=== PATIENT | female | born 1945 | race African-American/Black ===

== ENCOUNTER 2017-08-06 11:48 | Emergency (ER) | payer OTHER ==
[~2017-08-06 11:48] MED LIST: DEXA4TAB PO; KLOR20TA6 PO; PHOSTAB2; POMALYST PO; REST0.05 OU; VALT500T PO; VENTAER INH
[2017-08-06] MEDS ORDERED: SODIUM CHLOR 0.9% 1000 ML INJ 1,000 ML IV SCH (13:11)
--- NOTE | 2017-08-06 13:14 | PD ---
HPI Chief Complaint: Allergic/Adverse Reaction Time Seen by Provider: 13:11 Travel History International Travel<30 days: No Contact w/Intl Traveler<30days: No History of Present Illness HPI 71-year-old female with PMH of multiple myeloma presents to ED via EMS for possible medication reaction. Patient states that she was at the oncology center, receiving an unknown chemotherapy agent for the first time. She states about 5 minutes after initiation of the infusion she began to have central chest pain, palpitations, shortness of breath and increased tearing of the eyes. Pain is described as a heaviness, improved but not resolved on presentation. She denies breathing difficulties, difficulty swallowing her own secretions, wheezing, nausea or vomiting. She received Decadron en route and states that she is currently feeling well. 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) Cardiovascular Problems: No Diminished Hearing: No Endocrine: No Gastrointestinal Disorders: Yes GERD: Yes Genitourinary: No Hiatal Hernia: Yes (POSSIBLE) Immune Disorder: No Musculoskeletal: Yes Neurologic: Yes Psychiatric: No Reproductive: No Respiratory: No Immunizations Current: No Migraines: Yes (HX) Menopausal: Yes Past Surgical History Appendectomy: Yes Gynecologic Surgery: Yes (HYSTERECTOMY AND APPENDECTOMY) Hysterectomy: Yes Other Surgery: Yes Social History Alcohol Use: No Tobacco Use: No Substance Use: No Allergies-Medications (Allergen,Severity, Reaction): Coded Allergies: No Known Allergies (Verified , 07/01/15) Reported Meds & Prescriptions Reported Meds & Active Scripts Active Ventolin Hfa (Albuterol Sulfate) 18 Gm Aero 2 Puff INH Q4H PRN * SHAKE WELL BEFORE USE * Reported [Pomalyst] 2 Mg PO DIRECTED Restasis (Cyclosporine) 0.05 % Emu 1 Drop OU Dexamethasone 4 mg (Dexamethasone) 4 Mg Tab 5 Mg PO DAILY Phospha 250 Neutral (Pot Phosphate Monobasic W/ Sod) Neutral Tab Valtrex (Valacyclovir HCl) 500 Mg Tab 500 Mg PO EVERY OTHER DAY Klor-Con M20 (Potassium Chloride Microencaps) 20 Meq Tab 20 Meq PO BID Review of Systems ROS Limitations: Other: (patient seen in ambulance all) Except as stated in HPI: all other systems reviewed are Neg Physical Exam Exam Limitations: Other: (patient seen in ambulance all, limited due to privacy concerns.) Narrative GENERAL: Well-nourished, well-developed AA female in no acute distress. Speaking in full sentences. Her work of breathing. SKIN: Warm and dry. HEAD: Normocephalic. Atraumatic. EYES: No scleral icterus. No injection or drainage. PERRLA. EOMI. ENT: Pearly nicole tympanic membranes bilaterally. Nasal mucosa is moist. Oropharynx without erythema, edema or exudate. Airway patent. Uvula midline. NECK: Supple, trachea midline. No JVD or lymphadenopathy. CARDIOVASCULAR: Regular rate and rhythm without murmurs, gallops, or rubs. RESPIRATORY: Breath sounds clear and equal bilaterally. No accessory muscle use. GASTROINTESTINAL: Abdomen soft, non-tender, nondistended. + Bowel sounds MUSCULOSKELETAL: No cyanosis, or edema. Moves extremities spontaneously. BACK: Nontender without obvious deformity. No CVA tenderness. Data Data Last Documented VS Vital Signs Date Time Temp Pulse Resp B/P (MAP) Pulse Ox O2 Delivery O2 Flow Rate FiO2 08/06/17 16:38 64 18 119/64 (82) 98 08/06/17 14:24 Room Air 08/06/17 13:20 97.9 Orders Orders Ecg Monitoring (08/06/17 13:02) Iv Access Insert/Monitor (08/06/17 13:02) Oximetry (08/06/17 13:02) Basic Metabolic Panel (Bmp) (08/06/17 13:11) Complete Blood Count With Diff (08/06/17 13:11) Sodium Chlor 0.9% 1000 Ml Inj (Ns 1000 M (08/06/17 13:11) Sodium Chloride 0.9% Flush (Ns Flush) (08/06/17 13:15) Electrocardiogram (08/06/17 ) Chest, Single Ap (08/06/17 ) Troponin I (08/06/17 13:14) Protein Corrected Calcium(Pcc) (08/06/17 13:55) Calcium Carbonate Chew (Tums Chew) (08/06/17 16:00) Ed Discharge Order (08/06/17 16:31) Labs Laboratory Tests Test 08/06/17 13:55 White Blood Count 0.5 TH/MM3 Red Blood Count 3.17 MIL/MM3 Hemoglobin 10.0 GM/DL Hematocrit 28.6 % Mean Corpuscular Volume 90.1 FL Mean Corpuscular Hemoglobin 31.4 PG Mean Corpuscular Hemoglobin Concent 34.9 % Red Cell Distribution Width 17.5 % Platelet Count 162 TH/MM3 Mean Platelet Volume 7.4 FL CBC Comment AUTO DIFF Differential Total Cells Counted 100 Neutrophils % (Manual) 80 % Band Neutrophils % 5 % Lymphocytes % 9 % Monocytes % 6 % Neutrophils # (Manual) 0.4 TH/MM3 Differential Comment FINAL DIFF MANUAL Platelet Estimate NORMAL Platelet Morphology Comment ENLARGED Ovalocytes 1+ Blood Urea Nitrogen 21 MG/DL Creatinine 1.35 MG/DL Random Glucose 120 MG/DL Total Protein 5.4 GM/DL Calcium Level 7.2 MG/DL Sodium Level 142 MEQ/L Potassium Level 3.5 MEQ/L Chloride Level 112 MEQ/L Carbon Dioxide Level 23.9 MEQ/L Anion Gap 6 MEQ/L Estimat Glomerular Filtration Rate 47 ML/MIN Protein Corrected Calcium 8.1 MG/DL Troponin I LESS THAN 0.02 NG/ML MDM Medical Decision Making Medical Screen Exam Complete: Yes Emergency Medical Condition: Yes Differential Diagnosis Medication side effect versus allergic reaction versus anaphylaxis versus other Narrative Course 71-year-old female with PMH of multiple myeloma presents to ED via EMS for possible medication reaction. Patient states that she was at the oncology center, receiving an unknown chemotherapy agent for the first time. She states about 5 minutes after initiation of the infusion she began to have central chest pain, palpitations, shortness of breath and increased tearing of the eyes. Pain is described as a heaviness, improved but not resolved on presentation. She received Decadron en route and states that she is currently feeling well. Vitals reviewed. On exam this is a pleasant -[place] female in no acute distress. ENT exam is unremarkable. Airway patent. No appreciable N/R/G. Chest CTAB. Abdomen soft and nontender. No lower extremity edema. EKG revealed 59, sinus bradycardia. W[place] interval 150, QRS 76, QTC 406. Normal axis. No acute ST changes. Reviewed by Dr. Kearns. CXR: No acute cardiopulmonary findings. Cardiac enzymes negative 1. No concerning abnormalities of the CBC. BUN 21 creatinine 1.35. Baseline per chart review. Protein corrected calcium 8.1. Patient was administered 1 g calcium chew. Discussed the results of the workup with the patient and her daughter. I feel that she is safe for discharge. They're requesting to go home. Patient is instructed to discuss future medication administration with her oncologist. She is stable and discharged home. Diagnosis Primary Impression: Medication reaction Qualified Codes: T88.7XXA - Unspecified adverse effect of drug or medicament, initial encounter Additional Impression: Hypocalcemia Referrals: Oncologist Primary Care Physician Patient Instructions: General Instructions, Hypocalcemia (ED) Additional Instructions: Rest, hydrate. Return to normal, gentle activity as tolerated. Eat a well balanced, varied diet. Follow up with your oncologist to discuss whether this medication is appropriate for you. Return to the ED for worsening symptoms or any urgent or emergent medical condition. Disposition: 01 DISCHARGE HOME Condition: Stable Nani Cruz Aug 06, 2017 13:14
[2017-08-06] MEDS ORDERED: SODIUM CHLORIDE 0.9% FLUSH 10 ML FLUSH IV FLUSH PRN (13:15)
[2017-08-06 13:20] VITALS: BP 124/63; PULSE 62; RESP 16; TEMP 97.9; O2SAT 100
[2017-08-06 14:12] LABS: HEMATOCRIT 28.6 % (35.0-46.0); MEAN CELL VOLUME 90.1 FL (80.0-100.0); MEAN CORPUSCULAR HEMOGLOBIN 31.4 PG (27.0-34.0); MEAN CORPUSCULAR HGB CONC 34.9 % (32.0-36.0); MEAN PLATELET VOLUME 7.4 FL (7.0-11.0); PLATELET COUNT 162 TH/MM3 (150-450); RED BLOOD COUNT 3.17 MIL/MM3 (4.00-5.30); RED CELL DISTRIBUTION WIDTH 17.5 % (11.6-17.2); WHITE BLOOD COUNT 0.5 TH/MM3 (4.0-11.0)
[2017-08-06 14:24] VITALS: O2SAT 98
[2017-08-06 14:36] LABS: BICARBONATE 23.9 MEQ/L (21.0-32.0); CALCIUM 7.2 MG/DL (8.5-10.1); CREATININE 1.35 MG/DL (0.50-1.00)
--- NOTE | 2017-08-06 14:36 | RADRPT ---
EXAM DATE/TIME: 08/06/2017 13:43 [facility] COMPARISON: No previous studies available for comparison. INDICATIONS : Short of breath. Patient had a reaction to new chemotherapy treatment. MEDICAL HISTORY : Gastroesophageal reflux disease. Multiple myloma. SURGICAL HISTORY : Appendectomy. Hysterectomy. Infusaport. ENCOUNTER: Initial ACUITY: 1 day PAIN SCORE: 0/10 LOCATION: Bilateral chest FINDINGS: The heart is normal in size. The lungs are clear. There is [id number] in excellent position. The visualized bony structures are grossly intact Within previous kyphoplasty of the lower spine. CONCLUSION: 1. No acute cardiopulmonary findings identified. Jose Little MD on August 06, 2017 at 14:22 Board Certified Radiologist. This report was verified electronically.
[2017-08-06 15:20] LABS: CALCIUM-PROTEIN CORRECTED 8.1 MG/DL (8.5-10.1); TOTAL PROTEIN 5.4 GM/DL (6.4-8.2)
[2017-08-06] MEDS ORDERED: CALCIUM CARBONATE 500 MG CHEWABLE TAB CHEW ONE (16:00)
[2017-08-06 16:21] LABS: BANDS 5 % (0-6); LYMPHOCYTES 9 % (9-44); MONOCYTES 6 % (0-8); NEUTROPHIL # MANUAL DIFF 0.4 TH/MM3 (1.8-7.7); POLYS (SEG NEUTROPHILS) 80 % (16-70)
[2017-08-06 16:24] LABS: OVALOCYTES 1+ (NORMAL)
[2017-08-06 16:38] VITALS: BP 119/64
--- NOTE | 2017-08-07 23:48 | EKG ---
Date Performed: 08/06/2017 Time Performed: 13:25:25 PTAGE: 71 years EKG: SINUS BRADYCARDIA NONSPECIFIC T-WAVE ABNORMALITY BORDERLINE ECG PREVIOUS TRACING : 05/21/2013 21.00 Since the previous tracing, no significant change noted DOCTOR: Anton Payne Interpretating Date/Time 08/07/2017 23:45:33
== END 2017-08-06 17:07 | disposition home or self-care (01) ==
LOC: NEDAMB 11:48
DX: T88.7XXA Unspecified adverse effect of drug or medicament, initial encounter (principal); E83.51 Hypocalcemia; R06.02 Shortness of breath; R00.2 Palpitations; C90.00 Multiple myeloma not having achieved remission; D64.9 Anemia, unspecified; K21.9 Gastro-esophageal reflux disease without esophagitis
CPT/HCPCS: 71045; 80048; 84155; 84484; 85007; 85027; 93005; 96360; 99284; J7030

== ENCOUNTER 2017-11-07 10:43 | Emergency (ER) | payer OTHER ==
[2017-11-07 10:58] VITALS: BP 115/63; PULSE 96; RESP 17; TEMP 98.3; O2SAT 96
[2017-11-07] MEDS ORDERED: SODIUM CHLOR 0.9% 1000 ML INJ 1,000 ML IV SCH (11:10)
[2017-11-07] MEDS ORDERED: SODIUM CHLORIDE 0.9% FLUSH 10 ML FLUSH IV FLUSH PRN (11:15)
--- NOTE | 2017-11-07 11:39 | PD ---
HPI Chief Complaint: General Weakness Time Seen by Provider: 11:09 Travel History International Travel<30 days: No Contact w/Intl Traveler<30days: No Traveled to known affect area: No History of Present Illness HPI 72-year-old female with PMH of multiple myeloma, last chemo (Velcade, daratumumab and Zometa) on October 31, followed by Dr. Vianey Arvizu presents to the ED for evaluation of fatigue, low appetite and ongoing lower extremity edema. Patient denies nausea and vomiting, states that "food just does not taste good. " She states that her chronic back pain has been "acting up." Pain is rated 9/ 10, described as aching, exacerbated by certain motions. No alleviating factors reported. The patient states she has been out of tramadol for 4 days. She endorses chills. She endorses dyspnea on exertion, ongoing since beginning chemotherapy. Denies fever, chest pain, cough, abdominal pain, melena, hematochezia, constipation, dysuria, hematuria. She states she has had well- formed stools daily. PFSH Past Medical History Anemia: Yes Arthritis: Yes Blood Disorders: No Cancer: Yes (BONE [id number] MARROW TRANSPLANT 03/2010) Cardiovascular Problems: No Chemotherapy: Yes Diminished Hearing: No Endocrine: No Gastrointestinal Disorders: Yes GERD: Yes Genitourinary: No Hiatal Hernia: Yes (POSSIBLE) Immune Disorder: No Implanted Vascular Access Dvce: No Musculoskeletal: Yes Neurologic: Yes Psychiatric: No Reproductive: No Respiratory: No Immunizations Current: No Migraines: Yes (HX) Menopausal: Yes Past Surgical History Appendectomy: Yes Gynecologic Surgery: Yes (HYSTERECTOMY AND APPENDECTOMY) Hysterectomy: Yes Other Surgery: Yes Social History Alcohol Use: No Tobacco Use: No Substance Use: No Allergies-Medications (Allergen,Severity, Reaction): Coded Allergies: Penicillins (Verified Allergy, Intermediate, Hives, 11/07/17) Reported Meds & Prescriptions Reported Meds & Active Scripts Active Tramadol (Tramadol HCl) 50 Mg Tab 50 Mg PO Q6H PRN Zofran Odt (Ondansetron Odt) 4 Mg Tab 4 Mg SL Q6HR PRN Reported Bumetanide 1 Mg Tab 1 Mg PO BID Mucus Relief ER (Guaifenesin) 600 Mg Tab 600 Mg PO BID Lasix (Furosemide) 20 Mg Tab 20 Mg PO DAILY Zovirax (Acyclovir) 400 Mg Tab 400 Mg PO BID [Pomalyst] 2 Mg PO DIRECTED Review of Systems Except as stated in HPI: all other systems reviewed are Neg Physical Exam Narrative GENERAL: Well-nourished, well-developed nontoxic-appearing -[place]i female in no acute distress. T. SKIN: Focused skin assessment warm/dry. HEAD: Normocephalic. EYES: No scleral icterus. No injection or drainage. NECK: Supple, trachea midline. No JVD or lymphadenopathy. CARDIOVASCULAR: Regular rate and rhythm without murmurs, gallops, or rubs. RESPIRATORY: Breath sounds clear and equal bilaterally. No accessory muscle use. GASTROINTESTINAL: Abdomen soft, non-tender, nondistended. Active bowel sounds. MUSCULOSKELETAL: No cyanosis. 1+ edema to the knees bilaterally. Hohmann sign negative bilaterally. Moves extremities spontaneously. BACK: No obvious deformity. No midline tenderness. No CVA tenderness. Data Data Last Documented VS Vital Signs Date Time Temp Pulse Resp B/P (MAP) Pulse Ox O2 Delivery O2 Flow Rate FiO2 11/07/17 11:45 89 18 99/73 (82) 99 Room Air 11/07/17 10:58 98.3 Orders Orders Complete Blood Count With Diff (11/07/17 11:10) Comprehensive Metabolic Panel (11/07/17 11:10) Prothrombin Time / Inr (Pt) (11/07/17 11:10) Act Partial Throm Time (Ptt) (11/07/17 11:10) Urinalysis - C+S If Indicated (11/07/17 11:10) Iv Access Insert/Monitor (11/07/17 11:10) Ecg Monitoring (11/07/17 11:10) Oximetry (11/07/17 11:10) Sodium Chlor 0.9% 1000 Ml Inj (Ns 1000 M (11/07/17 11:10) Sodium Chloride 0.9% Flush (Ns Flush) (11/07/17 11:15) Tramadol (Ultram) (11/07/17 12:15) Ed Discharge Order (11/07/17 15:13) Labs Laboratory Tests Test 11/07/17 12:00 11/07/17 12:26 Urine Color YELLOW Urine Turbidity HAZY Urine pH 7.0 Urine Specific Crawford 1.018 Urine Protein >=500 mg/dL Urine Glucose (UA) 150 mg/dL Urine Ketones NEG mg/dL Urine Occult Blood NEG Urine Nitrite NEG Urine Bilirubin NEG Urine Leukocyte Esterase NEG Urine RBC LESS THAN 1 /hpf Urine WBC 2 /hpf Urine Squamous Epithelial Cells 1 /hpf Urine Bacteria OCC /hpf Urine Hyaline Casts 6 /lpf Urine Mucus FEW /lpf Microscopic Urinalysis Comment CULT NOT INDICATED White Blood Count 4.1 TH/MM3 Red Blood Count 3.90 MIL/MM3 Hemoglobin 11.7 GM/DL Hematocrit 35.3 % Mean Corpuscular Volume 90.6 FL Mean Corpuscular Hemoglobin 29.9 PG Mean Corpuscular Hemoglobin Concent 33.0 % Red Cell Distribution Width 18.5 % Platelet Count 99 TH/MM3 Mean Platelet Volume 8.1 FL Neutrophils (%) (Auto) 14.8 % Lymphocytes (%) (Auto) 59.6 % Monocytes (%) (Auto) 24.3 % Eosinophils (%) (Auto) 0.4 % Basophils (%) (Auto) 0.9 % Neutrophils # (Auto) 0.6 TH/MM3 Lymphocytes # (Auto) 2.4 TH/MM3 Monocytes # (Auto) 1.0 TH/MM3 Eosinophils # (Auto) 0.0 TH/MM3 Basophils # (Auto) 0.0 TH/MM3 CBC Comment AUTO DIFF Differential Total Cells Counted 100 Neutrophils % (Manual) 17 % Lymphocytes % 74 % Monocytes % 9 % Neutrophils # (Manual) 0.7 TH/MM3 Nucleated Red Blood Cells 5 /100 WBC Differential Comment FINAL DIFF MANUAL Platelet Estimate LOW Platelet Morphology Comment NORMAL Prothrombin Time 12.3 SEC Prothromb Time International Ratio 1.2 RATIO Activated Partial Thromboplast Time 29.8 SEC Blood Urea Nitrogen 18 MG/DL Creatinine 2.30 MG/DL Random Glucose 93 MG/DL Total Protein 5.6 GM/DL Albumin 0.7 GM/DL Calcium Level 7.5 MG/DL Alkaline Phosphatase 33 U/L Aspartate Amino Transf (AST/SGOT) 45 U/L Alanine Aminotransferase (ALT/SGPT) 13 U/L Total Bilirubin 0.1 MG/DL Sodium Level 138 MEQ/L Potassium Level 3.2 MEQ/L Chloride Level 105 MEQ/L Carbon Dioxide Level 21.5 MEQ/L Anion Gap 12 MEQ/L Estimat Glomerular Filtration Rate 25 ML/MIN [facility] Medical Decision Making Medical Screen Exam Complete: Yes Emergency Medical Condition: Yes Differential Diagnosis Chemotherapy side effect versus dehydration versus acute on chronic back pain versus metabolic derangement versus other Narrative Course 72-year-old female with PMH of multiple myeloma, last chemo (Velcade, daratumumab and Zometa) on October 31, followed by Dr. Vianey Arvizu presents to the ED for evaluation of fatigue, low appetite, back pain. The patient states she has been out of tramadol for 4 days. Patient is afebrile on presentation. On exam there are no focal neuro deficits. Lung sounds are clear bilaterally. There is trace lower extremity edema bilaterally. Back is nontender. IV was established. Patient was administered 1 L normal saline, 50 mg tramadol. CBC: WBC 4.1. Hemoglobin 11.7. Hematocrit 35.5. Platelets 99. INR 1.2. CMP: Potassium 3.2. Calcium 7.5. BUN 18, creatinine 2.30. Calcium corrects when hypoalbuminemia is taken into account. UA: No culture indicated. I discussed the results of the workup with Dr. Thomas. He recommends that I contact Dr. Arvizu. I spoke with Dr. Arvizu. 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 He suspects the difficulty with eating is related to the administration of Velcade. He recommends hydration, outpatient Zofran prescription and will see the patient in the office. I discussed the results of the workup with the patient. She is reassured by the results today. She is instructed to concentrate on staying hydrated. She is provided a short course of Zofran. I provided his few doses of tramadol until she can have the medication refilled by her primary care. She is instructed to call tomorrow morning for follow-up with Dr. Arvizu. Patient indicated understanding of the instructions and is agreeable to care plan. She is stable and discharged home. Diagnosis Primary Impression: Medication side effect Additional Impression: Chronic back pain Qualified Codes: M54.5 - Low back pain; G89.29 - Other chronic pain Additional Instructions: Rest, hydrate. Push fluids, such as water, sports drinks, clear broth, Jell-O, nutritional supplements. Take Zofran as prescribed, as needed for nausea. This may help to improve your appetite as well. Return to normal, gentle activity as tolerated. Take tramadol as prescribed. Follow-up with Dr. Arvizu as planned. Return to the ED for any urgent or emergent medical condition. Med/Other Pt SpecificInfo: Prescription(s) given Scripts Tramadol (Tramadol) 50 Mg Tab 50 MG PO Q6H Y for PAIN, #15 TAB 0 Refills Prov: Darius Thomas MD 11/07/17 Ondansetron Odt (Zofran Odt) 4 Mg Tab 4 MG SL Q6HR Y for Nausea/Vomiting, #15 TAB 0 Refills Prov: Darius Thomas MD 11/07/17 Disposition: 01 DISCHARGE HOME Condition: Stable Nani Cruz Nov 07, 2017 11:39
[2017-11-07 11:44] VITALS: RESP 18; O2SAT 100
[2017-11-07 11:45] VITALS: BP 99/73; PULSE 89; RESP 18; O2SAT 99
[2017-11-07] MEDS ORDERED: FURO1TAB62 PO (11:55)
[2017-11-07] MEDS ORDERED: BUME1TAB PO (11:55)
[2017-11-07] MEDS ORDERED: ZOVI400T PO (11:55)
[2017-11-07] MEDS ORDERED: GUAI600T11 PO (11:55)
[2017-11-07] MEDS ORDERED: traMADol HCL 50 MG TAB PO ONE (12:15)
[2017-11-07 12:55] LABS: INTERNATIONAL NORMALIZED RATIO 1.2 RATIO; PROTHROMBIN TIME - PATIENT 12.3 SEC (9.8-11.6)
[2017-11-07 12:58] LABS: AUTOMATED NEUTROPHIL # 0.6 TH/MM3 (1.8-7.7); BASOPHIL % 0.9 % (0.0-2.0); EOSINOPHIL % 0.4 % (0.0-4.0); HEMATOCRIT 35.3 % (35.0-46.0); HEMOGLOBIN 11.7 GM/DL (11.6-15.3); LYMPH % 59.6 % (9.0-44.0); LYMPHOCYTE # 2.4 TH/MM3 (1.0-4.8); MEAN CELL VOLUME 90.6 FL (80.0-100.0); MEAN CORPUSCULAR HEMOGLOBIN 29.9 PG (27.0-34.0); MEAN PLATELET VOLUME 8.1 FL (7.0-11.0); MONO % 24.3 % (0.0-8.0); NEUT % 14.8 % (16.0-70.0); PLATELET COUNT 99 TH/MM3 (150-450); RED CELL DISTRIBUTION WIDTH 18.5 % (11.6-17.2); WHITE BLOOD COUNT 4.1 TH/MM3 (4.0-11.0)
[2017-11-07 13:00] LABS: ALBUMIN 0.7 GM/DL (3.4-5.0); ALT (GPT) 13 U/L (10-53); AST (GOT) 45 U/L (15-37); BICARBONATE 21.5 MEQ/L (21.0-32.0); BLOOD UREA NITROGEN 18 MG/DL (7-18); CALCIUM 7.5 MG/DL (8.5-10.1); CHLORIDE 105 MEQ/L (98-107); GLOMERULAR FILTRATION RATE 25 ML/MIN (>89); GLUCOSE,RANDOM 93 MG/DL (74-106); SODIUM (NA) 138 MEQ/L (136-145)
[2017-11-07 13:02] LABS: ALKALINE PHOSPHATASE 33 U/L (45-117); TOTAL BILIRUBIN ADULT 0.1 MG/DL (0.2-1.0); TOTAL PROTEIN 5.6 GM/DL (6.4-8.2)
[2017-11-07 13:24] LABS: CORRECTED NUCLEATED RBC 5 /100 WBC (0-0); LYMPHOCYTES 74 % (9-44); MONOCYTES 9 % (0-8); NEUTROPHIL # MANUAL DIFF 0.7 TH/MM3 (1.8-7.7); NUCLEATED RED BLOOD CELL 5 (0-0); POLYS (SEG NEUTROPHILS) 17 % (16-70)
[2017-11-07 14:22] LABS: BACTERIA, URINE OCC /hpf; BILIRUBIN, URINE NEG (NEG); BLOOD, URINE NEG (NEG); GLUCOSE,URINE 150 mg/dL (NEG); HYALINE CAST, URINE 6 /lpf (RARE); KETONE, URINE NEG (NEG); MUCUS URINE FEW /lpf (OCC); NITRITE,URINE NEG (NEG); SQUAMOUS EPITHELIAL CELL URINE 1 /hpf (0-5); URINE COLOR YELLOW (YELLW/STRAW); URINE LEUKOCYTE ESTERASE NEG (NEG)
[2017-11-07] MEDS ORDERED: ZOFR4TAB3 SL (15:09)
[2017-11-07] MEDS ORDERED: TRAM50TA PO (15:09)
== END 2017-11-07 15:43 | disposition home or self-care (01) ==
LOC: NEPC 10:43
DX: M54.5 Low back pain (principal); G89.29 Other chronic pain; R53.83 Other fatigue; R63.0 Anorexia; R60.0 Localized edema; R06.00 Dyspnea, unspecified; T50.905A Adverse effect of unspecified drugs, medicaments and biological substances, initial encounter; C90.00 Multiple myeloma not having achieved remission; K21.9 Gastro-esophageal reflux disease without esophagitis; Z87.39 Personal history of other diseases of the musculoskeletal system and connective tissue; Z86.69 Personal history of other diseases of the nervous system and sense organs
CPT/HCPCS: 80053; 81001; 85007; 85027; 85610; 85730; 99284; J7030

== ENCOUNTER 2017-11-11 16:36 | Observation (INO) | payer OTHER ==
[~2017-11-11] VITALS: Ht 154.9 cm; Wt 70.0 kg
[~2017-11-11 16:36] MED LIST changes: +BUME1TAB PO; -DEXA4TAB PO; +FURO1TAB62 PO; +GUAI600T11 PO; -KLOR20TA6 PO; -PHOSTAB2; -REST0.05 OU; +TRAM50TA PO; -VALT500T PO; -VENTAER INH; +ZOFR4TAB3 SL; +ZOVI400T PO
[2017-11-11 17:11] VITALS: BP 110/66; PULSE 90; RESP 16; TEMP 99.1; O2SAT 99
[2017-11-11 17:45] VITALS: BP_SYST 106; BP_SYST 109; BP_SYST 112; BP_DIAS 62; BP_DIAS 65; BP_DIAS 66; RESP 18
[2017-11-11] MEDS ORDERED: SODIUM CHLOR 0.9% 1000 ML INJ 1,000 ML IV ONE (17:45)
[2017-11-11 19:00] LABS: HEMATOCRIT 32.3 % (35.0-46.0); HEMOGLOBIN 10.7 GM/DL (11.6-15.3); MEAN CELL VOLUME 91.5 FL (80.0-100.0); MEAN CORPUSCULAR HEMOGLOBIN 30.4 PG (27.0-34.0); MEAN CORPUSCULAR HGB CONC 33.2 % (32.0-36.0); MEAN PLATELET VOLUME 8.4 FL (7.0-11.0); PLATELET COUNT 153 TH/MM3 (150-450); RED BLOOD COUNT 3.53 MIL/MM3 (4.00-5.30); RED CELL DISTRIBUTION WIDTH 18.8 % (11.6-17.2); WHITE BLOOD COUNT 4.4 TH/MM3 (4.0-11.0)
[2017-11-11 19:24] LABS: ALBUMIN 0.9 GM/DL (3.4-5.0); AST (GOT) 44 U/L (15-37); BICARBONATE 22.4 MEQ/L (21.0-32.0); BLOOD UREA NITROGEN 19 MG/DL (7-18); CALCIUM 7.7 MG/DL (8.5-10.1); CHLORIDE 103 MEQ/L (98-107); GLOMERULAR FILTRATION RATE 23 ML/MIN (>89); GLUCOSE,RANDOM 125 MG/DL (74-106); MAGNESIUM 2.3 MG/DL (1.5-2.5); SODIUM (NA) 136 MEQ/L (136-145)
[2017-11-11 19:28] LABS: ALKALINE PHOSPHATASE 39 U/L (45-117); ALT (GPT) 14 U/L (10-53); TOTAL BILIRUBIN ADULT 0.1 MG/DL (0.2-1.0); TOTAL PROTEIN 5.9 GM/DL (6.4-8.2)
[2017-11-11 20:05] LABS: BANDS 3 % (0-6); LYMPHOCYTES 16 % (9-44); MONOCYTES 1 % (0-8); NEUTROPHIL # MANUAL DIFF 3.7 TH/MM3 (1.8-7.7); POLYS (SEG NEUTROPHILS) 80 % (16-70)
[2017-11-11] MEDS ORDERED: ONDANSETRON ODT 4 MG TAB PO ONE (20:15)
[2017-11-11] MEDS ORDERED: BISACODYL 10 MG SUPP RECTAL PRN (20:45)
[2017-11-11] MEDS ORDERED: SENNOSIDES 8.6 MG TAB PO PRN (20:45)
[2017-11-11] MEDS ORDERED: SODIUM CHLORIDE 0.9% FLUSH 10 ML FLUSH IV FLUSH PRN (20:45)
[2017-11-11] MEDS ORDERED: ONDANSETRON HCL 4 MG/2 ML VIAL IVP PRN (20:45)
[2017-11-11] MEDS ORDERED: MAGNESIUM HYDROXIDE SUSP 30 ML CUP PO PRN (20:45)
[2017-11-11] MEDS ORDERED: ACETAMINOPHEN 325 MG TAB PO PRN (20:45)
[2017-11-11] MEDS ORDERED: LACTULOSE SYRUP 20 GM/30 ML CUP PO PRN (20:45)
[2017-11-11] MEDS ORDERED: POTASSIUM CHLORIDE 20 MEQ CONTROLLED RELEASE TAB PO ONE (20:45)
[2017-11-11] MEDS ORDERED: NALOXONE HCL 0.4 MG/ML AMP IV PUSH PRN (20:45)
--- NOTE | 2017-11-11 20:53 | PD ---
HPI Chief Complaint: Abnormal Results Time Seen by Provider: 17:22 Travel History International Travel<30 days: No Contact w/Intl Traveler<30days: No Traveled to known affect area: No History of Present Illness HPI 72-year-old female that presents to the ED for evaluation of abnormal results. Per patient she had blood work done on Saturday and today she went to get her port flushed by the oncologist office and apparently when the nurses mentioned to her that one of her blood work show a low hemoglobin A1c. Apparently patient has been complaining of some weakness for the past week that appears to be worsening. She also feels nauseous. She has a history of multiple myeloma and gets chemotherapy. She has been on this therapy for some time. She follows with Dr. Arvizu. Per patient she does not know if is a reaction to the medications or something else. She is concerned because is not getting better. She was given Zofran by her doctor with improvement of some of her nausea and vomit but she continues to have the symptoms. She still feels weak. She was not able to see her doctor today so she decided to come here because she still feels lousy. She has an allergy to penicillin. She has no other medical issues at this time. No chest pain or shortness of breath. No urinary or bowel movement issues. No bleeding. No fevers chills or sweats. No other medical issues. PFSH Past Medical History Anemia: Yes Arthritis: Yes Cancer: Yes (BONE [id number] MARROW TRANSPLANT 03/2010) Chemotherapy: Yes (currently <1 week ago ) Diminished Hearing: No GERD: Yes Implanted Vascular Access Dvce: Yes Immunizations Current: No Migraines: Yes (HX) ?: Not Menopausal: Yes Past Surgical History Appendectomy: Yes Hysterectomy: Yes Social History Alcohol Use: No Tobacco Use: No Substance Use: No Allergies-Medications (Allergen,Severity, Reaction): Coded Allergies: Penicillins (Verified Allergy, Intermediate, Hives, 11/07/17) Reported Meds & Prescriptions Reported Meds & Active Scripts Active Tramadol (Tramadol HCl) 50 Mg Tab 50 Mg PO Q6H PRN Zofran Odt (Ondansetron Odt) 4 Mg Tab 4 Mg SL Q6HR PRN Reported Bumetanide 1 Mg Tab 1 Mg PO BID Lasix (Furosemide) 20 Mg Tab 20 Mg PO DAILY Review of Systems Except as stated in HPI: all other systems reviewed are Neg Physical Exam Narrative GENERAL: SKIN: Warm and dry. HEAD: Atraumatic. Normocephalic. EYES: Pupils equal and round. No scleral icterus. No injection or drainage. ENT: No nasal bleeding or discharge. Mucous membranes pink and moist. Tongue is midline. No uvula deviation. NECK: Trachea midline. No JVD. CARDIOVASCULAR: Regular rate and rhythm. No murmurs, S3, S4. RESPIRATORY: No accessory muscle use. Clear to auscultation. Breath sounds equal bilaterally. GASTROINTESTINAL: Abdomen soft, non-tender, nondistended. Hepatic and splenic margins not palpable. MUSCULOSKELETAL: Extremities without clubbing, cyanosis, or edema. No obvious deformities. Full ROM of the upper and lower extremities bilaterally. 2+ pulses bilaterally. NEUROLOGICAL: Awake and alert. No obvious cranial nerve deficits. Motor grossly within normal limits. Five out of 5 muscle strength in the arms and legs. Normal speech. PSYCHIATRIC: Appropriate mood and affect; insight and judgment normal. Data Data Last Documented VS Vital Signs Date Time Temp Pulse Resp B/P (MAP) Pulse Ox O2 Delivery O2 Flow Rate FiO2 11/11/17 18:45 98 Room Air 11/11/17 17:45 77 18 106/65 (79) 68 112/66 (81) 70 109/62 (78) 11/11/17 17:11 99.1 Orders Orders Complete Blood Count With Diff (11/11/17 17:31) Comprehensive Metabolic Panel (11/11/17 17:31) Urinalysis - C+S If Indicated (11/11/17 17:31) Magnesium (Mg) (11/11/17 17:31) Iv Access Insert/Monitor (11/11/17 17:31) Ecg Monitoring (11/11/17 17:31) Orthostatic Vital Signs (11/11/17 17:31) Sodium Chlor 0.9% 1000 Ml Inj (Ns 1000 M (11/11/17 17:45) Ondansetron Odt (Zofran Odt) (11/11/17 20:15) Admit Order (Ed Use Only) (11/11/17 20:13) Labs Laboratory Tests Test 11/11/17 18:40 White Blood Count 4.4 TH/MM3 Red Blood Count 3.53 MIL/MM3 Hemoglobin 10.7 GM/DL Hematocrit 32.3 % Mean Corpuscular Volume 91.5 FL Mean Corpuscular Hemoglobin 30.4 PG Mean Corpuscular Hemoglobin Concent 33.2 % Red Cell Distribution Width 18.8 % Platelet Count 153 TH/MM3 Mean Platelet Volume 8.4 FL CBC Comment AUTO DIFF Differential Total Cells Counted 100 Neutrophils % (Manual) 80 % Band Neutrophils % 3 % Lymphocytes % 16 % Monocytes % 1 % Neutrophils # (Manual) 3.7 TH/MM3 Differential Comment FINAL DIFF MANUAL Platelet Estimate LOW Platelet Morphology Comment NORMAL Blood Urea Nitrogen 19 MG/DL Creatinine 2.50 MG/DL Random Glucose 125 MG/DL Total Protein 5.9 GM/DL Albumin 0.9 GM/DL Calcium Level 7.7 MG/DL Magnesium Level 2.3 MG/DL Alkaline Phosphatase 39 U/L Aspartate Amino Transf (AST/SGOT) 44 U/L Alanine Aminotransferase (ALT/SGPT) 14 U/L Total Bilirubin 0.1 MG/DL Sodium Level 136 MEQ/L Potassium Level 3.2 MEQ/L Chloride Level 103 MEQ/L Carbon Dioxide Level 22.4 MEQ/L Anion Gap 11 MEQ/L Estimat Glomerular Filtration Rate 23 ML/MIN MDM Medical Decision Making Medical Screen Exam Complete: Yes Emergency Medical Condition: Yes Medical Record Reviewed: Yes Interpretation(s) CBC & BMP Diagram 11/11/17 18:40 Total Protein 5.9 L, Albumin 0.9 L, Calcium Level 7.7 L, Magnesium Level 2.3, Alkaline Phosphatase 39 L, Aspartate Amino Transf (AST/SGOT) 44 H, Alanine Aminotransferase (ALT/SGPT) 14, Total Bilirubin 0.1 L Differential Diagnosis Dehydration versus UTI versus infection versus neutropenia versus acute kidney injury Narrative Course 72-year-old female that presents to the ED for evaluation of weakness and abnormal results. Patient was properly examined and was found to have signs and symptoms of unclear etiology. Per patient her hemoglobin A1c was low and this is what made her come here. At this time I reassured her that the hemoglobin A1c is being low will likely not be an issue for her likely tell us that she does not have diabetes. She apparently has not been eating or drinking much as well. I did notice that her blood work a week ago did show elevated creatinine at that time. The recommend doing some basic blood work to make sure that she does not have more dehydration or acute kidney injury. Her blood work came back and did show what appears to be worsening acute kidney injury. This time a recommend admission for further evaluation. Case discussed with my attending who agrees with plan. Patient agreed to admission for opts for further evaluation and treatment. Case discussed with Dr. Nelson who agrees with admission to observation for IV fluids. Diagnosis Primary Impression: Acute kidney injury Additional Impressions: Dehydration Multiple myeloma Qualified Codes: C90.00 - Multiple myeloma not having achieved remission Admitting Information Admitting Physician Requests: Observation Mendez Rodgers Nov 11, 2017 20:53
[2017-11-11] MEDS ORDERED: ONDANSETRON ODT 4 MG TAB PO PRN (21:15)
--- NOTE | 2017-11-11 21:26 | HHI.HP ---
HPI Service [facility] Primary Care Physician Unknown Admission Diagnosis SIMON, dehydration, cancer patient Diagnoses: Travel History International Travel<30 Days: No Contact w/Intl Traveler <30 Da: No Traveled to Known Affected Are: No History of Present Illness 72-year-old female with past medical history significant for multiple myeloma, chronic kidney disease, hyperlipidemia and anemia presents to the emergency department for the evaluation of weakness. The patient reports that she has been feeling weak for approximately 2 days and has had accompanying nausea and vomiting 3 days. She endorses a shortness of breath with exertion. Denies chest pain. Went to the oncology center this morning to have an injection however this was not completed because her blood glucose was low. Patient denies any abdominal pain. No fevers/chills. No lateralizing signs/symptoms. Review of Systems Except as stated in HPI: all other systems reviewed are Neg Past Family Social History Past Medical History multiple myeloma, chronic kidney disease, hyperlipidemia Past Surgical History Hysterectomy Back surgery Port placement Reported Medications Reported Meds & Active Scripts Active Tramadol (Tramadol HCl) 50 Mg Tab 50 Mg PO Q6H PRN Zofran Odt (Ondansetron Odt) 4 Mg Tab 4 Mg SL Q6HR PRN Reported Bumetanide 1 Mg Tab 1 Mg PO BID Lasix (Furosemide) 20 Mg Tab 20 Mg PO DAILY Allergies: Coded Allergies: Penicillins (Verified Allergy, Intermediate, Hives, 11/07/17) Family History Mother with CAD Social History Negative for alcohol, tobacco and illicit drug Physical Exam Vital Signs Vital Signs Date Time Temp Pulse Resp B/P (MAP) Pulse Ox O2 Delivery O2 Flow Rate FiO2 11/11/17 18:45 98 Room Air 11/11/17 17:45 77 18 106/65 (79) 68 112/66 (81) 70 109/62 (78) 11/11/17 17:11 99.1 90 16 110/66 (81) 99 Physical Exam GENERAL: -Serbian female sitting up in bed SKIN: No rashes, ecchymoses or lesions. Cool and dry. HEAD: Atraumatic. Normocephalic. No temporal or scalp tenderness. EYES: Pupils equal round and reactive. Extraocular motions intact. No scleral icterus. No injection or drainage. ENT: Nose without bleeding, purulent drainage or septal hematoma. Throat without erythema, tonsillar hypertrophy or exudate. Uvula midline. Airway patent. NECK: Trachea midline. No JVD or lymphadenopathy. Supple, nontender, no meningeal signs. CARDIOVASCULAR: Regular rate and rhythm without murmurs, gallops, or rubs. RESPIRATORY: Clear to auscultation. Breath sounds equal bilaterally. No wheezes , rales, or rhonchi. GASTROINTESTINAL: Abdomen soft, non-tender, nondistended. No hepato-splenomegaly , or palpable masses. No guarding. MUSCULOSKELETAL: Extremities without clubbing, cyanosis, or edema. No joint tenderness, effusion, or edema noted. No calf tenderness. NEUROLOGICAL: Awake and alert. Cranial nerves II through XII intact. Motor and sensory grossly within normal limits. Normal speech. Laboratory Laboratory Tests Test 11/11/17 18:40 White Blood Count 4.4 Red Blood Count 3.53 Hemoglobin 10.7 Hematocrit 32.3 Mean Corpuscular Volume 91.5 Mean Corpuscular Hemoglobin 30.4 Mean Corpuscular Hemoglobin Concent 33.2 Red Cell Distribution Width 18.8 Platelet Count 153 Mean Platelet Volume 8.4 CBC Comment AUTO DIFF Differential Total Cells Counted 100 Neutrophils % (Manual) 80 Band Neutrophils % 3 Lymphocytes % 16 Monocytes % 1 Neutrophils # (Manual) 3.7 Differential Comment FINAL DIFF MANUAL Platelet Estimate LOW Platelet Morphology Comment NORMAL Blood Urea Nitrogen 19 Creatinine 2.50 Random Glucose 125 Total Protein 5.9 Albumin 0.9 Calcium Level 7.7 Magnesium Level 2.3 Alkaline Phosphatase 39 Aspartate Amino Transf (AST/SGOT) 44 Alanine Aminotransferase (ALT/SGPT) 14 Total Bilirubin 0.1 Sodium Level 136 Potassium Level 3.2 Chloride Level 103 Carbon Dioxide Level 22.4 Anion Gap 11 Estimat Glomerular Filtration Rate 23 Result Diagram: 11/11/17183911/11/171839 Caprini VTE Risk Assessment Caprini VTE Risk Assessment: Mod/High Risk (score >= 2) Caprini Risk Assessment Model Point Value = 1 Point Value = 2 Point Value = 3 Point Value = 5 Age 41-60 Minor surgery BMI > 25 kg/m2 Swollen legs Varicose veins or History of unexplained or recurrent spontaneous Oral contraceptives or hormone replacement Sepsis (< 1 month) Serious lung disease, including pneumonia (< 1 month) Abnormal pulmonary function Acute myocardial infarction Congestive heart failure (< 1 month) History of inflammatory bowel disease Medical patient at bed rest Age 61-74 Arthroscopic surgery Major open surgery (> 45 min) Laparoscopic surgery (> 45 min) Malignancy Confined to bed (> 72 hours) Immobilizing plaster cast Central venous access Age >= 75 History of VTE Family history of VTE Factor V Leiden Prothrombin [id number] Lupus anticoagulant Anticardiolipin antibodies Elevated serum homocysteine Heparin-induced thrombocytopenia Other congenital or acquired thrombophilia Stroke (< 1 month) Elective arthroplasty Hip, pelvis, or leg fracture Acute spinal cord injury (< 1 month) Prophylaxis Regimen Total Risk Factor Score Risk Level Prophylaxis Regimen 0-1 Low Early ambulation 2 Moderate Order ONE of the following: *Sequential Compression Device (SCD) *Heparin 5000 units SQ BID 3-4 Higher Order ONE of the following medications: *Heparin 5000 units SQ TID *Enoxaparin/Lovenox 40 mg SQ daily (WT < 150 kg, CrCl > 30 mL/min) *Enoxaparin/Lovenox 30 mg SQ daily (WT < 150 kg, CrCl > 10-29 mL/min) *Enoxaparin/Lovenox 30 mg SQ BID (WT < 150 kg, CrCl > 30 mL/min) AND/OR *Sequential Compression Device (SCD) 5 or more Highest Order ONE of the following medications: *Heparin 5000 units SQ TID (Preferred with Epidurals) *Enoxaparin/Lovenox 40 mg SQ daily (WT < 150 kg, CrCl > 30 mL/min) *Enoxaparin/Lovenox 30 mg SQ daily (WT < 150 kg, CrCl > 10-29 mL/min) *Enoxaparin/Lovenox 30 mg SQ BID (WT < 150 kg, CrCl > 30 mL/min) AND *Sequential Compression Device (SCD) Assessment and Plan Assessment and Plan Assessment/plan: 1. Weakness/dehydration/acute on chronic kidney injury Creatinine 2.50, baseline 1.3 IV fluid hydration Renal ultrasound pending Monitor renal function Physical therapy consulted, appreciate assistance 2. Multiple myeloma Patient's oncologist is Dr. Arvizu Continue outpatient follow-up 3. Hypokalemia Status post p.o. supplementation Monitor BMP FEN Regular diet Electrolytes: As above Lovenox NS at 100 cc/hour María Elena Nelson MD Nov 11, 2017 21:26
[2017-11-11 21:46] VITALS: BP 108/62; PULSE 83; RESP 17; TEMP 98.2; O2SAT 96
[2017-11-11] MEDS ORDERED: ENOXAPARIN SODIUM 40 MG/0.4 ML SYRINGE SQ SCH (22:00)
[2017-11-11] MEDS: SODIUM CHLOR 0.9% 1000 ML INJ 1,000 ML IV SCH (22:21)
[2017-11-11] MEDS: ENOXAPARIN SODIUM 30 MG/0.3 ML SYRINGE SQ SCH (22:21)
[2017-11-11] MEDS: DOCUSATE SODIUM 50 MG/SENNA 8.6 MG TAB PO SCH (22:21)
[2017-11-11] MEDS: SODIUM CHLORIDE 0.9% FLUSH 10 ML FLUSH IV FLUSH SCH (22:22)
[2017-11-11 22:49] LABS: BACTERIA, URINE RARE /hpf; BILIRUBIN, URINE NEG (NEG); BLOOD, URINE NEG (NEG); GLUCOSE,URINE 150 mg/dL (NEG); KETONE, URINE NEG (NEG); MUCUS URINE FEW /lpf (OCC); NITRITE,URINE NEG (NEG); RENAL EPITHELIAL CELLS 1 /hpf; SQUAMOUS EPITHELIAL CELL URINE 1 /hpf (0-5); URINE COLOR YELLOW (YELLW/STRAW); URINE LEUKOCYTE ESTERASE NEG (NEG)
[2017-11-11] MEDS: traMADol HCL 50 MG TAB PO PRN (23:19)
[2017-11-11 23:26] VITALS: BP 103/66; PULSE 72; RESP 17; TEMP 97.5; O2SAT 100
[2017-11-12 04:05] VITALS: BP 84/51; PULSE 78; RESP 16; TEMP 97.6; O2SAT 98
[2017-11-12 06:18] LABS: HEMATOCRIT 28.7 % (35.0-46.0); HEMOGLOBIN 9.4 GM/DL (11.6-15.3); MEAN CELL VOLUME 91.9 FL (80.0-100.0); MEAN CORPUSCULAR HGB CONC 32.7 % (32.0-36.0); MEAN PLATELET VOLUME 8.9 FL (7.0-11.0); PLATELET COUNT 171 TH/MM3 (150-450); RED BLOOD COUNT 3.12 MIL/MM3 (4.00-5.30); RED CELL DISTRIBUTION WIDTH 18.7 % (11.6-17.2); WHITE BLOOD COUNT 5.6 TH/MM3 (4.0-11.0)
[2017-11-12 06:38] LABS: ALBUMIN 0.8 GM/DL (3.4-5.0); ALKALINE PHOSPHATASE 30 U/L (45-117); ALT (GPT) 8 U/L (10-53); AST (GOT) 34 U/L (15-37); BICARBONATE 21.3 MEQ/L (21.0-32.0); BLOOD UREA NITROGEN 19 MG/DL (7-18); CALCIUM 7.1 MG/DL (8.5-10.1); CALCIUM-PROTEIN CORRECTED 8.2 MG/DL (8.5-10.1); CHLORIDE 109 MEQ/L (98-107); GLOMERULAR FILTRATION RATE 25 ML/MIN (>89); GLUCOSE,RANDOM 83 MG/DL (74-106); SODIUM (NA) 141 MEQ/L (136-145); TOTAL BILIRUBIN ADULT LESS THAN 0.1 MG/DL (0.2-1.0)
[2017-11-12 08:15] LABS: LYMPHOCYTES 11 % (9-44); MONOCYTES 2 % (0-8); NEUTROPHIL # MANUAL DIFF 4.9 TH/MM3 (1.8-7.7); POLYS (SEG NEUTROPHILS) 87 % (16-70)
[2017-11-12 08:16] LABS: HELMET CELLS OCC (NORMAL)
[2017-11-12 08:43] VITALS: BP 115/58; PULSE 74; RESP 18; TEMP 97.4; O2SAT 96
[2017-11-12] MEDS: DOCUSATE SODIUM 50 MG/SENNA 8.6 MG TAB PO SCH ×2 (09:58→21:32)
[2017-11-12] MEDS: SODIUM CHLORIDE 0.9% FLUSH 10 ML FLUSH IV FLUSH SCH ×2 (10:00→21:32)
[2017-11-12] MEDS: SODIUM CHLOR 0.9% 1000 ML INJ 1,000 ML IV SCH ×2 (10:00→17:15)
--- NOTE | 2017-11-12 11:41 | RADRPT ---
EXAM DATE: 11/12/2017 11:33 AM EDT AGE/SEX: 72 years / Female INDICATIONS: Increased BUN/Creatinine. Chronic kidney disease. CLINICAL DATA: This is the patient's initial encounter. Patient reports that signs and symptoms have been present for 2 days and indicates a pain score of 0/10. MEDICAL/SURGICAL HISTORY: Congestive heart failure. Gastroesophageal reflux disease. Anemia. Multiple myeloma. Chemotherapy. Blood transfusion. Chronic kidney disease. Hyperlipidemia. Appendec jana. Hysterectomy. Lumbar fracture repair. Bone marrow transplant. COMPARISON: No prior exams available for comparison. MEASUREMENTS: Right Kidney:__9.1 x 4.2 x 4.0 cm Left Kidney:__8.7 x 3.5 x 4.0 cm FINDINGS: Right Kidney: Increased echotexture. No mass or hydronephrosis. Left Kidney: Increased echotexture. No mass or hydronephrosis. Bladder: Within normal limits given the degree of distension. There is a small amount of abdominal ascites present. CONCLUSION: 1. The kidneys demonstrate increased echogenicity bilaterally characteristic for chronic medical linda al disease. 2. No evidence of hydronephrosis. Electronically signed by: Fidencio Card MD 11/12/2017 11:40 AM EDT
--- NOTE | 2017-11-12 11:45 | HHI.PR ---
Subjective Remarks Patient herself says that her nausea and vomiting are much improved. Says she walked well around with physical therapy. Says that she thinks she gets nauseated ever since she started her cancer treatment over the last 8 weeks or so. Objective Vital Signs Date Time Temp Pulse Resp B/P (MAP) Pulse Ox O2 Delivery O2 Flow Rate FiO2 11/12/17 08:43 97.4 74 18 115/58 (77) 96 11/12/17 04:05 97.6 78 16 84/51 (62) 98 11/11/17 23:26 97.5 72 17 103/66 (78) 100 11/11/17 21:46 98.2 83 17 108/62 (77) 96 11/11/17 18:45 98 Room Air 11/11/17 17:45 77 18 106/65 (79) 68 112/66 (81) 70 109/62 (78) 11/11/17 17:11 99.1 90 16 110/66 (81) 99 I/O 11/11/17 11/11/17 11/11/17 11/12/17 11/12/17 11/12/17 07:00 15:00 23:00 07:00 15:00 23:00 Intake Total 1000 ml Balance 1000 ml Intake IV Total 1000 ml Result Diagram: 11/12/17 0550 11/12/17 0550 Objective Remarks lying in bed, NAD, unlabored breathing abd soft, NT, ND A/P Assessment and Plan 1. Weakness -Likely secondary to SIMON, improving -Treat as below, PT 2. N/V - improved, possibly 2/2 chemotx - zofran prn 3.AK I - 2/2 N/V - continue IV hydration, showing some improvement but no or near baseline at this time, BMP in a.m. 4. Multiple myeloma Patient's oncologist is Dr. Arvizu Continue outpatient follow-up 5. Hypokalemia Status post p.o. supplementation Monitor BMP Chester Patel MD Nov 12, 2017 11:45
[2017-11-12 12:53] VITALS: BP 119/70; PULSE 71; RESP 18; TEMP 97.8; O2SAT 100
[2017-11-12 16:57] VITALS: BP 121/71; PULSE 82; RESP 18; TEMP 97.7; O2SAT 98
[2017-11-12 20:12] VITALS: BP 91/54; PULSE 75; RESP 17; TEMP 98.1; O2SAT 97
[2017-11-12] MEDS: ENOXAPARIN SODIUM 30 MG/0.3 ML SYRINGE SQ SCH (22:43)
[2017-11-12] MEDS: traMADol HCL 50 MG TAB PO PRN (22:43)
[2017-11-13 00:06] VITALS: BP 108/58; PULSE 75; RESP 16; TEMP 98.1; O2SAT 98
[2017-11-13] MEDS: SODIUM CHLOR 0.9% 1000 ML INJ 1,000 ML IV SCH ×4 (03:00→23:34)
[2017-11-13 03:13] VITALS: BP 107/63; PULSE 80; RESP 17; TEMP 98; O2SAT 97
[2017-11-13 06:31] LABS: BICARBONATE 19.9 MEQ/L (21.0-32.0); CALCIUM 7.2 MG/DL (8.5-10.1); CREATININE 2.16 MG/DL (0.50-1.00)
[2017-11-13 06:56] LABS: CALCIUM-PROTEIN CORRECTED 8.2 MG/DL (8.5-10.1); TOTAL PROTEIN 5.3 GM/DL (6.4-8.2)
[2017-11-13 08:36] VITALS: BP 112/67; PULSE 80; RESP 18; TEMP 97.3; O2SAT 98
[2017-11-13] MEDS: SODIUM CHLORIDE 0.9% FLUSH 10 ML FLUSH IV FLUSH SCH ×2 (09:00→21:10)
[2017-11-13] MEDS: DOCUSATE SODIUM 50 MG/SENNA 8.6 MG TAB PO SCH ×2 (09:24→21:10)
[2017-11-13 11:45] VITALS: BP 112/76; PULSE 79; RESP 17; TEMP 97.7; O2SAT 96
--- NOTE | 2017-11-13 15:02 | HHI.PR ---
Subjective Remarks Patient denies any deterioration since last night. Denies any nausea vomiting. Patient has no new issues or concerns about the patient. Patient does report that the room feels very cold to her. Objective Vital Signs Date Time Temp Pulse Resp B/P (MAP) Pulse Ox O2 Delivery O2 Flow Rate FiO2 11/13/17 11:45 97.7 79 17 112/76 (88) 96 11/13/17 08:36 97.3 80 18 112/67 (82) 98 11/13/17 03:13 98.0 80 17 107/63 (78) 97 11/13/17 00:06 98.1 75 16 108/58 (75) 98 11/12/17 23:43 18 11/12/17 20:12 98.1 75 17 91/54 (66) 97 11/12/17 16:57 97.7 82 18 121/71 (88) 98 I/O 11/12/17 11/12/17 11/12/17 11/13/17 11/13/17 11/13/17 07:00 15:00 23:00 07:00 15:00 23:00 Intake Total 1400 ml Balance 1400 ml Intake Oral 200 ml IV Total 1200 ml # Voids 4 3 # Bowel Movements 1 Result Diagram: 11/12/17 0550 11/13/17 0607 Objective Remarks lying in bed, NAD, unlabored breathing abd soft, NT, ND Overall unchanged physical exam since yesterday A/P Assessment and Plan 1. Weakness -Likely secondary to SIMON, improving -Treat as below, PT 2. N/V - improved, possibly 2/2 chemotx - zofran prn 3.AK I - 2/2 N/V, still not at baseline, needs further improvement with time and hydration - BMP in a.m. 4. Multiple myeloma Patient's oncologist is Dr. Arvizu Continue outpatient follow-up 5. Hypokalemia Status post p.o. supplementation Monitor BMP [place] Chester Major MD Nov 13, 2017 15:02
[2017-11-13] MEDS: traMADol HCL 50 MG TAB PO PRN (18:29)
[2017-11-13 19:50] VITALS: BP 111/72; PULSE 80; RESP 17; O2SAT 97
[2017-11-13] MEDS: ENOXAPARIN SODIUM 30 MG/0.3 ML SYRINGE SQ SCH (22:29)
[2017-11-13 23:48] VITALS: BP 102/69; PULSE 89; RESP 17; TEMP 97.8; O2SAT 97
[2017-11-14 04:13] VITALS: BP 102/58; PULSE 84; RESP 16; TEMP 98; O2SAT 98
[2017-11-14 08:00] VITALS: BP 101/68; PULSE 85; TEMP 98; O2SAT 99
[2017-11-14] MEDS: SODIUM CHLORIDE 0.9% FLUSH 10 ML FLUSH IV FLUSH SCH (09:00)
[2017-11-14] MEDS: SODIUM CHLOR 0.9% 1000 ML INJ 1,000 ML IV SCH (09:00)
[2017-11-14] MEDS: DOCUSATE SODIUM 50 MG/SENNA 8.6 MG TAB PO SCH (09:37)
[2017-11-14] MEDS ORDERED: FUROSEMIDE 40 MG/4 ML VIAL IV PUSH ONE (10:30)
--- NOTE | 2017-11-14 11:49 | HHI.DCPOC ---
Discharge Care Plan Diagnosis: (1) Acute kidney injury (2) Multiple myeloma (3) Dehydration Goals to Promote Your Health * To prevent worsening of your condition and complications * To maintain your health at the optimal level Directions to Meet Your Goals Take your medications as prescribed Follow your dietary instruction Follow activity as directed Keep your appointments as scheduled Take your immunizations and boosters as scheduled If your symptoms worsen call your PCP, if no PCP go to Urgent Care Center or Emergency Room Smoking is Dangerous to Your Health. Avoid second hand smoke Call the 24-hour hour crisis hotline for domestic abuse at Chester Major MD Nov 14, 2017 11:49
[2017-11-14 12:00] VITALS: BP 106/59; PULSE 88; RESP 16; TEMP 98; O2SAT 99
[2017-11-14 12:01] LABS: CALCIUM 7.4 MG/DL (8.5-10.1); CREATININE 1.88 MG/DL (0.50-1.00)
[2017-11-14 12:30] LABS: CALCIUM-PROTEIN CORRECTED 8.2 MG/DL (8.5-10.1); TOTAL PROTEIN 5.7 GM/DL (6.4-8.2)
[2017-11-14] MEDS ORDERED: FURO1TAB62 PO (13:31)
--- NOTE | 2017-11-14 13:35 | HHI.DS ---
Discharge Summary Admission Date Nov 11, 2017 at 20:14 Discharge Date: Nov 14, 2017 Admitting Diagnosis SIMON, dehydration, cancer patient (1) Acute kidney injury ICD Code: N17.9 - Acute kidney failure, unspecified Status: Acute (2) Multiple myeloma ICD Code: C90.00 - Multiple myeloma not having achieved remission Status: Acute (3) Dehydration ICD Code: E86.0 - Dehydration Status: Acute Procedures None Brief History - From Admission 72-year-old female with past medical history significant for multiple myeloma, chronic kidney disease, hyperlipidemia and anemia presents to the emergency department for the evaluation of weakness. The patient reports that she has been feeling weak for approximately 2 days and has had accompanying nausea and vomiting 3 days. She endorses a shortness of breath with exertion. Denies chest pain. Went to the oncology center this morning to have an injection however this was not completed because her blood glucose was low. Patient denies any abdominal pain. No fevers/chills. No lateralizing signs/symptoms. CBC/BMP: 11/12/17 0550 11/14/17 1020 Significant Findings Laboratory Tests Test 11/11/17 18:40 11/11/17 22:39 11/12/17 05:50 11/13/17 06:07 Red Blood Count 3.53 MIL/MM3 (4.00-5.30) 3.12 MIL/MM3 (4.00-5.30) Hemoglobin 10.7 GM/DL (11.6-15.3) 9.4 GM/DL (11.6-15.3) Hematocrit 32.3 % (35.0-46.0) 28.7 % (35.0-46.0) Red Cell Distribution Width 18.8 % (11.6-17.2) 18.7 % (11.6-17.2) Neutrophils % (Manual) 80 % (16-70) 87 % (16-70) Platelet Estimate LOW (NORMAL) Blood Urea Nitrogen 19 MG/DL (7-18) 19 MG/DL (7-18) Creatinine 2.50 MG/DL (0.50-1.00) 2.30 MG/DL (0.50-1.00) 2.16 MG/DL (0.50-1.00) Random Glucose 125 MG/DL (74-106) 53 MG/DL (74-106) Total Protein 5.9 GM/DL (6.4-8.2) 5.0 GM/DL (6.4-8.2) 5.3 GM/DL (6.4-8.2) Albumin 0.9 GM/DL (3.4-5.0) 0.8 GM/DL (3.4-5.0) Calcium Level 7.7 MG/DL (8.5-10.1) 7.1 MG/DL (8.5-10.1) 7.2 MG/DL (8.5-10.1) Alkaline Phosphatase 39 U/L (45-117) 30 U/L (45-117) Aspartate Amino Transf (AST/SGOT) 44 U/L (15-37) Total Bilirubin 0.1 MG/DL (0.2-1.0) LESS THAN 0.1 MG/DL Potassium Level 3.2 MEQ/L (3.5-5.1) 3.4 MEQ/L (3.5-5.1) 3.2 MEQ/L (3.5-5.1) Estimat Glomerular Filtration Rate 23 ML/MIN (>89) 25 ML/MIN (>89) 27 ML/MIN (>89) Urine Turbidity HAZY (CLEAR) Urine Glucose (UA) 150 mg/dL (NEG) Urine WBC 6 /hpf (0-5) Urine Bacteria RARE /hpf (NONE) Urine Mucus FEW /lpf (OCC) Alanine Aminotransferase (ALT/SGPT) 8 U/L (10-53) Chloride Level 109 MEQ/L (98-107) 113 MEQ/L (98-107) Protein Corrected Calcium 8.2 MG/DL (8.5-10.1) 8.2 MG/DL (8.5-10.1) Carbon Dioxide Level 19.9 MEQ/L (21.0-32.0) Test 11/14/17 10:20 Creatinine 1.88 MG/DL (0.50-1.00) Random Glucose 59 MG/DL (74-106) Total Protein 5.7 GM/DL (6.4-8.2) Calcium Level 7.4 MG/DL (8.5-10.1) Chloride Level 109 MEQ/L (98-107) Carbon Dioxide Level 20.0 MEQ/L (21.0-32.0) Estimat Glomerular Filtration Rate 32 ML/MIN (>89) Protein Corrected Calcium 8.2 MG/DL (8.5-10.1) PE at Discharge Mild to moderate bilateral lower extremity swelling Unlabored breathing, clear lungs bilaterally Hospital Course Patient was admitted, started on IV fluids. Her renal function eventually stabilized. She is tolerating p.o. intake well. She was noted to have some lower extremity edema but patient said this was her baseline range and had been taking Lasix daily coming into the hospital. Patient was advised only now take Lasix as needed swelling of her lower extremities to help minimize any further renal injury in the future. Patient has met maximal benefit from hospitalization and is clinically stable for discharge. Pt Condition on Discharge: Stable Discharge Disposition: Discharge Home Discharge Time: <= 30 minutes Discharge Instructions DIET: Follow Instructions for: Heart Healthy Diet Activities you can perform: Weight Bearing as Tabatha Follow up Referrals: Oncology - 1 Week with Neo Arvizu MD PCP Follow-up - 1 Week Changed Medications: Furosemide (Lasix) 20 Mg Tab 20 MG PO BID PRN for swelling, #60 TAB 0 Refills (Changed from: DAILY; 30) Continued Medications: Ondansetron Odt (Zofran Odt) 4 Mg Tab 4 MG SL Q6HR PRN for Nausea/Vomiting, #15 TAB 0 Refills Tramadol (Tramadol) 50 Mg Tab 50 MG PO Q6H PRN for PAIN, #15 TAB 0 Refills Discontinued Medications: Bumetanide (Bumetanide) 1 Mg Tab 1 MG PO BID, #60 TAB 0 Refills Chester Major MD Nov 14, 2017 13:35
== END 2017-11-14 15:11 | disposition home or self-care (01) ==
LOC: NEPE 16:36 → NEDA 20:14 → NEPGCP 21:35
PROVIDERS: ADMIT Hospitalist; ATTEND Hospitalist
DX: E86.0 Dehydration (principal); N17.9 Acute kidney failure, unspecified; N18.9 Chronic kidney disease, unspecified; C90.00 Multiple myeloma not having achieved remission; E87.6 Hypokalemia; R06.02 Shortness of breath; R11.2 Nausea with vomiting, unspecified; R79.89 Other specified abnormal findings of blood chemistry; D64.9 Anemia, unspecified; E78.5 Hyperlipidemia, unspecified; K21.9 Gastro-esophageal reflux disease without esophagitis; M19.90 Unspecified osteoarthritis, unspecified site; Z85.830 Personal history of malignant neoplasm of bone
CPT/HCPCS: 76775; 80048; 80053; 81001; 83735; 84155; 85007; 85027; 96361; 96372; 96374; 97162; 99285; G0378; G8987; G8988; J1650; J1940; J7030

== ENCOUNTER 2017-12-16 15:09 | Inpatient (IN) ==
--- NOTE | 2017-12-16 16:26 | XR ---
EXAM DATE: 12/16/2017 4:20 PM EDT AGE/SEX: 72 years / Female INDICATIONS: Short of breath, back pain CLINICAL DATA: This is the patient's initial encounter. Patient reports that signs and symptoms have been present for 1 day and indicates a pain score of 7/10. MEDICAL/SURGICAL HISTORY: Congestive heart failure. Gastroesophageal reflux disease. multiple myeloma, chemotherapy Appendectomy. Cholecystectomy. COMPARISON: [facility] [place] S[place] AP, 11/23/2017. . FINDINGS: A single AP portable erect view of the chest was obtained. The study is mid inspiratory with crowding of the lung vasculature. There is increased opacity now noted in both lung bases and the costophreni c angles remain blunted. The heart size is at the upper limits of normal. The right-sided central atif ous line remains in place. The patient is again noted to be status post multilevel kyphoplasty in the lumbar spine. CONCLUSION: 1. The numbering mid inspiratory exam with increased opacity at the lung bases which may represent i ncreasing infiltrate or be artifactual. 2. The costophrenic angles are blunted bilaterally most characteristic of small effusions. Electronically signed by: Jose Wade MD 12/16/2017 4:24 PM EDT
[2017-12-16 17:16] LABS: Hemoglobin 7.5 gm/dL (11.6-15.3); Mean Corpuscular Hemoglobin 31.1 pg (27.0-34.0); Mean Corpuscular Volume 91.5 fL (80.0-100.0); Mean Platelet Volume 9.3 fL (7.0-11.0); Platelet Count 162 th/mm3 (150-450); Red Blood Count 2.41 mil/mm3 (4.00-5.30); Red Cell Distribution Width 17.5 % (11.6-17.2); White Blood Count 4.4 th/mm3 (4.0-11.0)
[2017-12-16 17:43] LABS: Albumin 0.8 g/dL (3.4-5.0); Calcium 6.9 mg/dL (8.5-10.1); Carbon Dioxide 17.8 meq/L (21.0-32.0); Potassium 3.7 meq/L (3.5-5.1); Total Protein 5.4 g/dL (6.4-8.2)
[2017-12-16 17:48] LABS: Troponin I 0.67 ng/mL (0.02-0.05)
[2017-12-16 17:56] LABS: Lymphocytes 10 % (9-44); Monocytes 3 % (0-8); Tallied Nucleated RBC 1 (0-0)
[2017-12-16 17:59] LABS: Platelet Morphology Normal (Normal)
[2017-12-16] MEDS ORDERED: Acetaminophen 325 MG Tablet PO PRN (18:42)
[2017-12-16] MEDS ORDERED: Bisacodyl 10 MG Supp RECTAL PRN (18:42)
--- NOTE | 2017-12-16 20:02 | ED ---
HPI General Chief complaint: Respiratory Symptoms Stated complaint: Medical Complaint Time Seen by Provider: 12/16/17 15:22 Source: patient and family Limitations: no limitations History of Present Illness HPI narrative: Patient is a 72-year-old female, past medical history significant for multiple myeloma, who presents with complaint of worsening dyspnea on exertion over the last month without pain. She states that she was in the clinic about to have chemotherapy today when they noticed that she was dyspneic. They then did not give her chemo and instead sent her here for further evaluation. Her last chemo was approximately 1 week ago. She states that she is not any more dyspneic today than she has been in the last month. She continues to deny pain in her legs and chest. She denies fever, chills, cough. She does take Lasix and reports that her dose has been decreased recently due to kidney disease. MD complaint: Dyspnea Onset (ago): month(s) Severity: moderate Pain Consistency: intermittent Relieving factors: rest Exacerbating factors: movement Associated symptoms: denies other symptoms Treatments prior to arrival: none Related Data Home Medications Medication Instructions Recorded Confirmed furosemide [Lasix] 20 mg PO DAILY 11/23/17 12/16/17 ondansetron [Zofran ODT] 4 mg PO Q6-8H PRN 11/23/17 12/16/17 tramadol 50 mg PO Q6H PRN 11/23/17 12/16/17 Previous Rx's Medication Instructions Recorded aspirin 162 mg CHEW DAILY tab 11/27/17 metoprolol tartrate 12.5 mg PO BID 90 Days #90 tab 11/27/17 potassium chloride [K-Tab] 10 meq PO DAILY #30 tab 11/27/17 pravastatin 80 mg PO HS 90 Days #90 tab 11/27/17 Allergies Allergy/AdvReac Type Severity Reaction Status Date / Time Penicillins Allergy Intermediate Hives Verified 12/16/17 15:21 Review of Systems Except as stated in HPI: all other systems reviewed are negative Constitutional Denies chills and Denies fever(s) Eyes Denies blurry vision ENT Denies nasal congestion Cardiovascular Denies chest pain, Denies chest pain at rest, Denies diaphoresis, Denies syncope , Reports pedal edema, Denies claudication and Denies lightheadedness Respiratory Reports dyspnea on exertion Gastrointestinal Denies abdominal pain Genitourinary Denies hematuria Musculoskeletal Denies back pain Integumentary/Breasts Denies rash Neurologic Denies dizziness and Denies headache(s) Psychiatric Denies anxiety and Denies suicidal ideation [facility] Medical History Medical History History of hysterectomy (Acute) Hypercholesteremia (Acute) Hypertension (Acute) Multiple myeloma (Acute) Port-A-Cath in place (Acute) Social History Social History Substance History: No History of Abuse Second Hand Smoke Exposure: No Smoking Status: Never smoker How Often Do You Have a Drink Containing Alcohol: Monthly or less Recent Travel in [facility] within the Last 8 Weeks: No Recent Out of Country Travel within the Last 8 Weeks: No Exam Narrative Exam Narrative: GENERAL: Chronically ill-appearing elderly female in no acute distress SKIN: Focused skin assessment warm/dry. HEAD: Atraumatic. Normocephalic. EYES: Pupils equal and round. No scleral icterus. No injection or drainage. ENT: No nasal bleeding or discharge. Mucous membranes pink and moist. NECK: Trachea midline. CARDIOVASCULAR: Regular rate and rhythm. No murmur appreciated. RESPIRATORY: No accessory muscle use. Clear to auscultation. Breath sounds equal bilaterally. GASTROINTESTINAL: Abdomen soft, non-tender, nondistended. Hepatic and splenic margins not palpable. MUSCULOSKELETAL: No obvious deformities. No clubbing. No cyanosis. Bilateral lower extremity pitting edema NEUROLOGICAL: Awake and alert. No obvious cranial nerve deficits. Motor grossly within normal limits. Normal speech. PSYCHIATRIC: Appropriate mood and affect; insight and judgment normal. Course Hospital Course: Patient was placed on a cardiac rehabilitation program director and her port was accessed for IV access. Reevaluation(s) Reevaluation #1: Nurse reported that patient's blood pressure had decreased down to the 70s systolic. She was laying on her side at that time with her arm above her heart. She was then placed supine again and her blood pressure was retaken and it was found to be with a systolic in the 90s which is her baseline. She was asymptomatic at that time. Initial Documented Vital Signs Temperature 98.2 F 12/16/17 15:12 Pulse Rate 86 12/16/17 15:12 Respiratory Rate 22 12/16/17 15:12 Blood Pressure 96/59 L 12/16/17 15:12 Pulse Oximetry 100 12/16/17 15:12 Last Documented Vital Signs Temperature 98.2 F 12/16/17 15:12 Pulse Rate 85 12/16/17 18:33 Respiratory Rate 15 12/16/17 18:33 Blood Pressure 88/55 L 12/16/17 18:33 Pulse Oximetry 100 12/16/17 18:33 Medical Decision Making MDM Narrative Medical decision making narrative: Patient is a 72-year-old female, past medical history significant for multiple myeloma, who presents with complaint of worsening dyspnea over the last month. She has not had any pain. EKG shows low QRS voltage concerning for pericardial effusion. Lab work consistent with worsening renal function in addition to fluid overload. Troponin is elevated but appears to be less than that recently checked, but she was not started on a heparin infusion and is thought to be more secondary to her heart failure than the cause of. She has been admitted to Dr. Posadas, the hospitalist on-call, for further workup and evaluation. Differential Diagnosis Differential Diagnosis: Differential diagnosis includes but is not limited to pericardial tamponade, myocarditis, congestive heart failure, acute coronary syndrome, pulmonary embolism, anasarca, pneumonia. Medical Records Medical records reviewed: Yes I reviewed the patient's medical records. Lab Data Lab results reviewed: Yes I reviewed the patient's lab results. Lab results narrative: Labs consistent with acute worsening of her renal function, in addition to a markedly elevated BNP concerning for congestive heart failure. Her troponin is elevated but appears to be much lower than when it was last checked. She continues to deny chest pain at this time. Result diagrams: 12/16/17 16:20 12/16/17 16:20 Lab Results 12/16/17 12/16/17 12/16/17 Range/Units 16:20 16:20 16:20 WBC 4.4 (4.0-11.0) th/mm3 RBC 2.41 L (4.00-5.30) mil/mm3 Hgb 7.5 L (11.6-15.3) gm/dL Hct 22.0 L (35.0-46.0) % MCV 91.5 (80.0-100.0) fL MCH 31.1 (27.0-34.0) pg MCHC 34.0 (32.0-36.0) % RDW 17.5 H (11.6-17.2) % Plt Count 162 (150-450) th/mm3 MPV 9.3 (7.0-11.0) fL Prelim Diff (Auto) Slide review pending WBC Differential Manual diff final Seg Neuts % (Manual) 48 (16-70) % Band Neuts % (Manual) 39 H (0-6) % Lymphocytes % (Manual) 10 (9-44) % Monocytes % (Manual) 3 (0-8) % Abs Neuts (Manual) 3.8 (1.8-7.7) th/mm3 Nucleated RBCs/100 WBC 1 H (0-0) /100 WBC Differential Comment . Platelet Estimate Low L (Normal) Platelet Morphology Normal (Normal) Basophilic Stippling Faint H (None) Sodium 137 (136-145) meq/L Potassium 3.7 (3.5-5.1) meq/L Chloride 106 (98-107) meq/L Carbon Dioxide 17.8 L (21.0-32.0) meq/L Anion Gap 13 (5-15) meq/L BUN 38 H (7-18) mg/dL Creatinine 4.39 H (0.50-1.00) mg/dL Estimated GFR 12 L (>89) mL/min Random Glucose 116 H (74-106) mg/dL Calcium 6.9 L* (8.5-10.1) mg/dL Prot Corrected Calcium 7.8 L (8.5-10.1) mg/dL Total Bilirubin 0.2 (0.2-1.0) mg/dL AST 28 (15-37) U/L ALT 15 (10-53) U/L Alkaline Phosphatase 41 L (45-117) U/L Troponin I 0.67 H* (0.02-0.05) ng/mL B-Natriuretic Peptide 1360 H (0-100) pg/mL Total Protein 5.4 L (6.4-8.2) g/dL Albumin 0.8 L (3.4-5.0) g/dL Imaging Data Attestation: I personally reviewed and interpreted this imaging study as follows : My impression: Bilateral pleural effusions present with atelectasis Radiologist's impression: Chest X-Ray 12/16/17 15:42 CONCLUSION: 1. The numbering mid inspiratory exam with increased opacity at the lung bases which may represent increasing infiltrate or be artifactual. 2. The costophrenic angles are blunted bilaterally most characteristic of small effusions. ECG Data EKG Prior to Arrival: No Attestation: I personally reviewed and interpreted this ECG as follows: (Sinus rhythm at 87 bpm. There is low QRS voltage throughout. T-wave inversions present in leads V4 through V5. No acute ST segment changes per) Discharge Plan Discharge Disposition Patient Disposition: 30 Still Patient Discharge Condition Condition: Stable Discharge Details Diagnosis: Multiple myeloma, Diastolic CHF Physicians Team ED Provider: Tasia Morris Primary Care Provider: Justin Anthony Attending Provider: Dayday Posadas Discharge Interventions Interventions: Vital Signs Last Done: 12/16/17 18:33 Status ED Status: Admitted Patient
--- NOTE | 2017-12-16 21:05 | P.HPIM ---
History of Present Illness Primary Care Physician: Justin Anthony DO Chief Complaint: edema, sob History of Present Illness: 72 y/o female with a history of multiple myeloma, HLD, and HTN presented to the ED with complaints of worsening edema and sob. Patient states she was at her oncology appointment today and due to her symptoms she was unable to receive her treatment. She states on Saturday she began to have increased edema and shortness of breath, she states labs were done in oncology but results were never given. She denies any associated chest pain, but is complaining of stabbing, intermittent 8/10, back pain with no radiation and with decreased urination. Pain is slightly better with pain medication. - Diagnosis (1) Multiple myeloma (2) Diastolic CHF Inpatient Certification: I certify that the inpatient services were ordered in accordance with Medicare regulations governing the order. This includes certification that hospital inpatient services are reasonable and necessary and in the case of services not specified as inpatient-only under 42 CFR 419.22(n), that they are appropriately provided as inpatient services in accordance to with the 2-midnight benchmark under 43 CFR 412.3(e) Estimated Total Length of Stay (Days): 2 Plans for Post Hospital Care: Home Review of Systems All other systems reviewed negative except as stated in HPI PMFSH - History History Provided By: Patient - Medical History Medical History: Medical History (Last Reviewed 12/17/17 @ 02:52 by Fabienne Zhang RN) Hypercholesteremia Hypertension Multiple myeloma - Surgical History Surgical History: Surgical History (Last Updated 12/16/17 @ 22:28 by TARYN Barber) History of hysterectomy Port-A-Cath in place - Tobacco History Second Hand Smoke Exposure: No Tobacco Use In Past 30 Days: No Smoking Status: Never smoker - Alcohol History How Often Do You Have a Drink Containing Alcohol: Monthly or less - Substance Use History Substance History: No History of Abuse - Travel History Recent Travel in the [place] Within the Last 8 Weeks: No Recent Travel Out of the Country Within the Last 8 Weeks: No - Immunization History Tetanus Immunization: <5 Years Hx Influenza Vaccine This Season: Yes Medications and Allergies Active Medications: Active Medications Acetaminophen (Tylenol) 650 mg PO Q4H PRN PRN Reason: Headache, fever, pain 1-4 Al Hydroxide/Mg Hydroxide (Milk Of Magnesia Liq) 30 ml PO Q12H PRN PRN Reason: Mild Constipation Bisacodyl (Dulcolax Supp) 10 mg RECTAL DAILY PRN PRN Reason: SEVERE CONSITIPATION Heparin Sodium (Porcine) (Heparin Inj) 5,000 units SQ Q12H KARLENE Lactulose (Lactulose Liq) 30 ml PO DAILY PRN PRN Reason: SEVERE CONSITIPATION Sennosides (Senokot) 17.2 mg PO Q12H PRN PRN Reason: Moderate Constipation Temazepam (Restoril) 15 mg PO HS PRN PRN Reason: INSOMNIA Allergies Allergy/AdvReac Type Severity Reaction Status Date / Time Penicillins Allergy Intermediate Hives Verified 12/16/17 15:21 Home Medications Medication Instructions Recorded Confirmed Type furosemide [Lasix] 20 mg PO DAILY 11/23/17 12/16/17 History ondansetron [Zofran ODT] 4 mg PO Q6-8H PRN 11/23/17 12/16/17 History tramadol 50 mg PO Q6H PRN 11/23/17 12/16/17 History Exam Vital signs: Vital Signs 12/16/17 15:12 12/16/17 16:14 12/16/17 18:33 Temperature 98.2 F Pulse Rate 86 84 85 Respiratory Rate 22 30 H 15 Blood Pressure 96/59 L 71/50 L 88/55 L Pulse Oximetry 100 100 12/16/17 20:00 Temperature Pulse Rate Respiratory Rate 20 Blood Pressure Pulse Oximetry Narrative: GENERAL: This is a well-nourished, well-developed patient, in no apparent distress. SKIN: warm, dry and intact CARDIOVASCULAR: Regular rate and rhythm without murmurs, gallops, or rubs. RESPIRATORY: Breath sounds diminished in bases, slight crackles noted GASTROINTESTINAL: Abdomen soft, non-tender, nondistended. Normal active bowel sounds MUSCULOSKELETAL: +2 pitting edema in bilateral lower extremities NEURO: Alert & Oriented x4 to person, place, time, situation. Moves all ext x4 Results - Labs CBC & Chem 7: 12/16/17 16:20 12/16/17 16:20 Labs: Short CBC 12/16/17 Range/Units 16:20 WBC 4.4 (4.0-11.0) th/mm3 Hgb 7.5 L (11.6-15.3) gm/dL Hct 22.0 L (35.0-46.0) % Plt Count 162 (150-450) th/mm3 BMP 12/16/17 16:20 Sodium 137 Potassium 3.7 Chloride 106 Carbon Dioxide 17.8 L BUN 38 H Creatinine 4.39 H Calcium 6.9 L* Cardiac Enzymes 12/16/17 Range/Units 16:20 Troponin I 0.67 H* (0.02-0.05) ng/mL Liver Function 12/16/17 Range/Units 16:20 Total Bilirubin 0.2 (0.2-1.0) mg/dL AST 28 (15-37) U/L ALT 15 (10-53) U/L Alkaline Phosphatase 41 L (45-117) U/L Albumin 0.8 L (3.4-5.0) g/dL - Imaging Impressions Chest X-Ray 12/16/17 15:42 CONCLUSION: 1. The numbering mid inspiratory exam with increased opacity at the lung bases which may represent increasing infiltrate or be artifactual. 2. The costophrenic angles are blunted bilaterally most characteristic of small effusions. Caprini VTE Risk Assessment Caprini VTE Risk Assessment: Moderate/High Risk (score >= 2) Caprini Risk Assessment Model: Point Value = 1 Point Value = 2 Point Value = 3 Point Value = 5 Age 41-60 Minor surgery BMI > 25 kg/m2 Swollen legs Varicose veins or History of unexplained or recurrent spontaneous Oral contraceptives or hormone replacement Sepsis (< 1 month) Serious lung disease, including pneumonia (< 1 month) Abnormal pulmonary function Acute myocardial infarction Congestive heart failure (< 1 month) History of inflammatory bowel disease Medical patient at bed rest Age 61-74 Arthroscopic surgery Major open surgery (> 45 min) Laparoscopic surgery (> 45 min) Malignancy Confined to bed (> 72 hours) Immobilizing plaster cast Central venous access Age >= 75 History of VTE Family history of VTE Factor V Leiden Prothrombin [id number] Lupus anticoagulant Anticardiolipin antibodies Elevated serum homocysteine Heparin-induced thrombocytopenia Other congenital or acquired thrombophilia Stroke (< 1 month) Elective arthroplasty Hip, pelvis, or leg fracture Acute spinal cord injury (< 1 month) Prophylaxis Regimen: Total Risk Factor Score Risk Level Prophylaxis Regimen 0-1 Low Early ambulation 2 Moderate Order ONE of the following: *Sequential Compression Device (SCD) *Heparin 5000 units SQ BID 3-4 Higher Order ONE of the following medications: *Heparin 5000 units SQ TID *Enoxaparin/Lovenox 40 mg SQ daily (WT < 150 kg, CrCl > 30 mL/min) *Enoxaparin/Lovenox 30 mg SQ daily (WT < 150 kg, CrCl > 10-29 mL/min) *Enoxaparin/Lovenox 30 mg SQ BID (WT < 150 kg, CrCl > 30 mL/min) AND/OR *Sequential Compression Device (SCD) 5 or more Highest Order ONE of the following medications: *Heparin 5000 units SQ TID (Preferred with Epidurals) *Enoxaparin/Lovenox 40 mg SQ daily (WT < 150 kg, CrCl > 30 mL/min) *Enoxaparin/Lovenox 30 mg SQ daily (WT < 150 kg, CrCl > 10-29 mL/min) *Enoxaparin/Lovenox 30 mg SQ BID (WT < 150 kg, CrCl > 30 mL/min) AND *Sequential Compression Device (SCD) Assessment and Plan - Assessment (1) Multiple myeloma Code(s): C90.00 - Multiple myeloma not having achieved remission Status: Acute (2) Diastolic CHF Code(s): I50.30 - Unspecified diastolic (congestive) heart failure Status: Acute - Plan 72 y/o female with a history of multiple myeloma, HLD, and HTN presented to the ED with complaints of worsening edema and sob. Acute CHF exacerbation on possible chronic chf BNP 1350 -Lasix 20mg IV given -BNP in AM -Fluid restriction Acute renal failure Creatine 4.3, baseline 2.0 -Consult nephrology for evaluation -Kidney ultrasound ordered -Avoid nephrotoxins Bandemia, 32% bands on WBC, suspect pneumonia Chest x ray reviewed and shows numbering mid inspiratory exam with increased opacity at the lung bases which may represent increasing infiltrate, and small effusions. -Empirically treat with Rocephin and azithromycin IV -CBC in AM -Lactic acid 1.7 Elevated troponin, likely related due to CHF and elevated creatine r/o ACS Troponin .67 -Serial troponin and ekgs Hypotension, due to diaeresis -Albumin IV given -Monitor vitals Multiple myeloma, chronic -Consult Dr. Arvizu to follow DVT prophylaxis: Heparin Discussed Condition With: Patient and patients daughter (2) Diastolic CHF Qualifiers: Heart failure chronicity: acute on chronic Qualified Code(s): I50.33 - Acute on chronic diastolic (congestive) heart failure
[2017-12-16 21:44] LABS: Bilirubin,Urine Negative (Negative); Clarity,Urine Clear (Clear); Color,Urine Yellow (Yellw/Straw); Glucose,Urine (UA) Negative (Negative); Leukocyte Esterase,Urine Negative (Negative); Mucus,Urine Few /lpf (Occasional); Nitrite,Urine Negative (Negative); Specific Gravity,Urine 1.018 (1.002-1.035); Squamous Epithelial Cell,Urine <1 /hpf (0-5)
--- NOTE | 2017-12-16 22:20 | US ---
EXAM DATE: 12/16/2017 9:55 PM EDT AGE/SEX: 72 years / Female INDICATIONS: Elevated labs. CLINICAL DATA: This is the patient's subsequent encounter. Patient reports that signs and symptoms h ave been present for 1 month and indicates a pain score of 0/10. MEDICAL/SURGICAL HISTORY: Hypercholesterolemia. Hypertension. Multiple myeloma. Kidney disease . Hysterectomy. COMPARISON: [facility], CT ABDOMEN AND PELVIS W/O CONTRAST, 02/18/2015. . MEASUREMENTS: Right Kidney:__8.0 x 5.0 x 2.5 cm Left Kidney:__. Not visualized. FINDINGS: Right Kidney: Increased echotexture. No mass or hydronephrosis. The right kidney appears small. Left Kidney: Not visualized. Bladder: Within normal limits given the degree of distension. Other: None. CONCLUSION: 1. Small echogenic right kidney concerning for medical renal disease. 2. The left kidney could not be visualized on this ultrasound examination. Electronically signed by: Justin Tabor MD 12/16/2017 10:19 PM EDT
[2017-12-16] MEDS ORDERED: Albumin Human 5% Inj 500 ML IV.SIG ONE (22:36)
[2017-12-16] MEDS: Heparin - SQ 10,000 UNITS/ML Vial SQ SCH (23:25)
[2017-12-17 02:42] LABS: Troponin I 0.54 ng/mL (0.02-0.05)
[2017-12-17] MEDS: Azithromycin Inj 500 MG in Sodium Chlor 0.9% Inj 250 ML IV.SIG SCH ×2 (04:03→23:00)
[2017-12-17] MEDS ORDERED: Albumin Human 25% Inj 100 ML IV.SIG ONE (05:53)
[2017-12-17 06:28] LABS: Carbon Dioxide 17.5 meq/L (21.0-32.0); Troponin I 0.51 ng/mL (0.02-0.05)
[2017-12-17 06:46] LABS: Total Protein 5.4 g/dL (6.4-8.2)
[2017-12-17] MEDS: Heparin - SQ 10,000 UNITS/ML Vial SQ SCH ×2 (07:50→21:12)
--- NOTE | 2017-12-17 08:32 | P.CON ---
History of Present Illness Service: Hematology/oncology Consult date: 12/17/17 Primary Care Provider: Justin Anthony DO Chief Complaint: Difficulty breathing.Generalized swelling. History of Present Illness: Ms. Hoff is a 72-year-old female who is well-known to me from my outpatient practice. Ms. Hoff has a diagnosis of IgG kappa light chain multiple myeloma which was initially diagnosed in 2005, she had stage IIIb disease at the time of diagnosis. She was treated with induction systemic therapy consisting of Revlimid, Velcade and dexamethasone and then underwent autologous stem cell transplant with melphalan conditioning in March 2010. She subsequently remained on maintenance Revlimid up until the summer 2012, at which point she developed significant myelosuppression related to Revlimid. She was transitioned to pomalidomide/dexamethasone at that time and remained on this up until about 7 months ago. The patient developed progressive biochemical failure in the early part of 2017 and was transitioned to pomalidomide with Durvalumab and dexamethasone. 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 Her treatment had been transitioned to Velcade, Durvalumab and dexamethasone but unfortunately due to repeated hospitalizations and worsening performance status she has not been able to remain on this on a effective dose density. The patient presented to my clinic yesterday with complaints of progressive weakness, increasing difficulty breathing, worsening swelling and decreased urine output. Blood work indicated acute on chronic renal failure and because of her difficulty breathing and hypotension which was noted on vital signs she was transferred to the emergency department. Blood work performed in the emergency department confirmed acute kidney failure with a creatinine of over 4 , she is also noted to be hypotensive with systolic blood pressure in the 70 mm/ Hg range. She has been initiated on IV albumin. Subjectively; her major complaint is that of difficulty breathing, she tells me she is unable to complete a full sentence because of the shortness of breath, she tells me she has not urinated since yesterday afternoon (approaching 18 hours now), she reports pitting edema all of her upper and lower extremities as well as on her torso. Review of Systems Constitutional: Reports anorexia, Reports daytime sleepiness, Reports fatigue, Reports headache(s), Reports lack of energy, Reports malaise, Reports weakness, Reports weight gain, Denies body ache(s), Denies chills, Denies fever(s), Denies increased appetite, Denies night sweats Eyes: Denies blind spots, Denies blurry vision, Denies bulging eyes Ears, Nose, Mouth, and Throat: Reports headache(s), Denies abnormal hearing, Denies bleeding gums, Denies hoarseness, Denies post nasal drip, Denies sore throat, Denies throat swelling, Denies tongue swelling Cardiovascular: Reports rapid, pounding, or irregular heartbeat, Reports shortness of breath, Reports shortness of breath with activity, Reports shortness of breath when lying down, Denies chest pain, Denies chest pain at rest Respiratory: Reports shortness of breath, Reports shortness of breath with activity, Denies change in phlegm color, Denies chest congestion, Denies cough, Denies coughing up blood, Denies excessive phlegm production Gastrointestinal: Denies abdominal pain, Denies belching, Denies black, tarry stools, Denies bloating, Denies bright, red blood in stools, Denies change in bowel habits, Denies incontinent of stools, Denies vomiting, Denies vomiting blood Comments: No complaints reported, no vaginal bleeding reported. She is postmenopausal. Musculoskeletal: Reports back pain, Reports joint pain, Reports muscle weakness Comments: Difficulty ambulating beyond a few steps. Skin/Breast: Denies acne Comments: Generalized skin edema. Neurologic: Reports headache(s), Reports unsteadiness, Reports weakness, Denies abnormal hearing, Denies frequent falls, Denies tremor(s) Psychiatric: Reports anxiety, Reports change in appetite, Denies confusion, Denies depression Endocrine: Denies cold intolerance, Denies excessive sweating Hematologic/Lymphatic: Denies easy bleeding, Denies easy bruising Allergic/Immunologic: Denies GI upset with certain foods PMFSH - History History Provided By: Patient - Medical History Medical History: Medical History (Last Updated 12/17/17 @ 08:23 by Neo Arvizu MD) Cardiac amyloidosis Hypercholesteremia Hypertension 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 Multiple myeloma Nephrotic range proteinuria - Surgical History Surgical History: Surgical History (Last Updated 12/16/17 @ 22:28 by Josefina E Barbel, [employer]) History of hysterectomy Port-A-Cath in place - Tobacco History Second Hand Smoke Exposure: No Tobacco Use In Past 30 Days: No Smoking Status: Never smoker - Alcohol History How Often Do You Have a Drink Containing Alcohol: Monthly or less - Substance Use History Substance History: No History of Abuse - Travel History Recent Travel in the [place] Within the Last 8 Weeks: No Recent Travel Out of the Country Within the Last 8 Weeks: No - Immunization History Tetanus Immunization: <5 Years Hx Influenza Vaccine This Season: Yes Medications and Allergies Active Medications: Active Medications Acetaminophen (Tylenol) 650 mg PO Q4H PRN PRN Reason: Headache, fever, pain 1-4 Al Hydroxide/Mg Hydroxide (Milk Of Magnesia Liq) 30 ml PO Q12H PRN PRN Reason: Mild Constipation Albuterol (Duoneb Neb (Prn)) 1 ampul NEB Q4HR NEB PRN PRN Reason: SHORTNESS OF BREATH/WHEEZING Albuterol (Duoneb Neb (Darya)) 1 ampul NEB Q6HR WHILE AWAKE NEB DARYA Bisacodyl (Dulcolax Supp) 10 mg RECTAL DAILY PRN PRN Reason: SEVERE CONSITIPATION Heparin Sodium (Porcine) (Heparin Inj) 5,000 units SQ Q12H DARYA Last Admin: 12/17/17 07:50 Dose: 5,000 units Azithromycin 500 mg/ Sodium (Chloride) 250 mls @ 250 mls/hr IV.SIG Q24H DARYA Last Infusion: 12/17/17 05:00 Dose: Infused Ceftriaxone Sodium 1,000 mg/ (Sodium Chloride) 100 mls @ 200 mls/hr IV.SIG Q24H DARYA Last Infusion: 12/17/17 04:04 Dose: Infused Lactulose (Lactulose Liq) 30 ml PO DAILY PRN PRN Reason: SEVERE CONSITIPATION Sennosides (Senokot) 17.2 mg PO Q12H PRN PRN Reason: Moderate Constipation Temazepam (Restoril) 15 mg PO HS PRN PRN Reason: INSOMNIA Allergies Allergy/AdvReac Type Severity Reaction Status Date / Time Penicillins Allergy Intermediate Hives Verified 12/16/17 15:21 Home Medications Medication Instructions Recorded Confirmed Type furosemide [Lasix] 20 mg PO DAILY 11/23/17 12/16/17 History ondansetron [Zofran ODT] 4 mg PO Q6-8H PRN 11/23/17 12/16/17 History tramadol 50 mg PO Q6H PRN 11/23/17 12/16/17 History Physical Exam Vital signs: Vital Signs 12/16/17 15:12 12/16/17 16:14 12/16/17 18:33 Temperature 98.2 F Pulse Rate 86 84 85 Respiratory Rate 22 30 H 15 Blood Pressure 96/59 L 71/50 L 88/55 L Pulse Oximetry 100 100 12/16/17 20:00 12/16/17 21:00 12/16/17 22:00 Temperature Pulse Rate 78 76 78 Respiratory Rate 21 18 23 Blood Pressure 92/53 L 81/54 L 74/53 L Pulse Oximetry 100 100 100 12/16/17 23:00 12/16/17 23:42 12/17/17 01:26 Temperature 98.2 F Pulse Rate 78 74 Respiratory Rate 19 20 Blood Pressure 78/51 L 88/52 L Pulse Oximetry 96 100 12/17/17 03:30 12/17/17 04:00 12/17/17 05:36 Temperature 97.9 F 96.5 F L Pulse Rate 80 97 H 74 Respiratory Rate 18 15 Blood Pressure 86/42 L 71/44 L Pulse Oximetry 100 100 12/17/17 05:37 12/17/17 07:00 12/17/17 08:08 Temperature 98 F Pulse Rate 97 H 97 H Respiratory Rate 18 Blood Pressure 80/52 L 82/50 L Pulse Oximetry 100 Intake & Output 12/16/17 12/17/17 12/17/17 18:59 06:59 18:59 Intake Total 850 / 850 Output Total 100 / 100 Balance 750 / 750 Weight 73 kg Intake: IV 850 / 850 Alburx 5% Inj 500 ML @ 250 mls/ 500 / 500 hr IV.SIG ONCE ONE Rx#:[id number] Azithromycin Inj 500 MG In NS 250 / 250 Inj 250 ML @ 250 mls/hr IV.SIG Q24H DARYA Rx#:[id number] Rocephin Inj 1,000 MG In NS Inj 100 / 100 100 ML @ 200 mls/hr IV.SIG Q24H DARYA Rx#:[id number] Output: Urine 100 / 100 Other: Date of Last Bowel Movement 12/15/17 - Constitutional mild distress Comments: Elderly lady, sitting up in bed, has difficulty completing sentences due to difficulty breathing. She is awake alert and oriented. - Routine HEENT Exam Head: Present: normocephalic, atraumatic. Absent: cushingoid faces Eye: Present: EOMI, PERRL Comments: Conjunctivae are pale sclerae anicteric. - Routine Neck Exam Present: supple, full ROM. Absent: JVD - Routine Respiratory Exam Absent: accessory muscle use Comments: On nasal cannula. Decreased bibasilar breath sounds, prolonged expiratory phase. No rhonchi rales or wheezes. - Routine Cardiovascular Exam Present: RRR, S1, S2, gallop Comments: I suspect she has a gallop, possible faint systolic murmur heard over the left lower sternal border. - Routine Abdominal Exam Present: soft, guarding. Absent: normoactive bowel sounds, tenderness, distended, rebound, firm, rigid, hernia, bruit, surgical scars, wound - Routine Skin Exam Absent: intact, cyanosis Comments: Generalized anasarca with pitting edema over the upper extremities and lower extremities. - Routine Neurological Exam Present: alert, oriented X3, CN II-XII intact. 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 Hoff is a 72-year-old female with a long-standing history of IgG kappa light chain multiple myeloma diagnosed in 2005. She has been heavily pretreated including an autologous stem cell transplant in 2009 with melphalan conditioning. 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 Her ECOG performance status is worsening and is at best 3 or 4 at baseline over the past month and a half or so. She has had increasing difficulty maintaining therapeutic dose density of treatment, she had been on outpatient therapy with Durvalumab and Velcade with dexamethasone. She presents the hospital with worsening generalized swelling, decreased urine output, increasing difficulty breathing. Workup thus far indicates hypotension, hypoxic respiratory failure, acute renal failure. Recommendations: 1. Multiple myeloma: Increasingly difficult to treat given her multiorgan involvement and multiorgan failure. She met with her myeloma specialist and bone marrow transplant specialist at the [facility] last week, his recommendation was to try to continue current treatment and hope for response. 2. Acute renal failure with decreased urine output: I have requested nephrology involvement. I am concerned the patient may be spiraling into end- stage renal failure secondary to light chain nephropathy. She may require hemodialysis and I did talk to the patient about this. She tells me she will accept hemodialysis if that may help relieve some of her symptoms of anasarca swelling and difficulty breathing. 3. 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 Though we do not have a myocardial biopsy to formally make this diagnosis, the diagnosis of cardiac amyloid is strongly suspected. As a consequence the patient has had cardiac arrhythmias and troponin enzyme leaks. 4. Lower back pain: I will add on hydrocodone/acetaminophen for management of pain. 5. I did talk to the patient today about various approaches, I explained to her that treatment approaches very on a spectrum of aggressive disease directed therapy which may include dialysis, aggressive systemic therapy. I explained to her that ultimately all treatment will be palliative in nature as her disease is beyond the point of us being able to offer curative interventions. I therefore brought up the possibility of palliation/hospice level of care, her initial reflexive response was to declined this option at this time. I have however asked her to think about this as a viable option and to talk to her children about this.
--- NOTE | 2017-12-17 10:44 | P.PN ---
Physical Exam Vital signs: Vital Signs 12/16/17 15:12 12/16/17 16:14 12/16/17 18:33 Temperature 98.2 F Pulse Rate 86 84 85 Respiratory Rate 22 30 H 15 Blood Pressure 96/59 L 71/50 L 88/55 L Pulse Oximetry 100 100 12/16/17 20:00 12/16/17 21:00 12/16/17 22:00 Temperature Pulse Rate 78 76 78 Respiratory Rate 21 18 23 Blood Pressure 92/53 L 81/54 L 74/53 L Pulse Oximetry 100 100 100 12/16/17 23:00 12/16/17 23:42 12/17/17 01:26 Temperature 98.2 F Pulse Rate 78 74 Respiratory Rate 19 20 Blood Pressure 78/51 L 88/52 L Pulse Oximetry 96 100 12/17/17 03:30 12/17/17 04:00 12/17/17 05:36 Temperature 97.9 F 96.5 F L Pulse Rate 80 97 H 74 Respiratory Rate 18 15 Blood Pressure 86/42 L 71/44 L Pulse Oximetry 100 100 12/17/17 05:37 12/17/17 07:00 12/17/17 08:08 Temperature 98 F Pulse Rate 97 H 97 H Respiratory Rate 18 Blood Pressure 80/52 L 82/50 L Pulse Oximetry 100 Intake & Output 12/16/17 12/17/17 12/17/17 18:59 06:59 18:59 Intake Total 850 / 850 100 / 100 Output Total 100 / 100 Balance 750 / 750 100 / 100 Weight 73 kg Intake: IV 850 / 850 100 / 100 Flexbumin 25% Inj 100 ML @ 60 100 / 100 mls/hr IV.SIG ONCE ONE Rx#: [id number] Alburx 5% Inj 500 ML @ 250 mls/ 500 / 500 hr IV.SIG ONCE ONE Rx#:[id number] Azithromycin Inj 500 MG In NS 250 / 250 Inj 250 ML @ 250 mls/hr IV.SIG Q24H KARLENE Rx#:[id number] Rocephin Inj 1,000 MG In NS Inj 100 / 100 100 ML @ 200 mls/hr IV.SIG Q24H KARLENE Rx#:[id number] Output: Urine 100 / 100 Other: Date of Last Bowel Movement 12/15/17 12/16/17 Narrative: Subjective: In nad. No n/v/d/c. Some cough nonproductive. In the chair says she feels cold and very tired. With LE edema. Also BP noted low give albumin. Denies chest pain or sob. No fever or chills. Physical exam: GENERAL: This is a well-nourished, well-developed patient, in no apparent distress. CARDIOVASCULAR: Regular rate and rhythm without murmurs, gallops, or rubs. RESPIRATORY: Breath sounds diminished in bases, slight crackles noted GASTROINTESTINAL: Abdomen soft, non-tender, nondistended. Normal active bowel sounds MUSCULOSKELETAL: +2 pitting edema in bilateral lower extremities NEURO: Alert & Oriented x4 to person, place, time, situation. Moves all ext x4 Assessment and Plan 72 y/o female with a history of multiple myeloma, HLD, and HTN presented to the ED with complaints of worsening edema and sob. Acute CHF exacerbation on possible chronic chf BNP 1350 -Lasix 20mg IV given -BNP in AM -Fluid restriction - BP was noted low give albumin q12 hrs Acute renal failure Creatine 4.3, baseline 2.0 -Consult nephrology for evaluation -Kidney ultrasound ordered -Avoid nephrotoxins Bandemia, 32% bands on WBC, suspect pneumonia Chest x ray reviewed and shows numbering mid inspiratory exam with increased opacity at the lung bases which may represent increasing infiltrate, and small effusions. -Empirically treat with Rocephin and azithromycin IV -CBC in AM -Lactic acid 1.7 Elevated troponin, likely related due to CHF and elevated creatine r/o ACS Troponin .67 -Serial troponin and ekgs Hypotension, due to diuresis -Albumin IV bid -Monitor vitals Multiple myeloma, chronic -Consult Dr. Arvizu to follow DVT prophylaxis: Heparin Discussed Condition With: Patient, patients daughter at bedside, nurse Results - Labs CBC & Chem 7: 12/16/17 16:20 12/17/17 04:30 Laboratory Results - last 24 hr 12/16/17 12/16/17 12/16/17 16:20 16:20 16:20 WBC 4.4 RBC 2.41 L Hgb 7.5 L Hct 22.0 L MCV 91.5 MCH 31.1 MCHC 34.0 RDW 17.5 H Plt Count 162 MPV 9.3 Prelim Diff (Auto) Slide review pending WBC Differential Manual diff final Seg Neuts % (Manual) 48 Band Neuts % (Manual) 39 H Lymphocytes % (Manual) 10 Monocytes % (Manual) 3 Abs Neuts (Manual) 3.8 Nucleated RBCs/100 WBC 1 H Differential Comment . Platelet Estimate Low L Platelet Morphology Normal Basophilic Stippling Faint H Sodium 137 Potassium 3.7 Chloride 106 Carbon Dioxide 17.8 L Anion Gap 13 BUN 38 H Creatinine 4.39 H Estimated GFR 12 L Random Glucose 116 H Lactic Acid Calcium 6.9 L* Prot Corrected Calcium 7.8 L Total Bilirubin 0.2 AST 28 ALT 15 Alkaline Phosphatase 41 L Total Creatine Kinase Troponin I 0.67 H* B-Natriuretic Peptide 1360 H Total Protein 5.4 L Albumin 0.8 L Urine Color Urine Clarity Urine pH Ur Specific [place] Urine Protein Urine Glucose (UA) Urine Ketones Urine Occult Blood Urine Nitrate Urine Bilirubin Urine Urobilinogen Ur Leukocyte Esterase Urine RBC Ur Squamous Epith Cells Urine Mucus Micro UA Comment Urine Culture Comments 12/16/17 12/16/17 12/17/17 20:45 21:00 02:00 WBC RBC Hgb Hct MCV MCH MCHC RDW Plt Count MPV Prelim Diff (Auto) WBC Differential Seg Neuts % (Manual) Band Neuts % (Manual) Lymphocytes % (Manual) Monocytes % (Manual) Abs Neuts (Manual) Nucleated RBCs/100 WBC Differential Comment Platelet Estimate Platelet Morphology Basophilic Stippling Sodium Potassium Chloride Carbon Dioxide Anion Gap BUN Creatinine Estimated GFR Random Glucose Lactic Acid 1.7 Calcium Prot Corrected Calcium Total Bilirubin AST ALT Alkaline Phosphatase Total Creatine Kinase 67 Troponin I 0.54 H D B-Natriuretic Peptide Total Protein Albumin Urine Color Yellow Urine Clarity Clear Urine pH 6.0 Ur Specific [place] 1.018 Urine Protein Negative Urine Glucose (UA) Negative Urine Ketones Negative Urine Occult Blood Negative Urine Nitrate Negative Urine Bilirubin Negative Urine Urobilinogen 2.0 H Ur Leukocyte Esterase Negative Urine RBC 1 Ur Squamous Epith Cells <1 Urine Mucus Few H Micro UA Comment Cath-culture not ind Urine Culture Comments Cath-cult not ind 12/17/17 04:30 WBC RBC Hgb Hct MCV MCH MCHC RDW Plt Count MPV Prelim Diff (Auto) WBC Differential Seg Neuts % (Manual) Band Neuts % (Manual) Lymphocytes % (Manual) Monocytes % (Manual) Abs Neuts (Manual) Nucleated RBCs/100 WBC Differential Comment Platelet Estimate Platelet Morphology Basophilic Stippling Sodium 136 Potassium 4.0 Chloride 106 Carbon Dioxide 17.5 L Anion Gap 13 BUN 38 H Creatinine 4.20 H Estimated GFR 13 L Random Glucose 76 Lactic Acid Calcium 7.0 L* Prot Corrected Calcium 7.9 L Total Bilirubin AST ALT Alkaline Phosphatase Total Creatine Kinase 73 Troponin I 0.51 H B-Natriuretic Peptide Total Protein 5.4 L Albumin Urine Color Urine Clarity Urine pH Ur Specific [place] Urine Protein Urine Glucose (UA) Urine Ketones Urine Occult Blood Urine Nitrate Urine Bilirubin Urine Urobilinogen Ur Leukocyte Esterase Urine RBC Ur Squamous Epith Cells Urine Mucus Micro UA Comment Urine Culture Comments - Imaging Impressions Abdomen/Bladder Ultrasound 12/16/17 00:00 CONCLUSION: 1. Small echogenic right kidney concerning for medical renal disease. 2. The left kidney could not be visualized on this ultrasound examination. Chest X-Ray 12/16/17 15:42 CONCLUSION: 1. The numbering mid inspiratory exam with increased opacity at the lung bases which may represent increasing infiltrate or be artifactual. 2. The costophrenic angles are blunted bilaterally most characteristic of small effusions. Assessment and Plan - Assessment (1) Multiple myeloma Code(s): C90.00 - Multiple myeloma not having achieved remission Status: Acute (2) Diastolic CHF Code(s): I50.30 - Unspecified diastolic (congestive) heart failure Status: Acute (2) Diastolic CHF Qualifiers: Heart failure chronicity: acute on chronic Qualified Code(s): I50.33 - Acute on chronic diastolic (congestive) heart failure
[2017-12-17] MEDS ORDERED: UPDATE PATIENT HEIGHT IN MEDITECH - CALL PHARMACY OTHER SCH (10:45)
[2017-12-17] MEDS ORDERED: Sodium Chlor 0.9% Inj 500 ML IV.SIG ONE (10:45)
[2017-12-17] MEDS ORDERED: Calcium Carbonate 500 MG Tablet PO ONE (10:46)
--- NOTE | 2017-12-17 10:57 | ECG ---
Date Performed: 12/16/2017 Time Performed: 16:55:56 PTAGE: 72 years EKG: Sinus rhythm LOW QRS VOLTAGE ABNORMAL ECG PREVIOUS TRACING : 11/23/2017 05.16 DOCTOR: Pierre Machado Interpretating Date/Time 12/17/2017 10:56:50
[2017-12-17] MEDS: Albumin Human 25% Inj 100 ML IV.SIG SCH ×2 (11:51→23:00)
[2017-12-17] MEDS ORDERED: Bumetanide Inj 25 MG/100 ML BAG IV.CONT SCH (17:00)
--- NOTE | 2017-12-17 17:08 | MB ---
cc: Sallie Shields MD, Abdul Q MD DATE: 12/16/2017 REASON FOR CONSULTATION: Acute kidney injury with elevated BUN and creatinine. HISTORY OF PRESENT ILLNESS: This is 72-year-old female with past medical history of multiple myeloma with kappa light chain disease, which was diagnosed in 2005, history of recurrent acute renal failure, history of hypertension, hyperlipidemia and amyloidosis who came to the hospital with generalized swelling, decreased urine output and shortness of breath. I was called to see the patient because of elevated BUN and creatinine. The patient has a history of renal insufficiency. The creatinine was 1.8 to 2.5 during her admission last month, I saw her at that time and she also had proteinuria. Now, she has decreased urine output and the creatinine has gone up to 4.3. The patient has shortness of breath on exertion. 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 The patient was given Velcade, Darvolumab and dexamethasone, but she was not able to remain on this because of repeated hospitalizations. The patient has been seen by oncology this morning and I was called because of worsening renal failure and anasarca. PAST MEDICAL HISTORY: Multiple myeloma with light chain disease, hypertension, hyperlipidemia, cardiac amyloidosis, chronic kidney disease. PAST SURGICAL HISTORY: Hysterectomy, history of port placement. REVIEW OF SYSTEMS: The patient has generalized weakness, feeling tired, has increased swelling of her legs and arms and has worsening shortness of breath, more on exertion and lying flat. She has decreased appetite and some nausea. There is no history of diarrhea. She has decreased urine output and she has not passed any urine since morning. Her appetite is decreased. There is no history of diarrhea or vomiting. SOCIAL HISTORY: There is no history of smoking or alcoholism. FAMILY HISTORY: Noncontributory. ALLERGIES: SHE IS ALLERGIC TO PENICILLIN. CURRENT MEDICATIONS: 1. Tylenol 2. Boaz. 2. DuoNeb nebulizer, 4. Azithromycin 500 mg once a day. 5. Ceftriaxone 1 g every 24 hours, 6. Heparin 5000 subcu every 12 hours. 7. Lactulose. 8. Restoril. 9. Senokot. 10. She received some albumin. 11. Lasix one dose was given yesterday evening. PHYSICAL EXAMINATION: GENERAL: Awake, alert, sitting in the bed, not in acute distress. VITAL SIGNS: Last blood pressure is 94/61. Blood pressure is on the lower side and the one before that was 87/60, temperature is 96, oxygen saturation 100% on room air. HEENT: Pupils are mid constricted. Nonicteric sclerae. Conjunctivae pale. NECK: Supple. JVD is slightly elevated. LUNGS: The patient has bilateral decreased air entry with scattered wheezing and basilar rales. HEART: S1, S2. Regular rhythm. ABDOMEN: Distended, soft, lax. There is some abdominal wall edema and possibly some ascites. EXTREMITIES: She has generalized anasarca. LABORATORY DATA: WBC count is 4.4, hemoglobin 7.5, platelet count of 162. Urinalysis showing no proteinuria. This was done yesterday night. Sodium 136, potassium 4.0, chloride 106, bicarbonate 17.5, BUN 38, creatinine 4.2, calcium 7.0, corrected calcium 7.9. Troponin I 0.5. Total protein is 5.4, albumin of 0.8. IMAGING STUDIES: The patient had abdominal ultrasound done, which shows right kidney is 8 cm. The left one is not visualized. Chest x-ray was done which shows increased opacity at the lung bases. Echocardiogram was done and shows ejection fraction of 60 to 65%, no pericardial effusion, trace tricuspid and aortic valve regurgitation. ASSESSMENT AND PLAN: 1. Chronic kidney disease with some acute worsening. 2. Generalized anasarca. 3. Severe hypoalbuminemia. 4. Hypotension. 5. Multiple myeloma with light chain disease. 6. Anemia. The patient has generalized anasarca and her renal function is much worse. She is not passing much urine. The blood pressure is on the lower side. I will put her on Bumex infusion and IV albumin and I talked to the patient about the possibility of starting dialysis if her urine output does not improve. She may need long-term dialysis, because her kidneys are very small in size and the chance of improvement is not that much. Thank you for the consultation and I will follow the patient while she is in the hospital and further recommendations will be given in due course. MD HANS Kraus/ , 04:39 PM , 05:07 PM
--- NOTE | 2017-12-17 18:08 | P.PNADD ---
Addendum to Inpatient Note Additional information: pt seen and examined chart reviewed MM admissted with SOB and back pain ARF, new Fluid overload Oliguriac HD is planned BC + for strep spp + R sided PORT x 8 yrs New lower back pain PCN all PLAN: fu bl clx dapto 6 mg/kg q 48 further rec's to follow once more info on BC org'm
[2017-12-17] MEDS ORDERED: DAPTOmycin Inj 500 MG in Sodium Chlor 0.9% Inj 100 ML IV.SIG SCH (22:00)
--- NOTE | 2017-12-17 22:51 | P.CONID ---
History of Present Illness Service: ID Consult date: 12/17/17 Requesting Physician: Noe Arvizu Reason for Consult: bacteremia Primary Care Provider: Justin Anthony DO Chief Complaint: Difficulty breathing.Generalized swelling. History of Present Illness: 72 yo female with multiple myeloma presented with back pain and SOB She was diagnosed with anuric acute renal failure, HD is planned She has no fever, but her cultures are positive for streptococcus spp Pt was started on CFTX Pt has a PORT x 8 yrs SH ecomlains of low back pain, which is worse than her chronic pain UA unremarkable, CXR cw with failure Review of Systems All other systems reviewed negative except as stated in HPI PMFSH - History History Provided By: Patient - Medical History Medical History: Medical History (Last Reviewed 02/13/18 @ 11:28 by Carolina Menendez MD) Cardiac amyloidosis Hypercholesteremia Hypertension 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 Multiple myeloma Nephrotic range proteinuria - Surgical History Surgical History: Surgical History (Last Reviewed 02/13/18 @ 11:28 by Carolina Menendez MD) History of hysterectomy Port-A-Cath in place - Family History Family History: Family History (Last Updated 02/13/18 @ 11:28 by Carolina Menendez MD) Other No pertinent family history - Social History I have reviewed the patient's Social History: Yes - Tobacco History Second Hand Smoke Exposure: No Tobacco Use In Past 30 Days: No Smoking Status: Never smoker - Alcohol History How Often Do You Have a Drink Containing Alcohol: Monthly or less - Substance Use History Substance History: No History of Abuse - Travel History Recent Travel in the [place] Within the Last 8 Weeks: No Recent Travel Out of the Country Within the Last 8 Weeks: No - Immunization History Tetanus Immunization: <5 Years Hx Influenza Vaccine This Season: Yes Medications and Allergies Active Medications: Active Medications Acetaminophen (Tylenol) 650 mg PO Q4H PRN PRN Reason: Headache, fever, pain 1-4 Hydrocodone Bitart/Acetaminophen ([place]oca 5/325) 1 tab PO Q6H PRN PRN Reason: BACK PAIN Last Admin: 12/17/17 18:07 Dose: 1 tab Al Hydroxide/Mg Hydroxide (Milk Of Magnesia Liq) 30 ml PO Q12H PRN PRN Reason: Mild Constipation Albuterol (Duoneb Neb (Prn)) 1 ampul NEB Q4HR NEB PRN PRN Reason: SHORTNESS OF BREATH/WHEEZING Albuterol (Duoneb Neb (Darya)) 1 ampul NEB Q6HR WHILE AWAKE NEB DARYA Last Admin: 12/17/17 14:10 Dose: Not Given Bisacodyl (Dulcolax Supp) 10 mg RECTAL DAILY PRN PRN Reason: SEVERE CONSITIPATION Heparin Sodium (Porcine) (Heparin Inj) 5,000 units SQ Q12H DARYA Last Admin: 12/17/17 21:12 Dose: 5,000 units Azithromycin 500 mg/ Sodium (Chloride) 250 mls @ 250 mls/hr IV.SIG Q24H DARYA Last Infusion: 12/17/17 05:00 Dose: Infused Ceftriaxone Sodium 1,000 mg/ (Sodium Chloride) 100 mls @ 200 mls/hr IV.SIG Q24H DARYA Last Infusion: 12/17/17 04:04 Dose: Infused Albumin Human (Flexbumin 25% Inj) 100 mls @ 60 mls/hr IV.SIG Q12H DARYA Last Infusion: 12/17/17 12:58 Dose: Infused Bumetanide (Bumex Inj) 25 mg in 100 mls @ 2 mls/hr IV.CONT .Q24H DARYA Last Admin: 12/17/17 21:12 Dose: 0.5 mg/hr, 2 mls/hr Daptomycin 500 mg/ Sodium (Chloride) 100 mls @ 200 mls/hr IV.SIG Q48H DARYA Last Admin: 12/17/17 21:12 Dose: 200 mls/hr Lactulose (Lactulose Liq) 30 ml PO DAILY PRN PRN Reason: SEVERE CONSITIPATION Sennosides (Senokot) 17.2 mg PO Q12H PRN PRN Reason: Moderate Constipation Temazepam (Restoril) 15 mg PO HS PRN PRN Reason: INSOMNIA Allergies Allergy/AdvReac Type Severity Reaction Status Date / Time Penicillins Allergy Intermediate Hives Verified 12/16/17 15:21 Home Medications Medication Instructions Recorded Confirmed Type furosemide [Lasix] 20 mg PO DAILY 11/23/17 12/16/17 History ondansetron [Zofran ODT] 4 mg PO Q6-8H PRN 11/23/17 12/16/17 History tramadol 50 mg PO Q6H PRN 11/23/17 12/16/17 History Exam Vital signs: Vital Signs 12/16/17 23:00 12/16/17 23:42 12/17/17 01:26 Temperature 98.2 F Pulse Rate 78 74 Respiratory Rate 19 20 Blood Pressure 78/51 L 88/52 L Pulse Oximetry 96 100 12/17/17 03:30 12/17/17 04:00 12/17/17 05:36 Temperature 97.9 F 96.5 F L Pulse Rate 80 97 H 74 Respiratory Rate 18 15 Blood Pressure 86/42 L 71/44 L Pulse Oximetry 100 100 12/17/17 05:37 12/17/17 07:00 12/17/17 08:08 Temperature 98 F Pulse Rate 97 H 97 H Respiratory Rate 18 Blood Pressure 80/52 L 82/50 L Pulse Oximetry 100 12/17/17 11:00 12/17/17 11:10 12/17/17 11:13 Temperature 96 F L Pulse Rate 92 H 95 H Respiratory Rate 24 24 Blood Pressure 94/61 L Pulse Oximetry 100 12/17/17 15:00 12/17/17 15:39 12/17/17 16:25 Temperature 97.4 F L Pulse Rate 91 H 91 H Respiratory Rate 24 Blood Pressure 87/60 L 150/90 H Pulse Oximetry 100 Intake & Output 12/17/17 12/17/17 12/18/17 06:59 18:59 06:59 Intake Total 850 / 850 1420 / 1420 Output Total 100 / 100 0 / 0 Balance 750 / 750 1420 / 1420 Weight 73 kg 73 kg Intake: IV 850 / 850 200 / 200 Flexbumin 25% Inj 100 ML @ 60 200 / 200 mls/hr IV.SIG Q12H DARYA Rx#: [id number] Alburx 5% Inj 500 ML @ 250 mls/ 500 / 500 hr IV.SIG ONCE ONE Rx#:[id number] Azithromycin Inj 500 MG In NS 250 / 250 Inj 250 ML @ 250 mls/hr IV.SIG Q24H DARYA Rx#:[id number] Rocephin Inj 1,000 MG In NS Inj 100 / 100 100 ML @ 200 mls/hr IV.SIG Q24H DARYA Rx#:[id number] Oral 1220 / 1220 Output: Urine 100 / 100 0 / 0 Other: Date of Last Bowel Movement 12/15/17 12/16/17 Weight On Admission 73 kg - Constitutional mild distress (RESP) - Routine HEENT Exam Head: Present: normocephalic, atraumatic Eye: Present: EOMI, PERRL ENT: Present: mucous membranes moist, oropharynx clear - Routine Neck Exam Present: supple, full ROM - Routine Chest/Breast/Axilla Exam Comments: R sided PORT in place - Routine Respiratory Exam Present: accessory muscle use, decreased breath sounds - Routine Cardiovascular Exam Present: RRR, S1, S2 - Routine Abdominal Exam Present: soft, distended Comments: no palpable oraganomegaly or masses - Routine Extremities Exam Present: edema (4+), normal capillary refill - Routine Back/Spine/Pelvis Exam Back/Spine: Present: paraspinal tenderness - Routine Skin Exam Present: intact, warm - Routine Neurological Exam Present: alert, oriented X3, CN II-XII intact, moving all extremities - Routine Psychiatric Exam Present: normal affect, normal thought process Results - Labs CBC & Chem 7: 01/01/18 08:15 01/01/18 08:15 Labs: Laboratory Results - last 24 hr 12/17/17 12/17/17 12/17/17 02:00 04:30 18:11 Sodium 136 Potassium 4.0 Chloride 106 Carbon Dioxide 17.5 L Anion Gap 13 BUN 38 H Creatinine 4.20 H Estimated GFR 13 L Random Glucose 76 Calcium 7.0 L* Prot Corrected Calcium 7.9 L Phosphorus 5.5 H Total Creatine Kinase 67 73 Troponin I 0.54 H D 0.51 H Total Protein 5.4 L - Imaging Abdomen/Bladder Ultrasound 12/16/17 00:00 CONCLUSION: 1. Small echogenic right kidney concerning for medical renal disease. 2. The left kidney could not be visualized on this ultrasound examination. Chest X-Ray 12/16/17 15:42 CONCLUSION: 1. The numbering mid inspiratory exam with increased opacity at the lung bases which may represent increasing infiltrate or be artifactual. 2. The costophrenic angles are blunted bilaterally most characteristic of small effusions. Assessment and Plan - Plan Multiple myeloma ARF Bacteremia, strep: its not clear the clinical significance at that point PCN allergy - cont CFTX will avoid vancomycin 2/2 ARF Daptomycin
[2017-12-18 06:26] LABS: Baso # (Auto) 0.1 th/mm3 (0.0-0.2); Eos % (Auto) 0.2 % (0.0-4.0); Lymph # (Auto) 0.2 th/mm3 (1.0-4.8); Lymph % (Auto) 2.6 % (9.0-44.0); Mean Corpuscular HGB Conc 33.3 % (32.0-36.0); Mean Corpuscular Hemoglobin 30.5 pg (27.0-34.0); Mean Corpuscular Volume 91.5 fL (80.0-100.0); Mean Platelet Volume 9.6 fL (7.0-11.0); Mono # (Auto) 0.7 th/mm3 (0.0-0.9); Mono % (Auto) 9.5 % (0.0-8.0); Neut # (Auto) 6.5 th/mm3 (1.8-7.7); Neut % (Auto) 86.7 % (16.0-70.0); Platelet Count 115 th/mm3 (150-450); Red Blood Count 1.86 mil/mm3 (4.00-5.30); Red Cell Distribution Width 17.6 % (11.6-17.2); White Blood Count 7.5 th/mm3 (4.0-11.0)
[2017-12-18 06:29] LABS: Carbon Dioxide 15.5 meq/L (21.0-32.0); Potassium 4.2 meq/L (3.5-5.1)
[2017-12-18 06:39] LABS: Hemoglobin 5.7 gm/dL (11.6-15.3)
[2017-12-18 06:53] LABS: Total Protein 5.7 g/dL (6.4-8.2)
[2017-12-18] MEDS ORDERED: Sodium Chlor 0.9% Inj 250 ML IV.SIG SCH (07:00)
--- NOTE | 2017-12-18 07:45 | P.PNONC ---
Subjective Interval history: Patient seen and examined this morning, vital signs labs and medications reviewed. [employer] notes including nephrology and infectious disease is also reviewed. CBC this morning indicates hemoglobin of 5.7 g/dL, transfusion packed red blood cell orders reviewed. Overnight the patient has remained oliguric, it appears she has had a total of 100 cc urine output over the past 24 hours. Subjectively; she reports continued edema, fatigue and difficulty breathing. She tells me she particularly has difficulty breathing when she reclines. Objective Vital Signs/Intake & Output: Vital Signs 12/17/17 08:08 12/17/17 11:00 12/17/17 11:10 Temperature 98 F 96 F L Pulse Rate 97 H 92 H 95 H Respiratory Rate 18 24 Blood Pressure 82/50 L 94/61 L Pulse Oximetry 100 100 12/17/17 11:13 12/17/17 15:00 12/17/17 15:39 Temperature 97.4 F L Pulse Rate 91 H 91 H Respiratory Rate 24 24 Blood Pressure 87/60 L Pulse Oximetry 100 12/17/17 16:25 12/17/17 19:00 12/17/17 20:00 Temperature 98.2 F Pulse Rate 87 92 H Respiratory Rate 16 Blood Pressure 150/90 H 94/53 L Pulse Oximetry 100 12/17/17 21:00 12/17/17 22:00 12/17/17 23:00 Temperature Pulse Rate 78 82 84 Respiratory Rate Blood Pressure Pulse Oximetry 12/18/17 00:00 12/18/17 01:00 12/18/17 02:00 Temperature 97.7 F Pulse Rate 84 76 80 Respiratory Rate 16 Blood Pressure 97/62 L Pulse Oximetry 100 12/18/17 03:00 12/18/17 04:00 12/18/17 05:00 Temperature 97.5 F L Pulse Rate 104 H 102 H 102 H Respiratory Rate 18 Blood Pressure 82/60 L Pulse Oximetry 100 12/18/17 06:00 Temperature Pulse Rate 105 H Respiratory Rate Blood Pressure Pulse Oximetry Intake & Output 12/17/17 12/18/17 12/18/17 18:59 06:59 18:59 Intake Total 1420 / 1420 790 / 790 Output Total 0 / 0 0 / 0 Balance 1420 / 1420 790 / 790 Weight 73 kg 71.6 kg Intake: IV 200 / 200 550 / 550 Flexbumin 25% Inj 100 ML @ 60 200 / 200 100 / 100 mls/hr IV.SIG Q12H DARYA Rx#: [id number] Azithromycin Inj 500 MG In NS 250 / 250 Inj 250 ML @ 250 mls/hr IV.SIG Q24H DARYA Rx#:[id number] Cubicin Inj 500 MG In NS Inj 100 / 100 100 ML @ 200 mls/hr IV.SIG Q48H DARYA Rx#:[id number] Rocephin Inj 1,000 MG In NS Inj 100 / 100 100 ML @ 200 mls/hr IV.SIG Q24H DARYA Rx#:[id number] Oral 1220 / 1220 240 / 240 Output: Urine 0 / 0 0 / 0 Other: Date of Last Bowel Movement 12/16/17 Weight On Admission 73 kg Result Diagrams: 12/18/17 05:47 12/18/17 05:47 Laboratory Results: Laboratory Results - last 24 hr 12/17/17 12/18/17 12/18/17 18:11 05:47 05:47 WBC 7.5 RBC 1.86 L Hgb 5.7 L* Hct 17.0 L* MCV 91.5 MCH 30.5 MCHC 33.3 RDW 17.6 H Plt Count 115 L MPV 9.6 Prelim Diff (Auto) Slide review pending Neut % (Auto) 86.7 H Lymph % (Auto) 2.6 L [place] % (Auto) 9.5 H Eos % (Auto) 0.2 Baso % (Auto) 1.0 Neut # (Auto) 6.5 Lymph # (Auto) 0.2 L [place] # (Auto) 0.7 Eos # (Auto) 0.0 Baso # (Auto) 0.1 Differential Comment . Sodium 136 Potassium 4.2 Chloride 106 Carbon Dioxide 15.5 L Anion Gap 15 BUN 42 H Creatinine 4.03 H Estimated GFR 13 L Random Glucose 58 L Calcium 7.0 L* Prot Corrected Calcium 7.7 L Phosphorus 5.5 H Total Protein 5.7 L Culture Results: Microbiology 12/16/17 20:15 Aerobic Blood Culture - Preliminary Blood - Peripheral Streptococcus species Anaerobic Blood Culture - Preliminary gram positive cocci Medications: Active Medications Generic Name Dose Route Start Last Admin Trade Name Freq PRN Reason Stop Dose Admin Hydrocodone Bitart/Acetaminophen 1 tab 12/17/17 08:32 07/24/18 18:07 Calvin 5/325 PO 1 tab Q6H PRN Administration BACK PAIN Albuterol 1 ampul 12/17/17 08:00 12/17/17 14:10 Duoneb Neb (Darya) NEB Not Given Q6HR WHILE AWAKE NEB DARYA Heparin Sodium (Porcine) 5,000 units 12/16/17 20:00 12/17/17 21:12 Heparin Inj SQ 5,000 units Q12H DARYA Administration Azithromycin 500 mg/ Sodium 250 mls @ 250 mls/hr 12/16/17 23:00 12/18/17 02: 34 Chloride IV.SIG Infused Q24H DARYA Infusion Ceftriaxone Sodium 1,000 mg/ 100 mls @ 200 mls/hr 12/17/17 00:00 12/18/17 02: 34 Sodium Chloride IV.SIG Infused Q24H DARYA Infusion Albumin Human 100 mls @ 60 mls/hr 12/17/17 11:00 12/18/17 02:32 Flexbumin 25% Inj IV.SIG Infused Q12H DARYA Infusion Bumetanide 25 mg in 100 mls @ 2 mls/hr 12/17/17 17:00 12/17/17 21:12 Bumex Inj IV.CONT 0.5 mg/hr .Q24H DARYA 2 mls/hr Administration 0.5 MG/HR Daptomycin 500 mg/ Sodium 100 mls @ 200 mls/hr 12/17/17 22:00 12/18/17 02:34 Chloride IV.SIG Infused Q48H DARYA Infusion Objective Remarks: GENERAL: Elderly lady, chronically ill, sitting up on a bedside chair, continues to have difficulty speaking full sentences. SKIN: Warm and dry, generalized anasarca. HEAD: Normocephalic. EYES: No scleral icterus. No injection or drainage. NECK: Supple, trachea midline. No JVD or lymphadenopathy. LYMPHATIC: No adenopathy. CARDIOVASCULAR: Tachycardic, S1-S2 faint systolic murmur. RESPIRATORY: Good air movement of the upper and middle lung zones, scattered crackles, decreased bibasilar breath sounds. GASTROINTESTINAL: Protuberant, abdomen soft, non-tender, nondistended, no definite organ enlargement. EXTREMITIES: Generalized pitting edema/anasarca of the upper and lower extremities, decreased muscle mass. MUSCULOSKELETAL: Generally weak, decreased muscle mass. NEUROLOGICAL: No obvious focal deficit. Awake, alert, and oriented x3. PSYCHIATRIC: Appropriate mood and affect; insight and judgment normal. 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 Hoff is a 72-year-old female with a diagnosis of IgG kappa light chain multiple myeloma diagnosed originally 2005, status post autologous stem cell transplant in 2009, most recently had been on systemic therapy with Durvalumab, Velcade and dexamethasone. 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 Recommendations: 1. Acute renal failure with oliguria: Will likely require renal replacement therapy with hemodialysis. Nephrology is on board, I suspect she will likely need to start later today. 2. Anemia: Likely dilutional to some extent, recommend transfusing 1 unit packed red blood cell. 3. Multiple myeloma: Treatment on hold until acute issues have been stabilized specifically renal failure and fluid/volume balance. Thus far, the patient indicates she would prefer pursuing aggressive goals of care. She expects to resume systemic therapy once her acute issues have resolved which is a reasonable approach.
[2017-12-18 07:51] LABS: Lymphocytes 2 % (9-44); Metamyelocytes 1 % (0-1); Platelet Morphology Normal (Normal)
[2017-12-18 07:52] LABS: Acanthocytes Occ; Target Cells 1+
--- NOTE | 2017-12-18 09:42 | P.PN ---
Physical Exam Vital signs: Vital Signs 12/17/17 11:00 12/17/17 11:10 12/17/17 11:13 Temperature 96 F L Pulse Rate 92 H 95 H Respiratory Rate 24 24 Blood Pressure 94/61 L Pulse Oximetry 100 12/17/17 15:00 12/17/17 15:39 12/17/17 16:25 Temperature 97.4 F L Pulse Rate 91 H 91 H Respiratory Rate 24 Blood Pressure 87/60 L 150/90 H Pulse Oximetry 100 12/17/17 19:00 12/17/17 20:00 12/17/17 21:00 Temperature 98.2 F Pulse Rate 87 92 H 78 Respiratory Rate 16 Blood Pressure 94/53 L Pulse Oximetry 100 12/17/17 22:00 12/17/17 23:00 12/18/17 00:00 Temperature 97.7 F Pulse Rate 82 84 84 Respiratory Rate 16 Blood Pressure 97/62 L Pulse Oximetry 100 12/18/17 01:00 12/18/17 02:00 12/18/17 03:00 Temperature Pulse Rate 76 80 104 H Respiratory Rate Blood Pressure Pulse Oximetry 12/18/17 04:00 12/18/17 05:00 12/18/17 06:00 Temperature 97.5 F L Pulse Rate 102 H 102 H 105 H Respiratory Rate 18 Blood Pressure 82/60 L Pulse Oximetry 100 Intake & Output 12/17/17 12/18/17 12/18/17 18:59 06:59 18:59 Intake Total 1420 / 1420 790 / 790 Output Total 0 / 0 0 / 0 Balance 1420 / 1420 790 / 790 Weight 73 kg 71.6 kg Intake: IV 200 / 200 550 / 550 Flexbumin 25% Inj 100 ML @ 60 200 / 200 100 / 100 mls/hr IV.SIG Q12H KARLENE Rx#: [id number] Azithromycin Inj 500 MG In NS 250 / 250 Inj 250 ML @ 250 mls/hr IV.SIG Q24H KARLENE Rx#:[id number] Cubicin Inj 500 MG In NS Inj 100 / 100 100 ML @ 200 mls/hr IV.SIG Q48H KARLENE Rx#:[id number] Rocephin Inj 1,000 MG In NS Inj 100 / 100 100 ML @ 200 mls/hr IV.SIG Q24H KARLENE Rx#:[id number] Oral 1220 / 1220 240 / 240 Output: Urine 0 / 0 0 / 0 Other: Date of Last Bowel Movement 12/16/17 Weight On Admission 73 kg Narrative: Subjective: F/up MM SIMON - worsening kidney function, anoliguric, bacteremia strep viridans , hypotension The patient appears chronically ill with some shortness of breath and very weak. She complains of constipation. Received laxatives/stool softeners and had a bowel movement. No nausea or vomiting. Has no appetite and not able to eat for the past 3 days or so. No fever or chills. No abdominal pain at this time. Blood pressure is into the lower side. Kidney function improved but not significantly. Nephrology to evaluate the patient for need of hemodialysis. Physical exam: GENERAL: This is a cachectic, chronically ill patient. CARDIOVASCULAR: Regular rate and rhythm without murmurs, gallops, or rubs. RESPIRATORY: Breath sounds diminished in bases, slight crackles noted. GASTROINTESTINAL: Abdomen soft, non-tender, nondistended. Normal active bowel sounds. MUSCULOSKELETAL: +2 pitting edema in bilateral lower extremities and arms NEURO: Alert & Oriented x4 to person, place, time, situation. Moves all ext x4 Assessment and Plan 72 y/o female with a history of multiple myeloma, HLD, and HTN presented to the ED with complaints of worsening edema and sob. Acute CHF exacerbation on possible chronic chf BNP 1350 on admission -Diuresed with Lasix -Fluid restriction - BP was noted low give albumin q12 hrs Acute renal failure Creatine 4.3, baseline 2.0. Creatinine is improving -Consult nephrology for evaluation -Kidney ultrasound ordered -Avoid nephrotoxins -Consult nephrology. Plan for hemodialysis Bandemia, 32% bands on admission, suspect pneumonia Bacteremia, viridans strep, low grade. Port infx vs contaminant PCN allergy Cont CFTX 2 gm. DC Daptomycin and azythro. NO need to remove PORT at this time per ID recommendtions , ff 2 D echo pending ID consulted Chest x ray reviewed and shows numbering mid inspiratory exam with increased opacity at the lung bases which may represent increasing infiltrate, and small effusions. -monitor CBC -Lactic acid is back to normal Elevated troponin, likely related due to CHF and elevated creatine r/o ACS Troponin .67 -Serial troponin and ekgs Hypotension, due to diuresis -Albumin IV bid -Monitor vitals Multiple myeloma, chronic -Consult Dr. Nolberto, following -Consult nephrology following. Plan of Constipation. Stool softeners/laxatives as needed. DVT prophylaxis: Heparin Discussed Condition With: Patient, nurse DC plan pending improvement With MM worsening kidney function, anoliguric, bacteremia strep viridans , ID, hem/onc and nephrology ff Results - Labs CBC & Chem 7: 12/18/17 05:47 12/18/17 05:47 Laboratory Results - last 24 hr 12/17/17 12/18/17 12/18/17 18:11 05:47 05:47 WBC 7.5 RBC 1.86 L Hgb 5.7 L* Hct 17.0 L* MCV 91.5 MCH 30.5 MCHC 33.3 RDW 17.6 H Plt Count 115 L MPV 9.6 Prelim Diff (Auto) Slide review pending Neut % (Auto) 86.7 H Lymph % (Auto) 2.6 L [place] % (Auto) 9.5 H Eos % (Auto) 0.2 Baso % (Auto) 1.0 Neut # (Auto) 6.5 Lymph # (Auto) 0.2 L [place] # (Auto) 0.7 Eos # (Auto) 0.0 Baso # (Auto) 0.1 WBC Differential Manual diff final Seg Neuts % (Manual) 91 H Band Neuts % (Manual) 6 Lymphocytes % (Manual) 2 L Metamyelocytes % (Man) 1 Abs Neuts (Manual) 7.4 Differential Comment . Platelet Estimate Low L Platelet Morphology Normal Target Cells 1+ H Acanthocytes (Spur) Occ H Sodium 136 Potassium 4.2 Chloride 106 Carbon Dioxide 15.5 L Anion Gap 15 BUN 42 H Creatinine 4.03 H Estimated GFR 13 L Random Glucose 58 L Calcium 7.0 L* Prot Corrected Calcium 7.7 L Phosphorus 5.5 H Total Protein 5.7 L Microbiology 12/16/17 20:15 Blood - Peripheral Aerobic Blood Culture - Preliminary Streptococcus species 12/16/17 20:15 Blood - Peripheral Anaerobic Blood Culture - Preliminary gram positive cocci Assessment and Plan - Assessment (1) Multiple myeloma Code(s): C90.00 - Multiple myeloma not having achieved remission Status: Acute (2) Diastolic CHF Code(s): I50.30 - Unspecified diastolic (congestive) heart failure Status: Acute (2) Diastolic CHF Qualifiers: Heart failure chronicity: acute on chronic Qualified Code(s): I50.33 - Acute on chronic diastolic (congestive) heart failure
[2017-12-18] MEDS: Heparin - SQ 10,000 UNITS/ML Vial SQ SCH ×2 (10:19→21:55)
[2017-12-18] MEDS: Albumin Human 25% Inj 100 ML IV.SIG SCH (10:31)
[2017-12-18] MEDS ORDERED: Acetaminophen 325 MG Tablet PO ONE (11:45)
[2017-12-18 13:14] LABS: Activated Partial Thrombo Time 38.6 sec (24.3-30.1); Prothrombin Time 9.9 sec (9.8-11.6)
--- NOTE | 2017-12-18 13:15 | P.PNID ---
Subjective Remarks: sttil practically anuric very edematous less back pain Hb in 5 range, will get Xfused On 2 L of NC O2 Allergies/Adverse Reactions: Allergies Penicillins Allergy (Intermediate, Verified 12/16/17 15:21) Hives Objective Vital Signs 12/17/17 15:00 12/17/17 15:39 12/17/17 16:25 Temperature 97.4 F L Pulse Rate 91 H 91 H Respiratory Rate 24 Blood Pressure 87/60 L 150/90 H Pulse Oximetry 100 12/17/17 19:00 12/17/17 20:00 12/17/17 21:00 Temperature 98.2 F Pulse Rate 87 92 H 78 Respiratory Rate 16 Blood Pressure 94/53 L Pulse Oximetry 100 12/17/17 22:00 12/17/17 23:00 12/18/17 00:00 Temperature 97.7 F Pulse Rate 82 84 84 Respiratory Rate 16 Blood Pressure 97/62 L Pulse Oximetry 100 12/18/17 01:00 12/18/17 02:00 12/18/17 03:00 Temperature Pulse Rate 76 80 104 H Respiratory Rate Blood Pressure Pulse Oximetry 12/18/17 04:00 12/18/17 05:00 12/18/17 06:00 Temperature 97.5 F L Pulse Rate 102 H 102 H 105 H Respiratory Rate 18 Blood Pressure 82/60 L Pulse Oximetry 100 12/18/17 07:00 12/18/17 08:00 12/18/17 09:00 Temperature 97.4 F L Pulse Rate 86 102 H 110 H Respiratory Rate 20 Blood Pressure 92/56 L Pulse Oximetry 99 12/18/17 10:00 12/18/17 11:00 Temperature 97.6 F Pulse Rate 110 H 107 H Respiratory Rate 20 Blood Pressure 98/67 L Pulse Oximetry Intake & Output 12/17/17 12/18/17 12/18/17 18:59 06:59 18:59 Intake Total 1420 / 1420 790 / 790 Output Total 0 / 0 0 / 0 Balance 1420 / 1420 790 / 790 Weight 73 kg 71.6 kg Intake: IV 200 / 200 550 / 550 Flexbumin 25% Inj 100 ML @ 60 200 / 200 100 / 100 mls/hr IV.SIG Q12H KARLENE Rx#: [id number] Azithromycin Inj 500 MG In NS 250 / 250 Inj 250 ML @ 250 mls/hr IV.SIG Q24H KARLENE Rx#:[id number] Cubicin Inj 500 MG In NS Inj 100 / 100 100 ML @ 200 mls/hr IV.SIG Q48H KARLENE Rx#:[id number] Rocephin Inj 1,000 MG In NS Inj 100 / 100 100 ML @ 200 mls/hr IV.SIG Q24H KARLENE Rx#:[id number] Oral 1220 / 1220 240 / 240 Output: Urine 0 / 0 0 / 0 Other: Date of Last Bowel Movement 12/16/17 12/16/17 Weight On Admission 73 kg 12/16/17 20:15 Blood - Peripheral Aerobic Blood Culture - Preliminary Viridans streptococcus [facility] 12/16/17 20:15 Blood - Peripheral Anaerobic Blood Culture - Final Viridans streptococcus [facility] 12/17/17 14:44 Blood - Peripheral Aerobic Blood Culture - Preliminary No growth in 1 day 12/17/17 14:44 Blood - Peripheral Anaerobic Blood Culture - Preliminary No growth in 1 day 12/17/17 14:00 Blood - Peripheral Aerobic Blood Culture - Preliminary No growth in 1 day 12/17/17 14:00 Blood - Peripheral Anaerobic Blood Culture - Preliminary No growth in 1 day Lab - Hematology Results 12/16/17 12/18/17 16:20 05:47 WBC 4.4 7.5 RBC 2.41 L 1.86 L Hgb 7.5 L 5.7 L* Hct 22.0 L 17.0 L* MCV 91.5 91.5 MCH 31.1 30.5 MCHC 34.0 33.3 RDW 17.5 H 17.6 H Plt Count 162 115 L MPV 9.3 9.6 Prelim Diff (Auto) Slide review pending Slide review pending Neut % (Auto) 86.7 H Lymph % (Auto) 2.6 L [place] % (Auto) 9.5 H Eos % (Auto) 0.2 Baso % (Auto) 1.0 Neut # (Auto) 6.5 Lymph # (Auto) 0.2 L [place] # (Auto) 0.7 Eos # (Auto) 0.0 Baso # (Auto) 0.1 WBC Differential Manual diff final Manual diff final Seg Neuts % (Manual) 48 91 H Band Neuts % (Manual) 39 H 6 Lymphocytes % (Manual) 10 2 L Monocytes % (Manual) 3 Metamyelocytes % (Man) 1 Abs Neuts (Manual) 3.8 7.4 Nucleated RBCs/100 WBC 1 H Differential Comment . . Platelet Estimate Low L Low L Platelet Morphology Normal Normal Basophilic Stippling Faint H Target Cells 1+ H Acanthocytes (Spur) Occ H Lab - Chemistry Results 12/16/17 12/16/17 12/16/17 16:20 16:20 20:45 Sodium 137 Potassium 3.7 Chloride 106 Carbon Dioxide 17.8 L Anion Gap 13 BUN 38 H Creatinine 4.39 H Estimated GFR 12 L Random Glucose 116 H Lactic Acid 1.7 Calcium 6.9 L* Prot Corrected Calcium 7.8 L Phosphorus Total Bilirubin 0.2 AST 28 ALT 15 Alkaline Phosphatase 41 L Total Creatine Kinase Troponin I 0.67 H* B-Natriuretic Peptide 1360 H Total Protein 5.4 L Albumin 0.8 L 12/17/17 12/17/17 12/17/17 02:00 04:30 18:11 Sodium 136 Potassium 4.0 Chloride 106 Carbon Dioxide 17.5 L Anion Gap 13 BUN 38 H Creatinine 4.20 H Estimated GFR 13 L Random Glucose 76 Lactic Acid Calcium 7.0 L* Prot Corrected Calcium 7.9 L Phosphorus 5.5 H Total Bilirubin AST ALT Alkaline Phosphatase Total Creatine Kinase 67 73 Troponin I 0.54 H D 0.51 H B-Natriuretic Peptide Total Protein 5.4 L Albumin 12/18/17 05:47 Sodium 136 Potassium 4.2 Chloride 106 Carbon Dioxide 15.5 L Anion Gap 15 BUN 42 H Creatinine 4.03 H Estimated GFR 13 L Random Glucose 58 L Lactic Acid Calcium 7.0 L* Prot Corrected Calcium 7.7 L Phosphorus Total Bilirubin AST ALT Alkaline Phosphatase Total Creatine Kinase Troponin I B-Natriuretic Peptide Total Protein 5.7 L Albumin Imaging: ITS Impressions Abdomen/Bladder Ultrasound 12/16/17 00:00 CONCLUSION: 1. Small echogenic right kidney concerning for medical renal disease. 2. The left kidney could not be visualized on this ultrasound examination. Chest X-Ray 12/16/17 15:42 CONCLUSION: 1. The numbering mid inspiratory exam with increased opacity at the lung bases which may represent increasing infiltrate or be artifactual. 2. The costophrenic angles are blunted bilaterally most characteristic of small effusions. Physical Exam: GENERAL: NAD SKIN: Warm and dry. HEAD: Atraumatic. Normocephalic. EYES: Pupils equal and round. No scleral icterus. No injection or drainage. ENT: No nasal bleeding or discharge. Mucous membranes pink and moist. NECK: Trachea midline. No JVD. CARDIOVASCULAR: Regular rate and rhythm. RESPIRATORY: No accessory muscle use. Clear to auscultation. Breath sounds equal bilaterally. GASTROINTESTINAL: Abdomen soft, non-tender, nondistended. Hepatic and splenic margins not palpable. MUSCULOSKELETAL: Extremities without clubbing, cyanosis, Massive 4+ edema. No obvious deformities. NEUROLOGICAL: Awake and alert. No obvious cranial nerve deficits. Motor grossly within normal limits. Five out of 5 muscle strength in the arms and legs. Normal speech. PSYCHIATRIC: Appropriate mood and affect; insight and judgment normal. LINES: R sided PORT in place , no swelling, redness or tenderness around it Assessment and Plan - Plan Multiple myeloma ARF Bacteremia, viridans strep, low grade. POrt infx vs contaminant PCN allergy - cont CFTX 2 gm dc Daptomycin NO need to remove PORT at this point 2 D echo
[2017-12-18] MEDS ORDERED: Magnesium Citrate Liq 300 ML Bottle PO ONE (15:21)
[2017-12-18] MEDS: Heparin Central Flush 100 UNIT/ML 5 ML Vial IV.FLUSH PRN (18:23)
--- NOTE | 2017-12-18 18:51 | P.PNNP ---
Subjective Interval history: Patient seen in the afternoon, sitting on chair, has mild SOB. Physical Exam Vital signs: Vital Signs 12/17/17 19:00 12/17/17 20:00 12/17/17 21:00 Temperature 98.2 F Pulse Rate 87 92 H 78 Respiratory Rate 16 Blood Pressure 94/53 L Pulse Oximetry 100 12/17/17 22:00 12/17/17 23:00 12/18/17 00:00 Temperature 97.7 F Pulse Rate 82 84 84 Respiratory Rate 16 Blood Pressure 97/62 L Pulse Oximetry 100 12/18/17 01:00 12/18/17 02:00 12/18/17 03:00 Temperature Pulse Rate 76 80 104 H Respiratory Rate Blood Pressure Pulse Oximetry 12/18/17 04:00 12/18/17 05:00 12/18/17 06:00 Temperature 97.5 F L Pulse Rate 102 H 102 H 105 H Respiratory Rate 18 Blood Pressure 82/60 L Pulse Oximetry 100 12/18/17 07:00 12/18/17 08:00 12/18/17 09:00 Temperature 97.4 F L Pulse Rate 86 102 H 110 H Respiratory Rate 20 Blood Pressure 92/56 L Pulse Oximetry 99 12/18/17 10:00 12/18/17 11:00 12/18/17 12:00 Temperature 97.6 F Pulse Rate 110 H 107 H 112 H Respiratory Rate 20 Blood Pressure 98/67 L Pulse Oximetry 12/18/17 13:00 12/18/17 14:00 12/18/17 15:00 Temperature 97.6 F Pulse Rate 120 H 116 H 114 H Respiratory Rate 16 Blood Pressure 121/63 Pulse Oximetry 12/18/17 16:00 12/18/17 17:00 12/18/17 18:00 Temperature Pulse Rate 114 H 106 H 103 H Respiratory Rate Blood Pressure Pulse Oximetry Intake & Output 12/17/17 12/18/17 12/18/17 18:59 06:59 18:59 Intake Total 1420 / 1420 790 / 790 840 / 840 Output Total 0 / 0 0 / 0 0 / 0 Balance 1420 / 1420 790 / 790 840 / 840 Weight 73 kg 71.6 kg Intake: IV 200 / 200 550 / 550 Flexbumin 25% Inj 100 ML @ 60 200 / 200 100 / 100 mls/hr IV.SIG Q12H KARLENE Rx#: [id number] Azithromycin Inj 500 MG In NS 250 / 250 Inj 250 ML @ 250 mls/hr IV.SIG Q24H KARLENE Rx#:[id number] Cubicin Inj 500 MG In NS Inj 100 / 100 100 ML @ 200 mls/hr IV.SIG Q48H KARLENE Rx#:[id number] Rocephin Inj 1,000 MG In NS Inj 100 / 100 100 ML @ 200 mls/hr IV.SIG Q24H KARLENE Rx#:[id number] Oral 1220 / 1220 240 / 240 840 / 840 Output: Urine 0 / 0 0 / 0 0 / 0 Other: Date of Last Bowel Movement 12/16/17 12/18/17 # Bowel Movements 1 Weight On Admission 73 kg Narrative: Physical exam: GENERAL: Patient with some muscle wasting and generalized edema, in no apparent distress. CARDIOVASCULAR: Regular rate and rhythm without murmurs, gallops, or rubs. RESPIRATORY: Breath sounds diminished in bases, slight crackles noted GASTROINTESTINAL: Abdomen soft, non-tender, nondistended. Normal active bowel sounds MUSCULOSKELETAL: +2 pitting edema in bilateral lower extremities NEURO: Alert & Oriented x4 to person, place, time, situation. Moves all ext x4 Assessment and Plan - Plan 1. Chronic kidney disease and Acute kidney injury. 2. Generalized Anasarca. 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 4. Anemia. Patient has advance renal disease, and Anasarca, urine out put is low. Bumex stopped, To start HD, need transfusion. Hematology following, has antibodies in the blood. To start HD tomorrow now. K is normal. D/W the patient and explained.
[2017-12-18] MEDS ORDERED: Cathflo Activase Inj 2 MG Vial I-CATHETER ONE (21:30)
[2017-12-19] MEDS ORDERED: Acetaminophen 325 MG Tablet PO ONE (00:15)
[2017-12-19] MEDS: Albumin Human 25% Inj 100 ML IV.SIG SCH ×3 (03:16→23:00)
[2017-12-19] MEDS: Azithromycin Inj 500 MG in Sodium Chlor 0.9% Inj 250 ML IV.SIG SCH ×2 (03:16→23:00)
[2017-12-19] MEDS: Heparin Central Flush 100 UNIT/ML 5 ML Vial IV.FLUSH PRN ×2 (05:08→18:42)
[2017-12-19 09:10] LABS: Baso % (Auto) 0.1 % (0.0-2.0); Lymph # (Auto) 1.2 th/mm3 (1.0-4.8); Mean Corpuscular HGB Conc 34.6 % (32.0-36.0); Mean Corpuscular Hemoglobin 29.8 pg (27.0-34.0); Mean Corpuscular Volume 86.3 fL (80.0-100.0); Mean Platelet Volume 9.1 fL (7.0-11.0); Mono # (Auto) 0.4 th/mm3 (0.0-0.9); Mono % (Auto) 4.5 % (0.0-8.0); Neut # (Auto) 7.2 th/mm3 (1.8-7.7); Neut % (Auto) 81.4 % (16.0-70.0); Platelet Count 114 th/mm3 (150-450); Red Blood Count 2.38 mil/mm3 (4.00-5.30); White Blood Count 8.8 th/mm3 (4.0-11.0)
[2017-12-19 09:20] LABS: Hematocrit 20.6 % (35.0-46.0); Hemoglobin 7.1 gm/dL (11.6-15.3)
--- NOTE | 2017-12-19 09:22 | P.PN ---
Physical Exam Vital signs: Vital Signs 12/18/17 10:00 12/18/17 11:00 12/18/17 12:00 Temperature 97.6 F Pulse Rate 110 H 107 H 112 H Respiratory Rate 20 Blood Pressure 98/67 L Pulse Oximetry 12/18/17 13:00 12/18/17 14:00 12/18/17 15:00 Temperature 97.6 F Pulse Rate 120 H 116 H 114 H Respiratory Rate 16 Blood Pressure 121/63 Pulse Oximetry 12/18/17 16:00 12/18/17 17:00 12/18/17 18:00 Temperature Pulse Rate 114 H 106 H 103 H Respiratory Rate Blood Pressure Pulse Oximetry 12/18/17 19:00 12/18/17 19:44 12/18/17 19:45 Temperature 98.2 F Pulse Rate 118 H 107 H Respiratory Rate 22 15 Blood Pressure 111/62 Pulse Oximetry 100 12/18/17 20:00 12/18/17 21:00 12/18/17 22:00 Temperature Pulse Rate 120 H 106 H 102 H Respiratory Rate Blood Pressure Pulse Oximetry 98 12/18/17 23:00 12/18/17 23:59 12/19/17 00:00 Temperature 97.5 F L 98.4 F Pulse Rate 98 H 108 H 98 H Respiratory Rate 16 20 Blood Pressure 107/69 107/69 Pulse Oximetry 12/19/17 00:08 12/19/17 00:15 12/19/17 00:20 Temperature 97.5 F L 97.8 F 97.7 F Pulse Rate 109 H 107 H 102 H Respiratory Rate 20 20 20 Blood Pressure 103/74 108/73 97/69 L Pulse Oximetry 12/19/17 00:22 12/19/17 00:30 12/19/17 01:00 Temperature 97.8 F 97.8 F Pulse Rate 114 H 106 H 108 H Respiratory Rate 20 20 Blood Pressure 91/41 L 107/72 Pulse Oximetry 12/19/17 02:00 12/19/17 03:00 12/19/17 03:10 Temperature 97.8 F 97.8 F Pulse Rate 84 106 H 89 Respiratory Rate 16 22 Blood Pressure 111/78 100/71 Pulse Oximetry 100 100 12/19/17 04:00 12/19/17 05:00 12/19/17 06:00 Temperature Pulse Rate 98 H 94 H 106 H Respiratory Rate Blood Pressure Pulse Oximetry Intake & Output 12/18/17 12/19/17 12/19/17 18:59 06:59 18:59 Intake Total 840 / 840 1190 / 1190 Output Total 150 / 150 300 / 300 Balance 690 / 690 890 / 890 Intake: IV 550 / 550 Flexbumin 25% Inj 100 ML @ 60 200 / 200 mls/hr IV.SIG Q12H KARLENE Rx#: [id number] Azithromycin Inj 500 MG In NS 250 / 250 Inj 250 ML @ 250 mls/hr IV.SIG Q24H KARLENE Rx#:[id number] Rocephin Inj 2,000 MG In NS Inj 100 / 100 100 ML @ 200 mls/hr IV.SIG Q24H KARLENE Rx#:[id number] Oral 840 / 840 240 / 240 Intake (Blood Product) Amt 400 / 400 Rbc As-3 Leukoreduced Unit 400 / 400 [id number] Output: Urine 150 / 150 300 / 300 Other: Date of Last Bowel Movement 12/18/17 # Bowel Movements 1 Narrative: Subjective: F/up MM with light chain disease, SIMON - worsening kidney function, anoliguric, bacteremia strep viridans , hypotension, anasarca The patient appears chronically ill, with severe shortness of breath with anasarca. Plan for Vas-Cath and dialysis in the afternoon. With nausea no vomiting not able to keep anything down and not able to eat. No fever or chills. Physical exam: GENERAL: This is a cachectic, chronically ill patient. CARDIOVASCULAR: Regular rate and rhythm without murmurs, gallops, or rubs. RESPIRATORY: Breath sounds diminished in bases, with sob, slight crackles noted. GASTROINTESTINAL: Abdomen soft, non-tender, nondistended. Normal active bowel sounds. MUSCULOSKELETAL: Anasarca. +3 pitting edema in bilateral lower extremities and arms NEURO: Alert & Oriented . Moves all ext x4. Very weak voice. Assessment and Plan 72 y/o female with a history of multiple myeloma, HLD, and HTN presented to the ED with complaints of worsening edema and sob. Acute CHF exacerbation on possible chronic chf BNP 1350 on admission -Diuresed with Lasix and then switched to Bumex. Now off diuretics. Vas-Cath placed 12/19/17. Started dialysis -Fluid restriction - BP was noted low give albumin q12 hrs Acute renal failure. Patient was multiple myeloma light chain disease. Creatine 4.3, baseline 2.0. Creatinine is improving -Consult nephrology for evaluation -Kidney ultrasound ordered -Avoid nephrotoxins -Consult nephrology. Plan for hemodialysis - S/P right Internal Jugular Hemodialysis Catheter Non-Tunneled Placement on Bandemia, 32% bands on admission, suspected pneumonia Bacteremia, viridans strep, low grade. Port infx vs contaminant PCN allergy Cont CFTX 2 gm. DC Daptomycin and azythro. NO need to remove PORT at this time per ID recommendations , ff 2 D echo pending ID consulted Chest x ray reviewed and shows numbering mid inspiratory exam with increased opacity at the lung bases which may represent increasing infiltrate, and small effusions. -monitor CBC -Lactic acid is back to normal Elevated troponin, likely related due to CHF and elevated creatine r/o ACS Troponin .67 -Serial troponin and ekgs Hypotension, due to diuresis -Albumin IV bid -Monitor vitals Multiple myeloma, chronic -Consult Dr. Arvizu, following -Consult nephrology following. Plan of Constipation. Stool softeners/laxatives as needed. DVT prophylaxis: Heparin Discussed Condition With: Patient, nurse DC plan pending improvement With MM worsening kidney function, anoliguric, bacteremia strep viridans , ID, hem/onc and nephrology ff Vas-Cath placed 12/19/17 started dialysis. Results - Labs CBC & Chem 7: 12/19/17 08:30 12/19/17 08:30 Laboratory Results - last 24 hr 12/18/17 12/18/17 12/19/17 12:50 12:50 08:30 WBC 8.8 RBC 2.38 L Hgb 7.1 L Hct 20.6 L* MCV 86.3 D MCH 29.8 MCHC 34.6 RDW 19.0 H Plt Count 114 L MPV 9.1 Prelim Diff (Auto) Slide review pending Neut % (Auto) 81.4 H Lymph % (Auto) 14.0 [place] % (Auto) 4.5 Eos % (Auto) 0.0 Baso % (Auto) 0.1 Neut # (Auto) 7.2 Lymph # (Auto) 1.2 [place] # (Auto) 0.4 Eos # (Auto) 0.0 Baso # (Auto) 0.0 Differential Comment . PT 9.9 INR 1.0 APTT 38.6 H Blood Type AB Positive Antibody Screen Positive H MTS Gel Crossmatch See Detail Bld Prod Order Comment Microbiology 12/16/17 20:15 Blood - Peripheral Aerobic Blood Culture - Preliminary Viridans streptococcus [facility] 12/16/17 20:15 Blood - Peripheral Anaerobic Blood Culture - Final Viridans streptococcus [facility] 12/17/17 14:44 Blood - Peripheral Aerobic Blood Culture - Preliminary No growth in 1 day 12/17/17 14:44 Blood - Peripheral Anaerobic Blood Culture - Preliminary No growth in 1 day 12/17/17 14:00 Blood - Peripheral Aerobic Blood Culture - Preliminary No growth in 1 day 12/17/17 14:00 Blood - Peripheral Anaerobic Blood Culture - Preliminary No growth in 1 day Assessment and Plan - Assessment (1) Multiple myeloma Code(s): C90.00 - Multiple myeloma not having achieved remission Status: Acute (2) Diastolic CHF Code(s): I50.30 - Unspecified diastolic (congestive) heart failure Status: Acute (2) Diastolic CHF Qualifiers: Heart failure chronicity: acute on chronic Qualified Code(s): I50.33 - Acute on chronic diastolic (congestive) heart failure
--- NOTE | 2017-12-19 09:37 | ECHRPT ---
Indication: CONCLUSIONS Normal left ventricular size. Wall thickness is normal. The left ventricular systolic function is low normal with an estimated ejection fraction of 50%. The left atrial size is mildly dilated. The right atrial size is mildly dilated. Moderate mitral valve regurgitation. Aortic valve sclerosis is present. There is moderate to severe tricuspid valve regurgitation. The estimated pulmonary arterial pressure is 41 mmHg. A large left sided pleural effusion is noted. A large right sided pleural effusion is present. BP: / HR: Rhythm: Sinus MEASUREMENTS (Male / Female) Normal Values Technical Quality:Fair 2D ECHO LV Diastolic Diameter PLAX 4.3 cm 4.2 - 5.9 / 3.9 - 5.3 cm LV Systolic Diameter PLAX 3.7 cm IVS Diastolic Thickness 0.7 cm 0.6 - 1.0 / 0.6 - 0.9 cm LVPW Diastolic Thickness 0.7 cm 0.6 - 1.0 / 0.6 - 0.9 cm LV Relative Wall Thickness 0.3 RV Internal Dim ED PLAX 2.0 cm LVOT Diameter 1.9 cm Aortic Root Diameter 2.7 cm LA Systolic Diameter LX 3.2 cm 3.0 - 4.0 / 2.7 - 3.8 cm DOPPLER AV Peak Velocity 119.0 cm/s AV Peak Gradient 5.7 mmHg AV Mean Gradient 3.0 mmHg AV Velocity Time Integral 18.6 cm LVOT Peak Velocity 76.7 cm/s LVOT Peak Gradient 2.4 mmHg LVOT Velocity Time Integral 12.3 cm AV Area Cont Eq vti 1.9 cm AV Area Cont Eq pk 1.8 cm Mitral E Point Velocity 92.8 cm/s Mitral A Point Velocity 92.8 cm/s Mitral E to A Ratio 1.0 LV E' Lateral Velocity 8.1 cm/s Mitral E to LV E' Lateral Ratio 11.4 LV E' Septal Velocity 7.7 cm/s Mitral E to LV E' Septal Ratio 12.1 TR Peak Velocity 278.0 cm/s TR Peak Gradient 31.0 mmHg Right Atrial Pressure 10.0 mmHg Pulmonary Artery Systolic Pressu 40.9 mmHg Right Ventricular Systolic Press 40.9 mmHg PV Peak Velocity 45.1 cm/s PV Peak Gradient 0.8 mmHg FINDINGS LEFT VENTRICLE Normal left ventricular size. Wall thickness is normal. The left ventricular systolic function is low normal with an estimated ejection fraction of 50%. RIGHT VENTRICLE Normal right ventricular size and systolic function. LEFT ATRIUM The left atrial size is mildly dilated. RIGHT ATRIUM The right atrial size is mildly dilated. ATRIAL SEPTUM No atrial level shunt is demonstrated by color flow Doppler interrogation. AORTA The aortic root and proximal ascending aorta are normal in size on limited imaging. MITRAL VALVE Moderate mitral valve regurgitation. AORTIC VALVE Aortic valve sclerosis is present. TRICUSPID VALVE There is moderate to severe tricuspid valve regurgitation. The estimated pulmonary arterial pressure is 40.9 mmHg. PULMONARY VALVE No pulmonary valve regurgitation or stenosis. VESSELS The inferior vena cava is normal in size. PERICARDIUM A large left sided pleural effusion is noted. A large right sided pleural effusion is present. No pericardial effusion. Sri Alicia MD, FACC Edited by: wellness program administrator wellness program administrator (Electronically Signed) Final Date:18 December 2017 16:59 Amended: 19 December 2017 09:36
[2017-12-19 09:48] LABS: Potassium 3.8 meq/L (3.5-5.1)
[2017-12-19] MEDS: Heparin - SQ 10,000 UNITS/ML Vial SQ SCH ×2 (10:07→20:40)
[2017-12-19] MEDS ORDERED: *Heparin 10,000 UNITS/10 ML Vial Periprocedural ONLY ONE (10:23)
[2017-12-19 10:26] LABS: Ovalocytes 1+
[2017-12-19 10:27] LABS: Acanthocytes Occ; Platelet Morphology Normal (Normal); Target Cells 1+
[2017-12-19 10:32] LABS: Total Protein 5.9 g/dL (6.4-8.2)
--- NOTE | 2017-12-19 11:13 | P.RAD ---
Post Procedure Progress Note - Pre Procedure Diagnosis (1) Multiple myeloma - Post Procedure Diagnosis (1) Multiple myeloma - Procedure Information Procedure Date: 12/19/17 Supervising Radiologist: Pepe Day Jr, MD Estimated blood loss (mL): 0 Anesthesia: Local - Plan of Activity Patient to Unit: Nursing Unit Patient Condition: Good See PACS Report for procedural detail/treatment. [facility] Radiology Procedures right Internal Jugular Hemodialysis Catheter Non-Tunneled Placement Device: dual lumen Kyr[place]z: 14 - Additional Detail Findings: Placed RIJefe Charltoncatalmas. In good position and ready for use.
--- NOTE | 2017-12-19 13:44 | IR ---
EXAM DATE: 12/19/2017 11:08 AM EDT AGE/SEX: 72 years / Female INDICATIONS: Patient presents with acute renal failure in need of vasocath for hemodialysis. CLINICAL DATA: This is the patient's initial encounter. Patient reports that signs and symptoms have been present for 2 days and indicates a pain score of 0/10. MEDICAL/SURGICAL HISTORY: Hypercholesterolemia. Hypertension. Multiple myeloma Hysterectomy. Port placement COMPARISON: No prior exams available for comparison. FLUORO TIME (min): .006 IMAGE SERIES: ACCESS SITE: Right internal jugular vein DEVICE(S): 14 Korean double lumen Schon catheter 15cm . . PROCEDURE : 1. Ultrasound guided venipuncture. 2. Fluoroscopic guidance. 3. Central line placement. The risks, benefits and alternatives to the procedure were explained and verbal and written consent w as obtained. The site was prepped in sterile fashion. Full sterile technique was used, including ca p, mask, sterile gloves and gown and a large sterile sheet. Hand hygiene and 2% chlorhexidine prep w as utilized per protocol for cutaneous antisepsis with appropriate dry time for site. Sterile gel an d sterile probe cover were utilized for ultrasound guidance. The skin and subcutaneous tissues were infiltrated with local anesthetic solution. A suitable site a vladislav the vein was selected with ultrasound and fluoroscopic guidance. A small incision was made. Th e vein was accessed under direct ultrasound visualization using the micropuncture technique. The hillary ropuncture set was exchanged for a 0.035 wire. The tract was dilated. The catheter was advanced int o position under direct fluoroscopic visualization, and was advanced with the tip at the junction of the superior vena cava and rt atrium. The catheter was fixed in place with suture and a sterile dres sing was applied. The patient tolerated the procedure well and there were no complications. 1. Uncomplicated line placement as above. Electronically signed by: Pepe Day MD 12/19/2017 1:43 PM EDT
--- NOTE | 2017-12-19 16:03 | P.PNONC ---
Subjective Interval history: Patient seen and examined, vital signs, labs, medications reviewed. Patient underwent Vas-Cath placement earlier this morning, she is now on hemodialysis. At the time the patient was seen she was resting comfortably in the dialysis unit receiving hemodialysis. She denies discomfort and tells me her breathing is actually better today than it was yesterday. She tolerated red cell transfusion without complications yesterday. The blood bank and I had been in constant communication yesterday including discussions with the director of the blood bank. Because the patient had received Daratumumab the antibody screens could not be done due to Daratumumab related interference. The complete type and crossmatch actually had to be sent to [place] to bypass the drug effect. The patient was however noted to have a blood type of AB+, previous type and screen performed in 2009 indicated she had no antibodies. Objective Vital Signs/Intake & Output: Vital Signs 12/18/17 16:00 12/18/17 17:00 12/18/17 18:00 Temperature Pulse Rate 114 H 106 H 103 H Respiratory Rate Blood Pressure Pulse Oximetry 12/18/17 19:00 12/18/17 19:44 12/18/17 19:45 Temperature 98.2 F Pulse Rate 118 H 107 H Respiratory Rate 22 15 Blood Pressure 111/62 Pulse Oximetry 100 12/18/17 20:00 12/18/17 21:00 12/18/17 22:00 Temperature Pulse Rate 120 H 106 H 102 H Respiratory Rate Blood Pressure Pulse Oximetry 98 12/18/17 23:00 12/18/17 23:59 12/19/17 00:00 Temperature 97.5 F L 98.4 F Pulse Rate 98 H 108 H 98 H Respiratory Rate 16 20 Blood Pressure 107/69 107/69 Pulse Oximetry 12/19/17 00:08 12/19/17 00:15 12/19/17 00:20 Temperature 97.5 F L 97.8 F 97.7 F Pulse Rate 109 H 107 H 102 H Respiratory Rate 20 20 20 Blood Pressure 103/74 108/73 97/69 L Pulse Oximetry 12/19/17 00:22 12/19/17 00:30 12/19/17 01:00 Temperature 97.8 F 97.8 F Pulse Rate 114 H 106 H 108 H Respiratory Rate 20 20 Blood Pressure 91/41 L 107/72 Pulse Oximetry 12/19/17 02:00 12/19/17 03:00 12/19/17 03:10 Temperature 97.8 F 97.8 F Pulse Rate 84 106 H 89 Respiratory Rate 16 22 Blood Pressure 111/78 100/71 Pulse Oximetry 100 100 12/19/17 04:00 12/19/17 05:00 12/19/17 06:00 Temperature Pulse Rate 98 H 94 H 106 H Respiratory Rate Blood Pressure Pulse Oximetry 12/19/17 07:40 12/19/17 08:00 12/19/17 11:00 Temperature Pulse Rate 102 H 124 H Respiratory Rate 24 22 Blood Pressure 108/64 Pulse Oximetry 99 100 12/19/17 13:47 Temperature Pulse Rate 116 H Respiratory Rate 24 Blood Pressure Pulse Oximetry Intake & Output 12/18/17 12/19/17 12/19/17 18:59 06:59 18:59 Intake Total 840 / 840 1190 / 1190 100 / 100 Output Total 150 / 150 300 / 300 Balance 690 / 690 890 / 890 100 / 100 Intake: IV 550 / 550 100 / 100 Flexbumin 25% Inj 100 ML @ 60 200 / 200 100 / 100 mls/hr IV.SIG Q12H DARYA Rx#: [id number] Azithromycin Inj 500 MG In NS 250 / 250 Inj 250 ML @ 250 mls/hr IV.SIG Q24H DARYA Rx#:[id number] Rocephin Inj 2,000 MG In NS Inj 100 / 100 100 ML @ 200 mls/hr IV.SIG Q24H DARYA Rx#:[id number] Oral 840 / 840 240 / 240 Intake (Blood Product) Amt 400 / 400 Rbc As-3 Leukoreduced Unit 400 / 400 [id number] Output: Urine 150 / 150 300 / 300 Other: Date of Last Bowel Movement 12/18/17 # Bowel Movements 1 Result Diagrams: 12/19/17 08:30 12/19/17 08:30 Laboratory Results: Laboratory Results - last 24 hr 12/18/17 12/19/17 12/19/17 12:50 08:30 08:30 WBC 8.8 RBC 2.38 L Hgb 7.1 L Hct 20.6 L* MCV 86.3 D MCH 29.8 MCHC 34.6 RDW 19.0 H Plt Count 114 L MPV 9.1 Prelim Diff (Auto) Slide review pending Neut % (Auto) 81.4 H Lymph % (Auto) 14.0 [place] % (Auto) 4.5 Eos % (Auto) 0.0 Baso % (Auto) 0.1 Neut # (Auto) 7.2 Lymph # (Auto) 1.2 [place] # (Auto) 0.4 Eos # (Auto) 0.0 Baso # (Auto) 0.0 WBC Differential . Diff Scan Auto diff confirmed Differential Comment . Platelet Estimate Low L Platelet Morphology Normal Target Cells 1+ H Ovalocytes 1+ H Acanthocytes (Spur) Occ H Sodium 138 Potassium 3.8 Chloride 107 Carbon Dioxide 16.0 L Anion Gap 15 BUN 38 H Creatinine 3.90 H Estimated GFR 14 L Random Glucose 50 L Calcium 7.0 L* Prot Corrected Calcium 7.6 L Total Protein 5.9 L Blood Type AB Positive Antibody Screen Positive H MTS Gel Crossmatch See Detail Bld Prod Order Comment Culture Results: Microbiology 12/17/17 14:44 Aerobic Blood Culture - Preliminary Blood - Peripheral No growth in 2 days Anaerobic Blood Culture - Preliminary No growth in 2 days 12/17/17 14:00 Aerobic Blood Culture - Preliminary Blood - Peripheral No growth in 2 days Anaerobic Blood Culture - Preliminary No growth in 2 days 12/16/17 20:15 Aerobic Blood Culture - Final Blood - Peripheral Viridans streptococcus grp Anaerobic Blood Culture - Final Viridans streptococcus grp Imaging Studies: Impressions Central Venous Line 12/19/17 00:00 CONCLUSION: Medications: Active Medications Generic Name Dose Route Start Last Admin Trade Name Freq PRN Reason Stop Dose Admin Hydrocodone Bitart/Acetaminophen 1 tab 12/17/17 08:32 12/17/17 18:07 Hume 5/325 PO 1 tab Q6H PRN Administration BACK PAIN Albuterol 1 ampul 12/17/17 08:00 12/19/17 15:45 Duoneb Neb (Darya) NEB Not Given Q6HR WHILE AWAKE NEB DARYA Bisacodyl 10 mg 12/16/17 18:42 12/18/17 10:19 Dulcolax Supp RECTAL 10 mg DAILY PRN Administration SEVERE CONSITIPATION Heparin Sodium (Porcine) 5,000 units 12/16/17 20:00 12/19/17 10:07 Heparin Inj SQ Not Given Q12H DARYA Heparin Sodium (Porcine) 250 unit 12/18/17 18:02 12/19/17 05:08 Heparin Central Flush IV.FLUSH 250 unit PRN PRN Administration Flush Infusapot Azithromycin 500 mg/ Sodium 250 mls @ 250 mls/hr 12/16/17 23:00 12/19/17 05: 14 Chloride IV.SIG Infused Q24H DARYA Infusion Albumin Human 100 mls @ 60 mls/hr 12/17/17 11:00 12/19/17 15:42 Flexbumin 25% Inj IV.SIG Infused Q12H DARYA Infusion Ceftriaxone Sodium 2,000 mg/ 100 mls @ 200 mls/hr 12/18/17 15:00 12/18/17 19: 35 Sodium Chloride IV.SIG Infused Q24H DARYA Infusion Objective Remarks: GENERAL: Elderly lady, laying in bed, asleep but arousable, not acutely distressed, speaking more comfortably today. SKIN: Cool and dry. HEAD: Normocephalic. EYES: No scleral icterus. No injection or drainage. NECK: Supple, trachea midline. No JVD or lymphadenopathy. LYMPHATIC: No adenopathy. CARDIOVASCULAR: Borderline tachycardia, regular, S1-S2. RESPIRATORY: Decreased bibasilar breath sounds, regular, no wheezes rhonchi or crepitus. GASTROINTESTINAL: Abdomen soft, non-tender, nondistended. EXTREMITIES: Generalized anasarca. MUSCULOSKELETAL: Generally decreased muscle mass and tone. NEUROLOGICAL: No obvious focal deficit. Awake, alert, and oriented x3. PSYCHIATRIC: Appropriate mood and affect; insight and judgment normal. 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 Hoff is a 72-year-old female with a diagnosis of IgG kappa light chain multiple myeloma diagnosed originally 2005, status post autologous stem cell transplant in 2009, most recently had been on systemic therapy with Durvalumab, Velcade and dexamethasone. 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 Recommendations: 1. Acute renal failure with oliguria: Now on hemodialysis, I suspect this should help improve her symptoms of fatigue and anorexia. Ultrafiltration with hemodialysis will also help manage anasarca and volume overload. 2. Anemia: Transfuse as needed to maintain hemoglobin above 7.5 g/dL. Await full type and screen from [place]. 3. Multiple myeloma: Plan to resume systemic therapy with Velcade, dexamethasone and Durvalumab in the outpatient setting.
[2017-12-19] MEDS ORDERED: Albumin Human 25% Inj 100 ML IV.SIG PRN (17:07)
[2017-12-19] MEDS ORDERED: Heparin 10,000 UNITS/10 ML Vial (for IV use) OTHER PRN ×2 (17:07)
[2017-12-19] MEDS ORDERED: Gelatin 12 MM/7 MM Topical Foam TOPICAL PRN (17:07)
[2017-12-19] MEDS ORDERED: Sod Chloride 0.9% Inj 1,000 ML OTHER PRN ×2 (17:07→18:00)
[2017-12-19] MEDS ORDERED: Acetaminophen 325 MG Tablet PO PRN (17:07)
--- NOTE | 2017-12-19 17:10 | P.PNNP ---
Subjective Interval history: Patient seen after HD, feeling better, no cramping, breathing improving. Physical Exam Vital signs: Vital Signs 12/18/17 18:00 12/18/17 19:00 12/18/17 19:44 Temperature 98.2 F Pulse Rate 103 H 118 H 107 H Respiratory Rate 22 15 Blood Pressure 111/62 Pulse Oximetry 12/18/17 19:45 12/18/17 20:00 12/18/17 21:00 Temperature Pulse Rate 120 H 106 H Respiratory Rate Blood Pressure Pulse Oximetry 100 98 12/18/17 22:00 12/18/17 23:00 12/18/17 23:59 Temperature 97.5 F L 98.4 F Pulse Rate 102 H 98 H 108 H Respiratory Rate 16 20 Blood Pressure 107/69 107/69 Pulse Oximetry 12/19/17 00:00 12/19/17 00:08 12/19/17 00:15 Temperature 97.5 F L 97.8 F Pulse Rate 98 H 109 H 107 H Respiratory Rate 20 20 Blood Pressure 103/74 108/73 Pulse Oximetry 12/19/17 00:20 12/19/17 00:22 12/19/17 00:30 Temperature 97.7 F 97.8 F 97.8 F Pulse Rate 102 H 114 H 106 H Respiratory Rate 20 20 20 Blood Pressure 97/69 L 91/41 L 107/72 Pulse Oximetry 12/19/17 01:00 12/19/17 02:00 12/19/17 03:00 Temperature 97.8 F Pulse Rate 108 H 84 106 H Respiratory Rate 16 Blood Pressure 111/78 Pulse Oximetry 100 12/19/17 03:10 12/19/17 04:00 12/19/17 05:00 Temperature 97.8 F Pulse Rate 89 98 H 94 H Respiratory Rate 22 Blood Pressure 100/71 Pulse Oximetry 100 12/19/17 06:00 12/19/17 07:40 12/19/17 08:00 Temperature Pulse Rate 106 H 102 H Respiratory Rate 24 Blood Pressure Pulse Oximetry 99 12/19/17 11:00 12/19/17 13:47 Temperature Pulse Rate 124 H 116 H Respiratory Rate 22 24 Blood Pressure 108/64 Pulse Oximetry 100 Intake & Output 12/18/17 12/19/17 12/19/17 18:59 06:59 18:59 Intake Total 840 / 840 1190 / 1190 100 / 100 Output Total 150 / 150 300 / 300 3000 / 3000 Balance 690 / 690 890 / 890 -2900 / -2900 Intake: IV 550 / 550 100 / 100 Flexbumin 25% Inj 100 ML @ 60 200 / 200 100 / 100 mls/hr IV.SIG Q12H KARLENE Rx#: [id number] Azithromycin Inj 500 MG In NS 250 / 250 Inj 250 ML @ 250 mls/hr IV.SIG Q24H KARLENE Rx#:[id number] Rocephin Inj 2,000 MG In NS Inj 100 / 100 100 ML @ 200 mls/hr IV.SIG Q24H KARLENE Rx#:[id number] Oral 840 / 840 240 / 240 Intake (Blood Product) Amt 400 / 400 Rbc As-3 Leukoreduced Unit 400 / 400 [id number] Output: Urine 150 / 150 300 / 300 Hemodialysis Amount 3000 / 3000 Other: Date of Last Bowel Movement 12/18/17 12/19/17 # Bowel Movements 1 Narrative: Subjective: F/up MM SIMON - worsening kidney function, anoliguric, bacteremia strep viridans , hypotension The patient appears chronically ill with some shortness of breath and very weak. She complains of constipation. Received laxatives/stool softeners and had a bowel movement. No nausea or vomiting. Has no appetite and not able to eat for the past 3 days or so. No fever or chills. No abdominal pain at this time. Blood pressure is into the lower side. Kidney function improved but not significantly. Nephrology to evaluate the patient for need of hemodialysis. Physical exam: GENERAL: This is a cachectic, chronically ill patient. CARDIOVASCULAR: Regular rate and rhythm without murmurs, gallops, or rubs. RESPIRATORY: Breath sounds diminished in bases, slight crackles noted. GASTROINTESTINAL: Abdomen soft, non-tender, nondistended. Normal active bowel sounds. MUSCULOSKELETAL: +2 pitting edema in bilateral lower extremities and arms NEURO: Alert & Oriented x4 to person, place, time, situation. Moves all ext x4 Assessment and Plan 72 y/o female with a history of multiple myeloma, HLD, and HTN presented to the ED with complaints of worsening edema and sob. Acute CHF exacerbation on possible chronic chf BNP 1350 on admission -Diuresed with Lasix -Fluid restriction - BP was noted low give albumin q12 hrs Acute renal failure Creatine 4.3, baseline 2.0. Creatinine is improving -Consult nephrology for evaluation -Kidney ultrasound ordered -Avoid nephrotoxins -Consult nephrology. Plan for hemodialysis - S/P right Internal Jugular Hemodialysis Catheter Non-Tunneled Placement on Bandemia, 32% bands on admission, suspect pneumonia Bacteremia, viridans strep, low grade. Port infx vs contaminant PCN allergy Cont CFTX 2 gm. DC Daptomycin and azythro. NO need to remove PORT at this time per ID recommendtions , ff 2 D echo pending ID consulted Chest x ray reviewed and shows numbering mid inspiratory exam with increased opacity at the lung bases which may represent increasing infiltrate, and small effusions. -monitor CBC -Lactic acid is back to normal Elevated troponin, likely related due to CHF and elevated creatine r/o ACS Troponin .67 -Serial troponin and ekgs Hypotension, due to diuresis -Albumin IV bid -Monitor vitals Multiple myeloma, chronic -Consult Dr. Arvizu, following -Consult nephrology following. Plan of Constipation. Stool softeners/laxatives as needed. DVT prophylaxis: Heparin Discussed Condition With: Patient, nurse DC plan pending improvement With MM worsening kidney function, anoliguric, bacteremia strep viridans , ID, hem/onc and nephrology ff Assessment and Plan - Plan 1. Chronic kidney disease and Acute kidney injury. 2. Generalized Anasarca. 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 4. Anemia. Patient has advance renal disease, and Anasarca, urine out put is low. Bumex stopped, Started on HD, and 3 liters removed. Tolerated well, BP is stable. HD again in AM.
[2017-12-19] MEDS ORDERED: Sod Chloride 0.9% Inj 1,000 ML IV.CONT PRN (18:00)
[2017-12-19 21:59] LABS: Hepatitits B Surface Antigen Nonreactive (Nonreactive)
[2017-12-20 00:03] LABS: Hepatitis A IgM Antibody Nonreactive (Nonreactive)
[2017-12-20] MEDS: Heparin - SQ 10,000 UNITS/ML Vial SQ SCH ×2 (08:30→22:08)
--- NOTE | 2017-12-20 11:58 | P.PNNP ---
Subjective Interval history: Patient seen in Dialysis, mild SOB, not in distress. Physical Exam Vital signs: Vital Signs 12/19/17 13:00 12/19/17 13:47 12/19/17 14:00 Temperature Pulse Rate 118 H 116 H 116 H Respiratory Rate 24 Blood Pressure Pulse Oximetry 12/19/17 15:00 12/19/17 16:00 12/19/17 17:00 Temperature Pulse Rate 118 H 120 H 122 H Respiratory Rate Blood Pressure Pulse Oximetry 12/19/17 18:00 12/19/17 19:00 12/19/17 19:01 Temperature 99.3 F Pulse Rate 114 H 120 H Respiratory Rate 22 Blood Pressure 101/58 L Pulse Oximetry 100 99 12/19/17 20:00 12/19/17 21:00 12/19/17 22:00 Temperature Pulse Rate 116 H 108 H 115 H Respiratory Rate Blood Pressure Pulse Oximetry 100 12/19/17 23:00 12/20/17 00:00 12/20/17 01:00 Temperature 98.7 F Pulse Rate 111 H 114 H 107 H Respiratory Rate 20 Blood Pressure 95/65 L Pulse Oximetry 100 12/20/17 02:00 12/20/17 03:00 12/20/17 04:00 Temperature 98.7 F Pulse Rate 102 H 122 H 100 H Respiratory Rate 22 Blood Pressure 104/70 Pulse Oximetry 97 12/20/17 05:00 12/20/17 06:00 12/20/17 07:00 Temperature 98.1 F Pulse Rate 138 H 93 H 115 H Respiratory Rate 14 Blood Pressure 100/68 Pulse Oximetry 98 12/20/17 07:32 12/20/17 08:00 12/20/17 09:00 Temperature 98.1 F Pulse Rate 107 H 110 H 114 H Respiratory Rate 16 14 Blood Pressure 100/68 Pulse Oximetry 95 98 12/20/17 10:00 12/20/17 11:00 Temperature Pulse Rate 99 H 109 H Respiratory Rate Blood Pressure Pulse Oximetry Intake & Output 12/19/17 12/20/17 12/20/17 18:59 06:59 18:59 Intake Total 680 / 680 590 / 590 Output Total 3200 / 3200 500 / 500 2500 / 2500 Balance -2520 / -2520 90 / 90 -2500 / -2500 Weight 71.5 kg Intake: IV 200 / 200 350 / 350 Flexbumin 25% Inj 100 ML @ 60 100 / 100 mls/hr IV.SIG Q12H KARLENE Rx#: [id number] Rocephin Inj 2,000 MG In NS Inj 100 / 100 100 ML @ 200 mls/hr IV.SIG Q24H KARLENE Rx#:[id number] Oral 480 / 480 240 / 240 Output: Urine 200 / 200 500 / 500 Hemodialysis Amount 3000 / 3000 2500 / 2500 Other: Date of Last Bowel Movement 12/19/17 Narrative: GENERAL: This is a cachectic, chronically ill patient. CARDIOVASCULAR: Regular rate and rhythm without murmurs, gallops, or rubs. RESPIRATORY: Breath sounds diminished in bases, with sob, slight crackles noted. GASTROINTESTINAL: Abdomen soft, non-tender, nondistended. Normal active bowel sounds. MUSCULOSKELETAL: Anasarca. +3 pitting edema in bilateral lower extremities and arms NEURO: Alert & Oriented . Moves all ext x4. Very weak voice. Assessment and Plan - Plan 1. Chronic kidney disease and Acute kidney injury. 2. Generalized Anasarca. 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 4. Anemia. Patient has advance renal disease, and Anasarca, urine out put is low. Bumex stopped, Started on HD on 12/19. Tolerated well, BP is stable. HD now, remove fluid as tolerated. HD again in AM.
[2017-12-20] MEDS: Albumin Human 25% Inj 100 ML IV.SIG SCH ×2 (12:36→22:10)
--- NOTE | 2017-12-20 15:28 | P.PN ---
Physical Exam Vital signs: Vital Signs 12/19/17 16:00 12/19/17 17:00 12/19/17 18:00 Temperature Pulse Rate 120 H 122 H 114 H Respiratory Rate Blood Pressure Pulse Oximetry 12/19/17 19:00 12/19/17 19:01 12/19/17 20:00 Temperature 99.3 F Pulse Rate 120 H 116 H Respiratory Rate 22 Blood Pressure 101/58 L Pulse Oximetry 100 99 100 12/19/17 21:00 12/19/17 22:00 12/19/17 23:00 Temperature 98.7 F Pulse Rate 108 H 115 H 111 H Respiratory Rate 20 Blood Pressure 95/65 L Pulse Oximetry 100 12/20/17 00:00 12/20/17 01:00 12/20/17 02:00 Temperature Pulse Rate 114 H 107 H 102 H Respiratory Rate Blood Pressure Pulse Oximetry 12/20/17 03:00 12/20/17 04:00 12/20/17 05:00 Temperature 98.7 F Pulse Rate 122 H 100 H 138 H Respiratory Rate 22 Blood Pressure 104/70 Pulse Oximetry 97 12/20/17 06:00 12/20/17 07:00 12/20/17 07:32 Temperature 98.1 F Pulse Rate 93 H 115 H 107 H Respiratory Rate 14 16 Blood Pressure 100/68 Pulse Oximetry 98 95 12/20/17 08:00 12/20/17 09:00 12/20/17 10:00 Temperature 98.1 F Pulse Rate 110 H 114 H 99 H Respiratory Rate 14 Blood Pressure 100/68 Pulse Oximetry 98 12/20/17 11:00 12/20/17 12:00 12/20/17 13:00 Temperature Pulse Rate 109 H 103 H 108 H Respiratory Rate Blood Pressure Pulse Oximetry 12/20/17 14:00 Temperature Pulse Rate 60 Respiratory Rate 19 Blood Pressure Pulse Oximetry Intake & Output 12/19/17 12/20/17 12/20/17 18:59 06:59 18:59 Intake Total 680 / 680 590 / 590 100 / 100 Output Total 3200 / 3200 500 / 500 2500 / 2500 Balance -2520 / -2520 90 / 90 -2400 / -2400 Weight 71.5 kg Intake: IV 200 / 200 350 / 350 100 / 100 Flexbumin 25% Inj 100 ML @ 60 100 / 100 100 / 100 mls/hr IV.SIG Q12H [facility] Rx#: [id number] Rocephin Inj 2,000 MG In NS Inj 100 / 100 100 ML @ 200 mls/hr IV.SIG Q24H [facility] Rx#:[id number] Oral 480 / 480 240 / 240 Output: Urine 200 / 200 500 / 500 Hemodialysis Amount 3000 / 3000 2500 / 2500 Other: Date of Last Bowel Movement 12/19/17 Narrative: Subjective: F/up MM with light chain disease, SIMON - worsening kidney function, anoliguric, bacteremia strep viridans , hypotension, anasarca The patient appears chronically ill, with severe shortness of breath with anasarca. Nausea no vomiting improving. However she is not eating much as low appetite. No fever or chills. Physical exam: GENERAL: This is a cachectic, chronically ill patient. CARDIOVASCULAR: Regular rate and rhythm without murmurs, gallops, or rubs. RESPIRATORY: Breath sounds diminished in bases, with sob, slight crackles noted. GASTROINTESTINAL: Abdomen soft, non-tender, nondistended. Normal active bowel sounds. MUSCULOSKELETAL: Anasarca, improving . +3 pitting edema in bilateral lower extremities and arms NEURO: Alert & Oriented . Moves all ext x4. Very weak voice. Assessment and Plan 72 y/o female with a history of multiple myeloma, HLD, and HTN presented to the ED with complaints of worsening edema and sob. Acute CHF exacerbation on possible chronic chf BNP 1350 on admission -Diuresed with Lasix and then switched to Bumex. Now off diuretics. Vas-Cath placed 12/19/17. Started dialysis -Fluid restriction - BP was noted low give albumin q12 hrs Acute renal failure. Patient was multiple myeloma light chain disease. Creatine 4.3, baseline 2.0. Creatinine is improving with HD -Consult nephrology for evaluation -Kidney ultrasound reviewed -Avoid nephrotoxins -Consult nephrology. Continue hemodialysis per nephrology indications - S/P right Internal Jugular Hemodialysis Catheter Non-Tunneled Placement on and started HD Bandemia, 32% bands on admission, suspected pneumonia Bacteremia, viridans strep, low grade. Port infx vs contaminant PCN allergy Cont CFTX 2 gm. DC Daptomycin and azythro. NO need to remove PORT at this time per ID recommendations , ff 2 D echo pending ID consulted Chest x ray reviewed and shows numbering mid inspiratory exam with increased opacity at the lung bases which may represent increasing infiltrate, and small effusions. -monitor CBC -Lactic acid is back to normal Elevated troponin, likely related due to CHF and elevated creatine r/o ACS Troponin .67 -Serial troponin and ekgs Hypotension, due to diuresis -Albumin IV bid -Monitor vitals Multiple myeloma, chronic -Consult Dr. Arvizu, following -Consult nephrology following. Plan of Constipation. Stool softeners/laxatives as needed. Anasarca: imprpving with HD DVT prophylaxis: Heparin Discussed Condition With: Patient, nurse DC plan pending improvement With MM worsening kidney function, anoliguric, bacteremia strep viridans , ID, hem/onc and nephrology ff Vas-Cath placed 12/19/17 started dialysis. Patient improving some with HD Results - Labs CBC & Chem 7: 12/19/17 08:30 12/19/17 08:30 Laboratory Results - last 24 hr 12/18/17 12/18/17 12/19/17 12:50 12:50 20:37 Hepatitis A IgM Ab Nonreactive Hep Bs Antigen Nonreactive Hep B Core IgM Ab Nonreactive Hep C IgG Ab Nonreactive Blood Type AB Positive Antibody Screen Positive H Antibody Identification Anti-CD38 (CHLOÉ) MTS Gel Crossmatch See Detail Bld Prod Order Comment Microbiology 12/17/17 14:44 Blood - Peripheral Aerobic Blood Culture - Preliminary No growth in 3 days 12/17/17 14:44 Blood - Peripheral Anaerobic Blood Culture - Preliminary No growth in 3 days 12/17/17 14:00 Blood - Peripheral Aerobic Blood Culture - Preliminary No growth in 3 days 12/17/17 14:00 Blood - Peripheral Anaerobic Blood Culture - Preliminary No growth in 3 days Assessment and Plan - Assessment (1) Multiple myeloma Code(s): C90.00 - Multiple myeloma not having achieved remission Status: Acute (2) Diastolic CHF Code(s): I50.30 - Unspecified diastolic (congestive) heart failure Status: Acute (2) Diastolic CHF Qualifiers: Heart failure chronicity: acute on chronic Qualified Code(s): I50.33 - Acute on chronic diastolic (congestive) heart failure
--- NOTE | 2017-12-20 17:03 | P.PNONC ---
Subjective Interval history: This note reflects my visit at 8 AM, the patient was in the hemodialysis suite at that time receiving hemodialysis. Patient seen and examined, vital signs, labs, medications, I and O's reviewed and retail client solutions consultant notes reviewed. Subjectively; she reports feeling overall better since receiving hemodialysis on 12/19/2017. The patient reports having slept more comfortably and that her breathing was also more comfortable last night. She has noticed decreased edema of the upper extremities as well as lower extremities. She tells me she had to urinate several times overnight. Objective Vital Signs/Intake & Output: Vital Signs 12/19/17 17:00 12/19/17 18:00 12/19/17 19:00 Temperature 99.3 F Pulse Rate 122 H 114 H 120 H Respiratory Rate 22 Blood Pressure 101/58 L Pulse Oximetry 100 12/19/17 19:01 12/19/17 20:00 12/19/17 21:00 Temperature Pulse Rate 116 H 108 H Respiratory Rate Blood Pressure Pulse Oximetry 99 100 12/19/17 22:00 12/19/17 23:00 12/20/17 00:00 Temperature 98.7 F Pulse Rate 115 H 111 H 114 H Respiratory Rate 20 Blood Pressure 95/65 L Pulse Oximetry 100 12/20/17 01:00 12/20/17 02:00 12/20/17 03:00 Temperature 98.7 F Pulse Rate 107 H 102 H 122 H Respiratory Rate 22 Blood Pressure 104/70 Pulse Oximetry 97 12/20/17 04:00 12/20/17 05:00 12/20/17 06:00 Temperature Pulse Rate 100 H 138 H 93 H Respiratory Rate Blood Pressure Pulse Oximetry 12/20/17 07:00 12/20/17 07:32 12/20/17 08:00 Temperature 98.1 F 98.1 F Pulse Rate 115 H 107 H 110 H Respiratory Rate 14 16 14 Blood Pressure 100/68 100/68 Pulse Oximetry 98 95 98 12/20/17 09:00 12/20/17 10:00 12/20/17 11:00 Temperature Pulse Rate 114 H 99 H 109 H Respiratory Rate Blood Pressure Pulse Oximetry 12/20/17 12:00 12/20/17 13:00 12/20/17 14:00 Temperature Pulse Rate 103 H 108 H 115 H Respiratory Rate 19 Blood Pressure Pulse Oximetry 12/20/17 15:00 Temperature 98.6 F Pulse Rate 114 H Respiratory Rate 16 Blood Pressure 96/57 L Pulse Oximetry 99 Intake & Output 12/19/17 12/20/17 12/20/17 18:59 06:59 18:59 Intake Total 680 / 680 590 / 590 300 / 300 Output Total 3200 / 3200 500 / 500 2500 / 2500 Balance -2520 / -2520 90 / 90 -2200 / -2200 Weight 71.5 kg Intake: IV 200 / 200 350 / 350 300 / 300 Flexbumin 25% Inj 100 ML @ 60 100 / 100 200 / 200 mls/hr IV.SIG Q12H [facility] Rx#: [id number] Rocephin Inj 2,000 MG In NS Inj 100 / 100 100 / 100 100 ML @ 200 mls/hr IV.SIG Q24H [facility] Rx#:[id number] Oral 480 / 480 240 / 240 Output: Urine 200 / 200 500 / 500 Hemodialysis Amount 3000 / 3000 2500 / 2500 Other: Date of Last Bowel Movement 12/19/17 Result Diagrams: 12/19/17 08:30 12/19/17 08:30 Laboratory Results: Laboratory Results - last 24 hr 12/18/17 12/18/17 12/19/17 12:50 12:50 20:37 Hepatitis A IgM Ab Nonreactive Hep Bs Antigen Nonreactive Hep B Core IgM Ab Nonreactive Hep C IgG Ab Nonreactive Blood Type AB Positive Antibody Screen Positive H Antibody Identification Anti-CD38 (CHLOÉ) MTS Gel Crossmatch See Detail Bld Prod Order Comment Culture Results: Microbiology 12/17/17 14:44 Aerobic Blood Culture - Preliminary Blood - Peripheral No growth in 3 days Anaerobic Blood Culture - Preliminary No growth in 3 days 12/17/17 14:00 Aerobic Blood Culture - Preliminary Blood - Peripheral No growth in 3 days Anaerobic Blood Culture - Preliminary No growth in 3 days 12/16/17 20:15 Aerobic Blood Culture - Final Blood - Peripheral Viridans streptococcus grp Anaerobic Blood Culture - Final Viridans streptococcus grp Medications: Active Medications Generic Name Dose Route Start Last Admin Trade Name Freq PRN Reason Stop Dose Admin Hydrocodone Bitart/Acetaminophen 1 tab 12/17/17 08:32 12/17/17 18:07 [place] 5/325 PO 1 tab Q6H PRN Administration BACK PAIN Albuterol 1 ampul 12/17/17 08:00 12/20/17 14:00 Duoneb Neb (Darya) NEB 1 ampul Q6HR WHILE AWAKE NEB DARYA Administration Bisacodyl 10 mg 12/16/17 18:42 12/18/17 10:19 Dulcolax Supp RECTAL 10 mg DAILY PRN Administration SEVERE CONSITIPATION Heparin Sodium (Porcine) 5,000 units 12/16/17 20:00 12/20/17 08:30 Heparin Inj SQ 5,000 units Q12H DARYA Administration Heparin Sodium (Porcine) 500 unit 12/18/17 18:02 12/19/17 18:42 Heparin Central Flush IV.FLUSH 500 unit PRN PRN Administration Flush infusaport Heparin Sodium (Porcine) 250 unit 12/18/17 18:02 12/19/17 05:08 Heparin Central Flush IV.FLUSH 250 unit PRN PRN Administration Flush Infusapot Albumin Human 100 mls @ 60 mls/hr 12/17/17 11:00 12/20/17 14:40 Flexbumin 25% Inj IV.SIG Infused Q12H [facility] Infusion Ceftriaxone Sodium 2,000 mg/ 100 mls @ 200 mls/hr 12/18/17 15:00 12/20/17 15: 30 Sodium Chloride IV.SIG Infused Q24H [facility] Infusion Objective Remarks: GENERAL: Elderly lady, this morning she is in the hemodialysis unit receiving hemodialysis via her right sided Vas-Cath. She appears to be comfortable, she speaks to me in full sentences. SKIN: Cool and dry. HEAD: Normocephalic. EYES: No scleral icterus. No injection or drainage. NECK: Supple, trachea midline. No JVD or lymphadenopathy. LYMPHATIC: No adenopathy. CARDIOVASCULAR: Regular rate and rhythm without murmurs. RESPIRATORY: Breath sounds equal bilaterally. No accessory muscle use. GASTROINTESTINAL: Thin belly, soft, no obvious tenderness no organ enlargement. EXTREMITIES: Persistent edema but decreased pitting edema noted on the back of her hands and along her feet. MUSCULOSKELETAL: Generally decreased muscle mass. NEUROLOGICAL: No obvious focal deficit. Awake, alert, and oriented x3. PSYCHIATRIC: Appropriate mood and affect; insight and judgment normal. 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 Hoff is a 72-year-old female with a diagnosis of IgG kappa light chain multiple myeloma diagnosed originally 2005, status post autologous stem cell transplant in 2009, most recently had been on systemic therapy with Durvalumab, Velcade and dexamethasone. 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 Recommendations: 1. Acute renal failure with oliguria: Over the past 2 days she has had approximately 5500 mL's fluid removed during ultrafiltration and hemodialysis. She continues to have some urine output though she is oliguric. 2. Anemia: Transfuse as needed to maintain hemoglobin above 7.5 g/dL. Await full type and screen from [place]. 3. Multiple myeloma: Plan to resume systemic therapy with Velcade, dexamethasone and Durvalumab in the outpatient setting. Clinically she appears improved after her first hemodialysis treatment, she is just starting her second session this morning. I will see her in follow-up over the weekend to assess progress. Appreciate internal medicine and nephrology service assistance in managing this patient.
[2017-12-20] MEDS ORDERED: Cathflo Activase Inj 2 MG Vial I-CATHETER ONE (20:00)
[2017-12-20] MEDS ORDERED: Benzocaine/Menthol 15 MG/3.6 MG SF Lozenge BUCCAL PRN (21:59)
[2017-12-20] MEDS: Heparin Central Flush 100 UNIT/ML 5 ML Vial IV.FLUSH PRN (23:40)
[2017-12-21] MEDS: Heparin - SQ 10,000 UNITS/ML Vial SQ SCH ×2 (08:02→21:00)
--- NOTE | 2017-12-21 09:36 | P.PN ---
Physical Exam Vital signs: Vital Signs 12/20/17 10:00 12/20/17 11:00 12/20/17 12:00 Temperature Pulse Rate 99 H 109 H 103 H Respiratory Rate Blood Pressure Pulse Oximetry 12/20/17 13:00 12/20/17 14:00 12/20/17 15:00 Temperature 98.6 F Pulse Rate 108 H 115 H 114 H Respiratory Rate 19 16 Blood Pressure 96/57 L Pulse Oximetry 99 12/20/17 16:00 12/20/17 17:00 12/20/17 18:00 Temperature Pulse Rate 99 H 135 H 109 H Respiratory Rate Blood Pressure Pulse Oximetry 12/20/17 19:00 12/20/17 20:00 12/20/17 20:48 Temperature 100.2 F H Pulse Rate 104 H 106 H 105 H Respiratory Rate 18 16 Blood Pressure 96/57 L Pulse Oximetry 97 97 97 12/20/17 21:00 12/20/17 22:00 12/20/17 23:00 Temperature 99.9 F H Pulse Rate 106 H 112 H 102 H Respiratory Rate 18 Blood Pressure 118/51 L Pulse Oximetry 99 12/21/17 00:00 12/21/17 01:00 12/21/17 02:00 Temperature Pulse Rate 110 H 102 H 100 H Respiratory Rate Blood Pressure Pulse Oximetry 12/21/17 03:00 12/21/17 04:00 12/21/17 05:00 Temperature 99 F Pulse Rate 108 H 90 86 Respiratory Rate 18 Blood Pressure 117/76 Pulse Oximetry 99 12/21/17 06:00 12/21/17 07:00 12/21/17 07:44 Temperature 98.6 F Pulse Rate 88 87 82 Respiratory Rate 18 17 Blood Pressure 109/73 Pulse Oximetry 100 99 Intake & Output 12/20/17 12/21/17 12/21/17 18:59 06:59 18:59 Intake Total 1020 / 1020 340 / 340 Output Total 2600 / 2600 100 / 100 Balance -1580 / -1580 240 / 240 Weight 71.9 kg Intake: IV 300 / 300 100 / 100 Flexbumin 25% Inj 100 ML @ 60 200 / 200 100 / 100 mls/hr IV.SIG Q12H [facility] Rx#: [id number] Rocephin Inj 2,000 MG In NS Inj 100 / 100 100 ML @ 200 mls/hr IV.SIG Q24H [facility] Rx#:[id number] Oral 720 / 720 240 / 240 Output: Urine 100 / 100 100 / 100 Hemodialysis Amount 2500 / 2500 Other: # Urine Diapers 3 Date of Last Bowel Movement 12/20/17 12/21/17 # Bowel Movements 0 Narrative: F/up MM with light chain disease, SIMON - worsening kidney function, anoliguric, bacteremia strep viridans , hypotension, anasarca Edema in her arms improving some. Less shortness of breath today. Satting well while on room air however she is not ambulating much. Postop in the chair. Had a bowel movement. No nausea or vomiting. Able to eat some food however has decreased appetite. No fever or chills. No dialysis planned for today. Kidney function improving. Physical exam: GENERAL: This is a cachectic, chronically ill patient. CARDIOVASCULAR: Regular rate and rhythm without murmurs, gallops, or rubs. RESPIRATORY: Breath sounds diminished in bases, with sob, slight crackles noted. GASTROINTESTINAL: Abdomen soft, non-tender, nondistended. Normal active bowel sounds. MUSCULOSKELETAL: Anasarca, improving . +3 pitting edema in bilateral lower extremities. Edema in her arms is improving NEURO: Alert & Oriented . Moves all ext x4. Very weak voice. Assessment and Plan 72 y/o female with a history of multiple myeloma, HLD, and HTN presented to the ED with complaints of worsening edema and sob. Acute CHF exacerbation on possible chronic chf BNP 1350 on admission -Diuresed with Lasix and then switched to Bumex. Now off diuretics. Vas-Cath placed 12/19/17. Started dialysis -Fluid restriction - BP was noted low give albumin q12 hrs Acute renal failure. Patient was multiple myeloma light chain disease. Creatine 4.3, baseline 2.0. Creatinine is improving with HD -Consult nephrology for evaluation -Kidney ultrasound reviewed -Avoid nephrotoxins -Consult nephrology. Continue hemodialysis per nephrology indications - S/P right Internal Jugular Hemodialysis Catheter Non-Tunneled Placement on and started HD Bandemia, 32% bands on admission, suspected pneumonia Bacteremia, viridans strep, low grade. Port infx vs contaminant PCN allergy Cont CFTX 2 gm. DC Daptomycin and azythro. NO need to remove PORT at this time per ID recommendations , ff . Continue Rocephin for 14 days of negative blood culture per ID 2 D echo ID consulted Chest x ray reviewed and shows numbering mid inspiratory exam with increased opacity at the lung bases which may represent increasing infiltrate, and small effusions. -monitor CBC -Lactic acid is back to normal Elevated troponin, likely related due to CHF and elevated creatine r/o ACS Troponin .67 -Serial troponin and ekgs Hypotension, due to diuresis -Albumin IV bid -Monitor vitals Multiple myeloma, chronic -Consult Dr. Arvizu, following -Consult nephrology following. Plan of Constipation. Stool softeners/laxatives as needed. Anasarca: imprpving with HD DVT prophylaxis: Heparin Discussed Condition With: Patient, nurse DC plan pending improvement With MM worsening kidney function, anoliguric, bacteremia strep viridans , ID, hem/onc and nephrology ff Vas-Cath placed 12/19/17 started dialysis. No need to remove Port per ID. Continue Rocephin for 14 days of negative blood culture per ID Patient improving with HD Results - Labs CBC & Chem 7: 12/19/17 08:30 12/19/17 08:30 Laboratory Results - last 24 hr 12/18/17 12:50 MTS Gel Crossmatch See Detail Microbiology 12/17/17 14:44 Blood - Peripheral Aerobic Blood Culture - Preliminary No growth in 3 days 12/17/17 14:44 Blood - Peripheral Anaerobic Blood Culture - Preliminary No growth in 3 days 12/17/17 14:00 Blood - Peripheral Aerobic Blood Culture - Preliminary No growth in 3 days 12/17/17 14:00 Blood - Peripheral Anaerobic Blood Culture - Preliminary No growth in 3 days Assessment and Plan - Assessment (1) Multiple myeloma Code(s): C90.00 - Multiple myeloma not having achieved remission Status: Acute (2) Diastolic CHF Code(s): I50.30 - Unspecified diastolic (congestive) heart failure Status: Acute (2) Diastolic CHF Qualifiers: Heart failure chronicity: acute on chronic Qualified Code(s): I50.33 - Acute on chronic diastolic (congestive) heart failure
--- NOTE | 2017-12-21 10:51 | P.PNADD ---
Addendum to Inpatient Note Additional information: Pt was seen and examined Full note to follow
--- NOTE | 2017-12-21 10:53 | P.PNNP ---
Subjective Interval history: Patient is alert, feeling better, mild SOB, better than before. Physical Exam Vital signs: Vital Signs 12/20/17 11:00 12/20/17 12:00 12/20/17 13:00 Temperature Pulse Rate 109 H 103 H 108 H Respiratory Rate Blood Pressure Pulse Oximetry 12/20/17 14:00 12/20/17 15:00 12/20/17 16:00 Temperature 98.6 F Pulse Rate 115 H 114 H 99 H Respiratory Rate 19 16 Blood Pressure 96/57 L Pulse Oximetry 99 12/20/17 17:00 12/20/17 18:00 12/20/17 19:00 Temperature 100.2 F H Pulse Rate 135 H 109 H 104 H Respiratory Rate 18 Blood Pressure 96/57 L Pulse Oximetry 97 12/20/17 20:00 12/20/17 20:48 12/20/17 21:00 Temperature Pulse Rate 106 H 105 H 106 H Respiratory Rate 16 Blood Pressure Pulse Oximetry 97 97 12/20/17 22:00 12/20/17 23:00 12/21/17 00:00 Temperature 99.9 F H Pulse Rate 112 H 102 H 110 H Respiratory Rate 18 Blood Pressure 118/51 L Pulse Oximetry 99 12/21/17 01:00 12/21/17 02:00 12/21/17 03:00 Temperature 99 F Pulse Rate 102 H 100 H 108 H Respiratory Rate 18 Blood Pressure 117/76 Pulse Oximetry 99 12/21/17 04:00 12/21/17 05:00 12/21/17 06:00 Temperature Pulse Rate 90 86 88 Respiratory Rate Blood Pressure Pulse Oximetry 12/21/17 07:00 12/21/17 07:44 12/21/17 08:00 Temperature 98.6 F Pulse Rate 87 82 Respiratory Rate 18 17 Blood Pressure 109/73 Pulse Oximetry 100 99 100 Intake & Output 12/20/17 12/21/17 12/21/17 18:59 06:59 18:59 Intake Total 1020 / 1020 340 / 340 Output Total 2600 / 2600 100 / 100 Balance -1580 / -1580 240 / 240 Weight 71.9 kg Intake: IV 300 / 300 100 / 100 Flexbumin 25% Inj 100 ML @ 60 200 / 200 100 / 100 mls/hr IV.SIG Q12H [facility] Rx#: [id number] Rocephin Inj 2,000 MG In NS Inj 100 / 100 100 ML @ 200 mls/hr IV.SIG Q24H [facility] Rx#:[id number] Oral 720 / 720 240 / 240 Output: Urine 100 / 100 100 / 100 Hemodialysis Amount 2500 / 2500 Other: # Urine Diapers 3 Date of Last Bowel Movement 12/20/17 12/21/17 # Bowel Movements 0 Narrative: Subjective: F/up MM with light chain disease, SIMON - worsening kidney function, anoliguric, bacteremia strep viridans , hypotension, anasarca The patient appears chronically ill, with severe shortness of breath with anasarca. Nausea no vomiting improving. However she is not eating much as low appetite. No fever or chills. Physical exam: GENERAL: This is a cachectic, chronically ill patient. CARDIOVASCULAR: Regular rate and rhythm without murmurs, gallops, or rubs. RESPIRATORY: Breath sounds diminished in bases, with sob, slight crackles noted. GASTROINTESTINAL: Abdomen soft, non-tender, nondistended. Normal active bowel sounds. MUSCULOSKELETAL: Anasarca, improving . +3 pitting edema in bilateral lower extremities and arms NEURO: Alert & Oriented . Moves all ext x4. Very weak voice. Assessment and Plan 72 y/o female with a history of multiple myeloma, HLD, and HTN presented to the ED with complaints of worsening edema and sob. Acute CHF exacerbation on possible chronic chf BNP 1350 on admission -Diuresed with Lasix and then switched to Bumex. Now off diuretics. Vas-Cath placed 12/19/17. Started dialysis -Fluid restriction - BP was noted low give albumin q12 hrs Acute renal failure. Patient was multiple myeloma light chain disease. Creatine 4.3, baseline 2.0. Creatinine is improving with HD -Consult nephrology for evaluation -Kidney ultrasound reviewed -Avoid nephrotoxins -Consult nephrology. Continue hemodialysis per nephrology indications - S/P right Internal Jugular Hemodialysis Catheter Non-Tunneled Placement on and started HD Bandemia, 32% bands on admission, suspected pneumonia Bacteremia, viridans strep, low grade. Port infx vs contaminant PCN allergy Cont CFTX 2 gm. DC Daptomycin and azythro. NO need to remove PORT at this time per ID recommendations , ff 2 D echo pending ID consulted Chest x ray reviewed and shows numbering mid inspiratory exam with increased opacity at the lung bases which may represent increasing infiltrate, and small effusions. -monitor CBC -Lactic acid is back to normal Elevated troponin, likely related due to CHF and elevated creatine r/o ACS Troponin .67 -Serial troponin and ekgs Hypotension, due to diuresis -Albumin IV bid -Monitor vitals Multiple myeloma, chronic -Consult Dr. Arvizu, following -Consult nephrology following. Plan of Constipation. Stool softeners/laxatives as needed. Anasarca: imprpving with HD DVT prophylaxis: Heparin Discussed Condition With: Patient, nurse DC plan pending improvement With MM worsening kidney function, anoliguric, bacteremia strep viridans , ID, hem/onc and nephrology ff Vas-Cath placed 12/19/17 started dialysis. Patient improving some with HD Assessment and Plan - Plan 1. Chronic kidney disease and Acute kidney injury. 2. Generalized Anasarca. 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 4. Anemia. Patient has advance renal disease, and Anasarca, urine out put is low. Bumex stopped, Started on HD on 12/19. Tolerated well, BP is stable. HD done yesterday, Started passing some urine. Watch the renal function. HD again on Saturday or sooner if needed.
--- NOTE | 2017-12-21 11:17 | P.PNONC ---
Subjective Interval history: Patient seen and examined, vital signs, labs, medications reviewed. Overnight she had a temperature of 100.2 F. Patient reports having burning with urine and also reports having coughed up thick yellow phlegm early this morning. She tells me she has not had additional productive cough since then. Infectious diseases consultation request has been noted, the patient was seen by Dr. Menendez, final recommendations and consultation note is pending. The patient is presently on empiric antibiotic coverage with azithromycin and ceftriaxone. Overall, the patient reports feeling better, she reports eating better, she feels less swollen especially in her face and also tells me she is able to walk more comfortably. She does need some assistance to get up out of bed and feels a little "wobbly "while walking but feels definitely stronger than when she came into the hospital. She is making small quantities of urine. Objective Vital Signs/Intake & Output: Vital Signs 12/20/17 12:00 12/20/17 13:00 12/20/17 14:00 Temperature Pulse Rate 103 H 108 H 115 H Respiratory Rate 19 Blood Pressure Pulse Oximetry 12/20/17 15:00 12/20/17 16:00 12/20/17 17:00 Temperature 98.6 F Pulse Rate 114 H 99 H 135 H Respiratory Rate 16 Blood Pressure 96/57 L Pulse Oximetry 99 12/20/17 18:00 12/20/17 19:00 12/20/17 20:00 Temperature 100.2 F H Pulse Rate 109 H 104 H 106 H Respiratory Rate 18 Blood Pressure 96/57 L Pulse Oximetry 97 97 12/20/17 20:48 12/20/17 21:00 12/20/17 22:00 Temperature Pulse Rate 105 H 106 H 112 H Respiratory Rate 16 Blood Pressure Pulse Oximetry 97 12/20/17 23:00 12/21/17 00:00 12/21/17 01:00 Temperature 99.9 F H Pulse Rate 102 H 110 H 102 H Respiratory Rate 18 Blood Pressure 118/51 L Pulse Oximetry 99 12/21/17 02:00 12/21/17 03:00 12/21/17 04:00 Temperature 99 F Pulse Rate 100 H 108 H 90 Respiratory Rate 18 Blood Pressure 117/76 Pulse Oximetry 99 12/21/17 05:00 12/21/17 06:00 12/21/17 07:00 Temperature 98.6 F Pulse Rate 86 88 87 Respiratory Rate 18 Blood Pressure 109/73 Pulse Oximetry 100 12/21/17 07:44 12/21/17 08:00 Temperature Pulse Rate 82 Respiratory Rate 17 Blood Pressure Pulse Oximetry 99 100 Intake & Output 12/20/17 12/21/17 12/21/17 18:59 06:59 18:59 Intake Total 1020 / 1020 340 / 340 Output Total 2600 / 2600 100 / 100 Balance -1580 / -1580 240 / 240 Weight 71.9 kg Intake: IV 300 / 300 100 / 100 Flexbumin 25% Inj 100 ML @ 60 200 / 200 100 / 100 mls/hr IV.SIG Q12H KARLENE Rx#: [id number] Rocephin Inj 2,000 MG In NS Inj 100 / 100 100 ML @ 200 mls/hr IV.SIG Q24H KARLENE Rx#:[id number] Oral 720 / 720 240 / 240 Output: Urine 100 / 100 100 / 100 Hemodialysis Amount 2500 / 2500 Other: # Urine Diapers 3 Date of Last Bowel Movement 12/20/17 12/21/17 # Bowel Movements 0 Result Diagrams: 12/19/17 08:30 12/19/17 08:30 Laboratory Results: Laboratory Results - last 24 hr 12/18/17 12:50 MTS Gel Crossmatch See Detail Culture Results: Microbiology 12/17/17 14:44 Aerobic Blood Culture - Preliminary Blood - Peripheral No growth in 4 days Anaerobic Blood Culture - Preliminary No growth in 4 days 12/17/17 14:00 Aerobic Blood Culture - Preliminary Blood - Peripheral No growth in 4 days Anaerobic Blood Culture - Preliminary No growth in 4 days 12/16/17 20:15 Aerobic Blood Culture - Final Blood - Peripheral Viridans streptococcus grp Anaerobic Blood Culture - Final Viridans streptococcus grp Medications: Active Medications Generic Name Dose Route Start Last Admin Trade Name Freq PRN Reason Stop Dose Admin Hydrocodone Bitart/Acetaminophen 1 tab 12/17/17 08:32 12/21/17 00:15 [place] 5/325 PO 1 tab Q6H PRN Administration BACK PAIN Bisacodyl 10 mg 12/16/17 18:42 12/18/17 10:19 Dulcolax Supp RECTAL 10 mg DAILY PRN Administration SEVERE CONSITIPATION Heparin Sodium (Porcine) 5,000 units 12/16/17 20:00 12/21/17 08:02 Heparin Inj SQ 5,000 units Q12H KARLENE Administration Heparin Sodium (Porcine) 500 unit 12/18/17 18:02 12/20/17 23:40 Heparin Central Flush IV.FLUSH 500 unit PRN PRN Administration Flush infusaport Heparin Sodium (Porcine) 250 unit 12/18/17 18:02 12/19/17 05:08 Heparin Central Flush IV.FLUSH 250 unit PRN PRN Administration Flush Infusapot Albumin Human 100 mls @ 60 mls/hr 12/17/17 11:00 12/20/17 23:51 Flexbumin 25% Inj IV.SIG Infused Q12H KARLENE Infusion Ceftriaxone Sodium 2,000 mg/ 100 mls @ 200 mls/hr 12/18/17 15:00 12/20/17 15: 30 Sodium Chloride IV.SIG Infused Q24H KARLENE Infusion Objective Remarks: GENERAL: Elderly lady, chronically ill appearing, laying in bed. Facial edema has significantly decreased especially around her eyes. SKIN: Warm and dry, generalized anasarca. HEAD: Normocephalic. EYES: No scleral icterus. No injection or drainage. NECK: Supple, trachea midline. No JVD or lymphadenopathy. LYMPHATIC: No adenopathy. CARDIOVASCULAR: Regular rate and rhythm without murmurs. RESPIRATORY: Decreased bibasilar breath sounds, scattered crepitus over the bases. No wheezes rhonchi or rails noted. GASTROINTESTINAL: Abdomen soft, non-tender, nondistended. EXTREMITIES: Generalized edema persists, this is significantly less than prior especially involving her hands and feet. MUSCULOSKELETAL: Adequate muscle tone. NEUROLOGICAL: No obvious focal deficit. Awake, alert, and oriented x3. PSYCHIATRIC: Appropriate mood and affect; insight and judgment normal. 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 Hoff is a 72-year-old female with a diagnosis of IgG kappa light chain multiple myeloma diagnosed originally 2005, status post autologous stem cell transplant in 2009, most recently had been on systemic therapy with Durvalumab, Velcade and dexamethasone. 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 Recommendations: 1. Acute renal failure with oliguria: Over the past 2 days she has had approximately 5500 mL's fluid removed during ultrafiltration and hemodialysis. She continues to have some urine output though she is oliguric. Dialysis to resume on 12/23/2017. 2. Anemia: Transfuse as needed to maintain hemoglobin above 7.5 g/dL. Await full type and screen from [place]. 3. Multiple myeloma: Plan to resume systemic therapy with Velcade, dexamethasone and Durvalumab in the outpatient setting. 4. Obtain CBC and CMP tomorrow morning.
[2017-12-21] MEDS: Albumin Human 25% Inj 100 ML IV.SIG SCH (11:26)
--- NOTE | 2017-12-21 16:26 | P.PNID ---
Subjective Remarks: pt was seen earlier today feels better ambulates with walker off NC O2 afebrile repeat BC negative Antibiotics: CFTX Allergies/Adverse Reactions: Allergies Penicillins Allergy (Intermediate, Verified 12/16/17 15:21) Hives Objective Vital Signs 12/20/17 17:00 12/20/17 18:00 12/20/17 19:00 Temperature 100.2 F H Pulse Rate 135 H 109 H 104 H Respiratory Rate 18 Blood Pressure 96/57 L Pulse Oximetry 97 12/20/17 20:00 12/20/17 20:48 12/20/17 21:00 Temperature Pulse Rate 106 H 105 H 106 H Respiratory Rate 16 Blood Pressure Pulse Oximetry 97 97 12/20/17 22:00 12/20/17 23:00 12/21/17 00:00 Temperature 99.9 F H Pulse Rate 112 H 102 H 110 H Respiratory Rate 18 Blood Pressure 118/51 L Pulse Oximetry 99 12/21/17 01:00 12/21/17 02:00 12/21/17 03:00 Temperature 99 F Pulse Rate 102 H 100 H 108 H Respiratory Rate 18 Blood Pressure 117/76 Pulse Oximetry 99 12/21/17 04:00 12/21/17 05:00 12/21/17 06:00 Temperature Pulse Rate 90 86 88 Respiratory Rate Blood Pressure Pulse Oximetry 12/21/17 07:00 12/21/17 07:44 12/21/17 08:00 Temperature 98.6 F Pulse Rate 91 H 82 94 H Respiratory Rate 18 17 Blood Pressure 109/73 Pulse Oximetry 100 99 100 12/21/17 10:00 12/21/17 11:00 12/21/17 12:00 Temperature 98.6 F Pulse Rate 104 H 97 H 92 H Respiratory Rate 20 Blood Pressure 103/71 Pulse Oximetry 99 12/21/17 13:00 12/21/17 14:00 12/21/17 15:00 Temperature 98.0 F Pulse Rate 108 H 86 116 H Respiratory Rate 20 Blood Pressure 112/70 Pulse Oximetry 99 Intake & Output 12/20/17 12/21/17 12/21/17 18:59 06:59 18:59 Intake Total 1020 / 1020 340 / 340 100 / 100 Output Total 2600 / 2600 100 / 100 Balance -1580 / -1580 240 / 240 100 / 100 Weight 71.9 kg Intake: IV 300 / 300 100 / 100 100 / 100 Flexbumin 25% Inj 100 ML @ 60 200 / 200 100 / 100 100 / 100 mls/hr IV.SIG Q12H KARLENE Rx#: [id number] Rocephin Inj 2,000 MG In NS Inj 100 / 100 100 ML @ 200 mls/hr IV.SIG Q24H KARLENE Rx#:[id number] Oral 720 / 720 240 / 240 Output: Urine 100 / 100 100 / 100 Hemodialysis Amount 2500 / 2500 Other: # Urine Diapers 3 Date of Last Bowel Movement 12/20/17 12/21/17 # Bowel Movements 0 12/17/17 14:44 Blood - Peripheral Aerobic Blood Culture - Preliminary No growth in 4 days 12/17/17 14:44 Blood - Peripheral Anaerobic Blood Culture - Preliminary No growth in 4 days 12/17/17 14:00 Blood - Peripheral Aerobic Blood Culture - Preliminary No growth in 4 days 12/17/17 14:00 Blood - Peripheral Anaerobic Blood Culture - Preliminary No growth in 4 days 12/16/17 20:15 Blood - Peripheral Aerobic Blood Culture - Final Viridans streptococcus grp 12/16/17 20:15 Blood - Peripheral Anaerobic Blood Culture - Final Viridans streptococcus grp Imaging: ITS Impressions Abdomen/Bladder Ultrasound 12/16/17 00:00 CONCLUSION: 1. Small echogenic right kidney concerning for medical renal disease. 2. The left kidney could not be visualized on this ultrasound examination. Chest X-Ray 12/16/17 15:42 CONCLUSION: 1. The numbering mid inspiratory exam with increased opacity at the lung bases which may represent increasing infiltrate or be artifactual. 2. The costophrenic angles are blunted bilaterally most characteristic of small effusions. Central Venous Line 12/19/17 00:00 CONCLUSION: Physical Exam: GENERAL: NAD SKIN: Warm and dry. CARDIOVASCULAR: Regular rate and rhythm. RESPIRATORY: No accessory muscle use. Clear to auscultation. Breath sounds equal bilaterally. GASTROINTESTINAL: Abdomen soft, non-tender, nondistended. Hepatic and splenic margins not palpable. MUSCULOSKELETAL: Extremities without clubbing, cyanosis, Improved 3+ edema. No obvious deformities. NEUROLOGICAL: Awake and alert. No obvious cranial nerve deficits. Motor grossly within normal limits. Five out of 5 muscle strength in the arms and legs. Normal speech. PSYCHIATRIC: Appropriate mood and affect; insight and judgment normal. LINES: R sided PORT in place , no swelling, redness or tenderness around it Assessment and Plan - Plan Multiple myeloma ARF Bacteremia, viridans strep, low grade. POrt infx vs contaminant PCN allergy - cont CFTX 2 gm x 14 days from 1st negative BC NO need to remove PORT at this point OPAT with [facility]
[2017-12-22] MEDS: Albumin Human 25% Inj 100 ML IV.SIG SCH ×2 (01:00→10:00)
[2017-12-22 03:02] LABS: Bacteria,Urine Rare /hpf; Bilirubin,Urine Negative (Negative); Clarity,Urine Hazy (Clear); Color,Urine Yellow (Yellw/Straw); Glucose,Urine (UA) 50 mg/dL (Negative); Hyaline Casts,Urine 10 /lpf (0-3); Leukocyte Esterase,Urine Negative (Negative); Mucus,Urine Few /lpf (Occasional); Nitrite,Urine Negative (Negative); Squamous Epithelial Cell,Urine 4 /hpf (0-5); Transitional Epi Cells,Urine 1 /hpf
[2017-12-22 03:39] LABS: Baso % (Auto) 0.3 % (0.0-2.0); Eos # (Auto) 0.1 th/mm3 (0.0-0.4); Eos % (Auto) 1.5 % (0.0-4.0); Lymph # (Auto) 0.7 th/mm3 (1.0-4.8); Lymph % (Auto) 16.1 % (9.0-44.0); Mean Corpuscular HGB Conc 33.6 % (32.0-36.0); Mean Corpuscular Volume 86.4 fL (80.0-100.0); Mean Platelet Volume 8.5 fL (7.0-11.0); Mono # (Auto) 0.3 th/mm3 (0.0-0.9); Mono % (Auto) 6.6 % (0.0-8.0); Neut # (Auto) 3.1 th/mm3 (1.8-7.7); Neut % (Auto) 75.5 % (16.0-70.0); Platelet Count 80 th/mm3 (150-450); Red Blood Count 2.18 mil/mm3 (4.00-5.30); Red Cell Distribution Width 18.9 % (11.6-17.2); White Blood Count 4.1 th/mm3 (4.0-11.0)
[2017-12-22 03:53] LABS: Hematocrit 18.8 % (35.0-46.0); Hemoglobin 6.3 gm/dL (11.6-15.3)
[2017-12-22 04:07] LABS: Calcium 6.9 mg/dL (8.5-10.1); Carbon Dioxide 27.8 meq/L (21.0-32.0)
[2017-12-22 04:09] LABS: Potassium 2.7 meq/L (3.5-5.1)
[2017-12-22 04:29] LABS: Total Protein 5.5 g/dL (6.4-8.2)
[2017-12-22] MEDS ORDERED: Acetaminophen 325 MG Tablet PO PRN ×2 (04:51→08:56)
[2017-12-22] MEDS ORDERED: Sodium Chlor 0.9% Inj 250 ML IV.SIG SCH (05:00)
[2017-12-22 06:01] LABS: Ovalocytes 1+; Platelet Morphology Normal (Normal); Target Cells 1+
--- NOTE | 2017-12-22 09:31 | P.PNONC ---
Subjective Interval history: Afebrile Patient reports she has some shortness of breath on exertion No shortness of breath at rest Denies cough Asking about possible plans for discharge Objective Vital Signs/Intake & Output: Vital Signs 12/21/17 10:00 12/21/17 11:00 12/21/17 12:00 Temperature 98.6 F Pulse Rate 104 H 97 H 92 H Respiratory Rate 20 Blood Pressure 103/71 Pulse Oximetry 99 12/21/17 13:00 12/21/17 14:00 12/21/17 15:00 Temperature 98.0 F Pulse Rate 108 H 86 116 H Respiratory Rate 20 Blood Pressure 112/70 Pulse Oximetry 99 12/21/17 16:00 12/21/17 17:00 12/21/17 18:00 Temperature Pulse Rate 94 H 92 H 112 H Respiratory Rate Blood Pressure Pulse Oximetry 12/21/17 19:00 12/21/17 20:00 12/21/17 21:00 Temperature 98.5 F Pulse Rate 92 H 88 86 Respiratory Rate 18 Blood Pressure 100/67 Pulse Oximetry 97 12/21/17 22:00 12/21/17 23:00 12/22/17 00:00 Temperature Pulse Rate 84 86 96 H Respiratory Rate 18 Blood Pressure Pulse Oximetry 99 12/22/17 01:00 12/22/17 02:00 12/22/17 03:00 Temperature 98.5 F Pulse Rate 84 82 92 H Respiratory Rate 18 Blood Pressure 105/71 Pulse Oximetry 99 12/22/17 04:00 12/22/17 05:00 12/22/17 06:00 Temperature Pulse Rate 94 H 82 86 Respiratory Rate Blood Pressure Pulse Oximetry Intake & Output 12/21/17 12/22/17 12/22/17 18:59 06:59 18:59 Intake Total 800 / 800 390 / 390 Output Total 125 / 125 20 / 20 Balance 675 / 675 370 / 370 Weight 158 lb 4.67 oz Intake: IV 200 / 200 100 / 100 Flexbumin 25% Inj 100 ML @ 60 100 / 100 100 / 100 mls/hr IV.SIG Q12H KARELNE Rx#: [id number] Rocephin Inj 2,000 MG In NS Inj 100 / 100 100 ML @ 200 mls/hr IV.SIG Q24H KARLENE Rx#:[id number] Oral 600 / 600 240 / 240 Other 50 / 50 Output: Urine 125 / 125 20 / 20 Other: Date of Last Bowel Movement 12/21/17 12/21/17 # Bowel Movements 1 Result Diagrams: 12/22/17 03:10 12/22/17 03:10 Laboratory Results: Laboratory Results - last 24 hr 12/22/17 12/22/17 12/22/17 00:52 03:10 03:10 WBC 4.1 RBC 2.18 L Hgb 6.3 L* Hct 18.8 L* MCV 86.4 MCH 29.0 MCHC 33.6 RDW 18.9 H Plt Count 80 L MPV 8.5 Prelim Diff (Auto) Slide review pending Neut % (Auto) 75.5 H Lymph % (Auto) 16.1 Hunt % (Auto) 6.6 Eos % (Auto) 1.5 Baso % (Auto) 0.3 Neut # (Auto) 3.1 Lymph # (Auto) 0.7 L Hunt # (Auto) 0.3 Eos # (Auto) 0.1 Baso # (Auto) 0.0 WBC Differential . Diff Scan Auto diff confirmed Differential Comment . Platelet Estimate Low L Platelet Morphology Normal Target Cells 1+ H Ovalocytes 1+ H Sodium 144 Potassium 2.7 L* Chloride 107 Carbon Dioxide 27.8 Anion Gap 9 BUN 14 Creatinine 2.51 H Estimated GFR 23 L Random Glucose 63 L Calcium 6.9 L* Prot Corrected Calcium 7.7 L Total Protein 5.5 L Urine Color Yellow Urine Clarity Hazy H Urine pH 8.0 Ur Specific [place] 1.020 Urine Protein 500 or greater Urine Glucose (UA) 50 Urine Ketones Negative Urine Occult Blood Small H Urine Nitrate Negative Urine Bilirubin Negative Urine Urobilinogen Less than 2 Ur Leukocyte Esterase Negative Urine RBC 1 Urine WBC 14 H Ur Squamous Epith Cells 4 Ur Transition Epith Cell 1 Urine Bacteria Rare H Hyaline Casts 10 Urine Mucus Few H Micro UA Comment Culture indicated Urine Culture Comments Culture indicated Blood Type Antibody Screen MTS Gel Crossmatch Bld Prod Order Comment 12/22/17 06:00 WBC RBC Hgb Hct MCV MCH MCHC RDW Plt Count MPV Prelim Diff (Auto) Neut % (Auto) Lymph % (Auto) Hunt % (Auto) Eos % (Auto) Baso % (Auto) Neut # (Auto) Lymph # (Auto) Hunt # (Auto) Eos # (Auto) Baso # (Auto) WBC Differential Diff Scan Differential Comment Platelet Estimate Platelet Morphology Target Cells Ovalocytes Sodium Potassium Chloride Carbon Dioxide Anion Gap BUN Creatinine Estimated GFR Random Glucose Calcium Prot Corrected Calcium Total Protein Urine Color Urine Clarity Urine pH Ur Specific Rye Urine Protein Urine Glucose (UA) Urine Ketones Urine Occult Blood Urine Nitrate Urine Bilirubin Urine Urobilinogen Ur Leukocyte Esterase Urine RBC Urine WBC Ur Squamous Epith Cells Ur Transition Epith Cell Urine Bacteria Hyaline Casts Urine Mucus Micro UA Comment Urine Culture Comments Blood Type AB Positive Antibody Screen Positive H MTS Gel Crossmatch See Detail Bld Prod Order Comment Culture Results: Microbiology 12/17/17 14:44 Aerobic Blood Culture - Preliminary Blood - Peripheral No growth in 4 days Anaerobic Blood Culture - Preliminary No growth in 4 days 12/17/17 14:00 Aerobic Blood Culture - Preliminary Blood - Peripheral No growth in 4 days Anaerobic Blood Culture - Preliminary No growth in 4 days 12/16/17 20:15 Aerobic Blood Culture - Final Blood - Peripheral Viridans streptococcus grp Anaerobic Blood Culture - Final Viridans streptococcus grp Medications: Active Medications Generic Name Dose Route Start Last Admin Trade Name Freq PRN Reason Stop Dose Admin Hydrocodone Bitart/Acetaminophen 1 tab 12/17/17 08:32 12/21/17 19:13 [place] 5/325 PO 1 tab Q6H PRN Administration BACK PAIN Bisacodyl 10 mg 12/16/17 18:42 12/18/17 10:19 Dulcolax Supp RECTAL 10 mg DAILY PRN Administration SEVERE CONSITIPATION Heparin Sodium (Porcine) 5,000 units 12/16/17 20:00 12/21/17 21:00 Heparin Inj SQ 5,000 units Q12H KARLENE Administration Heparin Sodium (Porcine) 500 unit 12/18/17 18:02 12/20/17 23:40 Heparin Central Flush IV.FLUSH 500 unit PRN PRN Administration Flush infusaport Heparin Sodium (Porcine) 250 unit 12/18/17 18:02 12/19/17 05:08 Heparin Central Flush IV.FLUSH 250 unit PRN PRN Administration Flush Infusapot Albumin Human 100 mls @ 60 mls/hr 12/17/17 11:00 12/22/17 04:42 Flexbumin 25% Inj IV.SIG Infused Q12H KARLENE Infusion Ceftriaxone Sodium 2,000 mg/ 100 mls @ 200 mls/hr 12/18/17 15:00 12/21/17 15: 41 Sodium Chloride IV.SIG Infused Q24H KARLENE Infusion Objective Remarks: GENERAL: Frail, elderly female sitting up on side of bed talking with visitor at bedside SKIN: Warm and dry. Vas-Cath to right neck. [id number] to right upper chest. No oozing noted. HEAD: Normocephalic. EYES: No scleral icterus. No injection or drainage. NECK: Supple, trachea midline. No JVD or lymphadenopathy. CARDIOVASCULAR: Regular rate and rhythm without murmurs. RESPIRATORY: Few crackles right lower lung. On room air; breathing easy and unlabored at rest. GASTROINTESTINAL: Abdomen soft, non-tender, nondistended. EXTREMITIES: No cyanosis. Bilateral lower extremity 2+ edema MUSCULOSKELETAL: Generalized weakness NEUROLOGICAL: No obvious focal deficit. Awake, alert, and oriented x3. 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 Hoff is a 72-year-old female with a diagnosis of IgG kappa light chain multiple myeloma diagnosed originally 2005, status post autologous stem cell transplant in 2009, most recently had been on systemic therapy with Durvalumab, Velcade and dexamethasone. 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 Recommendations: 1. Acute renal failure with oliguria: Total urine output 200 cc yesterday. The patient is on hemodialysis and this will resume tomorrow. 2. Anemia: Transfuse 1 unit packed red blood cells today. Ideally would like to keep hemoglobin greater than 7.5. 3. Multiple myeloma: Plan to resume systemic therapy with Velcade, dexamethasone and Durvalumab in the outpatient setting. 4. Noted thrombocytopenia. Recheck coags. ?DIC - Attending Statement The exam, history, and the medical decision-making described in the above note were completed with the assistance of the mid-level provider. I reviewed and agree with the findings presented. I attest that I had a [id number] encounter with the patient on the same day, and personally performed and documented my assessment and findings in the medical record. Patient seen and examined, vital signs, labs, medications and overnight events reviewed. Subjectively patient reports burning with urination, she tells me she only has a few drops of urine but it ter[place] intensely. She reports having little to no appetite, she did however get up out of bed onto the bedside chair today. She tells me her breathing is more comfortable and her swelling feels like it has decreased. Presently the patient is receiving 1 unit packed red blood cell transfusion for hemoglobin of less than 7 g/dL earlier today. Patient notices no overt bleeding. Recommendations: 1. Multiple myeloma: Treatment on hold until she resumes outpatient follow-up. 2. Renal failure: Now on hemodialysis, very little urine output. Anasarca and edema persist. 3. 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
[2017-12-22] MEDS: Heparin - SQ 10,000 UNITS/ML Vial SQ SCH ×2 (09:32→21:14)
--- NOTE | 2017-12-22 12:20 | P.PNNP ---
Subjective Interval history: Patient seen and examined, alert, mild SOB, not in distress. Physical Exam Vital signs: Vital Signs 12/21/17 13:00 12/21/17 14:00 12/21/17 15:00 Temperature 98.0 F Pulse Rate 108 H 86 116 H Respiratory Rate 20 Blood Pressure 112/70 Pulse Oximetry 99 12/21/17 16:00 12/21/17 17:00 12/21/17 18:00 Temperature Pulse Rate 94 H 92 H 112 H Respiratory Rate Blood Pressure Pulse Oximetry 12/21/17 19:00 12/21/17 20:00 12/21/17 21:00 Temperature 98.5 F Pulse Rate 92 H 88 86 Respiratory Rate 18 Blood Pressure 100/67 Pulse Oximetry 97 12/21/17 22:00 12/21/17 23:00 12/22/17 00:00 Temperature Pulse Rate 84 86 96 H Respiratory Rate 18 Blood Pressure Pulse Oximetry 99 12/22/17 01:00 12/22/17 02:00 12/22/17 03:00 Temperature 98.5 F Pulse Rate 84 82 92 H Respiratory Rate 18 Blood Pressure 105/71 Pulse Oximetry 99 12/22/17 04:00 12/22/17 05:00 12/22/17 06:00 Temperature Pulse Rate 94 H 82 86 Respiratory Rate Blood Pressure Pulse Oximetry 12/22/17 09:31 12/22/17 11:04 12/22/17 11:25 Temperature 98.5 F 98.2 F 98.4 F Pulse Rate 114 H 107 H 92 H Respiratory Rate 18 20 18 Blood Pressure 112/68 98/65 L 99/59 L Pulse Oximetry 98 99 100 Intake & Output 12/21/17 12/22/17 12/22/17 18:59 06:59 18:59 Intake Total 800 / 800 390 / 390 100 / 100 Output Total 125 / 125 20 / 20 Balance 675 / 675 370 / 370 100 / 100 Weight 71.8 kg Intake: IV 200 / 200 100 / 100 100 / 100 Flexbumin 25% Inj 100 ML @ 60 100 / 100 100 / 100 100 / 100 mls/hr IV.SIG Q12H KARLENE Rx#: [id number] Rocephin Inj 2,000 MG In NS Inj 100 / 100 100 ML @ 200 mls/hr IV.SIG Q24H KARLENE Rx#:[id number] Oral 600 / 600 240 / 240 Other 50 / 50 Intake (Blood Product) Amt 0 / 0 Rbc As-3 Leukoreduced Unit 0 / 0 [id number] Output: Urine 125 / 125 20 / 20 Other: Date of Last Bowel Movement 12/21/17 12/21/17 12/21/17 # Bowel Movements 1 Narrative: GENERAL: AWAKE AND ALERT AND ORIENTED X3 VERY CACHECTIC AND CHRONICALLY ILL APPEARING PATIENT SKIN: Warm and dry. HEAD: Atraumatic. Normocephalic. EYES: Pupils equal and round. No scleral icterus. No injection or drainage. ENT: No nasal bleeding or discharge. Mucous membranes pink and moist. NECK: Trachea midline. No JVD. CARDIOVASCULAR: Regular rate and rhythm. RESPIRATORY: No accessory muscle use. Clear to auscultation. Breath sounds equal bilaterally. GASTROINTESTINAL: Abdomen soft, non-tender, nondistended. Hepatic and splenic margins not palpable. MUSCULOSKELETAL: Extremities without clubbing, cyanosis, 2 PLUS PITTING EDEMA No obvious deformities. NEUROLOGICAL: Awake and alert. No obvious cranial nerve deficits. Motor grossly within normal limits. 4 out of 5 muscle strength in the arms and legs. Normal speech. PSYCHIATRIC: INAppropriate mood and affect; insight and judgment ABnormal. - Urinary Catheter Management Indwelling Urethral Catheter Cath placed during this visit: yes Reason for continuing: Acute urinary retention Insertion date: 12/23/17 Insertion time: 15:45 Assessment and Plan - Plan 1. Chronic kidney disease and Acute kidney injury. 2. Generalized Anasarca. 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 4. Anemia. Patient has advance renal disease, and Anasarca, urine out put is low. Bumex stopped, Started on HD on 12/19. Tolerated well, BP is stable. HD done yesterday, Started passing some urine. Watch the renal function. Possible HD again tomorrow.
--- NOTE | 2017-12-22 13:07 | P.PNIM ---
Subjective Interval history: F/up MM with light chain disease, SIMON - worsening kidney function, NO URINE OUTPUT, bacteremia strep viridans , hypotension, anasarca Edema in her arms improving some. Less shortness of breath today. Satting well while on room air however she is not ambulating much. Postop in the chair. Had a bowel movement. No nausea or vomiting. Able to eat some food however has decreased appetite. No fever or chills. No dialysis planned for today. Kidney function improving. - MAY NEED HD OUTPATIENT DW RN AND PT AND FAMILY IN ROOM AND PATIENT AM LABS WILL BE TRANSFUSED TODAY Physical Exam Vital signs: Vital Signs 12/21/17 14:00 12/21/17 15:00 12/21/17 16:00 Temperature 98.0 F Pulse Rate 86 116 H 94 H Respiratory Rate 20 Blood Pressure 112/70 Pulse Oximetry 99 12/21/17 17:00 12/21/17 18:00 12/21/17 19:00 Temperature 98.5 F Pulse Rate 92 H 112 H 92 H Respiratory Rate 18 Blood Pressure 100/67 Pulse Oximetry 12/21/17 20:00 12/21/17 21:00 12/21/17 22:00 Temperature Pulse Rate 88 86 84 Respiratory Rate Blood Pressure Pulse Oximetry 97 12/21/17 23:00 12/22/17 00:00 12/22/17 01:00 Temperature Pulse Rate 86 96 H 84 Respiratory Rate 18 Blood Pressure Pulse Oximetry 99 12/22/17 02:00 12/22/17 03:00 12/22/17 04:00 Temperature 98.5 F Pulse Rate 82 92 H 94 H Respiratory Rate 18 Blood Pressure 105/71 Pulse Oximetry 99 12/22/17 05:00 12/22/17 06:00 12/22/17 08:00 Temperature Pulse Rate 82 86 93 H Respiratory Rate Blood Pressure Pulse Oximetry 12/22/17 09:31 12/22/17 11:04 12/22/17 11:25 Temperature 98.5 F 98.2 F 98.4 F Pulse Rate 114 H 107 H 92 H Respiratory Rate 18 20 18 Blood Pressure 112/68 98/65 L 99/59 L Pulse Oximetry 98 99 100 12/22/17 12:00 Temperature Pulse Rate 87 Respiratory Rate Blood Pressure Pulse Oximetry Intake & Output 12/21/17 12/22/17 12/22/17 18:59 06:59 18:59 Intake Total 800 / 800 390 / 390 100 / 100 Output Total 125 / 125 20 / 20 Balance 675 / 675 370 / 370 100 / 100 Weight 71.8 kg Intake: IV 200 / 200 100 / 100 100 / 100 Flexbumin 25% Inj 100 ML @ 60 100 / 100 100 / 100 100 / 100 mls/hr IV.SIG Q12H KARLENE Rx#: [id number] Rocephin Inj 2,000 MG In NS Inj 100 / 100 100 ML @ 200 mls/hr IV.SIG Q24H KARLENE Rx#:[id number] Oral 600 / 600 240 / 240 Other 50 / 50 Intake (Blood Product) Amt 0 / 0 Rbc As-3 Leukoreduced Unit 0 / 0 [id number] Output: Urine 125 / 125 20 / 20 Other: Date of Last Bowel Movement 12/21/17 12/21/17 12/21/17 # Bowel Movements 1 2 Narrative: GENERAL: AWAKE AND ALERT AND ORIENTED X3 VERY CACHECTIC AND CHRONICALLY ILL APPEARING PATIENT SKIN: Warm and dry. HEAD: Atraumatic. Normocephalic. EYES: Pupils equal and round. No scleral icterus. No injection or drainage. ENT: No nasal bleeding or discharge. Mucous membranes pink and moist. NECK: Trachea midline. No JVD. CARDIOVASCULAR: Regular rate and rhythm. RESPIRATORY: No accessory muscle use. Clear to auscultation. Breath sounds equal bilaterally. GASTROINTESTINAL: Abdomen soft, non-tender, nondistended. Hepatic and splenic margins not palpable. MUSCULOSKELETAL: Extremities without clubbing, cyanosis, 2 PLUS PITTING EDEMA No obvious deformities. NEUROLOGICAL: Awake and alert. No obvious cranial nerve deficits. Motor grossly within normal limits. 4 out of 5 muscle strength in the arms and legs. Normal speech. PSYCHIATRIC: INAppropriate mood and affect; insight and judgment ABnormal. Results - Labs CBC & Chem 7: 12/22/17 03:10 12/22/17 03:10 Laboratory Results - last 24 hr 12/22/17 12/22/17 12/22/17 00:52 03:10 03:10 WBC 4.1 RBC 2.18 L Hgb 6.3 L* Hct 18.8 L* MCV 86.4 MCH 29.0 MCHC 33.6 RDW 18.9 H Plt Count 80 L MPV 8.5 Prelim Diff (Auto) Slide review pending Neut % (Auto) 75.5 H Lymph % (Auto) 16.1 [place] % (Auto) 6.6 Eos % (Auto) 1.5 Baso % (Auto) 0.3 Neut # (Auto) 3.1 Lymph # (Auto) 0.7 L [place] # (Auto) 0.3 Eos # (Auto) 0.1 Baso # (Auto) 0.0 WBC Differential . Diff Scan Auto diff confirmed Differential Comment . Platelet Estimate Low L Platelet Morphology Normal Target Cells 1+ H Ovalocytes 1+ H APTT Sodium 144 Potassium 2.7 L* Chloride 107 Carbon Dioxide 27.8 Anion Gap 9 BUN 14 Creatinine 2.51 H Estimated GFR 23 L Random Glucose 63 L Calcium 6.9 L* Prot Corrected Calcium 7.7 L Magnesium Total Protein 5.5 L Urine Color Yellow Urine Clarity Hazy H Urine pH 8.0 Ur Specific [place] 1.020 Urine Protein 500 or greater Urine Glucose (UA) 50 Urine Ketones Negative Urine Occult Blood Small H Urine Nitrate Negative Urine Bilirubin Negative Urine Urobilinogen Less than 2 Ur Leukocyte Esterase Negative Urine RBC 1 Urine WBC 14 H Ur Squamous Epith Cells 4 Ur Transition Epith Cell 1 Urine Bacteria Rare H Hyaline Casts 10 Urine Mucus Few H Micro UA Comment Culture indicated Urine Culture Comments Culture indicated Blood Type Antibody Screen MTS Gel Crossmatch Bld Prod Order Comment 12/22/17 12/22/17 12/22/17 03:10 06:00 11:20 WBC RBC Hgb Hct MCV MCH MCHC RDW Plt Count MPV Prelim Diff (Auto) Neut % (Auto) Lymph % (Auto) [place] % (Auto) Eos % (Auto) Baso % (Auto) Neut # (Auto) Lymph # (Auto) [place] # (Auto) Eos # (Auto) Baso # (Auto) WBC Differential Diff Scan Differential Comment Platelet Estimate Platelet Morphology Target Cells Ovalocytes APTT 41.1 H Sodium Potassium Chloride Carbon Dioxide Anion Gap BUN Creatinine Estimated GFR Random Glucose Calcium Prot Corrected Calcium Magnesium 2.1 Total Protein Urine Color Urine Clarity Urine pH Ur Specific [place] Urine Protein Urine Glucose (UA) Urine Ketones Urine Occult Blood Urine Nitrate Urine Bilirubin Urine Urobilinogen Ur Leukocyte Esterase Urine RBC Urine WBC Ur Squamous Epith Cells Ur Transition Epith Cell Urine Bacteria Hyaline Casts Urine Mucus Micro UA Comment Urine Culture Comments Blood Type AB Positive Antibody Screen Positive H MTS Gel Crossmatch See Detail Bld Prod Order Comment Microbiology 12/17/17 14:44 Blood - Peripheral Aerobic Blood Culture - Final No growth in 5 days 12/17/17 14:44 Blood - Peripheral Anaerobic Blood Culture - Final No growth in 5 days 12/17/17 14:00 Blood - Peripheral Aerobic Blood Culture - Final No growth in 5 days 12/17/17 14:00 Blood - Peripheral Anaerobic Blood Culture - Final No growth in 5 days - Procedures Vas-Cath placed 12/19/17. Started dialysis Assessment and Plan - Assessment (1) Multiple myeloma Code(s): C90.00 - Multiple myeloma not having achieved remission Status: Acute (2) Diastolic CHF Code(s): I50.30 - Unspecified diastolic (congestive) heart failure Status: Acute - Plan 72 y/o female with a history of multiple myeloma, HLD, and HTN presented to the ED with complaints of worsening edema and sob. Acute CHF exacerbation on possible chronic chf BNP 1350 on admission -Diuresed with Lasix and then switched to Bumex. Now off diuretics. Vas-Cath placed 12/19/17. Started dialysis -Fluid restriction - BP was noted low give albumin q12 hrs Acute renal failure. Patient was multiple myeloma light chain disease. Creatine 4.3, baseline 2.0. Creatinine is improving with HD -Consult nephrology for evaluation -Kidney ultrasound reviewed -Avoid nephrotoxins -Consult nephrology. Continue hemodialysis per nephrology indications - S/P right Internal Jugular Hemodialysis Catheter Non-Tunneled Placement on and started HD PATIENT MAY NEED OUTPT HD AND THIS WILL NEED TO BE SET UP IF SHE NEEDS THIS Bandemia, 32% bands on admission, suspected pneumonia Bacteremia, viridans strep, low grade. Port infx vs contaminant PCN allergy Cont CFTX 2 gm. DC Daptomycin and azythro. NO need to remove PORT at this time per ID recommendations , ff . Continue Rocephin for 14 days of negative blood culture per ID 2 D echo ID consulted Chest x ray reviewed and shows numbering mid inspiratory exam with increased opacity at the lung bases which may represent increasing infiltrate, and small effusions. -monitor CBC -Lactic acid is back to normal Elevated troponin, likely related due to CHF and elevated creatine r/o ACS Troponin .67 -Serial troponin and ekgs Hypotension, due to diuresis -Albumin IV bid -Monitor vitals Multiple myeloma, chronic -Consult Dr. Arvizu, following -Consult nephrology following. Plan of ANEMIA WILL NEED TRANSFUSIONS Constipation. Stool softeners/laxatives as needed. Anasarca: imprpving with HD DVT prophylaxis: Heparin Discussed Condition With: Patient, nurse DC plan pending improvement With MM worsening kidney function, anoliguric, bacteremia strep viridans , ID, hem/onc and nephrology ff Vas-Cath placed 12/19/17 started dialysis. No need to remove Port per ID. Continue Rocephin for 14 days of negative blood culture per ID Patient improving with HD Code Status: FULL CODE Discussed Condition With: RN AND PT AND CM AND FAMILY Discharge Planning: PENDING CLEARANCE BY ALL MAY NEED HD SET UP OUTPT (2) Diastolic CHF Qualifiers: Heart failure chronicity: acute on chronic Qualified Code(s): I50.33 - Acute on chronic diastolic (congestive) heart failure
[2017-12-22] MEDS ORDERED: Tuberculin PPD 5 UNITS/0.1 ML Syringe I-DERMAL ONE (13:15)
[2017-12-22 20:37] LABS: Hepatitis A IgM Antibody Nonreactive (Nonreactive); Hepatitits B Surface Antigen Nonreactive (Nonreactive)
[2017-12-23] MEDS: Albumin Human 25% Inj 100 ML IV.SIG SCH ×3 (00:02→23:32)
[2017-12-23 05:29] LABS: Baso % (Auto) 0.4 % (0.0-2.0); Eos % (Auto) 0.3 % (0.0-4.0); Hematocrit 25.5 % (35.0-46.0); Hemoglobin 8.6 gm/dL (11.6-15.3); Lymph # (Auto) 0.9 th/mm3 (1.0-4.8); Lymph % (Auto) 14.9 % (9.0-44.0); Mean Corpuscular HGB Conc 33.9 % (32.0-36.0); Mean Corpuscular Hemoglobin 29.1 pg (27.0-34.0); Mean Platelet Volume 8.6 fL (7.0-11.0); Mono # (Auto) 0.3 th/mm3 (0.0-0.9); Mono % (Auto) 4.3 % (0.0-8.0); Neut # (Auto) 4.7 th/mm3 (1.8-7.7); Neut % (Auto) 80.1 % (16.0-70.0); Platelet Count 66 th/mm3 (150-450); Red Blood Count 2.96 mil/mm3 (4.00-5.30); White Blood Count 5.9 th/mm3 (4.0-11.0)
[2017-12-23 06:06] LABS: Prothrombin Time 10.6 sec (9.8-11.6)
[2017-12-23 06:07] LABS: Albumin 3.1 g/dL (3.4-5.0); Calcium 6.9 mg/dL (8.5-10.1); Carbon Dioxide 27.6 meq/L (21.0-32.0); Free T4 (Free Thyroxine) 0.76 ng/dL (0.76-1.46); Phosphorus 2.8 mg/dL (2.5-4.9); Thyroid Stimulating Hormone 3.81 uIU/mL (0.358-3.740); Total Protein 5.6 g/dL (6.4-8.2)
[2017-12-23 06:09] LABS: Potassium 2.8 meq/L (3.5-5.1)
[2017-12-23 07:30] LABS: Target Cells 1+
[2017-12-23 07:31] LABS: Platelet Morphology Normal (Normal)
[2017-12-23] MEDS: Heparin - SQ 10,000 UNITS/ML Vial SQ SCH ×2 (07:50→21:50)
--- NOTE | 2017-12-23 09:27 | P.PNNP ---
Subjective Interval history: Seen during hemodialysis. Denies any shortness of breath. Creatinine improving at 2.74 but documented urinary output is low and patient reports minimal urinary output. <Dee Day - Last Filed: 12/23/17 09:12> Physical Exam Vital signs: Vital Signs 12/22/17 09:31 12/22/17 11:04 12/22/17 11:25 Temperature 98.5 F 98.2 F 98.4 F Pulse Rate 114 H 107 H 92 H Respiratory Rate 18 20 18 Blood Pressure 112/68 98/65 L 99/59 L Pulse Oximetry 98 99 100 12/22/17 12:00 12/22/17 15:18 12/22/17 16:00 Temperature 98.8 F Pulse Rate 87 102 H 103 H Respiratory Rate 20 Blood Pressure 121/74 Pulse Oximetry 99 12/22/17 17:59 12/22/17 19:00 12/22/17 20:00 Temperature 98.5 F 98.5 F Pulse Rate 94 H 88 91 H Respiratory Rate 18 16 Blood Pressure 124/83 113/76 Pulse Oximetry 98 98 12/22/17 21:00 12/22/17 22:00 12/22/17 23:00 Temperature 98.7 F Pulse Rate 94 H 92 H 94 H Respiratory Rate 16 Blood Pressure 105/76 Pulse Oximetry 98 12/23/17 00:00 12/23/17 01:00 12/23/17 02:00 Temperature Pulse Rate 89 120 H 102 H Respiratory Rate Blood Pressure Pulse Oximetry 12/23/17 03:00 12/23/17 04:00 12/23/17 05:00 Temperature 98.1 F Pulse Rate 90 89 92 H Respiratory Rate 18 Blood Pressure 110/75 Pulse Oximetry 98 12/23/17 07:00 Temperature 98.1 F Pulse Rate 124 H Respiratory Rate 24 Blood Pressure 111/75 Pulse Oximetry 98 Intake & Output 12/22/17 12/23/17 12/23/17 18:59 06:59 18:59 Intake Total 1000 / 1000 420 / 420 Output Total 25 / 25 Balance 975 / 975 420 / 420 Weight 71.7 kg Intake: IV 200 / 200 200 / 200 Flexbumin 25% Inj 100 ML @ 60 100 / 100 100 / 100 mls/hr IV.SIG Q12H KARLENE Rx#: [id number] NS Inj 250 ML @ 15 mls/hr IV. 100 / 100 SIG ONCE KARLENE Rx#:[id number] Rocephin Inj 2,000 MG In NS Inj 100 / 100 100 ML @ 200 mls/hr IV.SIG Q24H KARLENE Rx#:[id number] Oral 400 / 400 120 / 120 Other 100 / 100 Intake (Blood Product) Amt 400 / 400 Rbc As-3 Leukoreduced Unit 400 / 400 [id number] Output: Urine 25 / 25 Other: # Urine Diapers 2 Date of Last Bowel Movement 12/22/17 12/22/17 # Bowel Movements 2 1 - Constitutional no acute distress - Routine HEENT Exam Head: Present: normocephalic - Routine Neck Exam Present: supple. Absent: JVD - Routine Respiratory Exam Present: decreased breath sounds. Absent: rhonchi, wheezes - Routine Cardiovascular Exam Present: RRR. Absent: murmur - Routine Abdominal Exam Present: soft, normoactive bowel sounds - Routine Extremities Exam Present: edema, vascular access - Routine Skin Exam Present: dry, warm - Routine Neurological Exam Present: alert, oriented X3 - Routine Psychiatric Exam Present: cooperative <Dee Day - Last Filed: 12/23/17 09:12> Vital signs: Vital Signs 12/23/17 16:00 12/23/17 17:00 12/23/17 18:00 Temperature Pulse Rate 100 H 108 H 102 H Respiratory Rate Blood Pressure Pulse Oximetry 12/23/17 19:00 12/23/17 20:00 12/23/17 21:00 Temperature 98.5 F Pulse Rate 94 H 102 H 96 H Respiratory Rate 16 Blood Pressure 99/70 L Pulse Oximetry 100 12/23/17 21:33 12/23/17 22:00 12/23/17 23:00 Temperature Pulse Rate 94 H 90 Respiratory Rate Blood Pressure Pulse Oximetry 97 12/24/17 00:00 12/24/17 01:00 12/24/17 02:00 Temperature 98.4 F Pulse Rate 93 H 87 92 H Respiratory Rate 16 Blood Pressure 112/72 Pulse Oximetry 98 12/24/17 03:00 12/24/17 04:00 12/24/17 05:00 Temperature 98.6 F Pulse Rate 85 93 H 84 Respiratory Rate 16 Blood Pressure 90/56 L Pulse Oximetry 98 12/24/17 06:00 12/24/17 08:00 12/24/17 09:04 Temperature 98.3 F Pulse Rate 78 86 Respiratory Rate 16 Blood Pressure Pulse Oximetry 98 98 12/24/17 11:20 Temperature 98.7 F Pulse Rate 91 H Respiratory Rate 16 Blood Pressure 105/69 Pulse Oximetry 99 Intake & Output 12/23/17 12/24/17 12/24/17 18:59 06:59 18:59 Intake Total 520 / 520 340 / 340 Output Total 3925 / 3925 450 / 450 Balance -3405 / -3405 -110 / -110 Weight 71.2 kg Intake: IV 200 / 200 100 / 100 Flexbumin 25% Inj 100 ML @ 60 100 / 100 100 / 100 mls/hr IV.SIG Q12H KARLENE Rx#: [id number] Rocephin Inj 2,000 MG In NS Inj 100 / 100 100 ML @ 200 mls/hr IV.SIG Q24H KARLENE Rx#:[id number] Oral 320 / 320 240 / 240 Output: Hemodialysis Amount 3000 / 3000 Urine Amount (Catheter) 925 / 925 450 / 450 Indwelling Urethral Catheter 925 / 925 450 / 450 Other: Date of Last Bowel Movement 12/22/17 12/22/17 # Bowel Movements 0 - Urinary Catheter Management Indwelling Urethral Catheter Cath placed during this visit: yes Reason for continuing: Acute urinary retention Insertion date: 12/23/17 Insertion time: 15:45 <Sallie Shields - Last Filed: 12/24/17 15:21> Assessment and Plan - Plan 1. Chronic kidney disease and Acute kidney injury. 2. Generalized Anasarca. 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 4. Anemia. Patient has advance renal disease and Anasarca started on HD on 12/19 Creatinine at 2.75, urinary output at 25ml/24 hours Potassium 2.8, Calcium at 7.7 Hypokalemia, replacement has been ordered Hypocalcemia, replacement ordered Avoid nephrotoxins Strict I+o Continue to monitor renal panel, urinary output, and watch for renal recovery Seen during hemodialysis, 4 K bath will remove fluid as tolerated. Vas cath may need to be exchanged <Dee Day - Last Filed: 12/23/17 09:12> - Plan Has bladder obstruction, Russell' catheter inserted, follow the urine out put and BMP. <Sallie Shields - Last Filed: 12/24/17 15:21>
--- NOTE | 2017-12-23 11:33 | P.PNIM ---
Subjective Interval history: F/up MM with light chain disease, SIMON - worsening kidney function, NO URINE OUTPUT, bacteremia strep viridans , hypotension, anasarca Edema in her arms improving some. Less shortness of breath today. Satting well while on room air however she is not ambulating much. Postop in the chair. Had a bowel movement. No nausea or vomiting. Able to eat some food however has decreased appetite. No fever or chills. No dialysis planned for today. Kidney function improving. 12-22 MAY NEED HD OUTPATIENT ERNESTINE RN AND PT AND FAMILY IN ROOM AND PATIENT AM LABS WILL BE TRANSFUSED TODAY 12-23 SEEN IN HEMODIALYSIS PATIENT COMPLAINS OF ABDOMINAL PAIN HAS BLADDER FULL OF 1000ML OF URINE WILL STRAIGHT CATH PRN ERNESTINE RN AND PT AND CM NEEDS OXYGEN 2L NO NAUSEA NO VOMITING Physical Exam Vital signs: Vital Signs 12/22/17 12:00 12/22/17 15:18 12/22/17 16:00 Temperature 98.8 F Pulse Rate 87 102 H 103 H Respiratory Rate 20 Blood Pressure 121/74 Pulse Oximetry 99 12/22/17 17:59 12/22/17 19:00 12/22/17 20:00 Temperature 98.5 F 98.5 F Pulse Rate 94 H 88 91 H Respiratory Rate 18 16 Blood Pressure 124/83 113/76 Pulse Oximetry 98 98 12/22/17 21:00 12/22/17 22:00 12/22/17 23:00 Temperature 98.7 F Pulse Rate 94 H 92 H 94 H Respiratory Rate 16 Blood Pressure 105/76 Pulse Oximetry 98 12/23/17 00:00 12/23/17 01:00 12/23/17 02:00 Temperature Pulse Rate 89 120 H 102 H Respiratory Rate Blood Pressure Pulse Oximetry 12/23/17 03:00 12/23/17 04:00 12/23/17 05:00 Temperature 98.1 F Pulse Rate 90 89 92 H Respiratory Rate 18 Blood Pressure 110/75 Pulse Oximetry 98 12/23/17 07:00 12/23/17 08:00 12/23/17 09:00 Temperature 98.1 F Pulse Rate 124 H 104 H 98 H Respiratory Rate 24 Blood Pressure 111/75 Pulse Oximetry 98 12/23/17 10:00 Temperature Pulse Rate 84 Respiratory Rate Blood Pressure Pulse Oximetry Intake & Output 12/22/17 12/23/17 12/23/17 18:59 06:59 18:59 Intake Total 1000 / 1000 420 / 420 Output Total 25 / 25 3000 / 3000 Balance 975 / 975 420 / 420 -3000 / -3000 Weight 71.7 kg Intake: IV 200 / 200 200 / 200 Flexbumin 25% Inj 100 ML @ 60 100 / 100 100 / 100 mls/hr IV.SIG Q12H KARLENE Rx#: [id number] NS Inj 250 ML @ 15 mls/hr IV. 100 / 100 SIG ONCE KARLENE Rx#:[id number] Rocephin Inj 2,000 MG In NS Inj 100 / 100 100 ML @ 200 mls/hr IV.SIG Q24H KARLENE Rx#:[id number] Oral 400 / 400 120 / 120 Other 100 / 100 Intake (Blood Product) Amt 400 / 400 Rbc As-3 Leukoreduced Unit 400 / 400 [id number] Output: Urine 25 / 25 Hemodialysis Amount 3000 / 3000 Other: # Urine Diapers 2 Date of Last Bowel Movement 12/22/17 12/22/17 # Bowel Movements 2 1 Narrative: GENERAL: AWAKE AND ALERT AND ORIENTED X3 VERY CACHECTIC AND CHRONICALLY ILL APPEARING PATIENT SKIN: Warm and dry. HEAD: Atraumatic. Normocephalic. EYES: Pupils equal and round. No scleral icterus. No injection or drainage. ENT: No nasal bleeding or discharge. Mucous membranes pink and moist. NECK: Trachea midline. No JVD. CARDIOVASCULAR: Regular rate and rhythm. RESPIRATORY: No accessory muscle use. Clear to auscultation. Breath sounds equal bilaterally. GASTROINTESTINAL: Abdomen soft, non-tender, nondistended. Hepatic and splenic margins not palpable. MUSCULOSKELETAL: Extremities without clubbing, cyanosis, 2 PLUS PITTING EDEMA No obvious deformities. NEUROLOGICAL: Awake and alert. No obvious cranial nerve deficits. Motor grossly within normal limits. 4 out of 5 muscle strength in the arms and legs. Normal speech. PSYCHIATRIC: INAppropriate mood and affect; insight and judgment ABnormal. Results - Labs CBC & Chem 7: 12/23/17 04:31 12/23/17 04:31 Laboratory Results - last 24 hr 12/22/17 12/22/17 12/22/17 06:00 11:20 14:50 WBC RBC Hgb Hct MCV MCH MCHC RDW Plt Count MPV Prelim Diff (Auto) Neut % (Auto) Lymph % (Auto) [place] % (Auto) Eos % (Auto) Baso % (Auto) Neut # (Auto) Lymph # (Auto) [place] # (Auto) Eos # (Auto) Baso # (Auto) WBC Differential Diff Scan Differential Comment Platelet Estimate Platelet Morphology Target Cells PT INR APTT 41.1 H Sodium Potassium 3.0 L Chloride Carbon Dioxide Anion Gap BUN Creatinine Estimated GFR Random Glucose Calcium Prot Corrected Calcium Phosphorus Magnesium Total Bilirubin AST ALT Alkaline Phosphatase Total Protein Albumin TSH Free T4 Stl C.difficile Tox PCR St C. diff Tox Epid 027 Hepatitis A IgM Ab Hep Bs Antigen Hep B Core IgM Ab Hep C IgG Ab MTS Gel Crossmatch See Detail 12/22/17 12/22/17 12/23/17 14:50 23:45 04:31 WBC 5.9 RBC 2.96 L Hgb 8.6 L D Hct 25.5 L MCV 86.0 MCH 29.1 MCHC 33.9 RDW 17.0 Plt Count 66 L MPV 8.6 Prelim Diff (Auto) Slide review pending Neut % (Auto) 80.1 H Lymph % (Auto) 14.9 [place] % (Auto) 4.3 Eos % (Auto) 0.3 Baso % (Auto) 0.4 Neut # (Auto) 4.7 Lymph # (Auto) 0.9 L [place] # (Auto) 0.3 Eos # (Auto) 0.0 Baso # (Auto) 0.0 WBC Differential . Diff Scan Auto diff confirmed Differential Comment . Platelet Estimate Low L Platelet Morphology Normal Target Cells 1+ H PT INR APTT Sodium Potassium Chloride Carbon Dioxide Anion Gap BUN Creatinine Estimated GFR Random Glucose Calcium Prot Corrected Calcium Phosphorus Magnesium Total Bilirubin AST ALT Alkaline Phosphatase Total Protein Albumin TSH Free T4 Stl C.difficile Tox PCR Negative St C. diff Tox Epid 027 Negative Hepatitis A IgM Ab Nonreactive Hep Bs Antigen Nonreactive Hep B Core IgM Ab Nonreactive Hep C IgG Ab Nonreactive MTS Gel Crossmatch 12/23/17 12/23/17 04:31 04:31 WBC RBC Hgb Hct MCV MCH MCHC RDW Plt Count MPV Prelim Diff (Auto) Neut % (Auto) Lymph % (Auto) [place] % (Auto) Eos % (Auto) Baso % (Auto) Neut # (Auto) Lymph # (Auto) [place] # (Auto) Eos # (Auto) Baso # (Auto) WBC Differential Diff Scan Differential Comment Platelet Estimate Platelet Morphology Target Cells PT 10.6 INR 1.0 APTT Sodium 145 Potassium 2.8 L* Chloride 109 H Carbon Dioxide 27.6 Anion Gap 8 BUN 16 Creatinine 2.75 H Estimated GFR 20 L Random Glucose 69 L Calcium 6.9 L* Prot Corrected Calcium 7.7 L Phosphorus 2.8 Magnesium 2.0 Total Bilirubin 0.3 AST 36 ALT 18 Alkaline Phosphatase 43 L Total Protein 5.6 L Albumin 3.1 L TSH 3.810 H Free T4 0.76 Stl C.difficile Tox PCR St C. diff Tox Epid 027 Hepatitis A IgM Ab Hep Bs Antigen Hep B Core IgM Ab Hep C IgG Ab MTS Gel Crossmatch Microbiology 12/22/17 00:52 Clean Catch Urine Urine Culture - Preliminary No growth in 24 hours 12/17/17 14:44 Blood - Peripheral Aerobic Blood Culture - Final No growth in 5 days 12/17/17 14:44 Blood - Peripheral Anaerobic Blood Culture - Final No growth in 5 days 12/17/17 14:00 Blood - Peripheral Aerobic Blood Culture - Final No growth in 5 days 12/17/17 14:00 Blood - Peripheral Anaerobic Blood Culture - Final No growth in 5 days - Procedures Vas-Cath placed 12/19/17. Started dialysis Assessment and Plan - Assessment (1) Multiple myeloma Code(s): C90.00 - Multiple myeloma not having achieved remission Status: Acute (2) Diastolic CHF Code(s): I50.30 - Unspecified diastolic (congestive) heart failure Status: Acute - Plan 72 y/o female with a history of multiple myeloma, HLD, and HTN presented to the ED with complaints of worsening edema and sob. Acute CHF exacerbation on possible chronic chf BNP 1350 on admission -Diuresed with Lasix and then switched to Bumex. Now off diuretics. Vas-Cath placed 12/19/17. Started dialysis -Fluid restriction - BP was noted low give albumin q12 hrs Acute renal failure. Patient was multiple myeloma light chain disease. Creatine 4.3, baseline 2.0. Creatinine is improving with HD -Consult nephrology for evaluation -Kidney ultrasound reviewed -Avoid nephrotoxins -Consult nephrology. Continue hemodialysis per nephrology indications - S/P right Internal Jugular Hemodialysis Catheter Non-Tunneled Placement on and started HD PATIENT MAY NEED OUTPT HD AND THIS WILL NEED TO BE SET UP IF SHE NEEDS THIS URINARY RETENTION STRAIGHT CATH PRN Q6H FOR VOLUME GREATER THAN 500ML Bandemia, 32% bands on admission, suspected pneumonia Bacteremia, viridans strep, low grade. Port infx vs contaminant PCN allergy Cont CFTX 2 gm. DC Daptomycin and azythro. NO need to remove PORT at this time per ID recommendations , ff . Continue Rocephin for 14 days of negative blood culture per ID 2 D echo ID consulted Chest x ray reviewed and shows numbering mid inspiratory exam with increased opacity at the lung bases which may represent increasing infiltrate, and small effusions. -monitor CBC -Lactic acid is back to normal Elevated troponin, likely related due to CHF and elevated creatine r/o ACS Troponin .67 -Serial troponin and ekgs Hypotension, due to diuresis -Albumin IV bid -Monitor vitals Multiple myeloma, chronic -Consult Dr. Arvizu, following -Consult nephrology following. Plan of ANEMIA WILL NEED TRANSFUSIONS Constipation. Stool softeners/laxatives as needed. HYPOKALEMIA WILL REPLACE X1 Anasarca: improving with HD DVT prophylaxis: Heparin Discussed Condition With: Patient, nurse DC plan pending improvement With MM worsening kidney function, anoliguric, bacteremia strep viridans , ID, hem/onc and nephrology ff Vas-Cath placed 12/19/17 started dialysis. No need to remove Port per ID. 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
--- NOTE | 2017-12-23 15:07 | P.PNONC ---
Subjective Interval history: Pt resting in the chair. Reports that she is uncomfortable from urinary retention. She reports that they were unable to place the urinary catheter due to a fistula. She has no other complaints at this time. Objective Vital Signs/Intake & Output: Vital Signs 12/22/17 15:18 12/22/17 16:00 12/22/17 17:59 Temperature 98.8 F 98.5 F Pulse Rate 102 H 103 H 94 H Respiratory Rate 20 18 Blood Pressure 121/74 124/83 Pulse Oximetry 99 12/22/17 19:00 12/22/17 20:00 12/22/17 21:00 Temperature 98.5 F Pulse Rate 88 91 H 94 H Respiratory Rate 16 Blood Pressure 113/76 Pulse Oximetry 98 98 12/22/17 22:00 12/22/17 23:00 12/23/17 00:00 Temperature 98.7 F Pulse Rate 92 H 94 H 89 Respiratory Rate 16 Blood Pressure 105/76 Pulse Oximetry 98 12/23/17 01:00 12/23/17 02:00 12/23/17 03:00 Temperature 98.1 F Pulse Rate 120 H 102 H 90 Respiratory Rate 18 Blood Pressure 110/75 Pulse Oximetry 98 12/23/17 04:00 12/23/17 05:00 12/23/17 07:00 Temperature 98.1 F Pulse Rate 89 92 H 124 H Respiratory Rate 24 Blood Pressure 111/75 Pulse Oximetry 98 12/23/17 08:00 12/23/17 09:00 12/23/17 10:00 Temperature Pulse Rate 104 H 98 H 84 Respiratory Rate Blood Pressure Pulse Oximetry 12/23/17 11:00 12/23/17 12:00 12/23/17 13:00 Temperature Pulse Rate 116 H 132 H 140 H Respiratory Rate Blood Pressure Pulse Oximetry 12/23/17 14:00 Temperature Pulse Rate 132 H Respiratory Rate Blood Pressure Pulse Oximetry Intake & Output 12/22/17 12/23/17 12/23/17 18:59 06:59 18:59 Intake Total 1000 / 1000 420 / 420 Output Total 25 25 3000 / 3000 Balance 975 / 975 420 / 420 -3000 / -3000 Weight 71.7 kg Intake: IV 200 / 200 200 / 200 Flexbumin 25% Inj 100 ML @ 60 100 / 100 100 / 100 mls/hr IV.SIG Q12H KARLENE Rx#: [id number] NS Inj 250 ML @ 15 mls/hr IV. 100 / 100 SIG ONCE KARLENE Rx#:[id number] Rocephin Inj 2,000 MG In NS Inj 100 / 100 100 ML @ 200 mls/hr IV.SIG Q24H KARLENE Rx#:[id number] Oral 400 / 400 120 / 120 Other 100 / 100 Intake (Blood Product) Amt 400 / 400 Rbc As-3 Leukoreduced Unit 400 / 400 [id number] Output: Urine 25 / 25 Hemodialysis Amount 3000 / 3000 Other: # Urine Diapers 2 Date of Last Bowel Movement 12/22/17 12/22/17 # Bowel Movements 2 1 Result Diagrams: 12/23/17 04:31 12/23/17 04:31 Laboratory Results: Laboratory Results - last 24 hr 12/22/17 12/22/17 12/22/17 06:00 14:50 14:50 WBC RBC Hgb Hct MCV MCH MCHC RDW Plt Count MPV Prelim Diff (Auto) Neut % (Auto) Lymph % (Auto) [place] % (Auto) Eos % (Auto) Baso % (Auto) Neut # (Auto) Lymph # (Auto) [place] # (Auto) Eos # (Auto) Baso # (Auto) WBC Differential Diff Scan Differential Comment Platelet Estimate Platelet Morphology Target Cells PT INR Sodium Potassium 3.0 L Chloride Carbon Dioxide Anion Gap BUN Creatinine Estimated GFR Random Glucose Calcium Prot Corrected Calcium Phosphorus Magnesium Total Bilirubin AST ALT Alkaline Phosphatase Total Protein Albumin TSH Free T4 Stl C.difficile Tox PCR St C. diff Tox Epid 027 Hepatitis A IgM Ab Nonreactive Hep Bs Antigen Nonreactive Hep B Core IgM Ab Nonreactive Hep C IgG Ab Nonreactive MTS Gel Crossmatch See Detail 12/22/17 12/23/17 12/23/17 23:45 04:31 04:31 WBC 5.9 RBC 2.96 L Hgb 8.6 L D Hct 25.5 L MCV 86.0 MCH 29.1 MCHC 33.9 RDW 17.0 Plt Count 66 L MPV 8.6 Prelim Diff (Auto) Slide review pending Neut % (Auto) 80.1 H Lymph % (Auto) 14.9 [place] % (Auto) 4.3 Eos % (Auto) 0.3 Baso % (Auto) 0.4 Neut # (Auto) 4.7 Lymph # (Auto) 0.9 L [place] # (Auto) 0.3 Eos # (Auto) 0.0 Baso # (Auto) 0.0 WBC Differential . Diff Scan Auto diff confirmed Differential Comment . Platelet Estimate Low L Platelet Morphology Normal Target Cells 1+ H PT INR Sodium 145 Potassium 2.8 L* Chloride 109 H Carbon Dioxide 27.6 Anion Gap 8 BUN 16 Creatinine 2.75 H Estimated GFR 20 L Random Glucose 69 L Calcium 6.9 L* Prot Corrected Calcium 7.7 L Phosphorus 2.8 Magnesium 2.0 Total Bilirubin 0.3 AST 36 ALT 18 Alkaline Phosphatase 43 L Total Protein 5.6 L Albumin 3.1 L TSH 3.810 H Free T4 0.76 Stl C.difficile Tox PCR Negative St C. diff Tox Epid 027 Negative Hepatitis A IgM Ab Hep Bs Antigen Hep B Core IgM Ab Hep C IgG Ab MTS Gel Crossmatch 12/23/17 04:31 WBC RBC Hgb Hct MCV MCH MCHC RDW Plt Count MPV Prelim Diff (Auto) Neut % (Auto) Lymph % (Auto) [place] % (Auto) Eos % (Auto) Baso % (Auto) Neut # (Auto) Lymph # (Auto) [place] # (Auto) Eos # (Auto) Baso # (Auto) WBC Differential Diff Scan Differential Comment Platelet Estimate Platelet Morphology Target Cells PT 10.6 INR 1.0 Sodium Potassium Chloride Carbon Dioxide Anion Gap BUN Creatinine Estimated GFR Random Glucose Calcium Prot Corrected Calcium Phosphorus Magnesium Total Bilirubin AST ALT Alkaline Phosphatase Total Protein Albumin TSH Free T4 Stl C.difficile Tox PCR St C. diff Tox Epid 027 Hepatitis A IgM Ab Hep Bs Antigen Hep B Core IgM Ab Hep C IgG Ab MTS Gel Crossmatch Culture Results: Microbiology 12/22/17 00:52 Urine Culture - Preliminary Clean Catch Urine No growth in 24 hours 12/17/17 14:44 Aerobic Blood Culture - Final Blood - Peripheral No growth in 5 days Anaerobic Blood Culture - Final No growth in 5 days 12/17/17 14:00 Aerobic Blood Culture - Final Blood - Peripheral No growth in 5 days Anaerobic Blood Culture - Final No growth in 5 days Medications: Active Medications Generic Name Dose Route Start Last Admin Trade Name Freq PRN Reason Stop Dose Admin Hydrocodone Bitart/Acetaminophen 1 tab 12/17/17 08:32 12/21/17 19:13 [place] 5/325 PO 1 tab Q6H PRN Administration BACK PAIN Bisacodyl 10 mg 12/16/17 18:42 07/25/18 10:19 Dulcolax Supp RECTAL 10 mg DAILY PRN Administration SEVERE CONSITIPATION Gentamicin Sulfate 20 mg 12/19/17 17:07 12/23/17 11:37 Gentamicin Inj OTHER 20 mg WITH DIALYSIS PRN Administration Dwell Gentamycin Lock Heparin Sodium (Porcine) 5,000 units 12/16/17 20:00 12/23/17 07:50 Heparin Inj SQ 5,000 units Q12H KARLENE Administration Heparin Sodium (Porcine) 500 unit 12/18/17 18:02 12/20/17 23:40 Heparin Central Flush IV.FLUSH 500 unit PRN PRN Administration Flush infusaport Heparin Sodium (Porcine) 250 unit 12/18/17 18:02 12/19/17 05:08 Heparin Central Flush IV.FLUSH 250 unit PRN PRN Administration Flush Infusapot Heparin Sodium (Porcine) 1,000 units 12/19/17 17:07 12/23/17 11:37 Heparin Inj OTHER 1,000 units WITH DIALYSIS PRN Administration Dwell Heparin to Fill Catheter Albumin Human 100 mls @ 60 mls/hr 12/17/17 11:00 12/23/17 13:35 Flexbumin 25% Inj IV.SIG 100 mls/hr Q12H KARLENE Administration Ceftriaxone Sodium 2,000 mg/ 100 mls @ 200 mls/hr 12/18/17 15:00 12/22/17 15: 44 Sodium Chloride IV.SIG Infused Q24H KARLENE Infusion Objective Remarks: GENERAL: Elderly female patient, in no acute distress. SKIN: Warm and dry. HEAD: Normocephalic. EYES: No scleral icterus. No injection or drainage. NECK: Supple, trachea midline. CARDIOVASCULAR: Regular rate and rhythm without murmurs. RESPIRATORY: Breath sounds equal bilaterally. No accessory muscle use. GASTROINTESTINAL: Abdomen soft, tender suprapubic area, distended. EXTREMITIES: No cyanosis. 2+ bilateral edema. MUSCULOSKELETAL: Adequate muscle tone. NEUROLOGICAL: No obvious focal deficit. Awake, alert, and oriented x3. PSYCHIATRIC: Appropriate mood and affect; insight and judgment normal. 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 Hoff is a 72-year-old female with a diagnosis of IgG kappa light chain multiple myeloma diagnosed originally 2005, status post autologous stem cell transplant in 2009, most recently had been on systemic therapy with Durvalumab, Velcade and dexamethasone. 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 Recommendations: 1. Acute renal failure: Status post hemodialysis today. Now with urinary retention, they have been unsuccessful with placement of a urinary Russell catheter. Urology is following. 2. Anemia: Hemoglobin 8.6 today. No transfusions necessary at this time. 3. Multiple myeloma: Plan to resume systemic therapy with Velcade, dexamethasone and Durvalumab in the outpatient setting. 4. Continue supportive care.
[2017-12-23 16:02] LABS: Hemoglobin A1c 5.4 % (4.3-6.0)
[2017-12-23] MEDS ORDERED: Calcium Carbonate 500 MG Tablet PO SCH (21:00)
[2017-12-24] MEDS: Temazepam 15 MG Capsule PO PRN ×2 (00:17→22:42)
[2017-12-24 06:18] LABS: Baso % (Auto) 0.2 % (0.0-2.0); Eos % (Auto) 0.4 % (0.0-4.0); Hematocrit 25.1 % (35.0-46.0); Hemoglobin 8.5 gm/dL (11.6-15.3); Lymph # (Auto) 0.6 th/mm3 (1.0-4.8); Lymph % (Auto) 11.5 % (9.0-44.0); Mean Corpuscular HGB Conc 33.6 % (32.0-36.0); Mean Corpuscular Hemoglobin 29.5 pg (27.0-34.0); Mean Corpuscular Volume 87.7 fL (80.0-100.0); Mean Platelet Volume 8.9 fL (7.0-11.0); Mono # (Auto) 0.2 th/mm3 (0.0-0.9); Mono % (Auto) 4.1 % (0.0-8.0); Neut # (Auto) 4.2 th/mm3 (1.8-7.7); Neut % (Auto) 83.8 % (16.0-70.0); Platelet Count 57 th/mm3 (150-450); Red Blood Count 2.87 mil/mm3 (4.00-5.30); Red Cell Distribution Width 16.9 % (11.6-17.2)
[2017-12-24 07:05] LABS: Albumin 2.9 g/dL (3.4-5.0); Carbon Dioxide 25.8 meq/L (21.0-32.0); Magnesium 1.9 mg/dL (1.5-2.5); Phosphorus 2.1 mg/dL (2.5-4.9); Total Protein 5.4 g/dL (6.4-8.2)
--- NOTE | 2017-12-24 07:10 | P.CONURO ---
History of Present Illness Consult date: 12/23/17 Requesting Physician: Christian Buenrostro Reason for Consult: Insertion of Russell catheter Primary Care Provider: Justin Anthony DO Chief Complaint: Difficulty breathing.Generalized swelling. History of Present Illness: 72-year-old female admitted with exacerbation of congestive heart failure. A urology consult was placed to aid in insertion of a Russell catheter as the patient was unable to void spontaneously and was complaining of bladder distention. Multiple attempts were made by the nursing staff to pass a Russell without success. Patient reports that prior to her present hospitalization she had been voiding without any problems. 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 Multiple myeloma Nephrotic range proteinuria - Surgical History Surgical History: Surgical History (Last Updated 12/16/17 @ 22:28 by TARYN Barber) History of hysterectomy Port-A-Cath in place - Tobacco History Second Hand Smoke Exposure: No Tobacco Use In Past 30 Days: No Smoking Status: Never smoker - Alcohol History How Often Do You Have a Drink Containing Alcohol: Monthly or less - Substance Use History Substance History: No History of Abuse - Travel History Recent Travel in the [place] Within the Last 8 Weeks: No Recent Travel Out of the Country Within the Last 8 Weeks: No - Immunization History Tetanus Immunization: <5 Years Hx Influenza Vaccine This Season: Yes Medications and Allergies Active Medications: Active Medications Acetaminophen (Tylenol) 650 mg PO Q4H PRN PRN Reason: Headache, fever, pain 1-4 Acetaminophen (Tylenol) 650 mg PO UNSCH PRN PRN Reason: SEE LABEL COMMENTS Hydrocodone Bitart/Acetaminophen ([place] 5/325) 1 tab PO Q6H PRN PRN Reason: BACK PAIN Last Admin: 12/21/17 19:13 Dose: 1 tab Al Hydroxide/Mg Hydroxide (Milk Of Magnmanjinder Liq) 30 ml PO Q12H PRN PRN Reason: Mild Constipation Albuterol (Duoneb Neb (Prn)) 1 ampul NEB Q4HR NEB PRN PRN Reason: SHORTNESS OF BREATH/WHEEZING Benzocaine/Menthol (Cepacol Max Strength) 1 lozenge BUCCAL Q4H PRN PRN Reason: SORE THROAT Bisacodyl (Dulcolax Supp) 10 mg RECTAL DAILY PRN PRN Reason: SEVERE CONSITIPATION Last Admin: 12/18/17 10:19 Dose: 10 mg Clonidine HCl (Catapres) 0.1 mg PO UNSCH PRN PRN Reason: SEE LABEL COMMENTS Diphenhydramine HCl (Benadryl) 25 mg PO UNSCH PRN PRN Reason: SEE LABEL COMMENTS Gelatin (Gelfoam 12 Mm/7 Mm Topical) 1 foam TOPICAL PRN PRN PRN Reason: help stop bleeding from site Gentamicin Sulfate (Gentamicin Inj) 20 mg OTHER WITH DIALYSIS PRN PRN Reason: Dwell Gentamycin Lock Last Admin: 12/23/17 11:37 Dose: 20 mg Heparin Sodium (Porcine) (Heparin Inj) 5,000 units SQ Q12H KARLENE Last Admin: 12/23/17 21:50 Dose: Not Given Heparin Sodium (Porcine) (Heparin Central Flush) 500 unit IV.FLUSH PRN PRN PRN Reason: Flush infusaport Last Admin: 12/20/17 23:40 Dose: 500 unit Heparin Sodium (Porcine) (Heparin Central Flush) 250 unit IV.FLUSH PRN PRN PRN Reason: Flush Infusapot Last Admin: 12/19/17 05:08 Dose: 250 unit Heparin Sodium (Porcine) (Heparin Inj) 1,000 units OTHER WITH DIALYSIS PRN PRN Reason: Dwell Heparin to Fill Catheter Last Admin: 12/23/17 11:37 Dose: 1,000 units Heparin Sodium (Porcine) (Heparin Inj) 8,000 units OTHER WITH DIALYSIS PRN PRN Reason: for machine prime Albumin Human (Flexbumin 25% Inj) 100 mls @ 60 mls/hr IV.SIG Q12H KARLENE Last Infusion: 12/24/17 01:32 Dose: Infused Ceftriaxone Sodium 2,000 mg/ (Sodium Chloride) 100 mls @ 200 mls/hr IV.SIG Q24H KARLENE Last Infusion: 12/23/17 16:25 Dose: Infused Albumin Human (Flexbumin 25% Inj) 100 mls @ 60 mls/hr IV.SIG WITH DIALYSIS PRN PRN Reason: hypotension / volume replace Sodium Chloride (Ns Inj) 1,000 mls @ 0 mls/hr OTHER .Q0M PRN PRN Reason: for prime and rinse back Sodium Chloride (Ns Inj) 1,000 mls @ 200 mls/hr OTHER .Q5H PRN PRN Reason: for dialyzer flush PRN Sodium Chloride (Ns Inj) 1,000 mls @ 0 mls/hr IV.CONT .Q0M PRN PRN Reason: hypotension / volume replace Lactulose (Lactulose Liq) 30 ml PO DAILY PRN PRN Reason: SEVERE CONSITIPATION Mannitol (Mannitol Inj) 12.5 gm IV.PUSH UNSCH PRN PRN Reason: hypotension / volume replace Nitroglycerin (Nitrostat Sl) 0.4 mg SL Q5M PRN PRN Reason: CHEST PAIN Ondansetron HCl (Zofran Odt) 4 mg PO UNSCH PRN PRN Reason: NAUSEA OR VOMITING Sennosides (Senokot) 17.2 mg PO Q12H PRN PRN Reason: Moderate Constipation Skin Test Antigens (Skin Test Result) 1 each OTHER Q24H KARLENE Stop: 12/25/17 13:09 Last Admin: 12/23/17 13:00 Dose: 1 each Sodium Chloride (Ns Flush) 5 ml IV.FLUSH PRN PRN PRN Reason: Flush Infusaport Sodium Chloride (Ns Flush) 5 ml IV.FLUSH PRN PRN PRN Reason: flush each lumen during HD Temazepam (Restoril) 15 mg PO HS PRN PRN Reason: INSOMNIA Last Admin: 12/24/17 00:17 Dose: 15 mg Allergies Allergy/AdvReac Type Severity Reaction Status Date / Time Penicillins Allergy Intermediate Hives Verified 12/16/17 15:21 Home Medications Medication Instructions Recorded Confirmed Type furosemide [Lasix] 20 mg PO DAILY 11/23/17 12/16/17 History ondansetron [Zofran ODT] 4 mg PO Q6-8H PRN 11/23/17 12/16/17 History tramadol 50 mg PO Q6H PRN 11/23/17 12/16/17 History Physical Exam Vital Signs - 24 hr 12/23/17 08:00 12/23/17 09:00 12/23/17 10:00 Temperature Pulse Rate 104 H 98 H 84 Respiratory Rate Blood Pressure Pulse Oximetry 12/23/17 11:00 12/23/17 12:00 12/23/17 13:00 Temperature Pulse Rate 88 132 H 140 H Respiratory Rate Blood Pressure Pulse Oximetry 12/23/17 14:00 12/23/17 15:00 12/23/17 16:00 Temperature 98 F Pulse Rate 132 H 88 100 H Respiratory Rate 18 Blood Pressure 106/64 Pulse Oximetry 100 12/23/17 17:00 12/23/17 18:00 12/23/17 19:00 Temperature Pulse Rate 108 H 102 H 94 H Respiratory Rate Blood Pressure Pulse Oximetry 12/23/17 20:00 12/23/17 21:00 12/23/17 21:33 Temperature 98.5 F Pulse Rate 102 H 96 H Respiratory Rate 16 Blood Pressure 99/70 L Pulse Oximetry 100 97 12/23/17 22:00 12/23/17 23:00 12/24/17 00:00 Temperature 98.4 F Pulse Rate 94 H 90 93 H Respiratory Rate 16 Blood Pressure 112/72 Pulse Oximetry 98 12/24/17 01:00 12/24/17 02:00 12/24/17 03:00 Temperature Pulse Rate 87 92 H 85 Respiratory Rate Blood Pressure Pulse Oximetry 12/24/17 04:00 12/24/17 05:00 12/24/17 06:00 Temperature 98.6 F Pulse Rate 93 H 84 78 Respiratory Rate 16 Blood Pressure 90/56 L Pulse Oximetry 98 Physical Exam: GENERAL: This is a well-nourished, well-developed patient, in no apparent distress. SKIN: No rashes, ecchymoses or lesions. Cool and dry. HEAD: Atraumatic. Normocephalic. No temporal or scalp tenderness. EYES: Pupils equal round and reactive. Extraocular motions intact. No scleral icterus. No injection or drainage. ENT: Nose without bleeding, purulent drainage or septal hematoma. Throat without erythema, tonsillar hypertrophy or exudate. Uvula midline. Airway patent. NECK: Trachea midline. No JVD or lymphadenopathy. Supple, nontender, no meningeal signs. GASTROINTESTINAL: Abdomen soft, non-tender, nondistended. No hepato-splenomegaly , or palpable masses. No guarding. GENITOURINARY: Bladder distended MUSCULOSKELETAL: Extremities without calf tenderness. Negative Homans sign bilaterally. NEUROLOGICAL: Awake and alert. Cranial nerves II through XII intact. Motor and sensory grossly within normal limits. Five out of 5 muscle strength in all muscle groups. Normal speech. Laboratory Results - last 24 hr 12/23/17 12/23/17 12/24/17 04:31 04:31 04:25 WBC 5.0 RBC 2.87 L Hgb 8.5 L Hct 25.1 L MCV 87.7 MCH 29.5 MCHC 33.6 RDW 16.9 Plt Count 57 L MPV 8.9 Prelim Diff (Auto) Slide review pending Neut % (Auto) 83.8 H Lymph % (Auto) 11.5 [place] % (Auto) 4.1 Eos % (Auto) 0.4 Baso % (Auto) 0.2 Neut # (Auto) 4.2 Lymph # (Auto) 0.6 L [place] # (Auto) 0.2 Eos # (Auto) 0.0 Baso # (Auto) 0.0 WBC Differential . Diff Scan Auto diff confirmed Differential Comment . Platelet Estimate Low L Platelet Morphology Normal Target Cells 1+ H APTT Hemoglobin A1c 5.4 12/24/17 04:25 WBC RBC Hgb Hct MCV MCH MCHC RDW Plt Count MPV Prelim Diff (Auto) Neut % (Auto) Lymph % (Auto) [place] % (Auto) Eos % (Auto) Baso % (Auto) Neut # (Auto) Lymph # (Auto) [place] # (Auto) Eos # (Auto) Baso # (Auto) WBC Differential Diff Scan Differential Comment Platelet Estimate Platelet Morphology Target Cells APTT 37.2 H Hemoglobin A1c Microbiology 12/22/17 00:52 Urine Culture - Preliminary Clean Catch Urine No growth in 24 hours Result Diagrams: 12/24/17 04:25 12/24/17 04:25 Imaging: ITS Impressions Abdomen/Bladder Ultrasound 12/16/17 00:00 CONCLUSION: 1. Small echogenic right kidney concerning for medical renal disease. 2. The left kidney could not be visualized on this ultrasound examination. Chest X-Ray 12/16/17 15:42 CONCLUSION: 1. The numbering mid inspiratory exam with increased opacity at the lung bases which may represent increasing infiltrate or be artifactual. 2. The costophrenic angles are blunted bilaterally most characteristic of small effusions. Central Venous Line 12/19/17 00:00 CONCLUSION: Assessment and Plan - Assessment (1) Urinary retention Code(s): R33.9 - Retention of urine, unspecified Status: Acute - Plan 1. urinary retention of likely transient nature 2. Continue with Russell catheter to gravity drainage until overall clinical status improved 3. DC Russell catheter for voiding trial once clinically stable Procedures - Catheter Insertion (Urinary) Date of insertion: 12/23/17 Time of insertion: 15:45 Replacement of catheter present on admission: No Reason for placing: Acute urinary retention Bladder scan/ultrasound used before catheterization: No Topical anesthesia used: No Catheter type/location: Indwelling Urethral Catheter Size (Croatian): 16 Catheter balloon size (mL): 10 Catheter balloon amount: 10 Results: successfully catheterized-immediate flow Procedure performed: without complications
[2017-12-24 07:31] LABS: Potassium 2.5 meq/L (3.5-5.1)
[2017-12-24 08:20] LABS: Platelet Morphology Normal (Normal)
[2017-12-24] MEDS ORDERED: Potassium Chloride 10 MEQ ER Capsule PO ONE ×2 (08:30→09:40)
[2017-12-24] MEDS: Albumin Human 25% Inj 100 ML IV.SIG SCH ×2 (11:12→22:42)
--- NOTE | 2017-12-24 15:39 | P.PNNP ---
Subjective Interval history: Resting comfortably. Indwelling vizcarra catheter placed. Creatinine has improved at 2.22 today. <Dee Day - Last Filed: 12/24/17 15:27> Physical Exam Vital signs: Vital Signs 12/23/17 16:00 12/23/17 17:00 12/23/17 18:00 Temperature Pulse Rate 100 H 108 H 102 H Respiratory Rate Blood Pressure Pulse Oximetry 12/23/17 19:00 12/23/17 20:00 12/23/17 21:00 Temperature 98.5 F Pulse Rate 94 H 102 H 96 H Respiratory Rate 16 Blood Pressure 99/70 L Pulse Oximetry 100 12/23/17 21:33 12/23/17 22:00 12/23/17 23:00 Temperature Pulse Rate 94 H 90 Respiratory Rate Blood Pressure Pulse Oximetry 97 12/24/17 00:00 12/24/17 01:00 12/24/17 02:00 Temperature 98.4 F Pulse Rate 93 H 87 92 H Respiratory Rate 16 Blood Pressure 112/72 Pulse Oximetry 98 12/24/17 03:00 12/24/17 04:00 12/24/17 05:00 Temperature 98.6 F Pulse Rate 85 93 H 84 Respiratory Rate 16 Blood Pressure 90/56 L Pulse Oximetry 98 12/24/17 06:00 12/24/17 08:00 12/24/17 09:04 Temperature 98.3 F Pulse Rate 78 86 Respiratory Rate 16 Blood Pressure Pulse Oximetry 98 98 12/24/17 11:20 Temperature 98.7 F Pulse Rate 91 H Respiratory Rate 16 Blood Pressure 105/69 Pulse Oximetry 99 Intake & Output 12/23/17 12/24/17 12/24/17 18:59 06:59 18:59 Intake Total 520 / 520 340 / 340 Output Total 3925 / 3925 450 / 450 Balance -3405 / -3405 -110 / -110 Weight 71.2 kg Intake: IV 200 / 200 100 / 100 Flexbumin 25% Inj 100 ML @ 60 100 / 100 100 / 100 mls/hr IV.SIG Q12H KARLENE Rx#: [id number] Rocephin Inj 2,000 MG In NS Inj 100 / 100 100 ML @ 200 mls/hr IV.SIG Q24H KARLENE Rx#:[id number] Oral 320 / 320 240 / 240 Output: Hemodialysis Amount 3000 / 3000 Urine Amount (Catheter) 925 / 925 450 / 450 Indwelling Urethral Catheter 925 / 925 450 / 450 Other: Date of Last Bowel Movement 12/22/17 12/22/17 # Bowel Movements 0 - Constitutional no acute distress - Routine HEENT Exam Head: Present: normocephalic ENT: Present: mucous membranes moist - Routine Neck Exam Present: supple. Absent: JVD - Routine Respiratory Exam Present: decreased breath sounds. Absent: rales, rhonchi - Routine Cardiovascular Exam Present: RRR - Routine Abdominal Exam Present: soft - Routine Extremities Exam Present: edema, vascular access Comments: right IJ - Routine Skin Exam Present: dry, warm - Routine Neurological Exam Present: alert, oriented X3 - Routine Psychiatric Exam Present: cooperative - Urinary Catheter Management Indwelling Urethral Catheter Cath placed during this visit: yes Reason for continuing: Acute urinary retention Insertion date: 12/23/17 Insertion time: 15:45 <Dee Day - Last Filed: 12/24/17 15:27> Vital signs: Vital Signs 12/23/17 19:00 12/23/17 20:00 12/23/17 21:00 Temperature 98.5 F Pulse Rate 94 H 102 H 96 H Respiratory Rate 16 Blood Pressure 99/70 L Pulse Oximetry 100 12/23/17 21:33 12/23/17 22:00 12/23/17 23:00 Temperature Pulse Rate 94 H 90 Respiratory Rate Blood Pressure Pulse Oximetry 97 12/24/17 00:00 12/24/17 01:00 12/24/17 02:00 Temperature 98.4 F Pulse Rate 93 H 87 92 H Respiratory Rate 16 Blood Pressure 112/72 Pulse Oximetry 98 12/24/17 03:00 12/24/17 04:00 12/24/17 05:00 Temperature 98.6 F Pulse Rate 85 93 H 84 Respiratory Rate 16 Blood Pressure 90/56 L Pulse Oximetry 98 12/24/17 06:00 12/24/17 08:00 12/24/17 09:04 Temperature 98.3 F Pulse Rate 78 86 Respiratory Rate 16 Blood Pressure 100/71 Pulse Oximetry 98 98 12/24/17 11:20 12/24/17 15:30 Temperature 98.7 F 98.7 F Pulse Rate 91 H 101 H Respiratory Rate 16 16 Blood Pressure 105/69 92/67 L Pulse Oximetry 99 100 Intake & Output 07/30/18 07/31/18 07/31/18 18:59 06:59 18:59 Intake Total 520 / 520 340 / 340 440 / 440 Output Total 3925 / 3925 450 / 450 525 / 525 Balance -3405 / -3405 -110 / -110 -85 / -85 Weight 71.2 kg Intake: IV 200 / 200 100 / 100 200 / 200 Flexbumin 25% Inj 100 ML @ 60 100 / 100 100 / 100 100 / 100 mls/hr IV.SIG Q12H KARLENE Rx#: [id number] Rocephin Inj 2,000 MG In NS Inj 100 / 100 100 / 100 100 ML @ 200 mls/hr IV.SIG Q24H KARLENE Rx#:[id number] Oral 320 / 320 240 / 240 240 / 240 Output: Hemodialysis Amount 3000 / 3000 Urine Amount (Catheter) 925 / 925 450 / 450 525 / 525 Indwelling Urethral Catheter 925 / 925 450 / 450 525 / 525 Other: Date of Last Bowel Movement 12/22/17 12/24/17 # Bowel Movements 0 1 - Urinary Catheter Management Indwelling Urethral Catheter Cath placed during this visit: no <Sallie Shields - Last Filed: 12/24/17 18:12> Assessment and Plan - Plan Patient has advance renal disease and Anasarca, started on HD on 12/19 Creatinine has improved at 2.22 from 2.75 Urinary retention yesterday and indwelling vizcarra catheter placed UOP at 1.3L / 24 hours Hypokalemia, replacement has been ordered and will order scheduled in AM Hypocalcemia improving oral replacement added Avoid nephrotoxins Strict I+o Continue to monitor renal panel, urinary output, and watch for renal recovery Hemodialysis is hold for tomorrow pending review of labs. <Dee Day - Last Filed: 12/24/17 15:27> - Plan Patient seen and examined, agree with above. Urine out put is good after the Vizcarra's catheter. Follow BMP in AM and decide about HD. <Sallie Shields - Last Filed: 12/24/17 18:12>
--- NOTE | 2017-12-24 16:39 | P.PNIM ---
Subjective Interval history: F/up MM with light chain disease, SIMON - worsening kidney function, NO URINE OUTPUT, bacteremia strep viridans , hypotension, anasarca Edema in her arms improving some. Less shortness of breath today. Satting well while on room air however she is not ambulating much. Postop in the chair. Had a bowel movement. No nausea or vomiting. Able to eat some food however has decreased appetite. No fever or chills. No dialysis planned for today. Kidney function improving. 12-22 MAY NEED HD OUTPATIENT DW RN AND PT AND FAMILY IN ROOM AND PATIENT AM LABS WILL BE TRANSFUSED TODAY 12-23 SEEN IN HEMODIALYSIS PATIENT COMPLAINS OF ABDOMINAL PAIN HAS BLADDER FULL OF 1000ML OF URINE WILL STRAIGHT CATH PRN DW RN AND PT AND CM NEEDS OXYGEN 2L NO NAUSEA NO VOMITING 12-24 HAD BOWLES PLACED HAVING GOOD URINE OUTPUT DW RN AND PT AND FAMILY AND CM AND NEPHROLOGY AM LABS REPLACE POTASSIUM Physical Exam Vital signs: Vital Signs 12/23/17 17:00 12/23/17 18:00 12/23/17 19:00 Temperature Pulse Rate 108 H 102 H 94 H Respiratory Rate Blood Pressure Pulse Oximetry 12/23/17 20:00 12/23/17 21:00 12/23/17 21:33 Temperature 98.5 F Pulse Rate 102 H 96 H Respiratory Rate 16 Blood Pressure 99/70 L Pulse Oximetry 100 97 12/23/17 22:00 12/23/17 23:00 12/24/17 00:00 Temperature 98.4 F Pulse Rate 94 H 90 93 H Respiratory Rate 16 Blood Pressure 112/72 Pulse Oximetry 98 12/24/17 01:00 12/24/17 02:00 12/24/17 03:00 Temperature Pulse Rate 87 92 H 85 Respiratory Rate Blood Pressure Pulse Oximetry 12/24/17 04:00 12/24/17 05:00 12/24/17 06:00 Temperature 98.6 F Pulse Rate 93 H 84 78 Respiratory Rate 16 Blood Pressure 90/56 L Pulse Oximetry 98 12/24/17 08:00 12/24/17 09:04 12/24/17 11:20 Temperature 98.3 F 98.7 F Pulse Rate 86 91 H Respiratory Rate 16 16 Blood Pressure 105/69 Pulse Oximetry 98 98 99 Intake & Output 12/23/17 12/24/17 12/24/17 18:59 06:59 18:59 Intake Total 520 / 520 340 / 340 Output Total 3925 / 3925 450 / 450 Balance -3405 / -3405 -110 / -110 Weight 71.2 kg Intake: IV 200 / 200 100 / 100 Flexbumin 25% Inj 100 ML @ 60 100 / 100 100 / 100 mls/hr IV.SIG Q12H KARLENE Rx#: [id number] Rocephin Inj 2,000 MG In NS Inj 100 / 100 100 ML @ 200 mls/hr IV.SIG Q24H KARLENE Rx#:[id number] Oral 320 / 320 240 / 240 Output: Hemodialysis Amount 3000 / 3000 Urine Amount (Catheter) 925 / 925 450 / 450 Indwelling Urethral Catheter 925 / 925 450 / 450 Other: Date of Last Bowel Movement 12/22/17 12/22/17 # Bowel Movements 0 Narrative: GENERAL: AWAKE AND ALERT AND ORIENTED X3 VERY CACHECTIC AND CHRONICALLY ILL APPEARING PATIENT SKIN: Warm and dry. HEAD: Atraumatic. Normocephalic. EYES: Pupils equal and round. No scleral icterus. No injection or drainage. ENT: No nasal bleeding or discharge. Mucous membranes pink and moist. NECK: Trachea midline. No JVD. CARDIOVASCULAR: Regular rate and rhythm. RESPIRATORY: No accessory muscle use. Clear to auscultation. Breath sounds equal bilaterally. GASTROINTESTINAL: Abdomen soft, non-tender, nondistended. Hepatic and splenic margins not palpable. MUSCULOSKELETAL: Extremities without clubbing, cyanosis, 2 PLUS PITTING EDEMA No obvious deformities. NEUROLOGICAL: Awake and alert. No obvious cranial nerve deficits. Motor grossly within normal limits. 4 out of 5 muscle strength in the arms and legs. Normal speech. PSYCHIATRIC: MORE Appropriate mood and affect; insight and judgment IMPROVED. - Urinary Catheter Management Indwelling Urethral Catheter Cath placed during this visit: yes Reason for continuing: Acute urinary retention Insertion date: 12/23/17 Insertion time: 15:45 Results - Labs CBC & Chem 7: 12/24/17 04:25 12/24/17 04:25 Laboratory Results - last 24 hr 12/18/17 12/23/17 12/24/17 12:50 04:31 04:25 WBC RBC Hgb Hct MCV MCH MCHC RDW Plt Count MPV Prelim Diff (Auto) Neut % (Auto) Lymph % (Auto) [place] % (Auto) Eos % (Auto) Baso % (Auto) Neut # (Auto) Lymph # (Auto) [place] # (Auto) Eos # (Auto) Baso # (Auto) WBC Differential Diff Scan Differential Comment Platelet Estimate Platelet Morphology APTT Sodium 141 Potassium 2.5 L* Chloride 103 Carbon Dioxide 25.8 Anion Gap 12 BUN 9 Creatinine 2.22 H Estimated GFR 26 L Random Glucose 73 L Hemoglobin A1c 5.4 Calcium 7.0 L* Prot Corrected Calcium 7.9 L Phosphorus 2.1 L Magnesium 1.9 Total Bilirubin 0.3 AST 37 ALT 19 Alkaline Phosphatase 44 L Total Protein 5.4 L Albumin 2.9 L MTS Gel Crossmatch See Detail 12/24/17 12/24/17 04:25 04:25 WBC 5.0 RBC 2.87 L Hgb 8.5 L Hct 25.1 L MCV 87.7 MCH 29.5 MCHC 33.6 RDW 16.9 Plt Count 57 L MPV 8.9 Prelim Diff (Auto) Slide review pending Neut % (Auto) 83.8 H Lymph % (Auto) 11.5 [place] % (Auto) 4.1 Eos % (Auto) 0.4 Baso % (Auto) 0.2 Neut # (Auto) 4.2 Lymph # (Auto) 0.6 L [place] # (Auto) 0.2 Eos # (Auto) 0.0 Baso # (Auto) 0.0 WBC Differential . Diff Scan Auto diff confirmed Differential Comment . Platelet Estimate Low L Platelet Morphology Normal APTT 37.2 H Sodium Potassium Chloride Carbon Dioxide Anion Gap BUN Creatinine Estimated GFR Random Glucose Hemoglobin A1c Calcium Prot Corrected Calcium Phosphorus Magnesium Total Bilirubin AST ALT Alkaline Phosphatase Total Protein Albumin MTS Gel Crossmatch Microbiology 12/22/17 00:52 Clean Catch Urine Urine Culture - Final No growth in 48 hours - Procedures Vas-Cath placed 12/19/17. Started dialysis Assessment and Plan - Assessment (1) Multiple myeloma Code(s): C90.00 - Multiple myeloma not having achieved remission Status: Acute (2) Diastolic CHF Code(s): I50.30 - Unspecified diastolic (congestive) heart failure Status: Acute - Plan 72 y/o female with a history of multiple myeloma, HLD, and HTN presented to the ED with complaints of worsening edema and sob. Acute CHF exacerbation on possible chronic chf BNP 1350 on admission -Diuresed with Lasix and then switched to Bumex. Now off diuretics. Vas-Cath placed 12/19/17. Started dialysis -Fluid restriction - BP was noted low give albumin q12 hrs Acute renal failure. Patient was multiple myeloma light chain disease. Creatine 4.3, baseline 2.0. Creatinine is improving with HD -Consult nephrology for evaluation -Kidney ultrasound reviewed -Avoid nephrotoxins -Consult nephrology. Continue hemodialysis per nephrology indications - S/P right Internal Jugular Hemodialysis Catheter Non-Tunneled Placement on and started HD PATIENT MAY NEED OUTPT HD AND THIS WILL NEED TO BE SET UP IF SHE NEEDS THIS URINARY RETENTION STRAIGHT CATH PRN Q6H FOR VOLUME GREATER THAN 500ML- WAS NOT ABLE TO BE DONE-- BOWLES IS IN PLACE PER PLACEMENT BY UROLOGY KEEP BOWLES AT THIS TIME Bandemia, 32% bands on admission, suspected pneumonia Bacteremia, viridans strep, low grade. Port infx vs contaminant PCN allergy Cont CFTX 2 gm. DC Daptomycin and azythro. NO need to remove PORT at this time per ID recommendations , ff . Continue Rocephin for 14 days of negative blood culture per ID 2 D echo ID consulted Chest x ray reviewed and shows numbering mid inspiratory exam with increased opacity at the lung bases which may represent increasing infiltrate, and small effusions. -monitor CBC -Lactic acid is back to normal Elevated troponin, likely related due to CHF and elevated creatine r/o ACS Troponin .67 -Serial troponin and ekgs Hypotension, due to diuresis -Albumin IV bid -Monitor vitals Multiple myeloma, chronic -Consult Dr. Arvizu, following -Consult nephrology following. Plan of ANEMIA WILL NEED TRANSFUSIONS Constipation. Stool softeners/laxatives as needed. HYPOKALEMIA WILL REPLACE X1 NEEDS TO BE REPLACED AGAIN AM LABS Anasarca: improving with HD DVT prophylaxis: Heparin Discussed Condition With: Patient, nurse DC plan pending improvement With MM worsening kidney function, anoliguric, bacteremia strep viridans , ID, hem/onc and nephrology ff Vas-Cath placed 12/19/17 started dialysis. No need to remove Port per ID. Continue Rocephin for 14 days of negative blood culture per ID Patient improving with HD Code Status: FULL CODE Discussed Condition With: ERNESTINE RN AND PT AND FAMILY AND CM AND NEPHROLOGY AND ONCOLOGY Discharge Planning: PENDING CLEARANCE BY ALL MAY NEED HD SET UP OUTPT (2) Diastolic CHF Qualifiers: Heart failure chronicity: acute on chronic Qualified Code(s): I50.33 - Acute on chronic diastolic (congestive) heart failure
[2017-12-25 04:42] LABS: Baso % (Auto) 0.5 % (0.0-2.0); Eos % (Auto) 0.5 % (0.0-4.0); Hematocrit 26.9 % (35.0-46.0); Hemoglobin 9.1 gm/dL (11.6-15.3); Lymph # (Auto) 0.6 th/mm3 (1.0-4.8); Lymph % (Auto) 11.7 % (9.0-44.0); Mean Corpuscular HGB Conc 33.7 % (32.0-36.0); Mean Corpuscular Hemoglobin 29.2 pg (27.0-34.0); Mean Corpuscular Volume 86.5 fL (80.0-100.0); Mean Platelet Volume 7.7 fL (7.0-11.0); Mono # (Auto) 0.2 th/mm3 (0.0-0.9); Mono % (Auto) 4.1 % (0.0-8.0); Neut % (Auto) 83.2 % (16.0-70.0); Platelet Count 53 th/mm3 (150-450); Red Blood Count 3.11 mil/mm3 (4.00-5.30); Red Cell Distribution Width 16.8 % (11.6-17.2); White Blood Count 4.8 th/mm3 (4.0-11.0)
[2017-12-25 05:19] LABS: Albumin 3.1 g/dL (3.4-5.0); Calcium 6.9 mg/dL (8.5-10.1); Carbon Dioxide 25.3 meq/L (21.0-32.0); Magnesium 1.8 mg/dL (1.5-2.5); Phosphorus 1.8 mg/dL (2.5-4.9); Potassium 3.3 meq/L (3.5-5.1); Total Protein 5.7 g/dL (6.4-8.2)
[2017-12-25 05:43] LABS: Target Cells 1+
[2017-12-25 05:44] LABS: Ovalocytes 1+; Platelet Morphology Normal (Normal)
[2017-12-25] MEDS: Albumin Human 25% Inj 100 ML IV.SIG SCH ×2 (12:13→23:01)
[2017-12-25] MEDS: Calcium Carbonate 500 MG Tablet PO SCH (12:15)
--- NOTE | 2017-12-25 14:05 | P.PNIM ---
Subjective Interval history: F/up MM with light chain disease, SIMON - worsening kidney function, NO URINE OUTPUT, bacteremia strep viridans , hypotension, anasarca Edema in her arms improving some. Less shortness of breath today. Satting well while on room air however she is not ambulating much. Postop in the chair. Had a bowel movement. No nausea or vomiting. Able to eat some food however has decreased appetite. No fever or chills. No dialysis planned for today. Kidney function improving. 12-22 MAY NEED HD OUTPATIENT DW RN AND PT AND FAMILY IN ROOM AND PATIENT AM LABS WILL BE TRANSFUSED TODAY 12-23 SEEN IN HEMODIALYSIS PATIENT COMPLAINS OF ABDOMINAL PAIN HAS BLADDER FULL OF 1000ML OF URINE WILL STRAIGHT CATH PRN DW RN AND PT AND CM NEEDS OXYGEN 2L NO NAUSEA NO VOMITING 12-24 HAD BOWLES PLACED HAVING GOOD URINE OUTPUT DW RN AND PT AND FAMILY AND CM AND NEPHROLOGY AM LABS REPLACE POTASSIUM 12-[address] HAVING GOOD URINE OUTPUT DW RN AND PT AND CM AND FAMILY INCREASE ACTIVITY REPLACE POTASSIUM AM LABS Physical Exam Vital signs: Vital Signs 12/24/17 15:30 12/24/17 20:00 12/25/17 00:00 Temperature 98.7 F 98.4 F 98.1 F Pulse Rate 101 H 106 H 94 H Respiratory Rate 16 15 15 Blood Pressure 92/67 L 110/83 113/75 Pulse Oximetry 100 96 99 12/25/17 04:00 12/25/17 08:00 12/25/17 10:58 Temperature 97.2 F L Pulse Rate 110 H 92 H Respiratory Rate 16 Blood Pressure 119/71 Pulse Oximetry 95 97 12/25/17 11:00 Temperature 98.1 F Pulse Rate 112 H Respiratory Rate 16 Blood Pressure 118/80 Pulse Oximetry 99 Intake & Output 12/24/17 12/25/17 12/25/17 18:59 06:59 18:59 Intake Total 440 / 440 220 / 220 Output Total 525 / 525 675 / 675 Balance -85 / -85 -455 / -455 Weight 64.2 kg Intake: IV 200 / 200 100 / 100 Flexbumin 25% Inj 100 ML @ 60 100 / 100 100 / 100 mls/hr IV.SIG Q12H [facility]ARLENE Rx#: [id number] Rocephin Inj 2,000 MG In NS Inj 100 / 100 100 ML @ 200 mls/hr IV.SIG Q24H KARLENE Rx#:[id number] Oral 240 / 240 120 / 120 Output: Urine Amount (Catheter) 525 / 525 675 / 675 Indwelling Urethral Catheter 525 / 525 675 / 675 Other: Date of Last Bowel Movement 12/24/17 12/24/17 12/24/17 # Bowel Movements 1 Narrative: GENERAL: AWAKE AND ALERT AND ORIENTED X3 VERY CACHECTIC AND CHRONICALLY ILL APPEARING PATIENT SKIN: Warm and dry. HEAD: Atraumatic. Normocephalic. EYES: Pupils equal and round. No scleral icterus. No injection or drainage. ENT: No nasal bleeding or discharge. Mucous membranes pink and moist. NECK: Trachea midline. No JVD. CARDIOVASCULAR: Regular rate and rhythm. RESPIRATORY: No accessory muscle use. Clear to auscultation. Breath sounds equal bilaterally. GASTROINTESTINAL: Abdomen soft, non-tender, nondistended. Hepatic and splenic margins not palpable. MUSCULOSKELETAL: Extremities without clubbing, cyanosis, 2 PLUS PITTING EDEMA No obvious deformities. NEUROLOGICAL: Awake and alert. No obvious cranial nerve deficits. Motor grossly within normal limits. 4 out of 5 muscle strength in the arms and legs. Normal speech. PSYCHIATRIC: MORE Appropriate mood and affect; insight and judgment IMPROVED. - Urinary Catheter Management Indwelling Urethral Catheter Cath placed during this visit: yes Reason for continuing: Acute urinary retention Insertion date: 12/24/17 Insertion time: 17:00 Results - Labs CBC & Chem 7: 12/25/17 04:30 12/25/17 04:30 Laboratory Results - last 24 hr 12/25/17 12/25/17 04:30 04:30 WBC 4.8 RBC 3.11 L Hgb 9.1 L Hct 26.9 L MCV 86.5 MCH 29.2 MCHC 33.7 RDW 16.8 Plt Count 53 L MPV 7.7 Prelim Diff (Auto) Slide review pending Neut % (Auto) 83.2 H Lymph % (Auto) 11.7 [place] % (Auto) 4.1 Eos % (Auto) 0.5 Baso % (Auto) 0.5 Neut # (Auto) 4.0 Lymph # (Auto) 0.6 L [place] # (Auto) 0.2 Eos # (Auto) 0.0 Baso # (Auto) 0.0 WBC Differential Manual diff final Differential Comment . Platelet Estimate Low L Platelet Morphology Normal Target Cells 1+ H Ovalocytes 1+ H Keratocytes Occ H Sodium 141 Potassium 3.3 L D Chloride 108 H Carbon Dioxide 25.3 Anion Gap 8 BUN 10 Creatinine 2.45 H Estimated GFR 23 L Random Glucose 69 L Calcium 6.9 L* Prot Corrected Calcium 7.6 L Phosphorus 1.8 L Magnesium 1.8 Total Bilirubin 0.3 AST 43 H ALT 23 Alkaline Phosphatase 48 Total Protein 5.7 L Albumin 3.1 L - Procedures Vas-Cath placed 12/19/17. Started dialysis Assessment and Plan - Assessment (1) Multiple myeloma Code(s): C90.00 - Multiple myeloma not having achieved remission Status: Acute (2) Diastolic CHF Code(s): I50.30 - Unspecified diastolic (congestive) heart failure Status: Acute - Plan 72 y/o female with a history of multiple myeloma, HLD, and HTN presented to the ED with complaints of worsening edema and sob. Acute CHF exacerbation on possible chronic chf BNP 1350 on admission -Diuresed with Lasix and then switched to Bumex. Now off diuretics. Vas-Cath placed 12/19/17. Started dialysis -Fluid restriction - BP was noted low give albumin q12 hrs Acute renal failure. Patient was multiple myeloma light chain disease. Creatine 4.3, baseline 2.0. Creatinine is improving with HD -Consult nephrology for evaluation -Kidney ultrasound reviewed -Avoid nephrotoxins -Consult nephrology. Continue hemodialysis per nephrology indications - S/P right Internal Jugular Hemodialysis Catheter Non-Tunneled Placement on and started HD PATIENT MAY NEED OUTPT HD AND THIS WILL NEED TO BE SET UP IF SHE NEEDS THIS URINARY RETENTION STRAIGHT CATH PRN Q6H FOR VOLUME GREATER THAN 500ML- WAS NOT ABLE TO BE DONE-- BOWLES IS IN PLACE PER PLACEMENT BY UROLOGY KEEP BOWLES AT THIS TIME Bandemia, 32% bands on admission, suspected pneumonia Bacteremia, viridans strep, low grade. Port infx vs contaminant PCN allergy Cont CFTX 2 gm. DC Daptomycin and azythro. NO need to remove PORT at this time per ID recommendations , ff . Continue Rocephin for 14 days of negative blood culture per ID 2 D echo ID consulted Chest x ray reviewed and shows numbering mid inspiratory exam with increased opacity at the lung bases which may represent increasing infiltrate, and small effusions. -monitor CBC -Lactic acid is back to normal Elevated troponin, likely related due to CHF and elevated creatine r/o ACS Troponin .67 -Serial troponin and ekgs Hypotension, due to diuresis -Albumin IV bid -Monitor vitals Multiple myeloma, chronic -Consult Dr. Arvizu, following -Consult nephrology following. Plan of ANEMIA WILL NEED TRANSFUSIONS Constipation. Stool softeners/laxatives as needed. HYPOKALEMIA WILL REPLACE X1 NEEDS TO BE REPLACED AGAIN 8-1 WILL REPLACE AGAIN AM LABS Anasarca: improving with HD DVT prophylaxis: Heparin Discussed Condition With: Patient, nurse DC plan pending improvement With MM worsening kidney function, anoliguric, bacteremia strep viridans , ID, hem/onc and nephrology ff Vas-Cath placed 12/19/17 started dialysis. No need to remove Port per ID. Continue Rocephin for 14 days of negative blood culture per ID Patient improving with HD Code Status: FULL CODE Discussed Condition With: RN AND PT AND CM AND FAMILY Discharge Planning: PENDING CLEARANCE BY ALL MAY NEED HD SET UP OUTPT (2) Diastolic CHF Qualifiers: Heart failure chronicity: acute on chronic Qualified Code(s): I50.33 - Acute on chronic diastolic (congestive) heart failure
[2017-12-25] MEDS: Potassium Chloride 25 MEQ Effervescent Tablet PO ONE ×2 (17:38→18:16)
--- NOTE | 2017-12-25 18:37 | P.PNNP ---
Subjective Interval history: Patient seen in AM, sitting on chair, not in distress. Physical Exam Vital signs: Vital Signs 12/24/17 20:00 12/25/17 00:00 12/25/17 04:00 Temperature 98.4 F 98.1 F 97.2 F L Pulse Rate 106 H 94 H 110 H Respiratory Rate 15 15 16 Blood Pressure 110/83 113/75 119/71 Pulse Oximetry 96 99 95 12/25/17 08:00 12/25/17 10:58 12/25/17 11:00 Temperature 97.6 F 98.1 F Pulse Rate 112 H 112 H Respiratory Rate 16 16 Blood Pressure 111/69 118/80 Pulse Oximetry 99 97 99 12/25/17 15:00 12/25/17 15:11 Temperature 98.5 F Pulse Rate 99 H 111 H Respiratory Rate 18 Blood Pressure 128/97 H Pulse Oximetry 99 Intake & Output 12/24/17 12/25/17 12/25/17 18:59 06:59 18:59 Intake Total 440 / 440 220 / 220 200 / 200 Output Total 525 / 525 675 / 675 650 / 650 Balance -85 / -85 -455 / -455 -450 / -450 Weight 64.2 kg Intake: IV 200 / 200 100 / 100 200 / 200 Flexbumin 25% Inj 100 ML @ 60 100 / 100 100 / 100 100 / 100 mls/hr IV.SIG Q12H KARLENE Rx#: [id number] Rocephin Inj 2,000 MG In NS Inj 100 / 100 100 / 100 100 ML @ 200 mls/hr IV.SIG Q24H KARLENE Rx#:[id number] Oral 240 / 240 120 / 120 Output: Urine Amount (Catheter) 525 / 525 675 / 675 650 / 650 Indwelling Urethral Catheter 525 / 525 675 / 675 650 / 650 Other: Date of Last Bowel Movement 12/24/17 12/24/17 12/24/17 # Bowel Movements 1 Narrative: GENERAL: AWAKE AND ALERT AND ORIENTED X3 VERY CACHECTIC AND CHRONICALLY ILL APPEARING PATIENT SKIN: Warm and dry. HEAD: Atraumatic. Normocephalic. EYES: Pupils equal and round. No scleral icterus. No injection or drainage. ENT: No nasal bleeding or discharge. Mucous membranes pink and moist. NECK: Trachea midline. No JVD. CARDIOVASCULAR: Regular rate and rhythm. RESPIRATORY: No accessory muscle use. Clear to auscultation. Breath sounds equal bilaterally. GASTROINTESTINAL: Abdomen soft, non-tender, nondistended. Hepatic and splenic margins not palpable. MUSCULOSKELETAL: Extremities without clubbing, cyanosis, 2 PLUS PITTING EDEMA No obvious deformities. NEUROLOGICAL: Awake and alert. No obvious cranial nerve deficits. Motor grossly within normal limits. 4 out of 5 muscle strength in the arms and legs. Normal speech. PSYCHIATRIC: MORE Appropriate mood and affect; insight and judgment IMPROVED. - Urinary Catheter Management Indwelling Urethral Catheter Cath placed during this visit: yes Reason for continuing: Acute urinary retention Insertion date: 12/24/17 Insertion time: 17:00 Assessment and Plan - Plan Patient has advance renal disease and Anasarca, started on HD on 12/19 Creatinine has improved at 2.22 from 2.75 Urinary retention yesterday and indwelling vizcarra catheter placed UOP at 1.3L / 24 hours Hypokalemia, replacement has been ordered and will order scheduled in AM Hypocalcemia improving oral replacement added Avoid nephrotoxins Strict I+o Continue to monitor renal panel, urinary output, and watch for renal recovery Hemodialysis is hold for today, Creatinine is almost same. Follow BMP in AM and decide about HD.
[2017-12-25] MEDS: Temazepam 15 MG Capsule PO PRN (23:04)
[2017-12-26] MEDS: Heparin Central Flush 100 UNIT/ML 5 ML Vial IV.FLUSH PRN ×2 (00:45→05:08)
[2017-12-26 04:59] LABS: Baso % (Auto) 0.9 % (0.0-2.0); Eos % (Auto) 1.1 % (0.0-4.0); Hemoglobin 8.7 gm/dL (11.6-15.3); Lymph # (Auto) 0.4 th/mm3 (1.0-4.8); Lymph % (Auto) 13.3 % (9.0-44.0); Mean Corpuscular HGB Conc 33.4 % (32.0-36.0); Mean Corpuscular Hemoglobin 29.5 pg (27.0-34.0); Mean Corpuscular Volume 88.3 fL (80.0-100.0); Mean Platelet Volume 8.7 fL (7.0-11.0); Mono # (Auto) 0.2 th/mm3 (0.0-0.9); Mono % (Auto) 6.3 % (0.0-8.0); Neut # (Auto) 2.3 th/mm3 (1.8-7.7); Neut % (Auto) 78.4 % (16.0-70.0); Platelet Count 52 th/mm3 (150-450); Red Blood Count 2.95 mil/mm3 (4.00-5.30)
[2017-12-26 05:28] LABS: Carbon Dioxide 25.3 meq/L (21.0-32.0); Magnesium 1.7 mg/dL (1.5-2.5); Phosphorus 1.8 mg/dL (2.5-4.9); Potassium 3.2 meq/L (3.5-5.1); Total Protein 5.5 g/dL (6.4-8.2)
[2017-12-26 08:09] LABS: Ovalocytes 1+; Platelet Morphology Normal (Normal)
[2017-12-26] MEDS: Calcium Carbonate 500 MG Tablet PO SCH (09:27)
[2017-12-26] MEDS ORDERED: Potassium Chloride 25 MEQ Effervescent Tablet PO ONE (09:46)
[2017-12-26] MEDS ORDERED: Magnesium Sulfate Inj 2 GM in Sodium Chlor 0.9% Inj 96 ML IV.SIG ONE (09:46)
[2017-12-26] MEDS: Albumin Human 25% Inj 100 ML IV.SIG SCH ×2 (11:36→22:13)
--- NOTE | 2017-12-26 12:19 | P.PNNP ---
Subjective Interval history: Denies any shortness of breath. Creatinine stable at 2.37. Continues to have edema but improved. <Dee Day - Last Filed: 12/26/17 12:14> Physical Exam Vital signs: Vital Signs 12/25/17 15:00 12/25/17 15:11 12/25/17 19:00 Temperature 98.5 F 99.2 F Pulse Rate 99 H 111 H 111 H Respiratory Rate 18 18 Blood Pressure 128/97 H 123/79 Pulse Oximetry 99 98 12/25/17 20:00 12/25/17 21:00 12/25/17 22:00 Temperature Pulse Rate 116 H 118 H 108 H Respiratory Rate Blood Pressure Pulse Oximetry 98 12/25/17 23:00 12/26/17 00:00 12/26/17 01:02 Temperature 98.7 F Pulse Rate 114 H 98 H 101 H Respiratory Rate 18 Blood Pressure 121/85 Pulse Oximetry 98 12/26/17 02:00 12/26/17 03:00 12/26/17 04:00 Temperature 98.2 F Pulse Rate 90 94 H 89 Respiratory Rate 20 Blood Pressure 103/69 Pulse Oximetry 95 12/26/17 05:00 12/26/17 06:00 Temperature Pulse Rate 90 94 H Respiratory Rate Blood Pressure Pulse Oximetry Intake & Output 12/25/17 12/26/17 12/26/17 18:59 06:59 18:59 Intake Total 200 / 200 520 / 520 Output Total 650 / 650 650 / 650 Balance -450 / -450 -130 / -130 Weight 66.2 kg Intake: IV 200 / 200 100 / 100 Flexbumin 25% Inj 100 ML @ 60 100 / 100 100 / 100 mls/hr IV.SIG Q12H [facility]ARLENE Rx#: [id number] Rocephin Inj 2,000 MG In NS Inj 100 / 100 100 ML @ 200 mls/hr IV.SIG Q24H KARLENE Rx#:[id number] Oral 420 / 420 Output: Urine Amount (Catheter) 650 / 650 650 / 650 Indwelling Urethral Catheter 650 / 650 650 / 650 Other: Date of Last Bowel Movement 12/24/17 12/24/17 Narrative: GENERAL: Awake and oriented. SKIN: Warm and dry. right IJ HEAD: Atraumatic. Normocephalic. EYES: Pupils equal and round. No scleral icterus. No injection or drainage. NECK: Trachea midline. No JVD. CARDIOVASCULAR: Regular rate and rhythm. RESPIRATORY: No accessory muscle use. Clear to auscultation. Breath sounds equal bilaterally. GASTROINTESTINAL: Abdomen soft, non-tender, nondistended. Hepatic and splenic margins not palpable. MUSCULOSKELETAL: Extremities without clubbing, cyanosis, No obvious deformities. NEUROLOGICAL: Awake and alert. Normal speech. - Urinary Catheter Management Indwelling Urethral Catheter Cath placed during this visit: yes Reason for continuing: Acute urinary retention Insertion date: 12/24/17 Insertion time: 17:00 <Dee Day - Last Filed: 12/26/17 12:14> Vital signs: Vital Signs 12/25/17 20:00 12/25/17 21:00 12/25/17 22:00 Temperature Pulse Rate 116 H 118 H 108 H Respiratory Rate Blood Pressure Pulse Oximetry 98 12/25/17 23:00 12/26/17 00:00 12/26/17 01:02 Temperature 98.7 F Pulse Rate 114 H 98 H 101 H Respiratory Rate 18 Blood Pressure 121/85 Pulse Oximetry 98 12/26/17 02:00 12/26/17 03:00 12/26/17 04:00 Temperature 98.2 F Pulse Rate 90 94 H 89 Respiratory Rate 20 Blood Pressure 103/69 Pulse Oximetry 95 12/26/17 05:00 12/26/17 06:00 12/26/17 07:00 Temperature 98.4 F Pulse Rate 90 94 H 103 H Respiratory Rate Blood Pressure Pulse Oximetry Intake & Output 12/26/17 12/26/17 12/27/17 06:59 18:59 06:59 Intake Total 520 / 520 Output Total 650 / 650 Balance -130 / -130 Weight 66.2 kg Intake: IV 100 / 100 Flexbumin 25% Inj 100 ML @ 60 100 / 100 mls/hr IV.SIG Q12H KARLENE Rx#: [id number] Oral 420 / 420 Output: Urine Amount (Catheter) 650 / 650 Indwelling Urethral Catheter 650 / 650 Other: Date of Last Bowel Movement 12/24/17 12/24/17 - Urinary Catheter Management Indwelling Urethral Catheter Cath placed during this visit: no <Sallie Shields - Last Filed: 12/26/17 19:15> Assessment and Plan - Plan Patient has advance renal disease and Anasarca, started on HD on 7/26 Creatinine stable at 2.37 from 2.45 UOP at 1.3L / 24 hours Hypokalemia, replacement has been ordered and on scheduled Hypocalcemia on oral replacement added Hypophosphatemia replacement ordered Avoid nephrotoxins Strict I+o Continue to monitor renal panel, urinary output, and watch for renal recovery Continue to hold Hemodialysis Follow BMP in AM and decide about HD. <Dee Day - Last Filed: 12/26/17 12:14> - Attending Attestation Patient seen and examine, agree with above. Continue to hold HD for now, watch for renal recovery. <Sallie Shields - Last Filed: 12/26/17 19:15>
--- NOTE | 2017-12-26 13:13 | P.PNIM ---
Subjective Interval history: F/up MM with light chain disease, SIMON - worsening kidney function, NO URINE OUTPUT, bacteremia strep viridans , hypotension, anasarca Edema in her arms improving some. Less shortness of breath today. Satting well while on room air however she is not ambulating much. Postop in the chair. Had a bowel movement. No nausea or vomiting. Able to eat some food however has decreased appetite. No fever or chills. No dialysis planned for today. Kidney function improving. 12-22 MAY NEED HD OUTPATIENT DW RN AND PT AND FAMILY IN ROOM AND PATIENT AM LABS WILL BE TRANSFUSED TODAY 12-23 SEEN IN HEMODIALYSIS PATIENT COMPLAINS OF ABDOMINAL PAIN HAS BLADDER FULL OF 1000ML OF URINE WILL STRAIGHT CATH PRN DW RN AND PT AND CM NEEDS OXYGEN 2L NO NAUSEA NO VOMITING 12-24 HAD BOWLES PLACED HAVING GOOD URINE OUTPUT DW RN AND PT AND FAMILY AND CM AND NEPHROLOGY AM LABS REPLACE POTASSIUM 8-[address] B[address] HAVING GOOD URINE OUTPUT DW RN AND PT AND CM AND FAMILY INCREASE ACTIVITY REPLACE POTASSIUM AM LABS 8-[address]OWLES [address] DW RN AND PT REPLACE POTASSIUM AM LABS INCREASE ACTIVITY TO GET ALBUMIN TODAY Physical Exam Vital signs: Vital Signs 12/25/17 15:00 12/25/17 15:11 12/25/17 19:00 Temperature 98.5 F 99.2 F Pulse Rate 99 H 111 H 111 H Respiratory Rate 18 18 Blood Pressure 128/97 H 123/79 Pulse Oximetry 99 98 12/25/17 20:00 12/25/17 21:00 12/25/17 22:00 Temperature Pulse Rate 116 H 118 H 108 H Respiratory Rate Blood Pressure Pulse Oximetry 98 12/25/17 23:00 12/26/17 00:00 12/26/17 01:02 Temperature 98.7 F Pulse Rate 114 H 98 H 101 H Respiratory Rate 18 Blood Pressure 121/85 Pulse Oximetry 98 12/26/17 02:00 12/26/17 03:00 12/26/17 04:00 Temperature 98.2 F Pulse Rate 90 94 H 89 Respiratory Rate 20 Blood Pressure 103/69 Pulse Oximetry 95 12/26/17 05:00 12/26/17 06:00 Temperature Pulse Rate 90 94 H Respiratory Rate Blood Pressure Pulse Oximetry Intake & Output 12/25/17 12/26/17 12/26/17 18:59 06:59 18:59 Intake Total 200 / 200 520 / 520 Output Total 650 / 650 650 / 650 Balance -450 / -450 -130 / -130 Weight 66.2 kg Intake: IV 200 / 200 100 / 100 Flexbumin 25% Inj 100 ML @ 60 100 / 100 100 / 100 mls/hr IV.SIG Q12H KARLENE Rx#: [id number] Rocephin Inj 2,000 MG In NS Inj 100 / 100 100 ML @ 200 mls/hr IV.SIG Q24H KARLENE Rx#:[id number] Oral 420 / 420 Output: Urine Amount (Catheter) 650 / 650 650 / 650 Indwelling Urethral Catheter 650 / 650 650 / 650 Other: Date of Last Bowel Movement 12/24/17 12/24/17 Narrative: GENERAL: Awake and oriented. SKIN: Warm and dry. right IJ HEAD: Atraumatic. Normocephalic. EYES: Pupils equal and round. No scleral icterus. No injection or drainage. NECK: Trachea midline. No JVD. CARDIOVASCULAR: Regular rate and rhythm. RESPIRATORY: No accessory muscle use. Clear to auscultation. Breath sounds equal bilaterally. GASTROINTESTINAL: Abdomen soft, non-tender, nondistended. Hepatic and splenic margins not palpable. MUSCULOSKELETAL: Extremities without clubbing, cyanosis, No obvious deformities. NEUROLOGICAL: Awake and alert. Normal speech. - Urinary Catheter Management Indwelling Urethral Catheter Cath placed during this visit: yes Reason for continuing: Acute urinary retention Insertion date: 12/24/17 Insertion time: 17:00 Results - Labs CBC & Chem 7: 12/26/17 04:45 12/26/17 04:45 Laboratory Results - last 24 hr 12/18/17 12/26/17 12/26/17 12:50 04:45 04:45 WBC 3.0 L RBC 2.95 L Hgb 8.7 L Hct 26.0 L MCV 88.3 MCH 29.5 MCHC 33.4 RDW 17.0 Plt Count 52 L MPV 8.7 Prelim Diff (Auto) Slide review pending Neut % (Auto) 78.4 H Lymph % (Auto) 13.3 Butts % (Auto) 6.3 Eos % (Auto) 1.1 Baso % (Auto) 0.9 Neut # (Auto) 2.3 Lymph # (Auto) 0.4 L Butts # (Auto) 0.2 Eos # (Auto) 0.0 Baso # (Auto) 0.0 WBC Differential . Diff Scan Auto diff confirmed Differential Comment . Platelet Estimate Low L Platelet Morphology Normal Ovalocytes 1+ H Sodium 144 Potassium 3.2 L Chloride 110 H Carbon Dioxide 25.3 Anion Gap 9 BUN 10 Creatinine 2.37 H Estimated GFR 24 L Random Glucose 66 L Calcium 7.0 L* Prot Corrected Calcium 7.8 L Phosphorus 1.8 L Magnesium 1.7 Total Bilirubin 0.2 AST 27 ALT 20 Alkaline Phosphatase 40 L Total Protein 5.5 L Albumin 3.0 L Rout Panel Path Interp - Imaging Abdomen/Bladder Ultrasound 12/16/17 00:00 CONCLUSION: 1. Small echogenic right kidney concerning for medical renal disease. 2. The left kidney could not be visualized on this ultrasound examination. Chest X-Ray 12/16/17 15:42 CONCLUSION: 1. The numbering mid inspiratory exam with increased opacity at the lung bases which may represent increasing infiltrate or be artifactual. 2. The costophrenic angles are blunted bilaterally most characteristic of small effusions. Central Venous Line 12/19/17 00:00 CONCLUSION: - Procedures Vas-Cath placed 12/19/17. Started dialysis Assessment and Plan - Assessment (1) Multiple myeloma Code(s): C90.00 - Multiple myeloma not having achieved remission Status: Acute (2) Diastolic CHF Code(s): I50.30 - Unspecified diastolic (congestive) heart failure Status: Acute - Plan 72 y/o female with a history of multiple myeloma, HLD, and HTN presented to the ED with complaints of worsening edema and sob. Acute CHF exacerbation on possible chronic chf BNP 1350 on admission -Diuresed with Lasix and then switched to Bumex. Now off diuretics. Vas-Cath placed 12/19/17. Started dialysis -Fluid restriction - BP was noted low give albumin q12 hrs Acute renal failure. Patient was multiple myeloma light chain disease. Creatine 4.3, baseline 2.0. Creatinine is improving with HD -Consult nephrology for evaluation -Kidney ultrasound reviewed -Avoid nephrotoxins -Consult nephrology. Continue hemodialysis per nephrology indications - S/P right Internal Jugular Hemodialysis Catheter Non-Tunneled Placement on and started HD OFF HD URINARY RETENTION STRAIGHT CATH PRN Q6H FOR VOLUME GREATER THAN 500ML- WAS NOT ABLE TO BE DONE-- BOWLES IS IN PLACE PER PLACEMENT BY UROLOGY KEEP BOWLES AT THIS TIME Bandemia, 32% bands on admission, suspected pneumonia Bacteremia, viridans strep, low grade. Port infx vs contaminant PCN allergy Cont CFTX 2 gm. DC Daptomycin and azythro. NO need to remove PORT at this time per ID recommendations , ff . Continue Rocephin for 14 days of negative blood culture per ID 2 D echo ID consulted Chest x ray reviewed and shows numbering mid inspiratory exam with increased opacity at the lung bases which may represent increasing infiltrate, and small effusions. -monitor CBC -Lactic acid is back to normal Elevated troponin, likely related due to CHF and elevated creatine r/o ACS Troponin .67 -Serial troponin and ekgs Hypotension, due to diuresis -Albumin IV bid -Monitor vitals Multiple myeloma, chronic -Consult Dr. Arvizu, following -Consult nephrology following. Plan of ANEMIA WILL NEED TRANSFUSIONS Constipation. Stool softeners/laxatives as needed. HYPOKALEMIA WILL REPLACE X1 NEEDS TO BE REPLACED AGAIN 8-1 WILL REPLACE AGAIN AM LABS Anasarca: improving with HD DVT prophylaxis: Heparin Discussed Condition With: Patient, nurse DC plan pending improvement With MM worsening kidney function, anoliguric, bacteremia strep viridans , ID, hem/onc and nephrology ff Vas-Cath placed 12/19/17 started dialysis. No need to remove Port per ID. Continue Rocephin for 14 days of negative blood culture per ID Patient improving with HD Code Status: FULL CODE Discussed Condition With: RN AND PT AND CM Discharge Planning: PENDING CLEARANCE BY ALL (2) Diastolic CHF Qualifiers: Heart failure chronicity: acute on chronic Qualified Code(s): I50.33 - Acute on chronic diastolic (congestive) heart failure
[2017-12-27] MEDS: Temazepam 15 MG Capsule PO PRN (02:04)
[2017-12-27] MEDS: Heparin Central Flush 100 UNIT/ML 5 ML Vial IV.FLUSH PRN (06:12)
[2017-12-27 06:16] LABS: Baso % (Auto) 0.9 % (0.0-2.0); Eos % (Auto) 0.9 % (0.0-4.0); Hematocrit 25.3 % (35.0-46.0); Hemoglobin 8.4 gm/dL (11.6-15.3); Lymph # (Auto) 0.5 th/mm3 (1.0-4.8); Lymph % (Auto) 18.4 % (9.0-44.0); Mean Corpuscular HGB Conc 33.2 % (32.0-36.0); Mean Corpuscular Hemoglobin 29.1 pg (27.0-34.0); Mean Corpuscular Volume 87.7 fL (80.0-100.0); Mean Platelet Volume 8.6 fL (7.0-11.0); Mono # (Auto) 0.3 th/mm3 (0.0-0.9); Mono % (Auto) 9.8 % (0.0-8.0); Neut # (Auto) 1.9 th/mm3 (1.8-7.7); Platelet Count 50 th/mm3 (150-450); Red Blood Count 2.88 mil/mm3 (4.00-5.30); Red Cell Distribution Width 17.1 % (11.6-17.2); White Blood Count 2.7 th/mm3 (4.0-11.0)
[2017-12-27 06:36] LABS: Albumin 2.9 g/dL (3.4-5.0); Carbon Dioxide 22.9 meq/L (21.0-32.0); Potassium 3.2 meq/L (3.5-5.1)
[2017-12-27 06:48] LABS: Phosphorus 2.1 mg/dL (2.5-4.9); Total Protein 5.2 g/dL (6.4-8.2)
[2017-12-27 08:00] LABS: Platelet Morphology Normal (Normal)
[2017-12-27] MEDS: Calcium Carbonate 500 MG Tablet PO SCH (08:12)
[2017-12-27] MEDS ORDERED: Potassium Chloride 25 MEQ Effervescent Tablet PO ONE (09:00)
[2017-12-27] MEDS: Potassium Chloride 25 MEQ Effervescent Tablet PO SCH (09:58)
[2017-12-27] MEDS: Albumin Human 25% Inj 100 ML IV.SIG SCH (10:02)
--- NOTE | 2017-12-27 10:53 | P.PNONC ---
Subjective Interval history: Afebrile. Patient lying in bed, resting comfortably, in no acute distress. She has no complaints at this time. She states she is feeling better and she feels like her appetite is increasing. Objective Vital Signs/Intake & Output: Vital Signs 12/26/17 11:00 12/26/17 12:00 12/26/17 13:00 Temperature 98.2 F Pulse Rate 107 H 102 H 90 Respiratory Rate 20 Blood Pressure 121/64 Pulse Oximetry 100 12/26/17 14:00 12/26/17 15:00 12/26/17 16:00 Temperature 98.0 F Pulse Rate 108 H 102 H 110 H Respiratory Rate 20 Blood Pressure 118/64 Pulse Oximetry 99 12/26/17 17:00 12/26/17 18:00 12/26/17 19:00 Temperature Pulse Rate 100 H 106 H 97 H Respiratory Rate 18 Blood Pressure 110/74 Pulse Oximetry 99 12/26/17 20:00 12/26/17 21:00 12/26/17 22:00 Temperature Pulse Rate 95 H 90 96 H Respiratory Rate Blood Pressure Pulse Oximetry 97 12/26/17 23:00 12/27/17 00:00 12/27/17 01:00 Temperature Pulse Rate 102 H 98 H 100 H Respiratory Rate 18 Blood Pressure 101/67 Pulse Oximetry 95 12/27/17 02:00 12/27/17 03:00 12/27/17 04:00 Temperature 98.2 F Pulse Rate 96 H 94 H 92 H Respiratory Rate 16 Blood Pressure 106/69 Pulse Oximetry 94 L 12/27/17 05:00 12/27/17 08:00 12/27/17 09:00 Temperature 98.3 F Pulse Rate 81 89 89 Respiratory Rate 18 Blood Pressure 107/73 Pulse Oximetry 99 12/27/17 10:00 12/27/17 10:36 Temperature Pulse Rate 101 H Respiratory Rate Blood Pressure Pulse Oximetry 95 Intake & Output 12/26/17 12/27/17 12/27/17 18:59 06:59 18:59 Intake Total 520 / 520 540 / 540 100 / 100 Output Total 3650 / 3650 200 / 200 Balance -3130 / -3130 340 / 340 100 / 100 Weight 64.7 kg Intake: IV 100 / 100 300 / 300 100 / 100 Flexbumin 25% Inj 100 ML @ 60 100 / 100 100 / 100 100 / 100 mls/hr IV.SIG Q12H KARLENE Rx#: [id number] Rocephin Inj 2,000 MG In NS Inj 100 / 100 100 ML @ 200 mls/hr IV.SIG Q24H KARLENE Rx#:[id number] Oral 420 / 420 240 / 240 Output: Urine 200 / 200 Hemodialysis Amount 3000 / 3000 Urine Amount (Catheter) 650 / 650 Indwelling Urethral Catheter 650 / 650 Other: Date of Last Bowel Movement 12/24/17 12/26/17 12/26/17 # Bowel Movements 1 1 Result Diagrams: 12/27/17 06:05 12/27/17 06:05 Laboratory Results: Laboratory Results - last 24 hr 12/27/17 12/27/17 06:05 06:05 WBC 2.7 L RBC 2.88 L Hgb 8.4 L Hct 25.3 L MCV 87.7 MCH 29.1 MCHC 33.2 RDW 17.1 Plt Count 50 L MPV 8.6 Prelim Diff (Auto) Slide review pending Neut % (Auto) 70.0 Lymph % (Auto) 18.4 Harvey % (Auto) 9.8 H Eos % (Auto) 0.9 Baso % (Auto) 0.9 Neut # (Auto) 1.9 Lymph # (Auto) 0.5 L Harvey # (Auto) 0.3 Eos # (Auto) 0.0 Baso # (Auto) 0.0 WBC Differential . Diff Scan Auto diff confirmed Differential Comment . Platelet Estimate Low L Platelet Morphology Normal Sodium 146 H Potassium 3.2 L Chloride 112 H Carbon Dioxide 22.9 Anion Gap 11 BUN 10 Creatinine 2.44 H Estimated GFR 23 L Random Glucose 58 L Calcium 7.0 L* Prot Corrected Calcium 8.0 L Phosphorus 2.1 L Magnesium 2.0 Total Bilirubin 0.2 AST 23 ALT 16 Alkaline Phosphatase 37 L Total Protein 5.2 L Albumin 2.9 L Culture Results: Microbiology 12/22/17 00:52 Urine Culture - Final Clean Catch Urine No growth in 48 hours Medications: Active Medications Generic Name Dose Route Start Last Admin Trade Name Freq PRN Reason Stop Dose Admin Hydrocodone Bitart/Acetaminophen 1 tab 12/17/17 08:32 12/21/17 19:13 Bennett 5/325 PO 1 tab Q6H PRN Administration BACK PAIN Benzocaine/Menthol 1 lozenge 12/20/17 21:59 12/26/17 01:48 Cepacol Max Strength BUCCAL 1 lozenge Q4H PRN Administration SORE THROAT Bisacodyl 10 mg 12/16/17 18:42 12/18/17 10:19 Dulcolax Supp RECTAL 10 mg DAILY PRN Administration SEVERE CONSITIPATION Diphenhydramine HCl 25 mg 12/19/17 17:07 12/27/17 05:21 Benadryl PO 25 mg UNSCH PRN Administration SEE LABEL COMMENTS Gentamicin Sulfate 20 mg 12/19/17 17:07 12/23/17 11:37 Gentamicin Inj OTHER 20 mg WITH DIALYSIS PRN Administration Dwell Gentamycin Lock Heparin Sodium (Porcine) 500 unit 12/18/17 18:02 12/20/17 23:40 Heparin Central Flush IV.FLUSH 500 unit PRN PRN Administration Flush infusaport Heparin Sodium (Porcine) 250 unit 12/18/17 18:02 12/27/17 06:12 Heparin Central Flush IV.FLUSH 250 unit PRN PRN Administration Flush Infusapot Heparin Sodium (Porcine) 1,000 units 12/19/17 17:07 12/23/17 11:37 Heparin Inj OTHER 1,000 units WITH DIALYSIS PRN Administration Dwell Heparin to Fill Catheter Albumin Human 100 mls @ 60 mls/hr 12/17/17 11:00 12/27/17 10:27 Flexbumin 25% Inj IV.SIG Infused Q12H KARLENE Infusion Ceftriaxone Sodium 2,000 mg/ 100 mls @ 200 mls/hr 12/18/17 15:00 12/27/17 06: 52 Sodium Chloride IV.SIG Infused Q24H KARLENE Infusion Potassium Bicarb/Potassium Chloride 25 meq 12/27/17 09:00 12/27/17 09:58 K-Lyte Cl Eff PO 25 meq BID KARLENE Administration Sodium Chloride 5 ml 12/18/17 18:02 12/24/17 09:23 Ns Flush IV.FLUSH 5 ml PRN PRN Administration Flush Infusaport Temazepam 15 mg 12/16/17 18:42 12/27/17 02:04 Restoril PO 15 mg HS PRN Administration INSOMNIA Objective Remarks: GENERAL: Elderly female patient lying in bed, in no acute distress. SKIN: Warm and dry. HEAD: Normocephalic. EYES: No scleral icterus. No injection or drainage. NECK: Supple, trachea midline. CARDIOVASCULAR: Regular rate and rhythm without murmurs. RESPIRATORY: Breath sounds clear, equal bilaterally. No accessory muscle use. GASTROINTESTINAL: Abdomen soft, nontender, no distention. EXTREMITIES: No cyanosis. 2+ bilateral pitting edema. MUSCULOSKELETAL: Adequate muscle tone. NEUROLOGICAL: No obvious focal deficit. Awake, alert, and oriented x3. PSYCHIATRIC: Appropriate mood and affect; insight and judgment normal. 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 Hoff is a 72-year-old female with a diagnosis of IgG kappa light chain multiple myeloma diagnosed originally 2005, status post autologous stem cell transplant in 2009, most recently had been on systemic therapy with Durvalumab, Velcade and dexamethasone. 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 Recommendations: 1. Acute renal failure: Status post hemodialysis, which started on 12/19. Nephrology is managing. 2. Urinary retention, now with indwelling urinary catheter. Urology is following. 2. Anemia: Hemoglobin 8.4 today. No transfusions necessary at this time. 3. Multiple myeloma: Plan to resume systemic therapy with Velcade, dexamethasone and Durvalumab in the outpatient setting. 4. Patient is cleared from an oncology standpoint for discharge, once outpatient hemodialysis has been decided/arranged, and all other providers have signed off.
--- NOTE | 2017-12-27 11:03 | P.PNNP ---
Subjective Interval history: Resting comfortably with no complaints. Appetite is decreased. Denies any shortness of breath. Mild lower extremity edema. <Dee Day - Last Filed: 12/27/17 10:55> Physical Exam Vital signs: Vital Signs 12/26/17 11:00 12/26/17 12:00 12/26/17 13:00 Temperature 98.2 F Pulse Rate 107 H 102 H 90 Respiratory Rate 20 Blood Pressure 121/64 Pulse Oximetry 100 12/26/17 14:00 12/26/17 15:00 12/26/17 16:00 Temperature 98.0 F Pulse Rate 108 H 102 H 110 H Respiratory Rate 20 Blood Pressure 118/64 Pulse Oximetry 99 12/26/17 17:00 12/26/17 18:00 12/26/17 19:00 Temperature Pulse Rate 100 H 106 H 97 H Respiratory Rate 18 Blood Pressure 110/74 Pulse Oximetry 99 12/26/17 20:00 12/26/17 21:00 12/26/17 22:00 Temperature Pulse Rate 95 H 90 96 H Respiratory Rate Blood Pressure Pulse Oximetry 97 12/26/17 23:00 12/27/17 00:00 12/27/17 01:00 Temperature Pulse Rate 102 H 98 H 100 H Respiratory Rate 18 Blood Pressure 101/67 Pulse Oximetry 95 12/27/17 02:00 12/27/17 03:00 12/27/17 04:00 Temperature 98.2 F Pulse Rate 96 H 94 H 92 H Respiratory Rate 16 Blood Pressure 106/69 Pulse Oximetry 94 L 12/27/17 05:00 12/27/17 08:00 12/27/17 09:00 Temperature 98.3 F Pulse Rate 81 89 89 Respiratory Rate 18 Blood Pressure 107/73 Pulse Oximetry 99 12/27/17 10:00 12/27/17 10:36 Temperature Pulse Rate 101 H Respiratory Rate Blood Pressure Pulse Oximetry 95 Intake & Output 12/26/17 12/27/17 12/27/17 18:59 06:59 18:59 Intake Total 520 / 520 540 / 540 100 / 100 Output Total 3650 / 3650 200 / 200 Balance -3130 / -3130 340 / 340 100 / 100 Weight 64.7 kg Intake: IV 100 / 100 300 / 300 100 / 100 Flexbumin 25% Inj 100 ML @ 60 100 / 100 100 / 100 100 / 100 mls/hr IV.SIG Q12H [facility]ARLENE Rx#: [id number] Rocephin Inj 2,000 MG In NS Inj 100 / 100 100 ML @ 200 mls/hr IV.SIG Q24H KARLENE Rx#:[id number] Oral 420 / 420 240 / 240 Output: Urine 200 / 200 Hemodialysis Amount 3000 / 3000 Urine Amount (Catheter) 650 / 650 Indwelling Urethral Catheter 650 / 650 Other: Date of Last Bowel Movement 12/24/17 12/26/17 12/26/17 # Bowel Movements 1 1 Narrative: GENERAL: Alert and oriented X 3 SKIN: Warm and dry. Right IJ. Mild lower extremity edema. HEAD: Atraumatic. Normocephalic. EYES: Pupils equal and round. No scleral icterus. No injection or drainage. NECK: Trachea midline. No JVD. CARDIOVASCULAR: Regular rate and rhythm. RESPIRATORY: No accessory muscle use. Breath clear and equal bilaterally. GASTROINTESTINAL: Abdomen soft, non-tender, nondistended. Hepatic and splenic margins not palpable. MUSCULOSKELETAL: Extremities without clubbing, cyanosis, No obvious deformities. NEUROLOGICAL: Awake and alert. Normal speech. - Urinary Catheter Management Indwelling Urethral Catheter Cath placed during this visit: yes Reason for continuing: Acute urinary retention Insertion date: 12/24/17 Insertion time: 17:00 <Dee Day - Last Filed: 12/27/17 10:55> Vital signs: Vital Signs 12/27/17 11:00 12/27/17 12:00 12/27/17 13:00 Temperature 98.8 F Pulse Rate 116 H 90 102 H Respiratory Rate 18 Blood Pressure 109/76 Pulse Oximetry 100 12/27/17 14:00 12/27/17 15:00 12/27/17 16:00 Temperature 99.2 F Pulse Rate 95 H 92 H 91 H Respiratory Rate 18 Blood Pressure 112/82 Pulse Oximetry 99 12/27/17 17:00 12/27/17 17:40 12/27/17 19:00 Temperature Pulse Rate 98 H 92 H 91 H Respiratory Rate Blood Pressure Pulse Oximetry 12/27/17 20:00 12/27/17 21:00 12/27/17 22:00 Temperature 97.8 F Pulse Rate 99 H 116 H 92 H Respiratory Rate Blood Pressure 119/79 Pulse Oximetry 98 12/27/17 23:00 12/27/17 23:59 08/04/18 00:00 Temperature 97.6 F Pulse Rate 92 H 92 H 93 H Respiratory Rate 16 Blood Pressure 138/83 Pulse Oximetry 98 12/28/17 01:00 12/28/17 02:00 12/28/17 03:00 Temperature Pulse Rate 90 90 93 H Respiratory Rate Blood Pressure Pulse Oximetry 12/28/17 04:00 12/28/17 05:00 12/28/17 06:00 Temperature 97.5 F L Pulse Rate 92 H 90 88 Respiratory Rate Blood Pressure 118/73 Pulse Oximetry 98 12/28/17 07:00 12/28/17 08:00 12/28/17 09:00 Temperature 98.7 F Pulse Rate 98 H 103 H 107 H Respiratory Rate 14 Blood Pressure 117/77 Pulse Oximetry 93 L Intake & Output 12/27/17 12/28/17 12/28/17 18:59 06:59 18:59 Intake Total 920 / 920 340 / 340 Output Total 625 / 625 1150 / 1150 Balance 295 / 295 -810 / -810 Weight 63.3 kg Intake: IV 200 / 200 100 / 100 Flexbumin 25% Inj 100 ML @ 60 100 / 100 100 / 100 mls/hr IV.SIG Q12H KARLENE Rx#: [id number] Rocephin Inj 2,000 MG In NS Inj 100 / 100 100 ML @ 200 mls/hr IV.SIG Q24H KARLENE Rx#:[id number] Oral 720 / 720 240 / 240 Output: Urine 1150 / 1150 Urine Amount (Catheter) 625 / 625 Indwelling Urethral Catheter 625 / 625 Other: Date of Last Bowel Movement 12/27/17 12/27/17 # Bowel Movements 1 0 - Urinary Catheter Management Indwelling Urethral Catheter Cath placed during this visit: no <Sallie Shields - Last Filed: 12/28/17 10:41> Assessment and Plan - Plan Patient has advance renal disease and Anasarca, started on HD on 12/19 Creatinine stable at 2.44 UOP at 650ml / 24 hours Hypokalemia, replacement has been ordered Poor appetite, nephro added Fluids encouraged Avoid nephrotoxins and maintain strict I+O Continue to monitor renal panel and urinary output. Continue to hold Hemodialysis Follow BMP in AM <eDe Day - Last Filed: 12/27/17 10:55> - Attending Attestation Patient seen and examined, agree with above. Creatinine almost same. Continue to hold HD. <Daniel Shields Q - Last Filed: 12/28/17 10:41>
--- NOTE | 2017-12-27 14:11 | P.PNIM ---
Subjective Interval history: F/up MM with light chain disease, SIMON - worsening kidney function, NO URINE OUTPUT, bacteremia strep viridans , hypotension, anasarca Edema in her arms improving some. Less shortness of breath today. Satting well while on room air however she is not ambulating much. Postop in the chair. Had a bowel movement. No nausea or vomiting. Able to eat some food however has decreased appetite. No fever or chills. No dialysis planned for today. Kidney function improving. 7- MAY NEED HD OUTPATIENT DW RN AND PT AND FAMILY IN ROOM AND PATIENT AM LABS WILL BE TRANSFUSED TODAY 12-23 SEEN IN HEMODIALYSIS PATIENT COMPLAINS OF ABDOMINAL PAIN HAS BLADDER FULL OF 1000ML OF URINE WILL STRAIGHT CATH PRN DW RN AND PT AND CM NEEDS OXYGEN 2L NO NAUSEA NO VOMITING 12-24 HAD BOWLES PLACED HAVING GOOD URINE OUTPUT DW RN AND PT AND FAMILY AND CM AND NEPHROLOGY AM LABS REPLACE POTASSIUM 8-[address] BOWLES IN [address] HAVING GOOD URINE OUTPUT DW RN AND PT AND CM AND FAMILY INCREASE ACTIVITY REPLACE POTASSIUM AM LABS 8-2 [address]ILL HAS BOWLES IN [address] DW RN AND PT REPLACE POTASSIUM AM LABS INCREASE ACTIVITY TO GET ALBUMIN TODAY 8-3 STILL HAS BOWLES IN PLACE REPLACE POTASSIUM AGAIN INCREASE ACTIVITY STILL HAS LOTS OF EDEMA HAS THROMBOCYTOPENIA NEEDS A BEDTIME SNACK Physical Exam Vital signs: Vital Signs 12/26/17 15:00 12/26/17 16:00 12/26/17 17:00 Temperature 98.0 F Pulse Rate 102 H 110 H 100 H Respiratory Rate 20 Blood Pressure 118/64 Pulse Oximetry 99 12/26/17 18:00 12/26/17 19:00 12/26/17 20:00 Temperature Pulse Rate 106 H 97 H 95 H Respiratory Rate 18 Blood Pressure 110/74 Pulse Oximetry 99 97 12/26/17 21:00 12/26/17 22:00 12/26/17 23:00 Temperature Pulse Rate 90 96 H 102 H Respiratory Rate 18 Blood Pressure 101/67 Pulse Oximetry 95 12/27/17 00:00 12/27/17 01:00 12/27/17 02:00 Temperature Pulse Rate 98 H 100 H 96 H Respiratory Rate Blood Pressure Pulse Oximetry 12/27/17 03:00 12/27/17 04:00 12/27/17 05:00 Temperature 98.2 F Pulse Rate 94 H 92 H 81 Respiratory Rate 16 Blood Pressure 106/69 Pulse Oximetry 94 L 12/27/17 08:00 12/27/17 09:00 12/27/17 10:00 Temperature 98.3 F Pulse Rate 89 89 101 H Respiratory Rate 18 Blood Pressure 107/73 Pulse Oximetry 99 12/27/17 10:36 12/27/17 11:00 12/27/17 12:00 Temperature 98.8 F Pulse Rate 116 H 90 Respiratory Rate 18 Blood Pressure 109/76 Pulse Oximetry 95 100 12/27/17 13:00 12/27/17 14:00 Temperature Pulse Rate 102 H 95 H Respiratory Rate Blood Pressure Pulse Oximetry Intake & Output 12/26/17 12/27/17 12/27/17 18:59 06:59 18:59 Intake Total 520 / 520 540 / 540 100 / 100 Output Total 3650 / 3650 200 / 200 Balance -3130 / -3130 340 / 340 100 / 100 Weight 64.7 kg Intake: IV 100 / 100 300 / 300 100 / 100 Flexbumin 25% Inj 100 ML @ 60 100 / 100 100 / 100 100 / 100 mls/hr IV.SIG Q12H [facility] Rx#: [id number] Rocephin Inj 2,000 MG In NS Inj 100 / 100 100 ML @ 200 mls/hr IV.SIG Q24H [facility] Rx#:[id number] Oral 420 / 420 240 / 240 Output: Urine 200 / 200 Hemodialysis Amount 3000 / 3000 Urine Amount (Catheter) 650 / 650 Indwelling Urethral Catheter 650 / 650 Other: Date of Last Bowel Movement 12/24/17 12/26/17 12/26/17 # Bowel Movements 1 1 Narrative: GENERAL: Alert and oriented X 3 SKIN: Warm and dry. Right IJ. Mild lower extremity edema. HEAD: Atraumatic. Normocephalic. EYES: Pupils equal and round. No scleral icterus. No injection or drainage. NECK: Trachea midline. No JVD. CARDIOVASCULAR: Regular rate and rhythm. RESPIRATORY: No accessory muscle use. Breath clear and equal bilaterally. GASTROINTESTINAL: Abdomen soft, non-tender, nondistended. Hepatic and splenic margins not palpable. MUSCULOSKELETAL: Extremities without clubbing, cyanosis, No obvious deformities. NEUROLOGICAL: Awake and alert. Normal speech. - Urinary Catheter Management Indwelling Urethral Catheter Cath placed during this visit: yes Reason for continuing: Acute urinary retention Insertion date: 12/24/17 Insertion time: 17:00 Results - Labs CBC & Chem 7: 12/27/17 06:05 12/27/17 06:05 Laboratory Results - last 24 hr 12/27/17 12/27/17 06:05 06:05 WBC 2.7 L RBC 2.88 L Hgb 8.4 L Hct 25.3 L MCV 87.7 MCH 29.1 MCHC 33.2 RDW 17.1 Plt Count 50 L MPV 8.6 Prelim Diff (Auto) Slide review pending Neut % (Auto) 70.0 Lymph % (Auto) 18.4 [place] % (Auto) 9.8 H Eos % (Auto) 0.9 Baso % (Auto) 0.9 Neut # (Auto) 1.9 Lymph # (Auto) 0.5 L [place] # (Auto) 0.3 Eos # (Auto) 0.0 Baso # (Auto) 0.0 WBC Differential . Diff Scan Auto diff confirmed Differential Comment . Platelet Estimate Low L Platelet Morphology Normal Sodium 146 H Potassium 3.2 L Chloride 112 H Carbon Dioxide 22.9 Anion Gap 11 BUN 10 Creatinine 2.44 H Estimated GFR 23 L Random Glucose 58 L Calcium 7.0 L* Prot Corrected Calcium 8.0 L Phosphorus 2.1 L Magnesium 2.0 Total Bilirubin 0.2 AST 23 ALT 16 Alkaline Phosphatase 37 L Total Protein 5.2 L Albumin 2.9 L - Procedures Vas-Cath placed 12/19/17. Started dialysis Assessment and Plan - Assessment (1) Multiple myeloma Code(s): C90.00 - Multiple myeloma not having achieved remission Status: Acute (2) Diastolic CHF Code(s): I50.30 - Unspecified diastolic (congestive) heart failure Status: Acute - Plan 72 y/o female with a history of multiple myeloma, HLD, and HTN presented to the ED with complaints of worsening edema and sob. Acute CHF exacerbation on possible chronic chf BNP 1350 on admission -Diuresed with Lasix and then switched to Bumex. Now off diuretics. Vas-Cath placed 12/19/17. Started dialysis -Fluid restriction - BP was noted low give albumin q12 hrs Acute renal failure. Patient was multiple myeloma light chain disease. Creatine 4.3, baseline 2.0. Creatinine is improving with HD -Consult nephrology for evaluation -Kidney ultrasound reviewed -Avoid nephrotoxins -Consult nephrology. Continue hemodialysis per nephrology indications - S/P right Internal Jugular Hemodialysis Catheter Non-Tunneled Placement on and started HD OFF HD URINARY RETENTION STRAIGHT CATH PRN Q6H FOR VOLUME GREATER THAN 500ML- WAS NOT ABLE TO BE DONE-- BOWLES IS IN PLACE PER PLACEMENT BY UROLOGY KEEP BOWLES AT THIS TIME Bandemia, 32% bands on admission, suspected pneumonia Bacteremia, viridans strep, low grade. Port infx vs contaminant PCN allergy Cont CFTX 2 gm. DC Daptomycin and azythro. NO need to remove PORT at this time per ID recommendations , ff . Continue Rocephin for 14 days of negative blood culture per ID 2 D echo ID consulted Chest x ray reviewed and shows numbering mid inspiratory exam with increased opacity at the lung bases which may represent increasing infiltrate, and small effusions. -monitor CBC -Lactic acid is back to normal Elevated troponin, likely related due to CHF and elevated creatine r/o ACS Troponin .67 -Serial troponin and ekgs Hypotension, due to diuresis -Albumin IV bid -Monitor vitals Multiple myeloma, chronic -Consult Dr. Arvizu, following -Consult nephrology following. Plan of ANEMIA WILL NEED TRANSFUSIONS Constipation. Stool softeners/laxatives as needed. HYPOKALEMIA WILL REPLACE X1 NEEDS TO BE REPLACED AGAIN 8-1 WILL REPLACE AGAIN 8-2 REPLACE AGAIN 8-3 REPLACE AGAIN AM LABS Anasarca: improving with HD DVT prophylaxis: Heparin Discussed Condition With: Patient, nurse HYPOGLYCEMIA- BEDTIME SNACK DAILY AM LABS DC plan pending improvement With MM worsening kidney function, anoliguric, bacteremia strep viridans , ID, hem/onc and nephrology ff Vas-Cath placed 12/19/17 started dialysis. No need to remove Port per ID. Continue Rocephin for 14 days of negative blood culture per ID Patient improving with HD Code Status: FULL CODE Discussed Condition With: RN AND PT AND CM Discharge Planning: PENDING CLEARANCE BY ALL (2) Diastolic CHF Qualifiers: Heart failure chronicity: acute on chronic Qualified Code(s): I50.33 - Acute on chronic diastolic (congestive) heart failure
[2017-12-28] MEDS: Albumin Human 25% Inj 100 ML IV.SIG SCH ×3 (00:53→23:38)
[2017-12-28] MEDS: Potassium Chloride 25 MEQ Effervescent Tablet PO SCH ×3 (00:54→21:03)
[2017-12-28] MEDS: Heparin Central Flush 100 UNIT/ML 5 ML Vial IV.FLUSH PRN (02:24)
[2017-12-28 06:15] LABS: Baso % (Auto) 0.6 % (0.0-2.0); Eos % (Auto) 0.8 % (0.0-4.0); Hematocrit 26.4 % (35.0-46.0); Hemoglobin 8.7 gm/dL (11.6-15.3); Lymph # (Auto) 0.8 th/mm3 (1.0-4.8); Lymph % (Auto) 28.6 % (9.0-44.0); Mean Corpuscular HGB Conc 33.1 % (32.0-36.0); Mean Corpuscular Hemoglobin 28.9 pg (27.0-34.0); Mean Corpuscular Volume 87.4 fL (80.0-100.0); Mean Platelet Volume 8.7 fL (7.0-11.0); Mono # (Auto) 0.3 th/mm3 (0.0-0.9); Mono % (Auto) 9.5 % (0.0-8.0); Neut # (Auto) 1.8 th/mm3 (1.8-7.7); Neut % (Auto) 60.5 % (16.0-70.0); Platelet Count 47 th/mm3 (150-450); Red Blood Count 3.02 mil/mm3 (4.00-5.30); White Blood Count 2.9 th/mm3 (4.0-11.0)
[2017-12-28 06:52] LABS: Albumin 2.8 g/dL (3.4-5.0); Calcium 7.4 mg/dL (8.5-10.1); Magnesium 2.1 mg/dL (1.5-2.5); Total Protein 5.3 g/dL (6.4-8.2)
[2017-12-28 06:58] LABS: Potassium 2.9 meq/L (3.5-5.1)
[2017-12-28 08:23] LABS: Ovalocytes 1+; Platelet Morphology Normal (Normal)
[2017-12-28] MEDS: Potassium Bicarbonate 25 MEQ Effervescent Tablet PO SCH (09:07)
[2017-12-28] MEDS: Calcium Carbonate 500 MG Tablet PO SCH (09:07)
--- NOTE | 2017-12-28 10:10 | P.PNIM ---
Subjective Interval history: F/up MM with light chain disease, SIMON - worsening kidney function, NO URINE OUTPUT, bacteremia strep viridans , hypotension, anasarca Edema in her arms improving some. Less shortness of breath today. Satting well while on room air however she is not ambulating much. Postop in the chair. Had a bowel movement. No nausea or vomiting. Able to eat some food however has decreased appetite. No fever or chills. No dialysis planned for today. Kidney function improving. 7- MAY NEED HD OUTPATIENT DW RN AND PT AND FAMILY IN ROOM AND PATIENT AM LABS WILL BE TRANSFUSED TODAY 7 SEEN IN HEMODIALYSIS PATIENT COMPLAINS OF ABDOMINAL PAIN HAS BLADDER FULL OF 1000ML OF URINE WILL STRAIGHT CATH PRN DW RN AND PT AND CM NEEDS OXYGEN 2L NO NAUSEA NO VOMITING 7 HAD BOWLES PLACED HAVING GOOD URINE OUTPUT DW RN AND PT AND FAMILY AND CM AND NEPHROLOGY AM LABS REPLACE POTASSIUM 8-1 [address]ILL HAS BOWLES IN PLACE HAVING GOOD URINE OUTPUT DW RN AND PT AND CM AND FAMILY INCREASE ACTIVITY REPLACE POTASSIUM AM LABS 8-2 STILL HAS BOWLES IN PLACE DW RN AND PT REPLACE POTASSIUM AM LABS INCREASE ACTIVITY TO GET ALBUMIN TODAY 8-3 STILL HAS BOWLES IN PLACE REPLACE POTASSIUM AGAIN INCREASE ACTIVITY STILL HAS LOTS OF EDEMA HAS THROMBOCYTOPENIA NEEDS A BEDTIME SNACK 8-4 PATIENT HAS NOT BEEN COMPLIANT TAKING HER POTASSIUM REPLACEMENT DW RN AND PT AND FAMILY NEEDS TO TAKE HER MEDICATIONS SO THE POTASSIUM WILL REMAIN STABLE AM LABS Physical Exam Vital signs: Vital Signs 12/27/17 10:36 12/27/17 11:00 12/27/17 12:00 Temperature 98.8 F Pulse Rate 116 H 90 Respiratory Rate 18 Blood Pressure 109/76 Pulse Oximetry 95 100 12/27/17 13:00 12/27/17 14:00 12/27/17 15:00 Temperature Pulse Rate 102 H 95 H 92 H Respiratory Rate Blood Pressure Pulse Oximetry 12/27/17 16:00 12/27/17 17:00 12/27/17 17:40 Temperature 99.2 F Pulse Rate 91 H 98 H 92 H Respiratory Rate 18 Blood Pressure 112/82 Pulse Oximetry 99 12/27/17 19:00 12/27/17 20:00 12/27/17 21:00 Temperature 97.8 F Pulse Rate 91 H 99 H 116 H Respiratory Rate Blood Pressure 119/79 Pulse Oximetry 98 12/27/17 22:00 12/27/17 23:00 08/03/18 23:59 Temperature Pulse Rate 92 H 92 H 92 H Respiratory Rate Blood Pressure Pulse Oximetry 12/28/17 00:00 12/28/17 01:00 12/28/17 02:00 Temperature 97.6 F Pulse Rate 93 H 90 90 Respiratory Rate 16 Blood Pressure 138/83 Pulse Oximetry 98 12/28/17 03:00 12/28/17 04:00 12/28/17 05:00 Temperature 97.5 F L Pulse Rate 93 H 92 H 90 Respiratory Rate Blood Pressure 118/73 Pulse Oximetry 98 12/28/17 06:00 12/28/17 07:00 12/28/17 08:00 Temperature 98.7 F Pulse Rate 88 98 H 103 H Respiratory Rate 14 Blood Pressure 117/77 Pulse Oximetry 93 L 12/28/17 09:00 Temperature Pulse Rate 107 H Respiratory Rate Blood Pressure Pulse Oximetry Intake & Output 12/27/17 12/28/17 12/28/17 18:59 06:59 18:59 Intake Total 920 / 920 340 / 340 Output Total 625 / 625 1150 / 1150 Balance 295 / 295 -810 / -810 Weight 63.3 kg Intake: IV 200 / 200 100 / 100 Flexbumin 25% Inj 100 ML @ 60 100 / 100 100 / 100 mls/hr IV.SIG Q12H [facility] Rx#: [id number] Rocephin Inj 2,000 MG In NS Inj 100 / 100 100 ML @ 200 mls/hr IV.SIG Q24H [facility] Rx#:[id number] Oral 720 / 720 240 / 240 Output: Urine 1150 / 1150 Urine Amount (Catheter) 625 / 625 Indwelling Urethral Catheter 625 / 625 Other: Date of Last Bowel Movement 12/27/17 12/27/17 # Bowel Movements 1 0 Narrative: GENERAL: Alert and oriented X 3 SKIN: Warm and dry. Right IJ. Moderate lower extremity edema. HEAD: Atraumatic. Normocephalic. EYES: Pupils equal and round. No scleral icterus. No injection or drainage. NECK: Trachea midline. No JVD. CARDIOVASCULAR: Regular rate and rhythm. RESPIRATORY: No accessory muscle use. Breath clear and equal bilaterally. GASTROINTESTINAL: Abdomen soft, non-tender, nondistended. Hepatic and splenic margins not palpable. MUSCULOSKELETAL: Extremities without clubbing, cyanosis, No obvious deformities. PLUS 3 BL LE AND UE EDEMA bilaterally NEUROLOGICAL: Awake and alert. Normal speech. Insight and judgment is limited Mood and behavior is somewhat appropriate - Urinary Catheter Management Indwelling Urethral Catheter Cath placed during this visit: yes Reason for continuing: Acute urinary retention Insertion date: 12/24/17 Insertion time: 17:00 Results - Labs CBC & Chem 7: 12/28/17 05:45 12/28/17 05:45 Laboratory Results - last 24 hr 12/28/17 12/28/17 05:45 05:45 WBC 2.9 L RBC 3.02 L Hgb 8.7 L Hct 26.4 L MCV 87.4 MCH 28.9 MCHC 33.1 RDW 17.0 Plt Count 47 L MPV 8.7 Prelim Diff (Auto) Slide review pending Neut % (Auto) 60.5 Lymph % (Auto) 28.6 [place] % (Auto) 9.5 H Eos % (Auto) 0.8 Baso % (Auto) 0.6 Neut # (Auto) 1.8 Lymph # (Auto) 0.8 L [place] # (Auto) 0.3 Eos # (Auto) 0.0 Baso # (Auto) 0.0 WBC Differential . Diff Scan Auto diff confirmed Differential Comment . Platelet Estimate Low L Platelet Morphology Normal Ovalocytes 1+ H Keratocytes Occ H Sodium 145 Potassium 2.9 L* Chloride 113 H Carbon Dioxide 22.0 Anion Gap 10 BUN 8 Creatinine 2.39 H Estimated GFR 24 L Random Glucose 64 L Calcium 7.4 L* Prot Corrected Calcium 8.4 L Phosphorus 2.0 L Magnesium 2.1 Total Bilirubin 0.2 AST 19 ALT 12 Alkaline Phosphatase 36 L Total Protein 5.3 L Albumin 2.8 L - Procedures Vas-Cath placed 12/19/17. Started dialysis Assessment and Plan - Assessment (1) Multiple myeloma Code(s): C90.00 - Multiple myeloma not having achieved remission Status: Acute (2) Diastolic CHF Code(s): I50.30 - Unspecified diastolic (congestive) heart failure Status: Acute - Plan 72 y/o female with a history of multiple myeloma, HLD, and HTN presented to the ED with complaints of worsening edema and sob. Acute CHF exacerbation on possible chronic chf BNP 1350 on admission -Diuresed with Lasix and then switched to Bumex. Now off diuretics. Vas-Cath placed 12/19/17. Started dialysis -Fluid restriction - BP was noted low give albumin q12 hrs Acute renal failure. Patient was multiple myeloma light chain disease. Creatine 4.3, baseline 2.0. Creatinine is improving with HD -Consult nephrology for evaluation -Kidney ultrasound reviewed -Avoid nephrotoxins -Consult nephrology. Continue hemodialysis per nephrology indications - S/P right Internal Jugular Hemodialysis Catheter Non-Tunneled Placement on and started HD OFF HD URINARY RETENTION STRAIGHT CATH PRN Q6H FOR VOLUME GREATER THAN 500ML- WAS NOT ABLE TO BE DONE-- BOWLES IS IN PLACE PER PLACEMENT BY UROLOGY KEEP BOWLES AT THIS TIME Bandemia, 32% bands on admission, suspected pneumonia Bacteremia, viridans strep, low grade. Port infx vs contaminant PCN allergy Cont CFTX 2 gm. DC Daptomycin and azythro. NO need to remove PORT at this time per ID recommendations , ff . Continue Rocephin for 14 days of negative blood culture per ID 2 D echo ID consulted Chest x ray reviewed and shows numbering mid inspiratory exam with increased opacity at the lung bases which may represent increasing infiltrate, and small effusions. -monitor CBC -Lactic acid is back to normal Elevated troponin, likely related due to CHF and elevated creatine r/o ACS Troponin .67 -Serial troponin and ekgs Hypotension, due to diuresis -Albumin IV bid -Monitor vitals Multiple myeloma, chronic -Consult Dr. Arvizu, following -Consult nephrology following. Plan of ANEMIA WILL NEED TRANSFUSIONS Constipation. Stool softeners/laxatives as needed. HYPOKALEMIA WILL REPLACE X1 NEEDS TO BE REPLACED AGAIN 8-1 WILL REPLACE AGAIN 8-2 REPLACE AGAIN 8-3 REPLACE AGAIN 8-4 WILL REPLACE AGAIN-PT REFUSED MEDS YESTERDAY AM LABS Anasarca: OFF HD- STILL UE AND LE BL DVT prophylaxis: Heparin Discussed Condition With: Patient, nurse HYPOGLYCEMIA- BEDTIME SNACK DAILY AM LABS DC plan pending improvement With MM worsening kidney function, anoliguric, bacteremia strep viridans , ID, hem/onc and nephrology ff Vas-Cath placed 12/19/17 started dialysis. No need to remove Port per ID. Continue Rocephin for 14 days of negative blood culture per ID Patient improving with HD Code Status: FULL CODE Discussed Condition With: RN AND PT Discharge Planning: PENDING CLEARANCE BY ALL (2) Diastolic CHF Qualifiers: Heart failure chronicity: acute on chronic Qualified Code(s): I50.33 - Acute on chronic diastolic (congestive) heart failure
--- NOTE | 2017-12-28 10:33 | P.PNONC ---
Subjective Interval history: Afebrile. Patient sitting in chair with her legs elevated. She has no complaints at this time. She denies any pain, chest pain or shortness of breath.She reports that she is ready to go home. Objective Vital Signs/Intake & Output: Vital Signs 12/27/17 10:36 12/27/17 11:00 12/27/17 12:00 Temperature 98.8 F Pulse Rate 116 H 90 Respiratory Rate 18 Blood Pressure 109/76 Pulse Oximetry 95 100 12/27/17 13:00 12/27/17 14:00 12/27/17 15:00 Temperature Pulse Rate 102 H 95 H 92 H Respiratory Rate Blood Pressure Pulse Oximetry 12/27/17 16:00 12/27/17 17:00 12/27/17 17:40 Temperature 99.2 F Pulse Rate 91 H 98 H 92 H Respiratory Rate 18 Blood Pressure 112/82 Pulse Oximetry 99 12/27/17 19:00 12/27/17 20:00 12/27/17 21:00 Temperature 97.8 F Pulse Rate 91 H 99 H 116 H Respiratory Rate Blood Pressure 119/79 Pulse Oximetry 98 12/27/17 22:00 12/27/17 23:00 12/27/17 23:59 Temperature Pulse Rate 92 H 92 H 92 H Respiratory Rate Blood Pressure Pulse Oximetry 12/28/17 00:00 12/28/17 01:00 12/28/17 02:00 Temperature 97.6 F Pulse Rate 93 H 90 90 Respiratory Rate 16 Blood Pressure 138/83 Pulse Oximetry 98 12/28/17 03:00 12/28/17 04:00 12/28/17 05:00 Temperature 97.5 F L Pulse Rate 93 H 92 H 90 Respiratory Rate Blood Pressure 118/73 Pulse Oximetry 98 12/28/17 06:00 12/28/17 07:00 12/28/17 08:00 Temperature 98.7 F Pulse Rate 88 98 H 103 H Respiratory Rate 14 Blood Pressure 117/77 Pulse Oximetry 93 L 12/28/17 09:00 Temperature Pulse Rate 107 H Respiratory Rate Blood Pressure Pulse Oximetry Intake & Output 12/27/17 12/28/17 12/28/17 18:59 06:59 18:59 Intake Total 920 / 920 340 / 340 Output Total 625 / 625 1150 / 1150 Balance 295 / 295 -810 / -810 Weight 63.3 kg Intake: IV 200 / 200 100 / 100 Flexbumin 25% Inj 100 ML @ 60 100 / 100 100 / 100 mls/hr IV.SIG Q12H [facility] Rx#: [id number] Rocephin Inj 2,000 MG In NS Inj 100 / 100 100 ML @ 200 mls/hr IV.SIG Q24H [facility] Rx#:[id number] Oral 720 / 720 240 / 240 Output: Urine 1150 / 1150 Urine Amount (Catheter) 625 / 625 Indwelling Urethral Catheter 625 / 625 Other: Date of Last Bowel Movement 12/27/17 12/27/17 # Bowel Movements 1 0 Result Diagrams: 12/28/17 05:45 12/28/17 05:45 Laboratory Results: Laboratory Results - last 24 hr 12/28/17 12/28/17 05:45 05:45 WBC 2.9 L RBC 3.02 L Hgb 8.7 L Hct 26.4 L MCV 87.4 MCH 28.9 MCHC 33.1 RDW 17.0 Plt Count 47 L MPV 8.7 Prelim Diff (Auto) Slide review pending Neut % (Auto) 60.5 Lymph % (Auto) 28.6 [place] % (Auto) 9.5 H Eos % (Auto) 0.8 Baso % (Auto) 0.6 Neut # (Auto) 1.8 Lymph # (Auto) 0.8 L [place] # (Auto) 0.3 Eos # (Auto) 0.0 Baso # (Auto) 0.0 WBC Differential . Diff Scan Auto diff confirmed Differential Comment . Platelet Estimate Low L Platelet Morphology Normal Ovalocytes 1+ H Keratocytes Occ H Sodium 145 Potassium 2.9 L* Chloride 113 H Carbon Dioxide 22.0 Anion Gap 10 BUN 8 Creatinine 2.39 H Estimated GFR 24 L Random Glucose 64 L Calcium 7.4 L* Prot Corrected Calcium 8.4 L Phosphorus 2.0 L Magnesium 2.1 Total Bilirubin 0.2 AST 19 ALT 12 Alkaline Phosphatase 36 L Total Protein 5.3 L Albumin 2.8 L Medications: Active Medications Generic Name Dose Route Start Last Admin Trade Name Freq PRN Reason Stop Dose Admin Hydrocodone Bitart/Acetaminophen 1 tab 12/17/17 08:32 12/21/17 19:13 [place] 5/325 PO 1 tab Q6H PRN Administration BACK PAIN Benzocaine/Menthol 1 lozenge 12/20/17 21:59 12/26/17 01:48 Cepacol Max Strength BUCCAL 1 lozenge Q4H PRN Administration SORE THROAT Bisacodyl 10 mg 12/16/17 18:42 12/18/17 10:19 Dulcolax Supp RECTAL 10 mg DAILY PRN Administration SEVERE CONSITIPATION Diphenhydramine HCl 25 mg 12/19/17 17:07 12/27/17 05:21 Benadryl PO 25 mg UNSCH PRN Administration SEE LABEL COMMENTS Gentamicin Sulfate 20 mg 12/19/17 17:07 12/23/17 11:37 Gentamicin Inj OTHER 20 mg WITH DIALYSIS PRN Administration Dwell Gentamycin Lock Heparin Sodium (Porcine) 500 unit 12/18/17 18:02 12/20/17 23:40 Heparin Central Flush IV.FLUSH 500 unit PRN PRN Administration Flush infusaport Heparin Sodium (Porcine) 250 unit 12/18/17 18:02 12/28/17 02:24 Heparin Central Flush IV.FLUSH 250 unit PRN PRN Administration Flush Infusapot Heparin Sodium (Porcine) 1,000 units 12/19/17 17:07 12/23/17 11:37 Heparin Inj OTHER 1,000 units WITH DIALYSIS PRN Administration Dwell Heparin to Fill Catheter Albumin Human 100 mls @ 60 mls/hr 12/17/17 11:00 12/28/17 02:34 Flexbumin 25% Inj IV.SIG Infused Q12H [facility] Infusion Ceftriaxone Sodium 2,000 mg/ 100 mls @ 200 mls/hr 12/18/17 15:00 12/27/17 17: 00 Sodium Chloride IV.SIG Infused Q24H [facility] Infusion Potassium Bicarb/Potassium Chloride 50 meq 12/28/17 09:00 12/28/17 09:06 K-Lyte Cl Eff PO 50 meq BID [facility] Administration Potassium Bicarbonate 75 meq 12/28/17 09:00 12/28/17 09:07 Effer-K PO 75 meq DAILY [facility] Administration Sodium Chloride 5 ml 12/18/17 18:02 12/24/17 09:23 Ns Flush IV.FLUSH 5 ml PRN PRN Administration Flush Infusaport Temazepam 15 mg 12/16/17 18:42 12/27/17 02:04 Restoril PO 15 mg HS PRN Administration INSOMNIA Objective Remarks: GENERAL: Elderly female patient sitting in chair, in no acute distress. SKIN: Warm and dry. HEAD: Normocephalic. EYES: No scleral icterus. No injection or drainage. NECK: Supple, trachea midline. CARDIOVASCULAR: Regular rate and rhythm without murmurs. RESPIRATORY: Breath sounds clear, equal bilaterally. No accessory muscle use. GASTROINTESTINAL: Abdomen soft, nontender, no distention. EXTREMITIES: No cyanosis. LE 2+ bilateral pitting edema. UE 1+ bilateral pitting edema. MUSCULOSKELETAL: Adequate muscle tone. NEUROLOGICAL: No obvious focal deficit. Awake, alert, and oriented x3. PSYCHIATRIC: Appropriate mood and affect; insight and judgment normal. Assessment/Plan - Plan Ms. Hoff is a 72-year-old female with a diagnosis of IgG kappa light chain multiple myeloma diagnosed originally 2005, status post autologous stem cell transplant in 2009, most recently had been on systemic therapy with Durvalumab, Velcade and dexamethasone. 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 Recommendations: 1. Acute renal failure: Status post hemodialysis, which started on 12/19. Nephrology is managing. Last HD was on Saturday. Labs have remained stable. 2. Urinary retention, now with indwelling urinary catheter. Urology is following. 2. Anemia: Hemoglobin continues to improve at 8.7 today. 3. Multiple myeloma: Plan to resume systemic therapy with Velcade, dexamethasone and Durvalumab in the outpatient setting. 4. Patient is cleared from an oncology standpoint for discharge, once outpatient hemodialysis has been decided/arranged, and all other providers have signed off. - Attending Statement The exam, history, and the medical decision-making described in the above note were completed with the assistance of the mid-level provider. I reviewed and agree with the findings presented. I attest that I had a [id number] encounter with the patient on the same day, and personally performed and documented my assessment and findings in the medical record. Patient is complaining of weakness and generalized swelling. Family at bedside. Patient is stable from oncology standpoint to be discharged and will be followed up as an outpatient Nephrology to follow-up on hemodialysis as an outpatient.
--- NOTE | 2017-12-28 10:42 | P.PNNP ---
Subjective Interval history: Patient is alert, no SOB, started eating better. Physical Exam Vital signs: Vital Signs 12/27/17 11:00 12/27/17 12:00 12/27/17 13:00 Temperature 98.8 F Pulse Rate 116 H 90 102 H Respiratory Rate 18 Blood Pressure 109/76 Pulse Oximetry 100 12/27/17 14:00 12/27/17 15:00 12/27/17 16:00 Temperature 99.2 F Pulse Rate 95 H 92 H 91 H Respiratory Rate 18 Blood Pressure 112/82 Pulse Oximetry 99 12/27/17 17:00 12/27/17 17:40 12/27/17 19:00 Temperature Pulse Rate 98 H 92 H 91 H Respiratory Rate Blood Pressure Pulse Oximetry 12/27/17 20:00 12/27/17 21:00 12/27/17 22:00 Temperature 97.8 F Pulse Rate 99 H 116 H 92 H Respiratory Rate Blood Pressure 119/79 Pulse Oximetry 98 12/27/17 23:00 12/27/17 23:59 12/28/17 00:00 Temperature 97.6 F Pulse Rate 92 H 92 H 93 H Respiratory Rate 16 Blood Pressure 138/83 Pulse Oximetry 98 12/28/17 01:00 12/28/17 02:00 12/28/17 03:00 Temperature Pulse Rate 90 90 93 H Respiratory Rate Blood Pressure Pulse Oximetry 12/28/17 04:00 12/28/17 05:00 12/28/17 06:00 Temperature 97.5 F L Pulse Rate 92 H 90 88 Respiratory Rate Blood Pressure 118/73 Pulse Oximetry 98 12/28/17 07:00 12/28/17 08:00 12/28/17 09:00 Temperature 98.7 F Pulse Rate 98 H 103 H 107 H Respiratory Rate 14 Blood Pressure 117/77 Pulse Oximetry 93 L Intake & Output 12/27/17 12/28/17 12/28/17 18:59 06:59 18:59 Intake Total 920 / 920 340 / 340 Output Total 625 / 625 1150 / 1150 Balance 295 / 295 -810 / -810 Weight 63.3 kg Intake: IV 200 / 200 100 / 100 Flexbumin 25% Inj 100 ML @ 60 100 / 100 100 / 100 mls/hr IV.SIG Q12H [facility] Rx#: [id number] Rocephin Inj 2,000 MG In NS Inj 100 / 100 100 ML @ 200 mls/hr IV.SIG Q24H [facility] Rx#:[id number] Oral 720 / 720 240 / 240 Output: Urine 1150 / 1150 Urine Amount (Catheter) 625 / 625 Indwelling Urethral Catheter 625 / 625 Other: Date of Last Bowel Movement 12/27/17 12/27/17 # Bowel Movements 1 0 Narrative: GENERAL: Alert and oriented X 3 SKIN: Warm and dry. Right IJ. Moderate lower extremity edema. HEAD: Atraumatic. Normocephalic. EYES: Pupils equal and round. No scleral icterus. No injection or drainage. NECK: Trachea midline. No JVD. CARDIOVASCULAR: Regular rate and rhythm. RESPIRATORY: No accessory muscle use. Breath clear and equal bilaterally. GASTROINTESTINAL: Abdomen soft, non-tender, nondistended. Hepatic and splenic margins not palpable. MUSCULOSKELETAL: Extremities without clubbing, cyanosis, No obvious deformities. PLUS 3 BL LE AND UE EDEMA bilaterally NEUROLOGICAL: Awake and alert. Normal speech. Insight and judgment is limited Mood and behavior is somewhat appropriate - Urinary Catheter Management Indwelling Urethral Catheter Cath placed during this visit: yes Reason for continuing: Acute urinary retention Insertion date: 12/24/17 Insertion time: 17:00 Assessment and Plan - Plan Patient has advance renal disease and Anasarca, started on HD on 12/19 UOP at 650ml / 24 hours Hypokalemia, replacement has been ordered Poor appetite, nephro added Fluids encouraged Avoid nephrotoxins and maintain strict I+O Continue to monitor renal panel and urinary output. Continue to hold Hemodialysis. Creatinine is now 2.3, K is low, replaced. If Creatinine improve, will get Vascath removed.
[2017-12-29] MEDS: Temazepam 15 MG Capsule PO PRN (00:22)
[2017-12-29 05:54] LABS: Baso % (Auto) 0.7 % (0.0-2.0); Eos % (Auto) 0.6 % (0.0-4.0); Hematocrit 25.3 % (35.0-46.0); Hemoglobin 8.4 gm/dL (11.6-15.3); Lymph # (Auto) 0.7 th/mm3 (1.0-4.8); Lymph % (Auto) 29.5 % (9.0-44.0); Mean Corpuscular HGB Conc 33.1 % (32.0-36.0); Mean Corpuscular Hemoglobin 29.2 pg (27.0-34.0); Mean Corpuscular Volume 88.3 fL (80.0-100.0); Mean Platelet Volume 8.8 fL (7.0-11.0); Mono # (Auto) 0.3 th/mm3 (0.0-0.9); Mono % (Auto) 10.8 % (0.0-8.0); Neut # (Auto) 1.4 th/mm3 (1.8-7.7); Neut % (Auto) 58.4 % (16.0-70.0); Platelet Count 45 th/mm3 (150-450); Red Blood Count 2.87 mil/mm3 (4.00-5.30); Red Cell Distribution Width 17.3 % (11.6-17.2); White Blood Count 2.4 th/mm3 (4.0-11.0)
[2017-12-29 06:15] LABS: Albumin 2.9 g/dL (3.4-5.0); Anion Gap 11 meq/L (5-15); Aspartate Aminotransferase 16 U/L (15-37); Blood Urea Nitrogen 9 mg/dL (7-18); Calcium 7.5 mg/dL (8.5-10.1); Carbon Dioxide 20.2 meq/L (21.0-32.0); Chloride 113 meq/L (98-107); Glomerular Filtration Rate 25 mL/min (>89); Glucose,Random 60 mg/dL (74-106); Magnesium 1.8 mg/dL (1.5-2.5); Potassium 3.6 meq/L (3.5-5.1); Sodium 144 meq/L (136-145)
[2017-12-29 06:19] LABS: Alanine Aminotransferase 10 U/L (10-53); Alkaline Phosphatase 33 U/L (45-117); Phosphorus 1.8 mg/dL (2.5-4.9); Total Protein 5.4 g/dL (6.4-8.2)
[2017-12-29 07:26] LABS: Ovalocytes 1+; Platelet Morphology Normal (Normal)
[2017-12-29] MEDS: Potassium Chloride 25 MEQ Effervescent Tablet PO SCH ×2 (08:48→21:16)
[2017-12-29] MEDS: Calcium Carbonate 500 MG Tablet PO SCH (08:48)
[2017-12-29] MEDS: Potassium Bicarbonate 25 MEQ Effervescent Tablet PO SCH ×2 (08:49→10:53)
[2017-12-29] MEDS: Mag Sulf 1 gm/100 ml Premix 100 ML IV.SIG SCH ×2 (08:55→09:55)
[2017-12-29] MEDS: Albumin Human 25% Inj 100 ML IV.SIG SCH ×2 (11:14→23:54)
--- NOTE | 2017-12-29 11:29 | P.PNIM ---
Subjective Interval history: F/up MM with light chain disease, SIMON - worsening kidney function, NO URINE OUTPUT, bacteremia strep viridans , hypotension, anasarca Edema in her arms improving some. Less shortness of breath today. Satting well while on room air however she is not ambulating much. Postop in the chair. Had a bowel movement. No nausea or vomiting. Able to eat some food however has decreased appetite. No fever or chills. No dialysis planned for today. Kidney function improving. 7- MAY NEED HD OUTPATIENT DW RN AND PT AND FAMILY IN ROOM AND PATIENT AM LABS WILL BE TRANSFUSED TODAY 7 SEEN IN HEMODIALYSIS PATIENT COMPLAINS OF ABDOMINAL PAIN HAS BLADDER FULL OF 1000ML OF URINE WILL STRAIGHT CATH PRN DW RN AND PT AND CM NEEDS OXYGEN 2L NO NAUSEA NO VOMITING 7 HAD BOWLES PLACED HAVING GOOD URINE OUTPUT DW RN AND PT AND FAMILY AND CM AND NEPHROLOGY AM LABS REPLACE POTASSIUM 8-[address] BOWLES IN [address] HAVING GOOD URINE OUTPUT DW RN AND PT AND CM AND FAMILY INCREASE ACTIVITY REPLACE POTASSIUM AM LABS 8-[address] BOWLES IN [address] DW RN AND PT REPLACE POTASSIUM AM LABS INCREASE ACTIVITY TO GET ALBUMIN TODAY 8-3 [address]ILL HAS BOWLES IN PLACE REPLACE POTASSIUM AGAIN INCREASE ACTIVITY STILL HAS LOTS OF EDEMA HAS THROMBOCYTOPENIA NEEDS A BEDTIME SNACK 8-4 PATIENT HAS NOT BEEN COMPLIANT TAKING HER POTASSIUM REPLACEMENT DW RN AND PT AND FAMILY NEEDS TO TAKE HER MEDICATIONS SO THE POTASSIUM WILL REMAIN STABLE AM LABS 8-5 WILL REPLACE MAG AND POTASSIUM DW RN AND PT STILL WITH LOTS OF ANASARCA Physical Exam Vital signs: Vital Signs 12/28/17 12:00 12/28/17 13:00 12/28/17 14:00 Temperature 98.8 F Pulse Rate 112 H 110 H 99 H Respiratory Rate 12 Blood Pressure 112/78 Pulse Oximetry 94 L 12/28/17 15:00 12/28/17 16:00 12/28/17 17:00 Temperature 98.6 F Pulse Rate 101 H 102 H 101 H Respiratory Rate 12 Blood Pressure 117/81 Pulse Oximetry 12/28/17 18:00 12/28/17 19:26 12/28/17 20:59 Temperature 98.6 F Pulse Rate 102 H 101 H 103 H Respiratory Rate 18 Blood Pressure 121/85 Pulse Oximetry 100 12/28/17 23:59 12/29/17 04:00 12/29/17 05:00 Temperature 99.3 F 98.1 F Pulse Rate 101 H 88 Respiratory Rate 18 18 16 Blood Pressure 120/87 104/66 Pulse Oximetry 98 98 12/29/17 07:55 12/29/17 08:00 12/29/17 11:18 Temperature 98.1 F 97.5 F L Pulse Rate 99 H 98 H 98 H Respiratory Rate 14 18 Blood Pressure 115/70 117/83 Pulse Oximetry 97 100 Intake & Output 12/28/17 12/29/17 12/29/17 18:59 06:59 18:59 Intake Total 200 / 200 340 / 340 100 / 100 Output Total 850 / 850 700 / 700 Balance -650 / -650 -360 / -360 100 / 100 Weight 64 kg Intake: IV 200 / 200 100 / 100 100 / 100 Flexbumin 25% Inj 100 ML @ 60 100 / 100 100 / 100 mls/hr IV.SIG Q12H [facility] Rx#: [id number] Magnesium Sulfate 1 gm/D5W 100 100 / 100 ml Premix 100 ML @ 100 mls/hr IV.SIG Q1H [facility] Rx#:[id number] Rocephin Inj 2,000 MG In NS Inj 100 / 100 100 ML @ 200 mls/hr IV.SIG Q24H [facility] Rx#:[id number] Oral 240 / 240 Output: Urine Amount (Catheter) 850 / 850 700 / 700 Indwelling Urethral Catheter 850 / 850 700 / 700 Other: Date of Last Bowel Movement 12/28/17 12/28/17 Narrative: GENERAL: Alert and oriented X 3 SKIN: Warm and dry. Right IJ. Moderate lower extremity edema. HEAD: Atraumatic. Normocephalic. EYES: Pupils equal and round. No scleral icterus. No injection or drainage. NECK: Trachea midline. No JVD. CARDIOVASCULAR: Regular rate and rhythm. RESPIRATORY: No accessory muscle use. Breath clear and equal bilaterally. GASTROINTESTINAL: Abdomen soft, non-tender, nondistended. Hepatic and splenic margins not palpable. MUSCULOSKELETAL: Extremities without clubbing, cyanosis, No obvious deformities. PLUS 3 BL LE AND UE EDEMA bilaterally NEUROLOGICAL: Awake and alert. Normal speech. Insight and judgment is limited Mood and behavior is somewhat appropriate - Urinary Catheter Management Indwelling Urethral Catheter Cath placed during this visit: yes Reason for continuing: Acute urinary retention Insertion date: 12/24/17 Insertion time: 17:00 Results - Labs CBC & Chem 7: 12/29/17 05:00 12/29/17 05:00 Laboratory Results - last 24 hr 12/29/17 12/29/17 05:00 05:00 WBC 2.4 L RBC 2.87 L Hgb 8.4 L Hct 25.3 L MCV 88.3 MCH 29.2 MCHC 33.1 RDW 17.3 H Plt Count 45 L MPV 8.8 Prelim Diff (Auto) Slide review pending Neut % (Auto) 58.4 Lymph % (Auto) 29.5 [place] % (Auto) 10.8 H Eos % (Auto) 0.6 Baso % (Auto) 0.7 Neut # (Auto) 1.4 L Lymph # (Auto) 0.7 L [place] # (Auto) 0.3 Eos # (Auto) 0.0 Baso # (Auto) 0.0 WBC Differential . Diff Scan Auto diff confirmed Differential Comment . Platelet Estimate Low L Platelet Morphology Normal Ovalocytes 1+ H Sodium 144 Potassium 3.6 Chloride 113 H Carbon Dioxide 20.2 L Anion Gap 11 BUN 9 Creatinine 2.34 H Estimated GFR 25 L Random Glucose 60 L Calcium 7.5 L Phosphorus 1.8 L Magnesium 1.8 Total Bilirubin 0.2 AST 16 ALT 10 Alkaline Phosphatase 33 L Total Protein 5.4 L Albumin 2.9 L - Imaging Abdomen/Bladder Ultrasound 12/16/17 00:00 CONCLUSION: 1. Small echogenic right kidney concerning for medical renal disease. 2. The left kidney could not be visualized on this ultrasound examination. Chest X-Ray 12/16/17 15:42 CONCLUSION: 1. The numbering mid inspiratory exam with increased opacity at the lung bases which may represent increasing infiltrate or be artifactual. 2. The costophrenic angles are blunted bilaterally most characteristic of small effusions. Central Venous Line 12/19/17 00:00 CONCLUSION: - Procedures Vas-Cath placed 12/19/17. Started dialysis Assessment and Plan - Assessment (1) Multiple myeloma Code(s): C90.00 - Multiple myeloma not having achieved remission Status: Acute (2) Diastolic CHF Code(s): I50.30 - Unspecified diastolic (congestive) heart failure Status: Acute - Plan 72 y/o female with a history of multiple myeloma, HLD, and HTN presented to the ED with complaints of worsening edema and sob. Acute CHF exacerbation on possible chronic chf BNP 1350 on admission -Diuresed with Lasix and then switched to Bumex. Now off diuretics. Vas-Cath placed 12/19/17. Started dialysis -Fluid restriction - BP was noted low give albumin q12 hrs Acute renal failure. Patient was multiple myeloma light chain disease. Creatine 4.3, baseline 2.0. Creatinine is improving with HD -Consult nephrology for evaluation -Kidney ultrasound reviewed -Avoid nephrotoxins -Consult nephrology. Continue hemodialysis per nephrology indications - S/P right Internal Jugular Hemodialysis Catheter Non-Tunneled Placement on and started HD OFF HD URINARY RETENTION STRAIGHT CATH PRN Q6H FOR VOLUME GREATER THAN 500ML- WAS NOT ABLE TO BE DONE-- BOWLES IS IN PLACE PER PLACEMENT BY UROLOGY KEEP BOWLES AT THIS TIME Bandemia, 32% bands on admission, suspected pneumonia Bacteremia, viridans strep, low grade. Port infx vs contaminant PCN allergy Cont CFTX 2 gm. DC Daptomycin and azythro. NO need to remove PORT at this time per ID recommendations , ff . Continue Rocephin for 14 days of negative blood culture per ID 2 D echo ID consulted Chest x ray reviewed and shows numbering mid inspiratory exam with increased opacity at the lung bases which may represent increasing infiltrate, and small effusions. -monitor CBC -Lactic acid is back to normal Elevated troponin, likely related due to CHF and elevated creatine r/o ACS Troponin .67 -Serial troponin and ekgs Hypotension, due to diuresis -Albumin IV bid -Monitor vitals Multiple myeloma, chronic -Consult Dr. Arvizu, following -Consult nephrology following. ANEMIA WILL NEED TRANSFUSIONS Constipation. Stool softeners/laxatives as needed. HYPOKALEMIA WILL REPLACE X1 NEEDS TO BE REPLACED AGAIN 8-1 WILL REPLACE AGAIN 8-2 REPLACE AGAIN 8-3 REPLACE AGAIN 8-4 WILL REPLACE AGAIN-PT REFUSED MEDS YESTERDAY HYPERMAG WILL REPLACE AM LABS Anasarca: OFF HD- STILL UE AND LE BL DVT prophylaxis: Heparin Discussed Condition With: Patient, nurse HYPOGLYCEMIA- BEDTIME SNACK DAILY AM LABS DC plan pending improvement With MM worsening kidney function, anoliguric, bacteremia strep viridans , ID, hem/onc and nephrology ff Vas-Cath placed 12/19/17 started dialysis. No need to remove Port per ID. Continue Rocephin for 14 days of negative blood culture per ID Patient improving with HD Code Status: FULL CODE Discussed Condition With: RN AND PT AND FAMILY Discharge Planning: PENDING CLEARANCE BY ALL (2) Diastolic CHF Qualifiers: Heart failure chronicity: acute on chronic Qualified Code(s): I50.33 - Acute on chronic diastolic (congestive) heart failure
--- NOTE | 2017-12-29 17:19 | P.PNNP ---
Subjective Interval history: Patient is alert, sitting on the chair, not in distress. Physical Exam Vital signs: Vital Signs 12/28/17 18:00 12/28/17 19:26 12/28/17 20:59 Temperature 98.6 F Pulse Rate 102 H 101 H 103 H Respiratory Rate 18 Blood Pressure 121/85 Pulse Oximetry 100 12/28/17 23:59 12/29/17 04:00 12/29/17 05:00 Temperature 99.3 F 98.1 F Pulse Rate 101 H 88 Respiratory Rate 18 18 16 Blood Pressure 120/87 104/66 Pulse Oximetry 98 98 12/29/17 07:55 12/29/17 08:00 12/29/17 11:18 Temperature 98.1 F 97.5 F L Pulse Rate 99 H 98 H 98 H Respiratory Rate 14 18 Blood Pressure 115/70 117/83 Pulse Oximetry 97 100 12/29/17 15:29 12/29/17 16:23 Temperature 99.0 F Pulse Rate 123 H 108 H Respiratory Rate 18 Blood Pressure 120/74 Pulse Oximetry 100 Intake & Output 12/28/17 12/29/17 12/29/17 18:59 06:59 18:59 Intake Total 200 / 200 340 / 340 680 / 680 Output Total 850 / 850 700 / 700 700 / 700 Balance -650 / -650 -360 / -360 -20 / -20 Weight 64 kg Intake: IV 200 / 200 100 / 100 100 / 100 Flexbumin 25% Inj 100 ML @ 60 100 / 100 100 / 100 mls/hr IV.SIG Q12H [facility] Rx#: [id number] Magnesium Sulfate 1 gm/D5W 100 100 / 100 ml Premix 100 ML @ 100 mls/hr IV.SIG Q1H [facility] Rx#:[id number] Rocephin Inj 2,000 MG In NS Inj 100 / 100 100 ML @ 200 mls/hr IV.SIG Q24H [facility] Rx#:[id number] Oral 240 / 240 580 / 580 Output: Urine 700 / 700 Urine Amount (Catheter) 850 / 850 700 / 700 Indwelling Urethral Catheter 850 / 850 700 / 700 Other: Date of Last Bowel Movement 12/28/17 12/28/17 # Bowel Movements 2 Narrative: GENERAL: Alert and oriented X 3 SKIN: Warm and dry. Right IJ. Moderate lower extremity edema. HEAD: Atraumatic. Normocephalic. EYES: Pupils equal and round. No scleral icterus. No injection or drainage. NECK: Trachea midline. No JVD. CARDIOVASCULAR: Regular rate and rhythm. RESPIRATORY: No accessory muscle use. Breath clear and equal bilaterally. GASTROINTESTINAL: Abdomen soft, non-tender, nondistended. Hepatic and splenic margins not palpable. MUSCULOSKELETAL: Extremities without clubbing, cyanosis, No obvious deformities. PLUS 3 BL LE AND UE EDEMA bilaterally NEUROLOGICAL: Awake and alert. Normal speech. Insight and judgment is limited Mood and behavior is somewhat appropriate - Urinary Catheter Management Indwelling Urethral Catheter Cath placed during this visit: yes Reason for continuing: Acute urinary retention Insertion date: 12/24/17 Insertion time: 17:00 Assessment and Plan - Plan Patient has advance renal disease and Anasarca, started on HD on 12/19 UOP at 650ml / 24 hours Hypokalemia, replacement has been ordered Poor appetite, nephro added Fluids encouraged Avoid nephrotoxins and maintain strict I+O Continue to monitor renal panel and urinary output. Continue to hold Hemodialysis. Creatinine is now 2.3, stable, K is normal, replaced. If Creatinine continue to improve, will get Vascath removed.
[2017-12-30 05:11] LABS: Baso % (Auto) 0.5 % (0.0-2.0); Eos % (Auto) 0.7 % (0.0-4.0); Hematocrit 27.8 % (35.0-46.0); Hemoglobin 9.3 gm/dL (11.6-15.3); Lymph # (Auto) 1.5 th/mm3 (1.0-4.8); Lymph % (Auto) 41.6 % (9.0-44.0); Mean Corpuscular HGB Conc 33.4 % (32.0-36.0); Mean Corpuscular Volume 86.9 fL (80.0-100.0); Mono # (Auto) 0.3 th/mm3 (0.0-0.9); Mono % (Auto) 9.2 % (0.0-8.0); Neut # (Auto) 1.7 th/mm3 (1.8-7.7); Platelet Count 51 th/mm3 (150-450); Red Cell Distribution Width 17.4 % (11.6-17.2); White Blood Count 3.6 th/mm3 (4.0-11.0)
[2017-12-30 05:28] LABS: Albumin 3.4 g/dL (3.4-5.0); Anion Gap 10 meq/L (5-15); Aspartate Aminotransferase 20 U/L (15-37); Blood Urea Nitrogen 9 mg/dL (7-18); Calcium 8.2 mg/dL (8.5-10.1); Carbon Dioxide 20.5 meq/L (21.0-32.0); Chloride 115 meq/L (98-107); Glomerular Filtration Rate 23 mL/min (>89); Glucose,Random 77 mg/dL (74-106); Magnesium 2.2 mg/dL (1.5-2.5); Potassium 4.2 meq/L (3.5-5.1); Sodium 145 meq/L (136-145)
[2017-12-30 05:31] LABS: Alanine Aminotransferase 12 U/L (10-53); Alkaline Phosphatase 38 U/L (45-117); Phosphorus 1.7 mg/dL (2.5-4.9)
[2017-12-30] MEDS: Potassium Chloride 25 MEQ Effervescent Tablet PO SCH ×2 (08:10→21:28)
[2017-12-30] MEDS: Calcium Carbonate 500 MG Tablet PO SCH (08:10)
--- NOTE | 2017-12-30 11:21 | P.PNONC ---
Subjective Interval history: Afebrile patient sitting up in chair in no obvious distress Patient hoping to go home today as today is her birthday Complains of being cold No other acute complaints Objective Vital Signs/Intake & Output: Vital Signs 12/29/17 11:18 12/29/17 15:29 12/29/17 16:23 Temperature 97.5 F L 99.0 F Pulse Rate 98 H 123 H 108 H Respiratory Rate 18 18 Blood Pressure 117/83 120/74 Pulse Oximetry 100 100 12/29/17 19:18 12/29/17 20:04 12/29/17 23:51 Temperature 98.5 F 99 F Pulse Rate 104 H 100 H 104 H Respiratory Rate 16 18 Blood Pressure 127/86 123/84 Pulse Oximetry 99 100 12/30/17 00:20 12/30/17 03:25 12/30/17 03:53 Temperature 98 F Pulse Rate 98 H 112 H Respiratory Rate 16 16 Blood Pressure 140/98 H Pulse Oximetry 98 12/30/17 04:03 12/30/17 07:25 12/30/17 07:59 Temperature 97.6 F Pulse Rate 101 H 97 H 90 Respiratory Rate 18 Blood Pressure 118/84 Pulse Oximetry 96 Intake & Output 12/29/17 12/30/17 12/30/17 18:59 06:59 18:59 Intake Total 980 / 980 740 / 740 240 / 240 Output Total 700 / 700 850 / 850 Balance 280 / 280 -110 / -110 240 / 240 Weight 139 lb 15.896 oz Intake: IV 400 / 400 100 / 100 Flexbumin 25% Inj 100 ML @ 60 100 / 100 100 / 100 mls/hr IV.SIG Q12H [facility] Rx#: [id number] Magnesium Sulfate 1 gm/D5W 100 100 / 100 ml Premix 100 ML @ 100 mls/hr IV.SIG Q1H [facility] Rx#:[id number] Rocephin Inj 2,000 MG In NS Inj 100 / 100 100 ML @ 200 mls/hr IV.SIG Q24H [facility] Rx#:[id number] Oral 580 / 580 640 / 640 240 / 240 Output: Urine 700 / 700 Urine Amount (Catheter) 850 / 850 Indwelling Urethral Catheter 850 / 850 Other: Date of Last Bowel Movement 12/28/17 12/29/17 # Bowel Movements 2 Result Diagrams: 12/30/17 04:50 12/30/17 04:50 Laboratory Results: Laboratory Results - last 24 hr 12/30/17 12/30/17 04:50 04:50 WBC 3.6 L RBC 3.20 L Hgb 9.3 L Hct 27.8 L MCV 86.9 MCH 29.0 MCHC 33.4 RDW 17.4 H Plt Count 51 L MPV 9.0 Prelim Diff (Auto) Slide review pending Neut % (Auto) 48.0 Lymph % (Auto) 41.6 [place] % (Auto) 9.2 H Eos % (Auto) 0.7 Baso % (Auto) 0.5 Neut # (Auto) 1.7 L Lymph # (Auto) 1.5 [place] # (Auto) 0.3 Eos # (Auto) 0.0 Baso # (Auto) 0.0 WBC Differential . Diff Scan Auto diff confirmed Differential Comment . Sodium 145 Potassium 4.2 Chloride 115 H Carbon Dioxide 20.5 L Anion Gap 10 BUN 9 Creatinine 2.45 H Estimated GFR 23 L Random Glucose 77 Calcium 8.2 L Phosphorus 1.7 L Magnesium 2.2 Total Bilirubin 0.3 AST 20 ALT 12 Alkaline Phosphatase 38 L Total Protein 6.0 L D Albumin 3.4 Medications: Active Medications Generic Name Dose Route Start Last Admin Trade Name Freq PRN Reason Stop Dose Admin Hydrocodone Bitart/Acetaminophen 1 tab 12/17/17 08:32 12/30/17 03:23 [place] 5/325 PO 1 tab Q6H PRN Administration BACK PAIN Benzocaine/Menthol 1 lozenge 12/20/17 21:59 12/26/17 01:48 Cepacol Max Strength BUCCAL 1 lozenge Q4H PRN Administration SORE THROAT Bisacodyl 10 mg 12/16/17 18:42 12/18/17 10:19 Dulcolax Supp RECTAL 10 mg DAILY PRN Administration SEVERE CONSITIPATION Diphenhydramine HCl 25 mg 12/19/17 17:07 12/27/17 05:21 Benadryl PO 25 mg UNSCH PRN Administration SEE LABEL COMMENTS Gentamicin Sulfate 20 mg 12/19/17 17:07 12/23/17 11:37 Gentamicin Inj OTHER 20 mg WITH DIALYSIS PRN Administration Dwell Gentamycin Lock Heparin Sodium (Porcine) 500 unit 12/18/17 18:02 12/20/17 23:40 Heparin Central Flush IV.FLUSH 500 unit PRN PRN Administration Flush infusaport Heparin Sodium (Porcine) 250 unit 12/18/17 18:02 12/28/17 02:24 Heparin Central Flush IV.FLUSH 250 unit PRN PRN Administration Flush Infusapot Heparin Sodium (Porcine) 1,000 units 12/19/17 17:07 12/23/17 11:37 Heparin Inj OTHER 1,000 units WITH DIALYSIS PRN Administration Dwell Heparin to Fill Catheter Albumin Human 100 mls @ 60 mls/hr 12/17/17 11:00 12/30/17 01:36 Flexbumin 25% Inj IV.SIG Infused Q12H [facility] Infusion Ceftriaxone Sodium 2,000 mg/ 100 mls @ 200 mls/hr 12/18/17 15:00 12/29/17 14: 38 Sodium Chloride IV.SIG Infused Q24H [facility] Infusion Potassium Bicarb/Potassium Chloride 50 meq 12/28/17 09:00 12/30/17 08:10 K-Lyte Cl Eff PO 50 meq BID [facility] Administration Potassium Bicarbonate 50 meq 12/29/17 08:46 12/29/17 10:53 Effer-K PO Not Given DAILY [facility] Sodium Chloride 5 ml 12/18/17 18:02 12/24/17 09:23 Ns Flush IV.FLUSH 5 ml PRN PRN Administration Flush Infusaport Temazepam 15 mg 12/16/17 18:42 12/29/17 00:22 Restoril PO 15 mg HS PRN Administration INSOMNIA Objective Remarks: GENERAL: Elderly female sitting up in chair at bedside in no obvious distress SKIN: Warm and dry. Vas-Cath to right neck. [id number] to right upper chest. No oozing noted. HEAD: Normocephalic. EYES: No scleral icterus. No injection or drainage. NECK: Supple, trachea midline. No JVD or lymphadenopathy. CARDIOVASCULAR: Regular rate and rhythm without murmurs. RESPIRATORY: Clear anteriorly. Breathing unlabored at rest. GASTROINTESTINAL: Abdomen soft, non-tender, nondistended. EXTREMITIES: No cyanosis. Bilateral lower extremity with trace edema MUSCULOSKELETAL: Generalized weakness NEUROLOGICAL: No obvious focal deficit. Awake, alert, and oriented x3. 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 Hoff is a 72-year-old female with a diagnosis of IgG kappa light chain multiple myeloma diagnosed originally 2005, status post autologous stem cell transplant in 2009, most recently had been on systemic therapy with Durvalumab, Velcade and dexamethasone. 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 Recommendations: 1. Patient clear for discharge from oncology standpoint 2. Hemodialysis per nephrology. Electrolytes stable. 3. Continue supportive care.
--- NOTE | 2017-12-30 11:44 | P.PNIM ---
Subjective Interval history: F/up MM with light chain disease, SIMON - worsening kidney function, NO URINE OUTPUT, bacteremia strep viridans , hypotension, anasarca Edema in her arms improving some. Less shortness of breath today. Satting well while on room air however she is not ambulating much. Postop in the chair. Had a bowel movement. No nausea or vomiting. Able to eat some food however has decreased appetite. No fever or chills. No dialysis planned for today. Kidney function improving. 7- MAY NEED HD OUTPATIENT DW RN AND PT AND FAMILY IN ROOM AND PATIENT AM LABS WILL BE TRANSFUSED TODAY 7 SEEN IN HEMODIALYSIS PATIENT COMPLAINS OF ABDOMINAL PAIN HAS BLADDER FULL OF 1000ML OF URINE WILL STRAIGHT CATH PRN DW RN AND PT AND CM NEEDS OXYGEN 2L NO NAUSEA NO VOMITING 7 HAD BOWLES PLACED HAVING GOOD URINE OUTPUT DW RN AND PT AND FAMILY AND CM AND NEPHROLOGY AM LABS REPLACE POTASSIUM 8-1 [address] HAS BOWLES IN PL[address] HAVING GOOD URINE OUTPUT DW RN AND PT AND CM AND FAMILY INCREASE ACTIVITY REPLACE POTASSIUM AM LABS 8-2 [address] BOWLES [address] DW RN AND PT REPLACE POTASSIUM AM LABS INCREASE ACTIVITY TO GET ALBUMIN TODAY 8-3 STILL HAS BOWLES IN PLACE REPLACE POTASSIUM AGAIN INCREASE ACTIVITY STILL HAS LOTS OF EDEMA HAS THROMBOCYTOPENIA NEEDS A BEDTIME SNACK 8-4 PATIENT HAS NOT BEEN COMPLIANT TAKING HER POTASSIUM REPLACEMENT DW RN AND PT AND FAMILY NEEDS TO TAKE HER MEDICATIONS SO THE POTASSIUM WILL REMAIN STABLE AM LABS 8-5 WILL REPLACE MAG AND POTASSIUM DW RN AND PT STILL WITH LOTS OF ANASARCA 8-6 POTASSIUM IS GOOD TODAY STILL LOTS ON ANASARCA RENAL FUNCTIONS ABOUT THE SAME DW RN AND PT AND CM AND ONCOLOGY STILL HAS VAS CATH IN PLACE Physical Exam Vital signs: Vital Signs 12/29/17 15:29 12/29/17 16:23 12/29/17 19:18 Temperature 99.0 F 98.5 F Pulse Rate 123 H 108 H 104 H Respiratory Rate 18 16 Blood Pressure 120/74 127/86 Pulse Oximetry 100 99 12/29/17 20:04 12/29/17 23:51 12/30/17 00:20 Temperature 99 F Pulse Rate 100 H 104 H 98 H Respiratory Rate 18 Blood Pressure 123/84 Pulse Oximetry 100 12/30/17 03:25 12/30/17 03:53 12/30/17 04:03 Temperature 98 F Pulse Rate 112 H 101 H Respiratory Rate 16 16 Blood Pressure 140/98 H Pulse Oximetry 98 12/30/17 07:25 12/30/17 07:59 Temperature 97.6 F Pulse Rate 97 H 90 Respiratory Rate 18 Blood Pressure 118/84 Pulse Oximetry 96 Intake & Output 12/29/17 12/30/17 12/30/17 18:59 06:59 18:59 Intake Total 980 / 980 740 / 740 240 / 240 Output Total 700 / 700 850 / 850 Balance 280 / 280 -110 / -110 240 / 240 Weight 63.5 kg Intake: IV 400 / 400 100 / 100 Flexbumin 25% Inj 100 ML @ 60 100 / 100 100 / 100 mls/hr IV.SIG Q12H KARLENE Rx#: [id number] Magnesium Sulfate 1 gm/D5W 100 100 / 100 ml Premix 100 ML @ 100 mls/hr IV.SIG Q1H KARLENE Rx#:[id number] Rocephin Inj 2,000 MG In NS Inj 100 / 100 100 ML @ 200 mls/hr IV.SIG Q24H KARLENE Rx#:[id number] Oral 580 / 580 640 / 640 240 / 240 Output: Urine 700 / 700 Urine Amount (Catheter) 850 / 850 Indwelling Urethral Catheter 850 / 850 Other: Date of Last Bowel Movement 12/28/17 12/29/17 # Bowel Movements 2 Narrative: GENERAL: Alert and oriented X 3 SKIN: Warm and dry. Right IJ. Moderate lower extremity edema. HEAD: Atraumatic. Normocephalic. EYES: Pupils equal and round. No scleral icterus. No injection or drainage. NECK: Trachea midline. No JVD. CARDIOVASCULAR: Regular rate and rhythm. RESPIRATORY: No accessory muscle use. Breath clear and equal bilaterally. RIGHT SIDE VASCATH AND PORT GASTROINTESTINAL: Abdomen soft, non-tender, nondistended. Hepatic and splenic margins not palpable. MUSCULOSKELETAL: Extremities without clubbing, cyanosis, No obvious deformities. PLUS 3 BL LE AND UE EDEMA bilaterally NEUROLOGICAL: Awake and alert. Normal speech. Insight and judgment is limited Mood and behavior is somewhat appropriate - Urinary Catheter Management Indwelling Urethral Catheter Cath placed during this visit: yes Reason for continuing: Acute urinary retention Insertion date: 12/24/17 Insertion time: 17:00 Results - Labs CBC & Chem 7: 12/30/17 04:50 12/30/17 04:50 Laboratory Results - last 24 hr 12/30/17 12/30/17 04:50 04:50 WBC 3.6 L RBC 3.20 L Hgb 9.3 L Hct 27.8 L MCV 86.9 MCH 29.0 MCHC 33.4 RDW 17.4 H Plt Count 51 L MPV 9.0 Prelim Diff (Auto) Slide review pending Neut % (Auto) 48.0 Lymph % (Auto) 41.6 [place] % (Auto) 9.2 H Eos % (Auto) 0.7 Baso % (Auto) 0.5 Neut # (Auto) 1.7 L Lymph # (Auto) 1.5 [place] # (Auto) 0.3 Eos # (Auto) 0.0 Baso # (Auto) 0.0 WBC Differential . Diff Scan Auto diff confirmed Differential Comment . Sodium 145 Potassium 4.2 Chloride 115 H Carbon Dioxide 20.5 L Anion Gap 10 BUN 9 Creatinine 2.45 H Estimated GFR 23 L Random Glucose 77 Calcium 8.2 L Phosphorus 1.7 L Magnesium 2.2 Total Bilirubin 0.3 AST 20 ALT 12 Alkaline Phosphatase 38 L Total Protein 6.0 L D Albumin 3.4 - Procedures Vas-Cath placed 12/19/17. Started dialysis Assessment and Plan - Assessment (1) Multiple myeloma Code(s): C90.00 - Multiple myeloma not having achieved remission Status: Acute (2) Diastolic CHF Code(s): I50.30 - Unspecified diastolic (congestive) heart failure Status: Acute - Plan 72 y/o female with a history of multiple myeloma, HLD, and HTN presented to the ED with complaints of worsening edema and sob. Acute CHF exacerbation on possible chronic chf BNP 1350 on admission -Diuresed with Lasix and then switched to Bumex. Now off diuretics. Vas-Cath placed 12/19/17. Started dialysis -Fluid restriction - BP was noted low give albumin q12 hrs Acute renal failure. Patient was multiple myeloma light chain disease. Creatine 4.3, baseline 2.0. Creatinine is improving with HD -Consult nephrology for evaluation -Kidney ultrasound reviewed -Avoid nephrotoxins -Consult nephrology. Continue hemodialysis per nephrology indications - S/P right Internal Jugular Hemodialysis Catheter Non-Tunneled Placement on and started HD OFF HD URINARY RETENTION STRAIGHT CATH PRN Q6H FOR VOLUME GREATER THAN 500ML- WAS NOT ABLE TO BE DONE-- BOWLES IS IN PLACE PER PLACEMENT BY UROLOGY KEEP BOWLES AT THIS TIME STILL HAS BOWLES Bandemia, 32% bands on admission, suspected pneumonia Bacteremia, viridans strep, low grade. Port infx vs contaminant PCN allergy Cont CFTX 2 gm. DC Daptomycin and azythro. NO need to remove PORT at this time per ID recommendations , ff . Continue Rocephin for 14 days of negative blood culture per ID 2 D echo ID consulted Chest x ray reviewed and shows numbering mid inspiratory exam with increased opacity at the lung bases which may represent increasing infiltrate, and small effusions. -monitor CBC -Lactic acid is back to normal Elevated troponin, likely related due to CHF and elevated creatine r/o ACS Troponin .67 -Serial troponin and ekgs Hypotension, due to diuresis -Albumin IV bid -Monitor vitals Multiple myeloma, chronic -Consult Dr. Arvizu, following -Consult nephrology following. ANEMIA WILL NEED TRANSFUSIONS Constipation. Stool softeners/laxatives as needed. HYPOKALEMIA WILL REPLACE X1 NEEDS TO BE REPLACED AGAIN 8-1 WILL REPLACE AGAIN 8-2 REPLACE AGAIN 8-3 REPLACE AGAIN 8-4 WILL REPLACE AGAIN-PT REFUSED MEDS YESTERDAY 8-6 FINAL STABLE HYPERMAG WILL REPLACE STABLE AM LABS Anasarca: OFF HD- STILL UE AND LE BL DVT prophylaxis: Heparin Discussed Condition With: Patient, nurse HYPOGLYCEMIA- BEDTIME SNACK DAILY AM LABS DC plan pending improvement With MM worsening kidney function, anoliguric, bacteremia strep viridans , ID, hem/onc and nephrology ff Vas-Cath placed 12/19/17 started dialysis. No need to remove Port per ID. Continue Rocephin for 14 days of negative blood culture per ID Patient improving with HD Code Status: FULL CODE Discussed Condition With: RN AND PT AND FAMILY AND CM AND ONCOLOGY Discharge Planning: PENDING CLEARANCE BY ALL (2) Diastolic CHF Qualifiers: Heart failure chronicity: acute on chronic Qualified Code(s): I50.33 - Acute on chronic diastolic (congestive) heart failure
[2017-12-30] MEDS: Potassium Bicarbonate 25 MEQ Effervescent Tablet PO SCH (11:45)
[2017-12-30] MEDS: Albumin Human 25% Inj 100 ML IV.SIG SCH ×2 (12:38→23:58)
--- NOTE | 2017-12-30 15:12 | P.PNNP ---
Subjective Interval history: Resting comfortably in chair. Creatinine at 2.45 today. Wants vas cath removed. <BarbDee - Last Filed: 12/30/17 15:08> Physical Exam Vital signs: Vital Signs 12/29/17 15:29 12/29/17 16:23 12/29/17 19:18 Temperature 99.0 F 98.5 F Pulse Rate 123 H 108 H 104 H Respiratory Rate 18 16 Blood Pressure 120/74 127/86 Pulse Oximetry 100 99 12/29/17 20:04 12/29/17 23:51 12/30/17 00:20 Temperature 99 F Pulse Rate 100 H 104 H 98 H Respiratory Rate 18 Blood Pressure 123/84 Pulse Oximetry 100 12/30/17 03:25 12/30/17 03:53 12/30/17 04:03 Temperature 98 F Pulse Rate 112 H 101 H Respiratory Rate 16 16 Blood Pressure 140/98 H Pulse Oximetry 98 12/30/17 07:25 12/30/17 07:59 12/30/17 11:00 Temperature 97.6 F Pulse Rate 97 H 90 96 H Respiratory Rate 18 Blood Pressure 118/84 Pulse Oximetry 96 12/30/17 12:00 Temperature 98.2 F Pulse Rate 107 H Respiratory Rate 20 Blood Pressure 121/55 L Pulse Oximetry 96 Intake & Output 12/29/17 12/30/17 12/30/17 18:59 06:59 18:59 Intake Total 980 / 980 740 / 740 340 / 340 Output Total 700 / 700 850 / 850 Balance 280 / 280 -110 / -110 340 / 340 Weight 63.5 kg Intake: IV 400 / 400 100 / 100 100 / 100 Flexbumin 25% Inj 100 ML @ 60 100 / 100 100 / 100 100 / 100 mls/hr IV.SIG Q12H KARLENE Rx#: [id number] Magnesium Sulfate 1 gm/D5W 100 100 / 100 ml Premix 100 ML @ 100 mls/hr IV.SIG Q1H KARLENE Rx#:[id number] Rocephin Inj 2,000 MG In NS Inj 100 / 100 100 ML @ 200 mls/hr IV.SIG Q24H KARLENE Rx#:[id number] Oral 580 / 580 640 / 640 240 / 240 Output: Urine 700 / 700 Urine Amount (Catheter) 850 / 850 Indwelling Urethral Catheter 850 / 850 Other: Date of Last Bowel Movement 12/28/17 12/29/17 # Bowel Movements 2 Narrative: GENERAL: Alert and oriented X 3 SKIN: Warm and dry. Right IJ vas cath HEAD: Atraumatic. Normocephalic. EYES: Pupils equal and round. No scleral icterus. No injection or drainage. NECK: Trachea midline. No JVD. CARDIOVASCULAR: Regular rate and rhythm. Lower extremity and tight dependent edema. RESPIRATORY: No accessory muscle use. Breath clear and equal bilaterally. GASTROINTESTINAL: Abdomen soft, non-tender, nondistended. MUSCULOSKELETAL: Extremities without clubbing, cyanosis, No obvious deformities. I - Urinary Catheter Management Indwelling Urethral Catheter Cath placed during this visit: yes Reason for continuing: Acute urinary retention Insertion date: 12/24/17 Insertion time: 17:00 <Dee Day - Last Filed: 12/30/17 15:08> Vital signs: Vital Signs 12/30/17 23:00 12/31/17 00:00 12/31/17 03:00 Temperature 98.1 F Pulse Rate 98 H 102 H 95 H Respiratory Rate 16 Blood Pressure 138/90 Pulse Oximetry 100 12/31/17 04:00 12/31/17 07:43 12/31/17 11:54 Temperature 97.5 F L 98.6 F 98.4 F Pulse Rate 88 100 H 101 H Respiratory Rate 18 16 16 Blood Pressure 94/62 L 111/76 132/88 Pulse Oximetry 100 100 99 12/31/17 15:59 12/31/17 20:32 Temperature 99.1 F Pulse Rate 86 88 Respiratory Rate 14 16 Blood Pressure 117/80 118/76 Pulse Oximetry 100 98 Intake & Output 12/31/17 12/31/17 01/01/18 06:59 18:59 06:59 Intake Total 820 / 820 580 / 580 Output Total 950 / 950 550 / 550 Balance -130 / -130 30 / 30 Weight 63.5 kg Intake: IV 100 / 100 100 / 100 Flexbumin 25% Inj 100 ML @ 60 100 / 100 mls/hr IV.SIG Q12H KARLENE Rx#: [id number] Rocephin Inj 2,000 MG In NS Inj 100 / 100 100 ML @ 200 mls/hr IV.SIG Q24H KARLENE Rx#:[id number] Oral 720 / 720 480 / 480 Output: Urine Amount (Catheter) 950 / 950 550 / 550 Indwelling Urethral Catheter 950 / 950 550 / 550 Other: Date of Last Bowel Movement 12/29/17 # Bowel Movements 1 - Urinary Catheter Management Indwelling Urethral Catheter Cath placed during this visit: no <Sallie Shields - Last Filed: 12/31/17 21:17> Assessment and Plan - Plan Patient has advance renal disease and Anasarca, started on HD on 12/19 Fluids encouraged Avoid nephrotoxins and maintain strict I+O Continue to monitor renal panel and urinary output. Continue to hold Hemodialysis. Creatinine is now 2.45, if creatinine improves in AM will remove vas cath. Patient is anxious to be discharged, will need to be followed closely by nephrology outpatient. <Dee Day - Last Filed: 12/30/17 15:08> - Assessment (1) Acute kidney failure Code(s): N17.9 - Acute kidney failure, unspecified Status: Acute - Attending Attestation Patient seen and examined, agree with above. Creatinine still elevated, if better or stable, will get Vascath removed. <Sallie Shields - Last Filed: 12/31/17 21:17>
[2017-12-30] MEDS: Temazepam 15 MG Capsule PO PRN (23:58)
[2017-12-31] MEDS: Heparin Central Flush 100 UNIT/ML 5 ML Vial IV.FLUSH PRN (05:45)
[2017-12-31 06:10] LABS: Baso % (Auto) 0.8 % (0.0-2.0); Eos % (Auto) 1.1 % (0.0-4.0); Hematocrit 25.5 % (35.0-46.0); Hemoglobin 8.5 gm/dL (11.6-15.3); Lymph # (Auto) 0.7 th/mm3 (1.0-4.8); Lymph % (Auto) 37.8 % (9.0-44.0); Mean Corpuscular HGB Conc 33.3 % (32.0-36.0); Mean Corpuscular Hemoglobin 29.3 pg (27.0-34.0); Mean Platelet Volume 9.2 fL (7.0-11.0); Mono # (Auto) 0.2 th/mm3 (0.0-0.9); Mono % (Auto) 12.8 % (0.0-8.0); Neut # (Auto) 0.9 th/mm3 (1.8-7.7); Neut % (Auto) 47.5 % (16.0-70.0); Platelet Count 47 th/mm3 (150-450); Red Cell Distribution Width 17.4 % (11.6-17.2); White Blood Count 1.9 th/mm3 (4.0-11.0)
[2017-12-31 06:31] LABS: Albumin 3.1 g/dL (3.4-5.0); Anion Gap 11 meq/L (5-15); Aspartate Aminotransferase 17 U/L (15-37); Blood Urea Nitrogen 11 mg/dL (7-18); Calcium 8.2 mg/dL (8.5-10.1); Carbon Dioxide 21.5 meq/L (21.0-32.0); Chloride 115 meq/L (98-107); Glomerular Filtration Rate 22 mL/min (>89); Glucose,Random 64 mg/dL (74-106); Magnesium 2.1 mg/dL (1.5-2.5); Potassium 3.8 meq/L (3.5-5.1); Sodium 147 meq/L (136-145)
[2017-12-31 06:33] LABS: Alanine Aminotransferase 11 U/L (10-53)
[2017-12-31 06:34] LABS: Alkaline Phosphatase 37 U/L (45-117); Total Protein 5.6 g/dL (6.4-8.2)
[2017-12-31 07:51] LABS: Lymphocytes 38 % (9-44); Monocytes 8 % (0-8)
[2017-12-31 07:52] LABS: Ovalocytes 1+; Platelet Morphology Normal (Normal); Tear Drop Cells 1+
[2017-12-31] MEDS: Potassium Bicarbonate 25 MEQ Effervescent Tablet PO SCH (08:01)
[2017-12-31] MEDS: Calcium Carbonate 500 MG Tablet PO SCH (08:06)
[2017-12-31] MEDS: Potassium Chloride 25 MEQ Effervescent Tablet PO SCH ×2 (08:06→20:38)
--- NOTE | 2017-12-31 09:26 | P.PNIM ---
Subjective Interval history: F/up MM with light chain disease, SIMON - worsening kidney function, NO URINE OUTPUT, bacteremia strep viridans , hypotension, anasarca Edema in her arms improving some. Less shortness of breath today. Satting well while on room air however she is not ambulating much. Postop in the chair. Had a bowel movement. No nausea or vomiting. Able to eat some food however has decreased appetite. No fever or chills. No dialysis planned for today. Kidney function improving. 7- MAY NEED HD OUTPATIENT DW RN AND PT AND FAMILY IN ROOM AND PATIENT AM LABS WILL BE TRANSFUSED TODAY 7 SEEN IN HEMODIALYSIS PATIENT COMPLAINS OF ABDOMINAL PAIN HAS BLADDER FULL OF 1000ML OF URINE WILL STRAIGHT CATH PRN DW RN AND PT AND CM NEEDS OXYGEN 2L NO NAUSEA NO VOMITING 7 HAD BOWLES PLACED HAVING GOOD URINE OUTPUT DW RN AND PT AND FAMILY AND CM AND NEPHROLOGY AM LABS REPLACE POTASSIUM 8-1 STILL HAS BOWLES IN PLACE HAVING GOOD URINE OUTPUT DW RN AND PT AND CM AND FAMILY INCREASE ACTIVITY REPLACE POTASSIUM AM LABS 8-2 STILL HAS BOWLES IN PLACE DW RN AND PT REPLACE POTASSIUM AM LABS INCREASE ACTIVITY TO GET ALBUMIN TODAY 8-3 STILL HAS BOWLES IN PLACE REPLACE POTASSIUM AGAIN INCREASE ACTIVITY STILL HAS LOTS OF EDEMA HAS THROMBOCYTOPENIA NEEDS A BEDTIME SNACK 8-4 PATIENT HAS NOT BEEN COMPLIANT TAKING HER POTASSIUM REPLACEMENT DW RN AND PT AND FAMILY NEEDS TO TAKE HER MEDICATIONS SO THE POTASSIUM WILL REMAIN STABLE AM LABS 8-5 WILL REPLACE MAG AND POTASSIUM DW RN AND PT STILL WITH LOTS OF ANASARCA 8-6 POTASSIUM IS GOOD TODAY STILL LOTS ON ANASARCA RENAL FUNCTIONS ABOUT THE SAME DW RN AND PT AND CM AND ONCOLOGY STILL HAS VAS CATH IN PLACE = 12/31. Patient says she is feeling better. Still with anasarca. Vas-Cath still in place. Would like to go home. Denies any chest pain. Physical Exam Vital signs: Vital Signs 12/30/17 11:00 12/30/17 12:00 12/30/17 15:00 Temperature 98.2 F Pulse Rate 96 H 107 H 108 H Respiratory Rate 20 Blood Pressure 121/55 L Pulse Oximetry 96 12/30/17 15:27 12/30/17 19:00 12/30/17 20:00 Temperature 98.8 F 98.7 F Pulse Rate 94 H 116 H 101 H Respiratory Rate 18 18 Blood Pressure 113/73 125/85 Pulse Oximetry 96 100 08/06/18 23:00 12/31/17 00:00 12/31/17 03:00 Temperature 98.1 F Pulse Rate 98 H 102 H 95 H Respiratory Rate 16 Blood Pressure 138/90 Pulse Oximetry 100 12/31/17 04:00 12/31/17 07:43 Temperature 97.5 F L 98.6 F Pulse Rate 88 100 H Respiratory Rate 18 16 Blood Pressure 94/62 L 111/76 Pulse Oximetry 100 100 Intake & Output 12/30/17 12/31/17 12/31/17 18:59 06:59 18:59 Intake Total 1640 / 1640 820 / 820 Output Total 5000 / 5000 950 / 950 Balance -3360 / -3360 -130 / -130 Weight 63.5 kg Intake: IV 200 / 200 100 / 100 Flexbumin 25% Inj 100 ML @ 60 100 / 100 100 / 100 mls/hr IV.SIG Q12H KARLENE Rx#: [id number] Rocephin Inj 2,000 MG In NS Inj 100 / 100 100 ML @ 200 mls/hr IV.SIG Q24H KARLENE Rx#:[id number] Oral 1440 / 1440 720 / 720 Output: Urine 1000 / 1000 Hemodialysis Amount 3000 / 3000 Urine Amount (Catheter) 1000 / 1000 950 / 950 Indwelling Urethral Catheter 1000 / 1000 950 / 950 Other: Date of Last Bowel Movement 12/29/17 12/29/17 Narrative: GENERAL: Patient sitting up in chair. Appears comfortable. SKIN: Warm and dry. HEAD: Normocephalic. EYES: No scleral icterus. No injection or drainage. NECK: Supple, trachea midline. No JVD . CARDIOVASCULAR: Regular rate and rhythm without murmurs, gallops, or rubs. RESPIRATORY: Breath sounds equal bilaterally. No accessory muscle use. GASTROINTESTINAL: Abdomen soft, non-tender, nondistended. MUSCULOSKELETAL: No cyanosis, or edema. 2+ bilateral lower extremity edema. BACK: Nontender without obvious deformity. No CVA tenderness. Bowles in place with clear straw-colored urine - Urinary Catheter Management Indwelling Urethral Catheter Cath placed during this visit: yes Reason for continuing: Acute urinary retention Insertion date: 12/24/17 Insertion time: 17:00 Results - Labs CBC & Chem 7: 12/31/17 05:42 12/31/17 05:42 Laboratory Results - last 24 hr 12/31/17 12/31/17 05:42 05:42 WBC 1.9 L RBC 2.90 L Hgb 8.5 L Hct 25.5 L MCV 88.0 MCH 29.3 MCHC 33.3 RDW 17.4 H Plt Count 47 L MPV 9.2 Prelim Diff (Auto) Slide review pending Neut % (Auto) 47.5 Lymph % (Auto) 37.8 [place] % (Auto) 12.8 H Eos % (Auto) 1.1 Baso % (Auto) 0.8 Neut # (Auto) 0.9 L Lymph # (Auto) 0.7 L [place] # (Auto) 0.2 Eos # (Auto) 0.0 Baso # (Auto) 0.0 WBC Differential Manual diff final Seg Neuts % (Manual) 50 Lymphocytes % (Manual) 38 Monocytes % (Manual) 8 Basophils % (Manual) 4 H Abs Neuts (Manual) 1.0 L Differential Comment . Platelet Estimate Low L Platelet Morphology Normal Tear Drop Cells 1+ H Ovalocytes 1+ H Sodium 147 H Potassium 3.8 Chloride 115 H Carbon Dioxide 21.5 Anion Gap 11 BUN 11 Creatinine 2.56 H Estimated GFR 22 L Random Glucose 64 L Calcium 8.2 L Phosphorus 2.0 L Magnesium 2.1 Total Bilirubin 0.3 AST 17 ALT 11 Alkaline Phosphatase 37 L Total Protein 5.6 L Albumin 3.1 L - Procedures Vas-Cath placed 12/19/17. Started dialysis Assessment and Plan - Assessment (1) Multiple myeloma Code(s): C90.00 - Multiple myeloma not having achieved remission Status: Acute (2) Diastolic CHF Code(s): I50.30 - Unspecified diastolic (congestive) heart failure Status: Acute - Plan =11/30/17 //Chronic renal failure. Creatinine slightly elevated today from yesterday. 2.54. Vas-Cath in place but holding dialysis. Appreciate nephrology assistance. //Hypernatremia. Sodium 147. As per nephrology. //Urinary retention. Continue with Bowles. Follow-up with neurology as outpatient. //Hypertension. Will stop albumin //Strep bacteremia - -as per ID cont CFTX 2 gm x 14 days from 1st negative BC. Discontinue antibiotics tomorrow Discharge. Cleared by oncology. Await nephrology clearance PT recommends home with home health 72 y/o female with a history of multiple myeloma, HLD, and HTN presented to the ED with complaints of worsening edema and sob. //Acute CHF exacerbation on possible chronic chf BNP 1350 on admission -Diuresed with Lasix and then switched to Bumex. Now off diuretics. Vas-Cath placed 12/19/17. Started dialysis -Fluid restriction - BP was noted low give albumin q12 hrs = 12/31 //Acute renal failure. Patient was multiple myeloma light chain disease. Creatine 4.3, baseline 2.0. Creatinine is improving with HD -Consult nephrology for evaluation -Kidney ultrasound reviewed -Avoid nephrotoxins -Consult nephrology. Continue hemodialysis per nephrology indications - S/P right Internal Jugular Hemodialysis Catheter Non-Tunneled Placement on and started HD OFF HD //URINARY RETENTION STRAIGHT CATH PRN Q6H FOR VOLUME GREATER THAN 500ML- WAS NOT ABLE TO BE DONE-- BOWLES IS IN PLACE PER PLACEMENT BY UROLOGY KEEP BOWLES AT THIS TIME STILL HAS BOWLES //Bandemia, 32% bands on admission, suspected pneumonia ////Bacteremia, viridans strep, low grade. Port infx vs contaminant PCN allergy Cont CFTX 2 gm. DC Daptomycin and azythro. NO need to remove PORT at this time per ID recommendations , ff . Continue Rocephin for 14 days of negative blood culture per ID 2 D echo ID consulted Chest x ray reviewed and shows numbering mid inspiratory exam with increased opacity at the lung bases which may represent increasing infiltrate, and small effusions. -monitor CBC -Lactic acid is back to normal //Elevated troponin, likely related due to CHF and elevated creatine r/o ACS Troponin .67 -Serial troponin and ekgs //Hypotension, due to diuresis -Albumin IV bid -Monitor vitals //Multiple myeloma, chronic -Consult Dr. Arvizu, following -Consult nephrology following. //ANEMIA //Constipation. Stool softeners/laxatives as needed. //HYPOKALEMIA WILL REPLACE X1 NEEDS TO BE REPLACED AGAIN 8-1 WILL REPLACE AGAIN 8-2 REPLACE AGAIN 8-3 REPLACE AGAIN 8-4 WILL REPLACE AGAIN-PT REFUSED MEDS YESTERDAY 8-6 FINAL STABLE //HYPERMAG WILL REPLACE STABLE AM LABS //Anasarca: OFF HD- STILL UE AND LE BL //DVT prophylaxis: Heparin Discussed Condition With: Patient, nurse HYPOGLYCEMIA- BEDTIME SNACK DAILY AM LABS Discharge Planning: DC plan pending improvement With MM worsening kidney function, anoliguric, bacteremia strep viridans , ID, hem/onc and nephrology ff Vas-Cath placed 12/19/17 started dialysis. No need to remove Port per ID. Continue Rocephin for 14 days of negative blood culture per ID Patient improving with HD = 12/31. Blood pressure may be artificially supported by albumin. Discontinuing albumin. Assessing response. Awaiting nephrology clearance. (2) Diastolic CHF Qualifiers: Heart failure chronicity: acute on chronic Qualified Code(s): I50.33 - Acute on chronic diastolic (congestive) heart failure
--- NOTE | 2017-12-31 09:40 | P.PNNP ---
Subjective Interval history: Requesting to be discharged home. Creatinine has increased at 2.56. Continues to have good urinary output. <Dee Day - Last Filed: 12/31/17 12:12> Physical Exam Vital signs: Vital Signs 12/30/17 11:00 12/30/17 12:00 12/30/17 15:00 Temperature 98.2 F Pulse Rate 96 H 107 H 108 H Respiratory Rate 20 Blood Pressure 121/55 L Pulse Oximetry 96 12/30/17 15:27 12/30/17 19:00 12/30/17 20:00 Temperature 98.8 F 98.7 F Pulse Rate 94 H 116 H 101 H Respiratory Rate 18 18 Blood Pressure 113/73 125/85 Pulse Oximetry 96 100 12/30/17 23:00 12/31/17 00:00 12/31/17 03:00 Temperature 98.1 F Pulse Rate 98 H 102 H 95 H Respiratory Rate 16 Blood Pressure 138/90 Pulse Oximetry 100 12/31/17 04:00 12/31/17 07:43 Temperature 97.5 F L 98.6 F Pulse Rate 88 100 H Respiratory Rate 18 16 Blood Pressure 94/62 L 111/76 Pulse Oximetry 100 100 Intake & Output 12/30/17 12/31/17 12/31/17 18:59 06:59 18:59 Intake Total 1640 / 1640 820 / 820 Output Total 5000 / 5000 950 / 950 Balance -3360 / -3360 -130 / -130 Weight 63.5 kg Intake: IV 200 / 200 100 / 100 Flexbumin 25% Inj 100 ML @ 60 100 / 100 100 / 100 mls/hr IV.SIG Q12H [facility] Rx#: [id number] Rocephin Inj 2,000 MG In NS Inj 100 / 100 100 ML @ 200 mls/hr IV.SIG Q24H [facility] Rx#:[id number] Oral 1440 / 1440 720 / 720 Output: Urine 1000 / 1000 Hemodialysis Amount 3000 / 3000 Urine Amount (Catheter) 1000 / 1000 950 / 950 Indwelling Urethral Catheter 1000 / 1000 950 / 950 Other: Date of Last Bowel Movement 12/29/17 12/29/17 Narrative: GENERAL:Alert and oriented SKIN: Warm and dry. Right IJ vas cath HEAD: Normocephalic. EYES: No scleral icterus. No injection or drainage. NECK: Supple, trachea midline. No JVD . CARDIOVASCULAR: Regular rate and rhythm without murmurs, gallops, or rubs. RESPIRATORY: Breath sounds equal bilaterally. No accessory muscle use. GASTROINTESTINAL: Abdomen soft, non-tender, nondistended. GENITOURINARY: Indwelling vizcarra catheter. MUSCULOSKELETAL: No cyanosis, or edema. 2+ bilateral lower extremity edema. BACK: Nontender without obvious deformity. No CVA tenderness. - Urinary Catheter Management Indwelling Urethral Catheter Cath placed during this visit: yes Reason for continuing: Acute urinary retention Insertion date: 12/24/17 Insertion time: 17:00 <Dee Day - Last Filed: 12/31/17 12:12> Vital signs: Vital Signs 12/30/17 23:00 12/31/17 00:00 12/31/17 03:00 Temperature 98.1 F Pulse Rate 98 H 102 H 95 H Respiratory Rate 16 Blood Pressure 138/90 Pulse Oximetry 100 12/31/17 04:00 12/31/17 07:43 12/31/17 11:54 Temperature 97.5 F L 98.6 F 98.4 F Pulse Rate 88 100 H 101 H Respiratory Rate 18 16 16 Blood Pressure 94/62 L 111/76 132/88 Pulse Oximetry 100 100 99 12/31/17 15:59 12/31/17 20:32 Temperature 99.1 F Pulse Rate 86 88 Respiratory Rate 14 16 Blood Pressure 117/80 118/76 Pulse Oximetry 100 98 Intake & Output 12/31/17 12/31/17 01/01/18 06:59 18:59 06:59 Intake Total 820 / 820 580 / 580 Output Total 950 / 950 550 / 550 Balance -130 / -130 30 / 30 Weight 63.5 kg Intake: IV 100 / 100 100 / 100 Flexbumin 25% Inj 100 ML @ 60 100 / 100 mls/hr IV.SIG Q12H [facility] Rx#: [id number] Rocephin Inj 2,000 MG In NS Inj 100 / 100 100 ML @ 200 mls/hr IV.SIG Q24H [facility] Rx#:[id number] Oral 720 / 720 480 / 480 Output: Urine Amount (Catheter) 950 / 950 550 / 550 Indwelling Urethral Catheter 950 / 950 550 / 550 Other: Date of Last Bowel Movement 12/29/17 # Bowel Movements 1 - Urinary Catheter Management Indwelling Urethral Catheter Cath placed during this visit: no <Sallie Shields - Last Filed: 12/31/17 21:18> Assessment and Plan - Assessment (1) Acute kidney failure Code(s): N17.9 - Acute kidney failure, unspecified Status: Acute Plan: Patient has advance renal disease and Anasarca, started on HD on 12/19 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 Avoid nephrotoxins Continue to monitor renal panel and urinary output. Continue to hold Hemodialysis. Creatinine is now 2.56, if creatinine improves in AM will remove vas cath. Patient is anxious to be discharged, will need to be followed closely by nephrology outpatient. <Dee Day - Last Filed: 12/31/17 12:12> - Assessment (1) Acute kidney failure Code(s): N17.9 - Acute kidney failure, unspecified Status: Acute - Attending Attestation Patient seen and examined, agree with above. Creatinine increase slightly, told to drink more fluid. HD on hold, if Creatinine is better, will D/C Vascath. <Sallie Shields - Last Filed: 12/31/17 21:18>
[2017-12-31 20:38] VITALS: RESP 16
[2017-12-31] MEDS: Temazepam 15 MG Capsule PO PRN (22:06)
[2018-01-01 08:16] VITALS: BP 113/72; PULSE 95; TEMP 99.1; O2SAT 96
[2018-01-01] MEDS: Potassium Chloride 25 MEQ Effervescent Tablet PO SCH (08:17)
[2018-01-01] MEDS: Potassium Bicarbonate 25 MEQ Effervescent Tablet PO SCH (08:17)
[2018-01-01] MEDS: Calcium Carbonate 500 MG Tablet PO SCH (08:17)
[2018-01-01 08:50] LABS: Baso % (Auto) 0.8 % (0.0-2.0); Eos # (Auto) 0.1 th/mm3 (0.0-0.4); Eos % (Auto) 1.7 % (0.0-4.0); Hematocrit 28.5 % (35.0-46.0); Hemoglobin 9.6 gm/dL (11.6-15.3); Lymph # (Auto) 1.4 th/mm3 (1.0-4.8); Lymph % (Auto) 49.9 % (9.0-44.0); Mean Corpuscular HGB Conc 33.8 % (32.0-36.0); Mean Corpuscular Hemoglobin 29.7 pg (27.0-34.0); Mean Corpuscular Volume 88.1 fL (80.0-100.0); Mean Platelet Volume 9.2 fL (7.0-11.0); Mono # (Auto) 0.4 th/mm3 (0.0-0.9); Mono % (Auto) 12.3 % (0.0-8.0); Neut % (Auto) 35.3 % (16.0-70.0); Platelet Count 53 th/mm3 (150-450); Red Blood Count 3.23 mil/mm3 (4.00-5.30); Red Cell Distribution Width 17.4 % (11.6-17.2); White Blood Count 2.9 th/mm3 (4.0-11.0)
[2018-01-01 09:11] LABS: Calcium 8.4 mg/dL (8.5-10.1); Carbon Dioxide 21.9 meq/L (21.0-32.0); Potassium 3.8 meq/L (3.5-5.1)
--- NOTE | 2018-01-01 10:55 | P.PNIM ---
Subjective Interval history: Patient says she is feeling all right. Denies any chest pain or shortness of breath. Would like to go home. Physical Exam Vital signs: Vital Signs 12/31/17 11:54 12/31/17 15:59 12/31/17 20:04 Temperature 98.4 F Pulse Rate 101 H 86 89 Respiratory Rate 16 14 Blood Pressure 132/88 117/80 Pulse Oximetry 99 100 12/31/17 20:32 12/31/17 23:43 01/01/18 00:04 Temperature 99.1 F 98.6 F Pulse Rate 88 98 H 98 H Respiratory Rate 16 16 Blood Pressure 118/76 109/76 Pulse Oximetry 98 99 01/01/18 03:00 01/01/18 04:00 01/01/18 08:00 Temperature 98.4 F 99.1 F Pulse Rate 95 H 85 95 H Respiratory Rate 16 16 Blood Pressure 120/80 113/72 Pulse Oximetry 99 96 Intake & Output 12/31/17 01/01/18 01/01/18 18:59 06:59 18:59 Intake Total 580 / 580 200 / 200 Output Total 550 / 550 600 / 600 Balance 30 / 30 -400 / -400 Weight 63.7 kg Intake: IV 100 / 100 Rocephin Inj 2,000 MG In NS Inj 100 / 100 100 ML @ 200 mls/hr IV.SIG Q24H [facility] Rx#:[id number] Oral 480 / 480 200 / 200 Output: Urine 400 / 400 Urine Amount (Catheter) 550 / 550 200 / 200 Indwelling Urethral Catheter 550 / 550 200 / 200 Other: Date of Last Bowel Movement 12/31/17 # Bowel Movements 1 Narrative: GENERAL: Patient sitting up in chair. Appears comfortable. SKIN: Warm and dry. HEAD: Normocephalic. EYES: No scleral icterus. No injection or drainage. NECK: Supple, trachea midline. No JVD. CARDIOVASCULAR: Regular rate and rhythm without murmurs, gallops, or rubs. RESPIRATORY: Breath sounds equal bilaterally. No accessory muscle use. GASTROINTESTINAL: Abdomen soft, non-tender, nondistended. MUSCULOSKELETAL: No cyanosis 2+ bilateral lower extremity edema. BACK: Nontender without obvious deformity. No CVA tenderness. - Urinary Catheter Management Indwelling Urethral Catheter Cath placed during this visit: yes Reason for continuing: Chronic Urinary Retention Insertion date: 12/24/17 Insertion time: 17:00 Results - Labs CBC & Chem 7: 01/01/18 08:15 01/01/18 08:15 Laboratory Results - last 24 hr 01/01/18 01/01/18 08:15 08:15 WBC 2.9 L RBC 3.23 L Hgb 9.6 L Hct 28.5 L MCV 88.1 MCH 29.7 MCHC 33.8 RDW 17.4 H Plt Count 53 L MPV 9.2 Prelim Diff (Auto) Auto diff final Neut % (Auto) 35.3 Lymph % (Auto) 49.9 H [place] % (Auto) 12.3 H Eos % (Auto) 1.7 Baso % (Auto) 0.8 Neut # (Auto) 1.0 L Lymph # (Auto) 1.4 [place] # (Auto) 0.4 Eos # (Auto) 0.1 Baso # (Auto) 0.0 WBC Differential . Differential Comment . Sodium 145 Potassium 3.8 Chloride 113 H Carbon Dioxide 21.9 Anion Gap 10 BUN 10 Creatinine 2.58 H Estimated GFR 22 L Random Glucose 58 L Calcium 8.4 L - Procedures Vas-Cath placed 12/19/17. Started dialysis Assessment and Plan - Assessment (1) Multiple myeloma Code(s): C90.00 - Multiple myeloma not having achieved remission Status: Acute (2) Diastolic CHF Code(s): I50.30 - Unspecified diastolic (congestive) heart failure Status: Acute - Plan =12/01/17 //Chronic renal failure. Currently in stable 2.58 from yesterday 2.56. Discussed with nephrology. Okay to remove Vas-Cath. Follow-up with nephrology as outpatient. //Hypernatremia. Resolved. Sodium 145. As per nephrology. //Bilateral lower extremity edema. Leon wraps. Patient and instructed on Leon wrap use at home. //Urinary retention. Continue with Bowles. Follow-up with urology as outpatient. //Hypotension. Blood pressure stable today off of albumin. //Strep bacteremia - -as per ID cont CFTX 2 gm x 14 days from 1st negative BC. Discontinue antibiotics. Discharge. Cleared by oncology. cleared by nephrology .PT recommends home with home health 72 y/o female with a history of multiple myeloma, HLD, and HTN presented to the ED with complaints of worsening edema and sob. //Acute CHF exacerbation on possible chronic chf BNP 1350 on admission -Diuresed with Lasix and then switched to Bumex. Now off diuretics. Vas-Cath placed 12/19/17. Started dialysis -Fluid restriction - BP was noted low give albumin q12 hrs //Acute renal failure. Patient was multiple myeloma light chain disease. Creatine 4.3, baseline 2.0. Creatinine is improving with HD -Consult nephrology for evaluation -Kidney ultrasound reviewed -Avoid nephrotoxins -Consult nephrology. Continue hemodialysis per nephrology indications - S/P right Internal Jugular Hemodialysis Catheter Non-Tunneled Placement on and started HD OFF HD //URINARY RETENTION STRAIGHT CATH PRN Q6H FOR VOLUME GREATER THAN 500ML- WAS NOT ABLE TO BE DONE-- BOWLES IS IN PLACE PER PLACEMENT BY UROLOGY KEEP BOWLES AT THIS TIME STILL HAS BOWLES //Bandemia, 32% bands on admission, suspected pneumonia ////Bacteremia, viridans strep, low grade. Port infx vs contaminant PCN allergy Cont CFTX 2 gm. DC Daptomycin and azythro. NO need to remove PORT at this time per ID recommendations , ff . Continue Rocephin for 14 days of negative blood culture per ID 2 D echo ID consulted Chest x ray reviewed and shows numbering mid inspiratory exam with increased opacity at the lung bases which may represent increasing infiltrate, and small effusions. -monitor CBC -Lactic acid is back to normal //Elevated troponin, likely related due to CHF and elevated creatine r/o ACS Troponin .67 -Serial troponin and ekgs //Hypotension, due to diuresis -Albumin IV bid -Monitor vitals //Multiple myeloma, chronic -Consult Dr. Arvizu, following -Consult nephrology following. //ANEMIA //Constipation. Stool softeners/laxatives as needed. //HYPOKALEMIA WILL REPLACE X1 NEEDS TO BE REPLACED AGAIN 8-1 WILL REPLACE AGAIN 8-2 REPLACE AGAIN 8-3 REPLACE AGAIN 8-4 WILL REPLACE AGAIN-PT REFUSED MEDS YESTERDAY 8-6 FINAL STABLE //HYPERMAG WILL REPLACE STABLE AM LABS //Anasarca: OFF HD- STILL UE AND LE BL //DVT prophylaxis: Heparin Discharge Planning: Discharge. Cleared by oncology. cleared by nephrology. Continue Bowles and follow with urology as outpatient..PT recommends home with home health (2) Diastolic CHF Qualifiers: Heart failure chronicity: acute on chronic Qualified Code(s): I50.33 - Acute on chronic diastolic (congestive) heart failure
--- NOTE | 2018-01-01 10:58 | P.DCO ---
- Physical Therapy Order: Evaluate and treat - Occupational Therapy Order: Evaluate and treat - Home Health Nursing Order: Medical education, Nursing assessment with vital signs Instructions: Patient will need Leon wraps to bilateral lower extremities, elevation of bilateral lower extremities for treatment of dependent edema Patient will need monitoring of right neck vascular access site. Will need dry dressings, monitoring. - Certification I have seen patient Odilia Hoff on 01/01/18. My clinical findings support the need for the requested home health care services because: Limited ability to care for self I certify that my clinical findings support that this patient is homebound because: Unsafe to leave home unassisted
--- NOTE | 2018-01-01 11:02 | P.PNNP ---
Subjective Interval history: Up out of bed in chair. Denies any shortness of breath. Edema has improved, mild lower extremity edema noted. <Dee Day - Last Filed: 01/01/18 10:57> Physical Exam Vital signs: Vital Signs 12/31/17 11:54 12/31/17 15:59 12/31/17 20:04 Temperature 98.4 F Pulse Rate 101 H 86 89 Respiratory Rate 16 14 Blood Pressure 132/88 117/80 Pulse Oximetry 99 100 12/31/17 20:32 12/31/17 23:43 01/01/18 00:04 Temperature 99.1 F 98.6 F Pulse Rate 88 98 H 98 H Respiratory Rate 16 16 Blood Pressure 118/76 109/76 Pulse Oximetry 98 99 01/01/18 03:00 01/01/18 04:00 01/01/18 08:00 Temperature 98.4 F 99.1 F Pulse Rate 95 H 85 95 H Respiratory Rate 16 16 Blood Pressure 120/80 113/72 Pulse Oximetry 99 96 Intake & Output 12/31/17 01/01/18 01/01/18 18:59 06:59 18:59 Intake Total 580 / 580 200 / 200 Output Total 550 / 550 600 / 600 Balance 30 / 30 -400 / -400 Weight 63.7 kg Intake: IV 100 / 100 Rocephin Inj 2,000 MG In NS Inj 100 / 100 100 ML @ 200 mls/hr IV.SIG Q24H [facility] Rx#:[id number] Oral 480 / 480 200 / 200 Output: Urine 400 / 400 Urine Amount (Catheter) 550 / 550 200 / 200 Indwelling Urethral Catheter 550 / 550 200 / 200 Other: Date of Last Bowel Movement 12/31/17 # Bowel Movements 1 Narrative: GENERAL: Patient sitting up in chair. Appears comfortable. SKIN: Warm and dry. HEAD: Normocephalic. EYES: No scleral icterus. No injection or drainage. NECK: Supple, trachea midline. No JVD. CARDIOVASCULAR: Regular rate and rhythm without murmurs, gallops, or rubs. Vas cath right IJ RESPIRATORY: Breath sounds equal bilaterally. No accessory muscle use. GASTROINTESTINAL: Abdomen soft, non-tender, nondistended. MUSCULOSKELETAL: No cyanosis 2+ bilateral lower extremity edema. BACK: Nontender without obvious deformity. No CVA tenderness. - Urinary Catheter Management Indwelling Urethral Catheter Cath placed during this visit: yes Reason for continuing: Chronic Urinary Retention Insertion date: 12/24/17 Insertion time: 17:00 <Dee Day - Last Filed: 01/01/18 10:57> Vital signs: Vital Signs 12/31/17 23:43 01/01/18 00:04 01/01/18 03:00 Temperature 98.6 F Pulse Rate 98 H 98 H 95 H Respiratory Rate 16 Blood Pressure 109/76 Pulse Oximetry 99 01/01/18 04:00 01/01/18 08:00 Temperature 98.4 F 99.1 F Pulse Rate 85 95 H Respiratory Rate 16 16 Blood Pressure 120/80 113/72 Pulse Oximetry 99 96 Intake & Output 01/01/18 01/01/18 01/02/18 06:59 18:59 06:59 Intake Total 200 / 200 Output Total 600 / 600 Balance -400 / -400 Weight 63.7 kg Intake: Oral 200 / 200 Output: Urine 400 / 400 Urine Amount (Catheter) 200 / 200 Indwelling Urethral Catheter 200 / 200 Other: Date of Last Bowel Movement 12/31/17 # Bowel Movements 1 - Urinary Catheter Management Indwelling Urethral Catheter Cath placed during this visit: no <Sallie Shields - Last Filed: 01/01/18 21:25> Assessment and Plan - Assessment (1) Acute kidney failure Code(s): N17.9 - Acute kidney failure, unspecified Status: Acute Plan: Patient has advance renal disease and Anasarca, started on HD on 12/19 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 Urinary output at 750ml/24 hours Avoid nephrotoxins Per nephrology stand point patient can be discharged home. Will need to follow up outpatient with nephrology. Recommend follow up appt in [address] order to remove vas cath. <Dee Day - Last Filed: 01/01/18 10:57> - Assessment (1) Acute kidney failure Code(s): N17.9 - Acute kidney failure, unspecified Status: Acute - Attending Attestation Patient seen and examined, agree with above. Creatinine is stable, for D/C Vascath. D/C home and to follow as out patient in 2-3 weeks. <Jumani,Daniel Q - Last Filed: 01/01/18 21:25>
--- NOTE | 2018-01-01 11:11 | P.DS ---
Date of admission: 12/16/17 18:51 Primary care physician: Justin Anthony DO Brief History from admission: 72 y/o female with a history of multiple myeloma, HLD, and HTN presented to the ED with complaints of worsening edema and sob. Patient states she was at her oncology appointment today and due to her symptoms she was unable to receive her treatment. She states on Saturday she began to have increased edema and shortness of breath, she states labs were done in oncology but results were never given. She denies any associated chest pain, but is complaining of stabbing, intermittent 8/10, back pain with no radiation and with decreased urination. Pain is slightly better with pain medication. DS: Diagnosis - Discharge Diagnosis (1) Multiple myeloma Status: Acute (2) Diastolic CHF Status: Acute DS: Summary Hospital Course: Patient presented with acute kidney injury, urinary obstruction, elevation in BNP up to 1300, bilateral pleural effusions. Echocardiogram showed EF of 50%, with mitral regurgitation.. This improved with dialysis, placement of Bowles. Creatinine eventually remained stable off of dialysis at 2.58, and Vas-Cath was removed. Will be discharged home on home Lasix, however potassium replacement will be held for now. Patient has bilateral lower extremity edema which will be managed with Leon wraps. Repeat labs as outpatient every 4 to consultants. Patient will need to follow-up with oncology, nephrology, urology, with referral to cardiology as outpatient. Patient was also found to have strep bacteremia for which infectious disease was consulted, patient managed on IV vancomycin to complete 14 day course. Infectious disease does not recommend removal of port. For problem based summary from most recent progress note, please see below. =12/01/17 //Chronic renal failure. Currently in stable 2.58 from yesterday 2.56. Discussed with nephrology. Okay to remove Vas-Cath. Follow-up with nephrology as outpatient. //Hypernatremia. Resolved. Sodium 145. As per nephrology. //Bilateral lower extremity edema. Leon wraps. Patient and instructed on Leon wrap use at home. //Urinary retention. Continue with Bowles. Follow-up with urology as outpatient. //Hypotension. Blood pressure stable today off of albumin. //Strep bacteremia - -as per ID cont CFTX 2 gm x 14 days from negative BC. Discontinue antibiotics. Discharge. Cleared by oncology. cleared by nephrology .PT recommends home with home health 72 y/o female with a history of multiple myeloma, HLD, and HTN presented to the ED with complaints of worsening edema and sob. //Acute CHF exacerbation on possible chronic chf BNP 1350 on admission -Diuresed with Lasix and then switched to Bumex. Now off diuretics. Vas-Cath placed 12/19/17. Started dialysis -Fluid restriction - BP was noted low give albumin q12 hrs //Acute renal failure. Patient was multiple myeloma light chain disease. Creatine 4.3, baseline 2.0. Creatinine is improving with HD -Consult nephrology for evaluation -Kidney ultrasound reviewed -Avoid nephrotoxins -Consult nephrology. Continue hemodialysis per nephrology indications - S/P right Internal Jugular Hemodialysis Catheter Non-Tunneled Placement on and started HD OFF HD //URINARY RETENTION STRAIGHT CATH PRN Q6H FOR VOLUME GREATER THAN 500ML- WAS NOT ABLE TO BE DONE-- BOWLES IS IN PLACE PER PLACEMENT BY UROLOGY KEEP BOWLES AT THIS TIME STILL HAS BOWLES //Bandemia, 32% bands on admission, suspected pneumonia ////Bacteremia, viridans strep, low grade. Port infx vs contaminant PCN allergy Cont CFTX 2 gm. DC Daptomycin and azythro. NO need to remove PORT at this time per ID recommendations , ff . Continue Rocephin for 14 days of negative blood culture per ID 2 D echo ID consulted Chest x ray reviewed and shows numbering mid inspiratory exam with increased opacity at the lung bases which may represent increasing infiltrate, and small effusions. -monitor CBC -Lactic acid is back to normal //Elevated troponin, likely related due to CHF and elevated creatine r/o ACS Troponin .67 -Serial troponin and ekgs //Hypotension, due to diuresis -Albumin IV bid -Monitor vitals //Multiple myeloma, chronic -Consult Dr. Arvizu, following -Consult nephrology following. //ANEMIA //Constipation. Stool softeners/laxatives as needed. //HYPOKALEMIA WILL REPLACE X1 NEEDS TO BE REPLACED AGAIN 8-1 WILL REPLACE AGAIN 8-2 REPLACE AGAIN 8-3 REPLACE AGAIN 8-4 WILL REPLACE AGAIN-PT REFUSED MEDS YESTERDAY 8-6 FINAL STABLE //HYPERMAG WILL REPLACE STABLE AM LABS //Anasarca: OFF HD- STILL UE AND LE BL //DVT prophylaxis: Heparin Discharge Planning: Discharge. Cleared by oncology. cleared by nephrology. Continue Bowles and follow with urology as outpatient..PT recommends home with home health - Time Spent with Patient Total time spent providing and/or coordinating discharge services: Greater than 30 minutes - Quality: VTE Deep Vein Thrombosis/Pulmonary Embolism Present on Admission: No Exam Vital signs: Vital Signs 12/31/17 11:54 12/31/17 15:59 12/31/17 20:04 Temperature 98.4 F Pulse Rate 101 H 86 89 Respiratory Rate 16 14 Blood Pressure 132/88 117/80 Pulse Oximetry 99 100 12/31/17 20:32 12/31/17 23:43 01/01/18 00:04 Temperature 99.1 F 98.6 F Pulse Rate 88 98 H 98 H Respiratory Rate 16 16 Blood Pressure 118/76 109/76 Pulse Oximetry 98 99 01/01/18 03:00 01/01/18 04:00 01/01/18 08:00 Temperature 98.4 F 99.1 F Pulse Rate 95 H 85 95 H Respiratory Rate 16 16 Blood Pressure 120/80 113/72 Pulse Oximetry 99 96 Intake & Output 12/31/17 01/01/18 01/01/18 18:59 06:59 18:59 Intake Total 580 / 580 200 / 200 Output Total 550 / 550 600 / 600 Balance 30 / 30 -400 / -400 Weight 63.7 kg Intake: IV 100 / 100 Rocephin Inj 2,000 MG In NS Inj 100 / 100 100 ML @ 200 mls/hr IV.SIG Q24H [facility] Rx#:[id number] Oral 480 / 480 200 / 200 Output: Urine 400 / 400 Urine Amount (Catheter) 550 / 550 200 / 200 Indwelling Urethral Catheter 550 / 550 200 / 200 Other: Date of Last Bowel Movement 12/31/17 # Bowel Movements 1 Results Procedures completed during hospitalization: Vas-Cath placed 12/19/17. Started dialysis Vas-Cath removed Labs on day of discharge: Labs from last 24 hours 01/01/18 01/01/18 08:15 08:15 WBC 2.9 L RBC 3.23 L Hgb 9.6 L Hct 28.5 L MCV 88.1 MCH 29.7 MCHC 33.8 RDW 17.4 H Plt Count 53 L MPV 9.2 Prelim Diff (Auto) Auto diff final Neut % (Auto) 35.3 Lymph % (Auto) 49.9 H [place] % (Auto) 12.3 H Eos % (Auto) 1.7 Baso % (Auto) 0.8 Neut # (Auto) 1.0 L Lymph # (Auto) 1.4 [place] # (Auto) 0.4 Eos # (Auto) 0.1 Baso # (Auto) 0.0 WBC Differential . Differential Comment . Sodium 145 Potassium 3.8 Chloride 113 H Carbon Dioxide 21.9 Anion Gap 10 BUN 10 Creatinine 2.58 H Estimated GFR 22 L Random Glucose 58 L Calcium 8.4 L - Impressions ITS Impressions Abdomen/Bladder Ultrasound 12/16/17 00:00 CONCLUSION: 1. Small echogenic right kidney concerning for medical renal disease. 2. The left kidney could not be visualized on this ultrasound examination. Chest X-Ray 12/16/17 15:42 CONCLUSION: 1. The numbering mid inspiratory exam with increased opacity at the lung bases which may represent increasing infiltrate or be artifactual. 2. The costophrenic angles are blunted bilaterally most characteristic of small effusions. Central Venous Line 12/19/17 00:00 CONCLUSION: Discharge Plan - Discharge Disposition Patient Disposition: Disch /Home Health Service - Discharge Condition Condition: Stable - Discharge Order Discharge Orders: Discharge Order (Routine); Ordered 01/01/18 Ordered By: Sebastián Chu - Discharge Details Anticipated Discharge Date: 01/01/18 - Physicians Team Primary Care Provider: Justin Anthony Attending Provider: Sebastián Chu Other Providers: Neo Arvizu MD ; Sallie Shields MD ; Taj Vang Alexandra, MD ; Brijesh Lofton MD
== END 2018-01-01 12:29 | disposition home health service (06) ==
LOC: NEPC 15:09 → NEDA 18:51 → HCIN 12-17 02:30 → HCIS 12-17 18:31 → HCIN 12-28 17:44
PROVIDERS: ADMIT Internal Medicine; ATTEND Internal Medicine

== ENCOUNTER 2018-03-17 13:23 | Inpatient (IN) ==
[2018-03-17] MEDS ORDERED: Sod Chloride 0.9% Inj 1,000 ML IV.SIG ONE (15:27)
--- NOTE | 2018-03-17 16:07 | ED ---
HPI General Chief complaint: Dizziness Stated complaint: dehydration Time Seen by Provider: 03/17/18 15:06 Source: patient, family and RN notes reviewed Mode of arrival: ambulatory History of Present Illness HPI narrative: 72yF presenting with hypotension and weakness. The patient has a history of multiple myeloma and CKD, follows with Dr. Shields of nephrology, and had an office visit today where she was found to be hypotensive and had low potassium (2.1) on labs so she was sent to the ED. The patient's family reports that the patient has had nausea, vomiting, and diarrhea for several weeks as well. No known fevers or chills, chest pain, shortness of breath, or palpitations. The patient receives visiting nurse services from [facility] but is not a hospice patient as per children. Related Data Home Medications Medication Instructions Recorded Confirmed furosemide [Lasix] 20 mg PO DAILY 11/23/17 03/17/18 ondansetron [Zofran ODT] 4 mg PO Q6-8H PRN 11/23/17 03/17/18 hydrocodone-acetaminophen [[place]] 1 - 2 tab PO Q4H PRN 03/17/18 03/17/18 lorazepam [Ativan] 0.5 - 1 mg PO Q4HR PRN 03/17/18 03/17/18 sennosides 8.6 mg PO BID PRN 03/17/18 03/17/18 sulfamethoxazole-trimethoprim 1 tab PO Q12H 03/17/18 03/17/18 [Bactrim DS] zolpidem [Ambien] 5 mg PO HS PRN 03/17/18 03/17/18 Previous Rx's Medication Instructions Recorded aspirin 162 mg CHEW DAILY tab 11/27/17 Allergies Allergy/AdvReac Type Severity Reaction Status Date / Time Penicillins Allergy Intermediate Hives Verified 12/16/17 15:21 Review of Systems ROS: all other systems reviewed are negative Constitutional Denies fever(s) Eyes Denies blurry vision ENT Denies nasal congestion Cardiovascular Denies chest pain Respiratory Denies cough Gastrointestinal Denies abdominal pain, Reports diarrhea, Reports nausea and Reports vomiting Genitourinary Denies dysuria Musculoskeletal Denies back pain Neurologic Denies confusion Psychiatric Denies confusion PMFSH History History Provided By: Patient Medical History Medical History Cardiac amyloidosis (Acute) Hypercholesteremia (Acute) Hypertension (Acute) 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) Multiple myeloma (Acute) Nephrotic range proteinuria (Acute) Surgical History Surgical History History of hysterectomy (Acute) Port-A-Cath in place (Acute) Family History Family History Other No pertinent family history Social History Social History Substance History: No History of Abuse Second Hand Smoke Exposure: No Smoking Status: Never smoker How Often Do You Have a Drink Containing Alcohol: Never Recent Travel in [facility] within the Last 8 Weeks: No Recent Out of Country Travel within the Last 8 Weeks: No Immunization History Tetanus Immunization: Unsure Exam Const General: frail appearing HENAL Head: normocephalic and atraumatic Face and sinus: normal facial exam Other: Mucosa dry Eyes General: appearance normal, both eyes and all related structures Pupils: PERRL Chest Other: Port present in right upper chest Resp Effort & Inspection: normal respiratory effort Auscultation: no rhonchi and no wheezes Cardio Rate: regular rate Rhythm: regular rhythm GI Other: Soft and non-tender in all quadrants, no guarding or rebound Other: Stool brown, guaiac negative Skin General: no rashes or lesions noted Neuro General: alert, awake, oriented x3 and no focal motor deficits Psych Affect: normal affect Procedures Hemaprompt Stool Procedural Steps Taken: specimen placed in appropriate test area, developer placed on specimen and control areas and controls appropriately positive and negative Hemaprompt Stool Result: negative Course Initial Documented Vital Signs Temperature 98.0 F 03/17/18 13:44 Pulse Rate 100 H 03/17/18 13:44 Respiratory Rate 16 03/17/18 13:44 Blood Pressure 78/44 L 03/17/18 13:44 Last Documented Vital Signs Temperature 98.0 F 03/17/18 13:44 Pulse Rate 82 03/17/18 18:00 Respiratory Rate 16 03/17/18 18:00 Blood Pressure 84/51 L 03/17/18 18:00 Pulse Oximetry 98 03/17/18 18:00 Critical Care Time Critical Care Time: Yes Total Critical Care Time: 32 Attestation: Counseling/ Coordination of Care: Total critical care time 32 minutes. This includes examining and stabilizing the patient, gathering a history from a source other than the patient (i.e., chart review, family), formulating a differential diagnosis, ordering and interpreting laboratory tests and EKG, ordering and interpreting radiology tests , discussing the patient's care with other providers ([facility]), transfusion of blood products, re-evaluation at frequent intervals, and documentation. Amount of time is separate from teaching, counseling the patient and/or family, and exclusive of procedures. Medical Decision Making MDM Narrative Medical decision making narrative: Assessment: 72yF presenting with weakness, N/V/D, hypotension Plan: EKG and monitor IV fluids Labs, including K+ and Mg++ CT abd/ pelvis (non-contrast) Addendum: Patient found to have hemoglobin of 6.3 and platelets of 27K, guaiac negative, no acute abnormalities on CT scan. Her creatinine is 7.89 (up from 6.2 several days ago). MAP is now around 65 after 1500 cc bolus. The patient consented for blood transfusion and I have ordered 1U PRBCs and 1U platelets. I explained these results to the patient and her family as well as plan to keep her in the hospital; they understand and agree. Case discussed with Dr. Krishna of [facility]. Medical Screen Exam Complete: Yes Emergency Medical Condition: Yes Differential Diagnosis Differential Diagnosis: Differential diagnosis includes, but is not limited to: dehydration, electrolyte abnormality, anemia, arrhythmia, colitis, diverticulitis, UTI Medical Records Medical records reviewed: Yes I reviewed the patient's medical records. Lab Data Lab results reviewed: Yes I reviewed the patient's lab results. Result diagrams: 03/17/18 16:38 03/17/18 15:30 Lab Results 03/17/18 03/17/18 Range/Units 15:30 16:38 WBC 2.1 L (4.0-11.0) th/mm3 RBC 2.08 L (4.00-5.30) mil/mm3 Hgb 6.3 L* (11.6-15.3) gm/dL Hct 19.0 L* (35.0-46.0) % MCV 91.3 (80.0-100.0) fL MCH 30.2 (27.0-34.0) pg MCHC 33.1 (32.0-36.0) % RDW 19.9 H (11.6-17.2) % Plt Count 27 L D (150-450) th/mm3 MPV 9.2 (7.0-11.0) fL Prelim Diff (Auto) Slide review pending Neut % (Auto) 71.2 H (16.0-70.0) % Lymph % (Auto) 8.9 L (9.0-44.0) % Haakon % (Auto) 17.8 H (0.0-8.0) % Eos % (Auto) 0.8 (0.0-4.0) % Baso % (Auto) 1.3 (0.0-2.0) % Neut # (Auto) 1.5 L (1.8-7.7) th/mm3 Lymph # (Auto) 0.2 L (1.0-4.8) th/mm3 Haakon # (Auto) 0.4 (0.0-0.9) th/mm3 Eos # (Auto) 0.0 (0.0-0.4) th/mm3 Baso # (Auto) 0.0 (0.0-0.2) th/mm3 WBC Differential Manual diff final Seg Neuts % (Manual) 58 (16-70) % Band Neuts % (Manual) 1 (0-6) % Lymphocytes % (Manual) 34 (9-44) % Monocytes % (Manual) 6 (0-8) % Basophils % (Manual) 1 (0-2) % Abs Neuts (Manual) 1.2 L (1.8-7.7) th/mm3 Differential Comment . Platelet Estimate Low L (Normal) Platelet Morphology Normal (Normal) RBC Morphology Normal (Normal) Sodium 133 L (136-145) meq/L Potassium 3.6 (3.5-5.1) meq/L Chloride 100 (98-107) meq/L Carbon Dioxide 17.7 L (21.0-32.0) meq/L Anion Gap 15 (5-15) meq/L BUN 55 H (7-18) mg/dL Creatinine 7.89 H (0.50-1.00) mg/dL Estimated GFR 6 L (>89) mL/min Random Glucose 51 L (74-106) mg/dL Calcium 6.8 L* (8.5-10.1) mg/dL Prot Corrected Calcium 7.7 L (8.5-10.1) mg/dL Magnesium 2.5 (1.5-2.5) mg/dL Total Bilirubin 0.2 (0.2-1.0) mg/dL AST 63 H (15-37) U/L ALT 21 (10-53) U/L Alkaline Phosphatase 47 (45-117) U/L Total Protein 5.4 L D (6.4-8.2) g/dL Albumin 1.0 L (3.4-5.0) g/dL Lipase 454 H (73-393) U/L Imaging Data Radiologist's impression: Abdomen/Pelvis CT 03/17/18 15:27 CONCLUSION: 1. Moderate bilateral pleural effusions. 2. Very small amount of ascites adjacent to the liver and deep in the pelvis. Insufficient for paracentesis. 3. Anasarca. 4. Diffuse osteopenia with lucencies throughout the bony structures consistent with a patient with a history of multiple myeloma. Evidence of previous kyphoplasty' s. ECG Data Attestation: I personally reviewed and interpreted this ECG as follows: Interpretation: Rate: 92 BPM Rhythm: Sinus (sinus arrhthmia vs infrequent PACs) Queen: Normal Intervals: Normal intervals, no blocks, QTc 405 ms Q waves: V2, III T waves: Inverted in V3-V5 ST segments: No elevations or depressions Impression: Non-specific EKG, no changes as compared to EKG from 12/16/2017. Discharge Plan Physicians Team ED Provider: Aline Khan Primary Care Provider: Primary Care PhysiciFátima Rxs /Orders / Referrals /Forms Prescriptions: No Action furosemide [Lasix] 20 mg Tablet 20 mg PO DAILY RF: 0 ondansetron [Zofran ODT] 4 mg Tablet,Disintegrating 4 mg PO Q6-8H PRN (Reason: Nausea) RF: 0 aspirin 81 mg Tablet,Chewable 162 mg CHEW DAILY RF: 0 sennosides 8.6 mg Tablet 8.6 mg PO BID PRN (Reason: Constipation) RF: 0 hydrocodone-acetaminophen [[place]] 5-325 mg Tablet 1 - 2 tab PO Q4H PRN (Reason: Pain) RF: 0 sulfamethoxazole-trimethoprim [Bactrim DS] 800-160 mg Tablet 1 tab PO Q12H RF: 0 lorazepam [Ativan] 0.5 mg Tablet 0.5 - 1 mg PO Q4HR PRN (Reason: Anxiety) RF: 0 zolpidem [Ambien] 5 mg Tablet 5 mg PO HS PRN (Reason: Insomnia) RF: 0 Discharge Interventions Interventions: Vital Signs Last Done: 03/17/18 18:00 Status ED Status: With Doctor
[2018-03-17] MEDS ORDERED: Sodium Chlor 0.9% Inj 500 ML IV.SIG ONE (16:38)
[2018-03-17 16:50] LABS: Baso % (Auto) 1.3 % (0.0-2.0); Eos % (Auto) 0.8 % (0.0-4.0); Lymph # (Auto) 0.2 th/mm3 (1.0-4.8); Lymph % (Auto) 8.9 % (9.0-44.0); Mean Corpuscular HGB Conc 33.1 % (32.0-36.0); Mean Corpuscular Hemoglobin 30.2 pg (27.0-34.0); Mean Corpuscular Volume 91.3 fL (80.0-100.0); Mean Platelet Volume 9.2 fL (7.0-11.0); Mono # (Auto) 0.4 th/mm3 (0.0-0.9); Mono % (Auto) 17.8 % (0.0-8.0); Neut # (Auto) 1.5 th/mm3 (1.8-7.7); Neut % (Auto) 71.2 % (16.0-70.0); Platelet Count 27 th/mm3 (150-450); Red Blood Count 2.08 mil/mm3 (4.00-5.30); Red Cell Distribution Width 19.9 % (11.6-17.2); White Blood Count 2.1 th/mm3 (4.0-11.0)
[2018-03-17 16:54] LABS: Calcium 6.8 mg/dL (8.5-10.1); Carbon Dioxide 17.7 meq/L (21.0-32.0); Magnesium 2.5 mg/dL (1.5-2.5); Potassium 3.6 meq/L (3.5-5.1); Total Protein 5.4 g/dL (6.4-8.2)
[2018-03-17 16:54] LABS: Hemoglobin 6.3 gm/dL (11.6-15.3)
[2018-03-17 17:30] LABS: Lymphocytes 34 % (9-44); Monocytes 6 % (0-8)
[2018-03-17 17:31] LABS: Platelet Morphology Normal (Normal); RBC Morphology Normal (Normal)
--- NOTE | 2018-03-17 17:36 | CT ---
EXAM DATE: 03/17/2018 3:33 PM EDT AGE/SEX: 72 years / Female INDICATIONS: Abdominal pain, diarrhea, fluid retention. CLINICAL DATA: This is the patient's initial encounter. Patient reports that signs and symptoms have been present for 1 day and indicates a pain score of 3/10. MEDICAL/SURGICAL HISTORY: Hypertension. Multiple myeloma. Hysterectomy. Kyphoplasty. RADIATION DOSE: 8.77 CTDI (mGy) COMPARISON: [facility], CT ABDOMEN AND PELVIS W/O CONTRAST, 02/18/2015. . TECHNIQUE: Multiple contiguous axial images were obtained through the abdomen. Images were obtained using multiple row detector helical technique. Using automated exposure control and adjustment of the mA and/or kV according to patient size, radiation dose was kept as low as reasonably achievable to o btain optimal diagnostic quality images. DICOM format image data is available electronically for rev iew and comparison. Lack of IV contrast limits the diagnosis for certain organ pathology. FINDINGS: Lower Lungs: There is a least moderate bilateral pleural effusions. There is compressive atelectasis in both lung bases. Liver: The liver has a homogeneous density without space-occupying lesion. There is no dilation of th e biliary tree. Gallbladder is grossly unremarkable. There is a small amount of ascites adjacent to t he liver. Spleen: Homogeneous density without enlargement. Pancreas: Limited visualization but grossly unremarkable. Kidneys: Normal in size and shape. No evidence of mass or hydronephrosis. No calcified renal stones. Adrenal Glands: Unremarkable. Aorta: Atherosclerotic changes. No definite aneurysmal dilatation. Bowel/Mesentery: The bowel loops are grossly unremarkable. The cecum and sigmoid colon have a normal configuration. There is some stool in the colon. There is a small amount of ascites deep in the pelv is. Abdominal Wall: There is nonspecific edema in the abdominal wall consistent with anasarca. Retroperitoneum: No evidence of adenopathy in the retrocrural, para-aortic, or deep pelvic regions. Bladder: Contours are smooth. Reproductive Organs: No abnormal masses or calcifications seen. Inguinal: The inguinal region is unremarkable without evidence of adenopathy. Bony Structures: Diffuse prominent osteopenia with multiple previous kyphoplasty is involving the cesar mbar spine. The osteopenia is most likely related to patient's history of multiple myeloma. CONCLUSION: 1. Moderate bilateral pleural effusions. 2. Very small amount of ascites adjacent to the liver and deep in the pelvis. Insufficient for parac entesis. 3. Anasarca. 4. Diffuse osteopenia with lucencies throughout the bony structures consistent with a patient with a history of multiple myeloma. Evidence of previous kyphoplasty' s. Electronically signed by: Fidencio Card MD 03/17/2018 5:34 PM EDT
[2018-03-17] MEDS ORDERED: Sodium Chlor 0.9% Inj 250 ML IV.SIG SCH ×2 (18:00→19:00)
[2018-03-17] MEDS ORDERED: Promethazine 25 MG Supp RECTAL PRN (18:22)
[2018-03-17] MEDS ORDERED: Acetaminophen 325 MG Tablet PO PRN ×2 (18:22→18:30)
[2018-03-17] MEDS ORDERED: Zolpidem Tartrate 5 MG Tablet PO PRN (18:29)
[2018-03-17] MEDS ORDERED: Naloxone Inj 0.4 MG/ML Vial IV.PUSH PRN (18:30)
[2018-03-17] MEDS ORDERED: Sod Chloride 0.9% Inj 1,000 ML IV.CONT SCH (18:30)
[2018-03-17] MEDS ORDERED: LORazepam 0.5 MG Tablet PO PRN (18:31)
--- NOTE | 2018-03-17 18:58 | P.HPIM ---
History of Present Illness Service: [facility] Primary Care Physician: No Primary Care Physician Chief Complaint: Nausea vomiting diarrhea History of Present Illness: 72-year-old female with a history of multiple myeloma, nephropathy who was sent to the emergency room by her child care education coordinator, Dr. Shields after concerns of abnormal lab results with low potassium hypotension due to patient symptoms of 1 week history of on and off nausea vomiting and diarrhea. Patient has also seen black stools and denies any associated abdominal pain with the symptoms. She has had poor appetite for the past week and has had some mild chills and fevers. She reports traveling to [facility] about 2 weeks ago and denies eating anything unusual during the trip. She denies drinking well water. She has been on antibiotics for unknown reason recently. Her baseline is bedbound with daughters assisting in transfers to a wheelchair. She has seen Dr. Arvizu in the past for her multiple myeloma. She denies any associated chest pain or shortness of breath. She has no other pain or any concerns at this time. She has not had any symptoms of dysuria. Inpatient Certification: I certify that the inpatient services were ordered in accordance with Medicare regulations governing the order. This includes certification that hospital inpatient services are reasonable and necessary and in the case of services not specified as inpatient-only under 42 CFR 419.22(n), that they are appropriately provided as inpatient services in accordance to with the 2-midnight benchmark under 43 CFR 412.3(e) Estimated Total Length of Stay (Days): 3 Plans for Post Hospital Care: Not yet determined Review of Systems All other systems reviewed negative except as stated in HPI [facility] - History History Provided By: Patient, Family Member, Medical Record - Medical History Medical History: Medical History (Last Updated 03/17/18 @ 18:34 by Bernadette Krishna MD) Cardiac amyloidosis Hypercholesteremia 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 Multiple myeloma Nephrotic range proteinuria - Surgical History Surgical History: Surgical History (Last Reviewed 03/17/18 @ 18:42 by Bernadette Krishna MD) History of hysterectomy Port-A-Cath in place - Family History Family History: Family History (Last Updated 03/17/18 @ 18:35 by Bernadette Krishna MD) Father Family history of diabetes mellitus Father Family history of hypertension Other No pertinent family history - Social History I have reviewed the patient's Social History: Yes - Tobacco History Second Hand Smoke Exposure: No Smoking Status: Never smoker - Alcohol History How Often Do You Have a Drink Containing Alcohol: Never - Substance Use History Substance History: No History of Abuse - Travel History Recent Travel in the [place] Within the Last 8 Weeks: No Recent Travel Out of the Country Within the Last 8 Weeks: No - Immunization History Tetanus Immunization: Unsure Medications and Allergies Active Medications: Active Medications Acetaminophen (Tylenol) 650 mg PO Q4H PRN PRN Reason: Temp > 100.4 Acetaminophen (Tylenol) 650 mg PO Q6HR PRN PRN Reason: PAIN SCALE 1 TO 2 Hydrocodone Bitart/Acetaminophen ([place] 5/325) 1 tab PO Q4H PRN PRN Reason: PAIN SCALE 3 TO 5 Hydrocodone Bitart/Acetaminophen ([place] 7.5/325) 1 tab PO Q4H PRN PRN Reason: PAIN SCALE 6 TO 10 Sodium Chloride (Ns Inj) 250 mls @ 15 mls/hr IV.SIG ONCE KARLENE Stop: 03/18/18 10:39 Sodium Chloride (Ns Inj) 250 mls @ 15 mls/hr IV.SIG ONCE KARLENE Stop: 03/18/18 11:39 Sodium Chloride (Ns Inj) 1,000 mls @ 50 mls/hr IV.CONT .Q20H KARLENE Lorazepam (Ativan) 0.5 mg PO Q8H PRN PRN Reason: ANXIETY Naloxone HCl (Narcan Inj) 0.4 mg IV.PUSH UNSCH PRN PRN Reason: SEE LABEL COMMENTS Ondansetron HCl (Zofran Odt) 4 mg PO Q6H PRN PRN Reason: NAUSEA OR VOMITING Ondansetron HCl (Zofran Inj) 4 mg IV.PUSH Q6H PRN PRN Reason: NAUSEA OR VOMITING Pantoprazole Sodium (Protonix) 40 mg PO DAILY KARLENE Promethazine HCl (Phenergan) 25 mg PO Q6H PRN PRN Reason: NAUSEA OR VOMITING Promethazine HCl (Phenergan Supp) 25 mg RECTAL Q6H PRN PRN Reason: NAUSEA OR VOMITING Sodium Chloride (Ns Flush) 2 ml IV.FLUSH PRN PRN PRN Reason: FLUSH AFTER USING IV ACCESS Zolpidem Tartrate (Ambien) 5 mg PO HS PRN PRN Reason: Insomnia Allergies Allergy/AdvReac Type Severity Reaction Status Date / Time Penicillins Allergy Intermediate Hives Verified 12/16/17 15:21 Home Medications Medication Instructions Recorded Confirmed Type furosemide [Lasix] 20 mg PO DAILY 11/23/17 03/17/18 History ondansetron [Zofran ODT] 4 mg PO Q6-8H PRN 11/23/17 03/17/18 History hydrocodone-acetaminophen [[place]] 1 - 2 tab PO Q4H PRN 03/17/18 03/17/18 History lorazepam [Ativan] 0.5 - 1 mg PO Q4HR PRN 03/17/18 03/17/18 History sennosides 8.6 mg PO BID PRN 03/17/18 03/17/18 History sulfamethoxazole-trimethoprim 1 tab PO Q12H 03/17/18 03/17/18 History [Bactrim DS] zolpidem [Ambien] 5 mg PO HS PRN 03/17/18 03/17/18 History Exam Vital signs: Vital Signs 03/17/18 13:44 03/17/18 15:24 03/17/18 15:52 Temperature 98.0 F Pulse Rate 100 H 88 66 Respiratory Rate 16 20 Blood Pressure 78/44 L 84/39 L 85/49 L Pulse Oximetry 99 03/17/18 16:45 03/17/18 18:00 Temperature Pulse Rate 53 L 82 Respiratory Rate 16 16 Blood Pressure 77/52 L 84/51 L Pulse Oximetry 100 98 Intake & Output 03/16/18 03/17/18 03/17/18 18:59 06:59 18:59 Intake Total 1500 / 1500 Balance 1500 / 1500 Weight 40.823 kg Intake: IV 1500 / 1500 NS Inj 1,000 ML @ Wide Open IV. 1000 / 1000 SIG BOLUS ONE Rx#:[id number] NS Inj 500 ML @ Wide Open IV. 500 / 500 SIG BOLUS ONE Rx#:[id number] Narrative: GENERAL: Thin frail female lying in bed in no acute distress SKIN: Warm and dry. HEAD: Atraumatic. Normocephalic. EYES: Pupils equal and round. No scleral icterus. No injection or drainage. ENT: No nasal bleeding or discharge. Mucous membranes pink and moist. NECK: Trachea midline. No JVD. CARDIOVASCULAR: Regular rate and rhythm. RESPIRATORY: No accessory muscle use. Clear to auscultation. Breath sounds equal bilaterally. GASTROINTESTINAL: Abdomen soft, non-tender, nondistended. Overall normoactive bowel sounds MUSCULOSKELETAL: Extremities without clubbing, cyanosis, 1+ edema NEUROLOGICAL: Awake and alert to person place and time. No obvious cranial nerve deficits. Normal speech. Generalized weakness bilateral upper extremity lower extremities PSYCHIATRIC: Appropriate mood and affect; Results - Labs CBC & Chem 7: 03/17/18 16:38 03/17/18 15:30 Labs: Short CBC 03/17/18 Range/Units 16:38 WBC 2.1 L (4.0-11.0) th/mm3 Hgb 6.3 L* (11.6-15.3) gm/dL Hct 19.0 L* (35.0-46.0) % Plt Count 27 L D (150-450) th/mm3 BMP 03/17/18 15:30 Sodium 133 L Potassium 3.6 Chloride 100 Carbon Dioxide 17.7 L BUN 55 H Creatinine 7.89 H Calcium 6.8 L* Liver Function 03/17/18 Range/Units 15:30 Total Bilirubin 0.2 (0.2-1.0) mg/dL AST 63 H (15-37) U/L ALT 21 (10-53) U/L Alkaline Phosphatase 47 (45-117) U/L Albumin 1.0 L (3.4-5.0) g/dL - Imaging Impressions Abdomen/Pelvis CT 03/17/18 15:27 CONCLUSION: 1. Moderate bilateral pleural effusions. 2. Very small amount of ascites adjacent to the liver and deep in the pelvis. Insufficient for paracentesis. 3. Anasarca. 4. Diffuse osteopenia with lucencies throughout the bony structures consistent with a patient with a history of multiple myeloma. Evidence of previous kyphoplasty' s. Caprini VTE Risk Assessment Caprini VTE Risk Assessment: Moderate/High Risk (score >= 2) VTE Pharmacological Exception Reason: Thrombocytopenia (<50) VTE Mechanical Exception: Severe LE edema Caprini Risk Assessment Model: Point Value = 1 Point Value = 2 Point Value = 3 Point Value = 5 Age 41-60 Minor surgery BMI > 25 kg/m2 Swollen legs Varicose veins or History of unexplained or recurrent spontaneous Oral contraceptives or hormone replacement Sepsis (< 1 month) Serious lung disease, including pneumonia (< 1 month) Abnormal pulmonary function Acute myocardial infarction Congestive heart failure (< 1 month) History of inflammatory bowel disease Medical patient at bed rest Age 61-74 Arthroscopic surgery Major open surgery (> 45 min) Laparoscopic surgery (> 45 min) Malignancy Confined to bed (> 72 hours) Immobilizing plaster cast Central venous access Age >= 75 History of VTE Family history of VTE Factor V Leiden Prothrombin [id number] Lupus anticoagulant Anticardiolipin antibodies Elevated serum homocysteine Heparin-induced thrombocytopenia Other congenital or acquired thrombophilia Stroke (< 1 month) Elective arthroplasty Hip, pelvis, or leg fracture Acute spinal cord injury (< 1 month) Prophylaxis Regimen: Total Risk Factor Score Risk Level Prophylaxis Regimen 0-1 Low Early ambulation 2 Moderate Order ONE of the following: *Sequential Compression Device (SCD) *Heparin 5000 units SQ BID 3-4 Higher Order ONE of the following medications: *Heparin 5000 units SQ TID *Enoxaparin/Lovenox 40 mg SQ daily (WT < 150 kg, CrCl > 30 mL/min) *Enoxaparin/Lovenox 30 mg SQ daily (WT < 150 kg, CrCl > 10-29 mL/min) *Enoxaparin/Lovenox 30 mg SQ BID (WT < 150 kg, CrCl > 30 mL/min) AND/OR *Sequential Compression Device (SCD) 5 or more Highest Order ONE of the following medications: *Heparin 5000 units SQ TID (Preferred with Epidurals) *Enoxaparin/Lovenox 40 mg SQ daily (WT < 150 kg, CrCl > 30 mL/min) *Enoxaparin/Lovenox 30 mg SQ daily (WT < 150 kg, CrCl > 10-29 mL/min) *Enoxaparin/Lovenox 30 mg SQ BID (WT < 150 kg, CrCl > 30 mL/min) AND *Sequential Compression Device (SCD) Assessment and Plan - Plan 72-year-old female with a history of multiple myeloma and neuropathy presents with 1. Acute renal failure superimposed on chronic kidney disease stage IV -this is likely due to her recent gastroenteritis symptoms and hypovolemiacreatinine elevated at 7.89 with previous of 2.58 on 01/01- IV fluid hydration supportive care. Consult Dr. Shields, nephrology for further recommendations. 2. Nausea vomiting diarrhea with likely gastroenteritis-IV fluid hydration supportive care. Check C. difficile as patient has been on recent antibiotics. Initiate Lactinex and anti-emetics. 3. Multiple myeloma with pancytopenia-transfuse 2 units of packed red blood cell. Monitor platelets and may need platelet infusion if continues to drop. 4. Suspect GI bleed with black tarry stools-initiate PPI, transfuse 2 units of packed red blood cell. High risk for endoscopy due to multiple myeloma and pancytopenia. 5. Severe malnutrition-dietitian consult and Nepro with meals. 6. DVT prophylaxis-anticoagulation contraindicated due to thrombocytopenia. Code Status: DNR status Discussed Condition With: Daughters at bedside
[2018-03-17 19:27] LABS: Bacteria,Urine Occasional /hpf; Bilirubin,Urine Negative (Negative); Clarity,Urine Cloudy (Clear); Color,Urine Yellow (Yellw/Straw); Glucose,Urine (UA) Negative (Negative); Leukocyte Esterase,Urine Small (Negative); Nitrite,Urine Negative (Negative); Specific Gravity,Urine 1.022 (1.002-1.035)
[2018-03-17] MEDS: Ciprofloxacin 200 MG/100 ML 200 MG/100 ML PIGGYBACK IV.SIG SCH (23:10)
[2018-03-17] MEDS ORDERED: Famotidine 20 MG Tablet PO SCH (23:35)
[2018-03-18 04:09] VITALS: TEMP 97.8
[2018-03-18 05:46] VITALS: O2SAT 99
--- NOTE | 2018-03-18 07:50 | P.CON ---
History of Present Illness Service: Hematology/oncology. Consult date: 03/18/18 Requesting Physician: Bernadette Krishna Reason for Consult: End-stage multiple myeloma. Primary Care Provider: No Primary Care Physician Chief Complaint: Weakness, decreased oral intake, diarrhea. History of Present Illness: Ms. Hoff is a 72-year-old female well-known to me from my outpatient practice. She has end-stage myeloma which is been heavily pretreated. She has carried this diagnosis for over 10 years, she is status post stem cell transplant in 2007 or 2008. Her disease has more recently progressed on various lines of treatment including. Her ECOG performance status had been declining and the patient has for the past 5 or 6 weeks been on home hospice. She had been declining rather precipitously over the past several weeks, she was seen by her picker machine operator yesterday. She was found to have multiple biochemical derangements including hypokalemia, worsening renal function and was noted to be anemic. She was referred to the emergency department for hydration and supportive transfusions. Overnight the patient has received hydration and transfusions. This morning she is asleep in bed almost comatose and is nonresponsive. Per the nursing staff she received Benadryl as pre-medication for her transfusion. The patient's daughter is at bedside, the patient's daughter indicates that the patient's family is on board with end of life comfort care. The patient's daughter conveys her mother's wishes that she be taken home with hospice. The patient has told her children and family that she "does not want to in the hospital or at a hospice facility ". 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 Multiple myeloma Nephrotic range proteinuria - Surgical History Surgical History: Surgical History (Last Reviewed 03/18/18 @ 07:45 by Neo Arvizu MD) History of hysterectomy Port-A-Cath in place - Family History Family History: Family History (Last Reviewed 03/18/18 @ 07:45 by Neo Arvizu MD) Father Family history of diabetes mellitus Father Family history of hypertension Other No pertinent family history - Social History I have reviewed the patient's Social History: Yes - Tobacco History Second Hand Smoke Exposure: No Smoking Status: Never smoker - Alcohol History How Often Do You Have a Drink Containing Alcohol: Never - Substance Use History Substance History: No History of Abuse - Travel History Recent Travel in the [place] Within the Last 8 Weeks: No Recent Travel Out of the Country Within the Last 8 Weeks: No - Immunization History Tetanus Immunization: Unsure Hx Influenza Vaccine This Season: No Medications and Allergies Active Medications: Active Medications Acetaminophen (Tylenol) 650 mg PO Q4H PRN PRN Reason: Temp > 100.4 Acetaminophen (Tylenol) 650 mg PO Q6HR PRN PRN Reason: PAIN SCALE 1 TO 2 Hydrocodone Bitart/Acetaminophen ([place] 5/325) 1 tab PO Q4H PRN PRN Reason: PAIN SCALE 3 TO 5 Last Admin: 03/18/18 01:20 Dose: 1 tab Hydrocodone Bitart/Acetaminophen ([place] 7.5/325) 1 tab PO Q4H PRN PRN Reason: PAIN SCALE 6 TO 10 Sodium Chloride (Ns Inj) 250 mls @ 15 mls/hr IV.SIG ONCE KARLENE Stop: 03/18/18 10:39 Last Infusion: 03/17/18 23:30 Dose: Infused Sodium Chloride (Ns Inj) 250 mls @ 15 mls/hr IV.SIG ONCE KARLENE Stop: 03/18/18 11:39 Last Admin: 03/18/18 00:47 Dose: 15 mls/hr Sodium Chloride (Ns Inj) 1,000 mls @ 50 mls/hr IV.CONT .Q20H [facility] Last Admin: 03/17/18 19:49 Dose: 50 mls/hr Ciprofloxacin/Dextrose (Cipro 200 Mg/100 Ml Inj) 200 mg in 100 mls @ 100 mls/ hr IV.SIG Q12H [facility] Last Infusion: 03/18/18 00:33 Dose: Infused Lorazepam (Ativan) 0.5 mg PO Q8H PRN PRN Reason: ANXIETY Naloxone HCl (Narcan Inj) 0.4 mg IV.PUSH UNSCH PRN PRN Reason: SEE LABEL COMMENTS Ondansetron HCl (Zofran Odt) 4 mg PO Q6H PRN PRN Reason: NAUSEA OR VOMITING Ondansetron HCl (Zofran Inj) 4 mg IV.PUSH Q6H PRN PRN Reason: NAUSEA OR VOMITING Pantoprazole Sodium (Protonix) 40 mg PO DAILY KARLENE Last Admin: 03/17/18 20:49 Dose: 40 mg Promethazine HCl (Phenergan) 25 mg PO Q6H PRN PRN Reason: NAUSEA OR VOMITING Promethazine HCl (Phenergan Supp) 25 mg RECTAL Q6H PRN PRN Reason: NAUSEA OR VOMITING Sodium Chloride (Ns Flush) 2 ml IV.FLUSH PRN PRN PRN Reason: FLUSH AFTER USING IV ACCESS Zolpidem Tartrate (Ambien) 5 mg PO HS PRN PRN Reason: Insomnia Allergies Allergy/AdvReac Type Severity Reaction Status Date / Time Penicillins Allergy Intermediate Hives Verified 12/16/17 15:21 Home Medications Medication Instructions Recorded Confirmed Type furosemide [Lasix] 20 mg PO DAILY 11/23/17 03/17/18 History ondansetron [Zofran ODT] 4 mg PO Q6-8H PRN 11/23/17 03/17/18 History hydrocodone-acetaminophen [[place]] 1 - 2 tab PO Q4H PRN 03/17/18 03/17/18 History lorazepam [Ativan] 0.5 - 1 mg PO Q4HR PRN 03/17/18 03/17/18 History sennosides 8.6 mg PO BID PRN 03/17/18 03/17/18 History sulfamethoxazole-trimethoprim 1 tab PO Q12H 03/17/18 03/17/18 History [Bactrim DS] zolpidem [Ambien] 5 mg PO HS PRN 03/17/18 03/17/18 History Physical Exam Vital signs: Vital Signs 03/17/18 13:44 03/17/18 15:24 03/17/18 15:52 Temperature 98.0 F Pulse Rate 100 H 88 66 Respiratory Rate 16 20 Blood Pressure 78/44 L 84/39 L 85/49 L Pulse Oximetry 99 03/17/18 16:45 03/17/18 18:00 03/17/18 19:39 Temperature Pulse Rate 53 L 82 65 Respiratory Rate 16 16 Blood Pressure 77/52 L 84/51 L 95/54 L Pulse Oximetry 100 98 100 03/17/18 21:41 03/17/18 22:37 03/17/18 23:10 Temperature 97.5 F L 97.5 F L 97.4 F L Pulse Rate 89 94 H 98 H Respiratory Rate 16 16 18 Blood Pressure 79/57 L 82/60 L 79/55 L Pulse Oximetry 95 95 03/18/18 00:51 03/18/18 01:11 03/18/18 01:50 Temperature 97.6 F 97.6 F Pulse Rate 96 H 107 H Respiratory Rate 18 18 Blood Pressure 87/57 L 80/56 L Pulse Oximetry 94 L 03/18/18 04:07 03/18/18 05:45 Temperature 97.8 F Pulse Rate 89 105 H Respiratory Rate 20 20 Blood Pressure 83/59 L 98/64 L Pulse Oximetry 96 99 Intake & Output 03/17/18 03/18/18 03/18/18 18:59 06:59 18:59 Intake Total 1500 / 1500 836 / 836 400 / 400 Balance 1500 / 1500 836 / 836 400 / 400 Weight 40.823 kg 40.5 kg Intake: IV 1500 / 1500 125 / 125 Cipro 200 MG/100 ML Inj 200 mg 100 / 100 In 100 ml @ 100 mls/hr IV.SIG Q12H KARLENE Rx#:[id number] NS Inj 1,000 ML @ Wide Open IV. 1000 / 1000 SIG BOLUS ONE Rx#:[id number] NS Inj 250 ML @ 15 mls/hr IV. 25 / 25 SIG ONCE KARLENE Rx#:[id number] NS Inj 500 ML @ Wide Open IV. 500 / 500 SIG BOLUS ONE Rx#:[id number] Intake (Blood Product) Amt 711 / 711 400 / 400 Plt Pheresis S Leukoreduced 311 / 311 Unit [id number] Rbc As-3 Leukoreduced Unit 0 / 0 400 / 400 [id number] Rbc As-3 Leukoreduced Unit 400 / 400 [id number] Other: # Voids 1 Date of Last Bowel Movement 03/17/18 Weight On Admission 40.823 kg Narrative: Elderly lady, cachectic appearing, laying in bed, nonresponsive. Appears comfortable. Has lost a significant amount of weight since she was last seen. She appears to be terminally ill. A full physical examination was not performed because the patient was resting comfortably and I did not wish to disturb her. - Constitutional thin, chronically ill appearing Assessment and Plan - Plan Ms. Hoff is a 72-year-old female, she is terminally ill with end-stage multiple myeloma. This is a diagnosis she is carried for the past 10 years. She has been heavily pretreated with multiple combinations of systemic therapeutic agents as well as a stem cell transplant. I believe she has been treated with each and every approved class of medication for multiple myeloma. She has been on hospice for the past 6 weeks or so and had been doing well with hospice, she had been content with their home services. The patient had been following up for some reason with her picker machine operator as well, she was advised to come into the emergency department due to metabolic derangements and dehydration as well as anemia. Her metabolic derangements and cytopenias can be easily attributed to progressive multiple myeloma and the terminal nature of her disease. The patient and her family understand that she is actively dying. I suspect they were somewhat overwhelmed with the rapidity of her clinical decline. I talked to the patient's daughter in detail, she is conveyed to me that the family understands that the patient is dying. She wanted to bring her mother in for hydration and some supportive care. Recommendations: 1. Multiple myeloma: Her disease is end-stage, she is not a candidate for additional therapeutic interventions. I would advise comfort oriented care. I have requested the patient be reevaluated by hospice so that she may be transitioned to home hospice for end-of-life care and comfort care. The patient desired to be at home, she has told her family that she did not wish to be in a care facility or in the hospital at the time of her . I do not have additional therapeutic interventions to offer.
[2018-03-18 09:15] VITALS: BP 81/54; RESP 16
[2018-03-18] MEDS: Ciprofloxacin 200 MG/100 ML 200 MG/100 ML PIGGYBACK IV.SIG SCH (09:24)
[2018-03-18 09:48] LABS: Baso % (Auto) 0.2 % (0.0-2.0); Eos % (Auto) 0.5 % (0.0-4.0); Hematocrit 30.6 % (35.0-46.0); Hemoglobin 10.9 gm/dL (11.6-15.3); Lymph # (Auto) 2.2 th/mm3 (1.0-4.8); Lymph % (Auto) 54.9 % (9.0-44.0); Mean Corpuscular HGB Conc 35.8 % (32.0-36.0); Mean Corpuscular Hemoglobin 31.4 pg (27.0-34.0); Mean Corpuscular Volume 87.9 fL (80.0-100.0); Mono # (Auto) 0.4 th/mm3 (0.0-0.9); Neut # (Auto) 1.4 th/mm3 (1.8-7.7); Neut % (Auto) 34.4 % (16.0-70.0); Platelet Count 142 th/mm3 (150-450); Red Blood Count 3.48 mil/mm3 (4.00-5.30); Red Cell Distribution Width 16.1 % (11.6-17.2); White Blood Count 3.9 th/mm3 (4.0-11.0)
--- NOTE | 2018-03-18 09:57 | P.CONNP ---
<BarbDee - Last Filed: 03/18/18 09:44> History of Present Illness Service: Nephrology Consult date: 03/18/18 Requesting Physician: Bernadette Krishna Reason for Consult: Acute kidney injury Primary Care Provider: No Primary Care Physician Chief Complaint: Weakness, decreased oral intake, diarrhea. History of Present Illness: Patient is a 72 year old female with a past medical history of multiple myeloma and CKD. Presented to emergency room with with hypotension and weakness. Seen in Dr. Shields office with worsening renal function, hypotension, anemia, and lethargy. Family reported that over the last two weeks patient has had a poor appetite with nausea and vomiting. They have been receiving services from Hospice but per family was for services only. Discussed at length at office about comfort care vs going to the hospital. They decided to seek further care. Patient this morning is very lethargic and difficult to arouse family at bedside. Has been seen by hematology this morning. With further decline family has now decided to bring her home and seek comfort care only. 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 Multiple myeloma Nephrotic range proteinuria - Surgical History Surgical History: Surgical History (Last Reviewed 03/18/18 @ 07:45 by Neo Arvizu MD) History of hysterectomy Port-A-Cath in place - Family History Family History: Family History (Last Reviewed 03/18/18 @ 07:45 by Neo Arvizu MD) Father Family history of diabetes mellitus Father Family history of hypertension Other No pertinent family history - Tobacco History Second Hand Smoke Exposure: No Smoking Status: Never smoker - Alcohol History How Often Do You Have a Drink Containing Alcohol: Never - Substance Use History Substance History: No History of Abuse - Travel History Recent Travel in the [place] Within the Last 8 Weeks: No Recent Travel Out of the Country Within the Last 8 Weeks: No - Immunization History Tetanus Immunization: Unsure Hx Influenza Vaccine This Season: No Medications and Allergies Allergies Allergy/AdvReac Type Severity Reaction Status Date / Time Penicillins Allergy Intermediate Hives Verified 12/16/17 15:21 Home Medications Medication Instructions Recorded Confirmed Type furosemide [Lasix] 20 mg PO DAILY 11/23/17 03/17/18 History ondansetron [Zofran ODT] 4 mg PO Q6-8H PRN 11/23/17 03/17/18 History hydrocodone-acetaminophen [[place]] 1 - 2 tab PO Q4H PRN 03/17/18 03/17/18 History lorazepam [Ativan] 0.5 - 1 mg PO Q4HR PRN 03/17/18 03/17/18 History sennosides 8.6 mg PO BID PRN 03/17/18 03/17/18 History sulfamethoxazole-trimethoprim 1 tab PO Q12H 03/17/18 03/17/18 History [Bactrim DS] zolpidem [Ambien] 5 mg PO HS PRN 03/17/18 03/17/18 History Active Medications: Active Medications Acetaminophen (Tylenol) 650 mg PO Q4H PRN PRN Reason: Temp > 100.4 Acetaminophen (Tylenol) 650 mg PO Q6HR PRN PRN Reason: PAIN SCALE 1 TO 2 Hydrocodone Bitart/Acetaminophen ([place] 5/325) 1 tab PO Q4H PRN PRN Reason: PAIN SCALE 3 TO 5 Last Admin: 03/18/18 01:20 Dose: 1 tab Hydrocodone Bitart/Acetaminophen ([place] 7.5/325) 1 tab PO Q4H PRN PRN Reason: PAIN SCALE 6 TO 10 Sodium Chloride (Ns Inj) 250 mls @ 15 mls/hr IV.SIG ONCE KARLENE Stop: 03/18/18 10:39 Last Infusion: 03/17/18 23:30 Dose: Infused Sodium Chloride (Ns Inj) 250 mls @ 15 mls/hr IV.SIG ONCE KARLENE Stop: 03/18/18 11:39 Last Admin: 03/18/18 00:47 Dose: 15 mls/hr Sodium Chloride (Ns Inj) 1,000 mls @ 50 mls/hr IV.CONT .Q20H [facility] Last Admin: 03/17/18 19:49 Dose: 50 mls/hr Ciprofloxacin/Dextrose (Cipro 200 Mg/100 Ml Inj) 200 mg in 100 mls @ 100 mls/ hr IV.SIG Q12H [facility] Last Admin: 03/18/18 09:24 Dose: 100 mls/hr Lorazepam (Ativan) 0.5 mg PO Q8H PRN PRN Reason: ANXIETY Naloxone HCl (Narcan Inj) 0.4 mg IV.PUSH UNSCH PRN PRN Reason: SEE LABEL COMMENTS Ondansetron HCl (Zofran Odt) 4 mg PO Q6H PRN PRN Reason: NAUSEA OR VOMITING Ondansetron HCl (Zofran Inj) 4 mg IV.PUSH Q6H PRN PRN Reason: NAUSEA OR VOMITING Pantoprazole Sodium (Protonix) 40 mg PO DAILY K[facility]LENE Last Admin: 03/18/18 09:00 Dose: Not Given Promethazine HCl (Phenergan) 25 mg PO Q6H PRN PRN Reason: NAUSEA OR VOMITING Promethazine HCl (Phenergan Supp) 25 mg RECTAL Q6H PRN PRN Reason: NAUSEA OR VOMITING Sodium Chloride (Ns Flush) 2 ml IV.FLUSH PRN PRN PRN Reason: FLUSH AFTER USING IV ACCESS Zolpidem Tartrate (Ambien) 5 mg PO HS PRN PRN Reason: Insomnia Exam Vital signs: Vital Signs 03/17/18 13:44 03/17/18 15:24 03/17/18 15:52 Temperature 98.0 F Pulse Rate 100 H 88 66 Respiratory Rate 16 20 Blood Pressure 78/44 L 84/39 L 85/49 L Pulse Oximetry 99 03/17/18 16:45 03/17/18 18:00 03/17/18 19:39 Temperature Pulse Rate 53 L 82 65 Respiratory Rate 16 16 Blood Pressure 77/52 L 84/51 L 95/54 L Pulse Oximetry 100 98 100 03/17/18 21:41 03/17/18 22:37 03/17/18 23:10 Temperature 97.5 F L 97.5 F L 97.4 F L Pulse Rate 89 94 H 98 H Respiratory Rate 16 16 18 Blood Pressure 79/57 L 82/60 L 79/55 L Pulse Oximetry 95 95 03/18/18 00:51 03/18/18 01:11 03/18/18 01:50 Temperature 97.6 F 97.6 F Pulse Rate 96 H 107 H Respiratory Rate 18 18 Blood Pressure 87/57 L 80/56 L Pulse Oximetry 94 L 03/18/18 04:07 03/18/18 05:45 03/18/18 08:17 Temperature 97.8 F 97.8 F Pulse Rate 89 105 H 88 Respiratory Rate 20 20 16 Blood Pressure 83/59 L 98/64 L 81/54 L Pulse Oximetry 96 99 99 Intake & Output 03/17/18 03/18/18 03/18/18 18:59 06:59 18:59 Intake Total 1500 / 1500 836 / 836 400 / 400 Balance 1500 / 1500 836 / 836 400 / 400 Weight 40.823 kg 40.5 kg Intake: IV 1500 / 1500 125 / 125 Cipro 200 MG/100 ML Inj 200 mg 100 / 100 In 100 ml @ 100 mls/hr IV.SIG Q12H [facility] Rx#:[id number] NS Inj 1,000 ML @ Wide Open IV. 1000 / 1000 SIG BOLUS ONE Rx#:[id number] NS Inj 250 ML @ 15 mls/hr IV. 25 / 25 SIG ONCE KARLENE Rx#:[id number] NS Inj 500 ML @ Wide Open IV. 500 / 500 SIG BOLUS ONE Rx#:[id number] Intake (Blood Product) Amt 711 / 711 400 / 400 Plt Pheresis S Leukoreduced 311 / 311 Unit [id number] Rbc As-3 Leukoreduced Unit 0 / 0 400 / 400 [id number] Rbc As-3 Leukoreduced Unit 400 / 400 [id number] Other: # Voids 1 Date of Last Bowel Movement 03/17/18 Weight On Admission 40.823 kg Narrative: GENERAL: Lethargic SKIN: Warm and dry. Infusaport left chest wall. NECK: Supple, trachea midline. No JVD. CARDIOVASCULAR: Regular rate and rhythm without murmurs, gallops, or rubs. RESPIRATORY: Breath sounds diminished bilaterally. No accessory muscle use. GASTROINTESTINAL: Abdomen soft, non-tender, nondistended. MUSCULOSKELETAL: No cyanosis, or edema. BACK: Nontender without obvious deformity. No CVA tenderness. Results - Lab Results 03/17/18 16:38 03/17/18 15:30 Most recent lab results Calcium 6.8 mg/dL (8.5-10.1) L* 03/17/18 15:30 Magnesium 2.5 mg/dL (1.5-2.5) 03/17/18 15:30 Assessment and Plan - Assessment (1) Multiple myeloma Code(s): C90.00 - Multiple myeloma not having achieved remission Status: Acute (2) Acute on chronic renal insufficiency Code(s): N28.9 - Disorder of kidney and ureter, unspecified; N18.9 - Chronic kidney disease, unspecified Status: Acute (3) Anemia requiring transfusions Code(s): D64.9 - Anemia, unspecified Status: Acute (4) Thrombocytopenia Code(s): D69.6 - Thrombocytopenia, unspecified Status: Acute - Plan Acute on chronic kidney injury Creatinine at 7.89 and worsened from lab work from office. Receiving IVF, transfused 2 units of PRBC, and 1 unit of PLT Patient is very lethargic this morning difficult to arouse Family has decided to seek comfort care only, hospice at home. 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 Multiple myeloma Nephrotic range proteinuria - Surgical History Surgical History: Surgical History (Last Reviewed 03/18/18 @ 07:45 by Neo Arvizu MD) History of hysterectomy Port-A-Cath in place - Family History Family History: Family History (Last Reviewed 03/18/18 @ 07:45 by Neo Arvizu MD) Father Family history of diabetes mellitus Father Family history of hypertension Other No pertinent family history Medications and Allergies Active Medications: Active Medications Acetaminophen (Tylenol) 650 mg PO Q4H PRN PRN Reason: Temp > 100.4 Acetaminophen (Tylenol) 650 mg PO Q6HR PRN PRN Reason: PAIN SCALE 1 TO 2 Hydrocodone Bitart/Acetaminophen ([place] 5/325) 1 tab PO Q4H PRN PRN Reason: PAIN SCALE 3 TO 5 Last Admin: 03/18/18 01:20 Dose: 1 tab Hydrocodone Bitart/Acetaminophen ([place] 7.5/325) 1 tab PO Q4H PRN PRN Reason: PAIN SCALE 6 TO 10 Sodium Chloride (Ns Inj) 1,000 mls @ 50 mls/hr IV.CONT .Q20H [facility] Last Admin: 03/17/18 19:49 Dose: 50 mls/hr Ciprofloxacin/Dextrose (Cipro 200 Mg/100 Ml Inj) 200 mg in 100 mls @ 100 mls/ hr IV.SIG Q12H [facility] Last Infusion: 03/18/18 10:35 Dose: Infused Lorazepam (Ativan) 0.5 mg PO Q8H PRN PRN Reason: ANXIETY Naloxone HCl (Narcan Inj) 0.4 mg IV.PUSH UNSCH PRN PRN Reason: SEE LABEL COMMENTS Ondansetron HCl (Zofran Odt) 4 mg PO Q6H PRN PRN Reason: NAUSEA OR VOMITING Ondansetron HCl (Zofran Inj) 4 mg IV.PUSH Q6H PRN PRN Reason: NAUSEA OR VOMITING Pantoprazole Sodium (Protonix) 40 mg PO DAILY [facility] Last Admin: 03/18/18 09:00 Dose: Not Given Promethazine HCl (Phenergan) 25 mg PO Q6H PRN PRN Reason: NAUSEA OR VOMITING Promethazine HCl (Phenergan Supp) 25 mg RECTAL Q6H PRN PRN Reason: NAUSEA OR VOMITING Sodium Chloride (Ns Flush) 2 ml IV.FLUSH PRN PRN PRN Reason: FLUSH AFTER USING IV ACCESS Zolpidem Tartrate (Ambien) 5 mg PO HS PRN PRN Reason: Insomnia Exam Vital signs: Vital Signs 03/17/18 15:24 03/17/18 15:52 03/17/18 16:45 Temperature Pulse Rate 88 66 53 L Respiratory Rate 20 16 Blood Pressure 84/39 L 85/49 L 77/52 L Pulse Oximetry 99 100 03/17/18 18:00 03/17/18 19:39 03/17/18 21:41 Temperature 97.5 F L Pulse Rate 82 65 89 Respiratory Rate 16 16 Blood Pressure 84/51 L 95/54 L 79/57 L Pulse Oximetry 98 100 03/17/18 22:37 03/17/18 23:10 03/18/18 00:51 Temperature 97.5 F L 97.4 F L 97.6 F Pulse Rate 94 H 98 H 96 H Respiratory Rate 16 18 Blood Pressure 82/60 L 79/55 L 87/57 L Pulse Oximetry 95 95 03/18/18 01:11 03/18/18 01:50 03/18/18 04:07 Temperature 97.6 F 97.8 F Pulse Rate 107 H 89 Respiratory Rate 18 18 20 Blood Pressure 80/56 L 83/59 L Pulse Oximetry 94 L 96 03/18/18 05:45 03/18/18 08:17 Temperature 97.8 F Pulse Rate 105 H 88 Respiratory Rate 20 16 Blood Pressure 98/64 L 81/54 L Pulse Oximetry 99 99 Intake & Output 03/17/18 03/18/18 03/18/18 18:59 06:59 18:59 Intake Total 1500 / 1500 836 / 836 500 / 500 Balance 1500 / 1500 836 / 836 500 / 500 Weight 40.823 kg 40.5 kg Intake: IV 1500 / 1500 125 / 125 100 / 100 Cipro 200 MG/100 ML Inj 200 mg 100 / 100 100 / 100 In 100 ml @ 100 mls/hr IV.SIG Q12H [facility] Rx#:[id number] NS Inj 1,000 ML @ Wide Open IV. 1000 / 1000 SIG BOLUS ONE Rx#:[id number] NS Inj 250 ML @ 15 mls/hr IV. 25 / 25 SIG ONCE KARLENE Rx#:[id number] NS Inj 500 ML @ Wide Open IV. 500 / 500 SIG BOLUS ONE Rx#:[id number] Intake (Blood Product) Amt 711 / 711 400 / 400 Plt Pheresis S Leukoreduced 311 / 311 Unit [id number] Rbc As-3 Leukoreduced Unit 0 / 0 400 / 400 [id number] Rbc As-3 Leukoreduced Unit 400 / 400 [id number] Other: # Voids 1 Date of Last Bowel Movement 03/17/18 Weight On Admission 40.823 kg Results - Lab Results 03/18/18 09:27 03/17/18 15:30 Most recent lab results Calcium 6.8 mg/dL (8.5-10.1) L* 03/17/18 15:30 Magnesium 2.5 mg/dL (1.5-2.5) 03/17/18 15:30 Assessment and Plan - Assessment (1) Multiple myeloma Code(s): C90.00 - Multiple myeloma not having achieved remission Status: Acute (2) Acute on chronic renal insufficiency Code(s): N28.9 - Disorder of kidney and ureter, unspecified; N18.9 - Chronic kidney disease, unspecified Status: Acute (3) Anemia requiring transfusions Code(s): D64.9 - Anemia, unspecified Status: Acute (4) Thrombocytopenia Code(s): D69.6 - Thrombocytopenia, unspecified Status: Acute - Plan Patient seen and examine, agree with above. More lethargic, family decided to continue the Hospice and no aggressive treatment. D/W the daughters at bed side. I will sign off from Nephrology, please call again if needed.
--- NOTE | 2018-03-18 15:21 | P.PNIM ---
Subjective Interval history: Patient denies any chest pain or shortness of breath. Opting to go home with hospice. Physical Exam Vital signs: Vital Signs 03/17/18 15:24 03/17/18 15:52 03/17/18 16:45 Temperature Pulse Rate 88 66 53 L Respiratory Rate 20 16 Blood Pressure 84/39 L 85/49 L 77/52 L Pulse Oximetry 99 100 03/17/18 18:00 03/17/18 19:39 03/17/18 21:41 Temperature 97.5 F L Pulse Rate 82 65 89 Respiratory Rate 16 16 Blood Pressure 84/51 L 95/54 L 79/57 L Pulse Oximetry 98 100 03/17/18 22:37 03/17/18 23:10 03/18/18 00:51 Temperature 97.5 F L 97.4 F L 97.6 F Pulse Rate 94 H 98 H 96 H Respiratory Rate 16 18 Blood Pressure 82/60 L 79/55 L 87/57 L Pulse Oximetry 95 95 03/18/18 01:11 03/18/18 01:50 03/18/18 04:07 Temperature 97.6 F 97.8 F Pulse Rate 107 H 89 Respiratory Rate 18 18 20 Blood Pressure 80/56 L 83/59 L Pulse Oximetry 94 L 96 03/18/18 05:45 03/18/18 08:17 Temperature 97.8 F Pulse Rate 105 H 88 Respiratory Rate 20 16 Blood Pressure 98/64 L 81/54 L Pulse Oximetry 99 99 Intake & Output 03/17/18 03/18/18 03/18/18 18:59 06:59 18:59 Intake Total 1500 / 1500 836 / 836 500 / 500 Balance 1500 / 1500 836 / 836 500 / 500 Weight 40.823 kg 40.5 kg Intake: IV 1500 / 1500 125 / 125 100 / 100 Cipro 200 MG/100 ML Inj 200 mg 100 / 100 100 / 100 In 100 ml @ 100 mls/hr IV.SIG Q12H KARLENE Rx#:[id number] NS Inj 1,000 ML @ Wide Open IV. 1000 / 1000 SIG BOLUS ONE Rx#:[id number] NS Inj 250 ML @ 15 mls/hr IV. 25 / 25 SIG ONCE KARLENE Rx#:[id number] NS Inj 500 ML @ Wide Open IV. 500 / 500 SIG BOLUS ONE Rx#:[id number] Intake (Blood Product) Amt 711 / 711 400 / 400 Plt Pheresis S Leukoreduced 311 / 311 Unit [id number] Rbc As-3 Leukoreduced Unit 0 / 0 400 / 400 [id number] Rbc As-3 Leukoreduced Unit 400 / 400 [id number] Other: # Voids 1 Date of Last Bowel Movement 03/17/18 Weight On Admission 40.823 kg Narrative: GENERAL: Awake, lethargic however. Does answer questions appropriately. SKIN: Warm and dry. Infusaport left chest wall. NECK: Supple, trachea midline. No JVD. CARDIOVASCULAR: Regular rate and rhythm without murmurs, gallops, or rubs. RESPIRATORY: Breath sounds diminished bilaterally. No accessory muscle use. GASTROINTESTINAL: Abdomen soft, non-tender, nondistended. MUSCULOSKELETAL: No cyanosis, or edema. BACK: Nontender without obvious deformity. No CVA tenderness. Results - Labs CBC & Chem 7: 03/18/18 09:27 03/17/18 15:30 Laboratory Results - last 24 hr 03/17/18 03/17/18 03/17/18 15:30 16:38 16:50 WBC 2.1 L RBC 2.08 L Hgb 6.3 L* Hct 19.0 L* MCV 91.3 MCH 30.2 MCHC 33.1 RDW 19.9 H Plt Count 27 L D MPV 9.2 Prelim Diff (Auto) Slide review pending Neut % (Auto) 71.2 H Lymph % (Auto) 8.9 L [place] % (Auto) 17.8 H Eos % (Auto) 0.8 Baso % (Auto) 1.3 Neut # (Auto) 1.5 L Lymph # (Auto) 0.2 L [place] # (Auto) 0.4 Eos # (Auto) 0.0 Baso # (Auto) 0.0 WBC Differential Manual diff final Seg Neuts % (Manual) 58 Band Neuts % (Manual) 1 Lymphocytes % (Manual) 34 Monocytes % (Manual) 6 Basophils % (Manual) 1 Abs Neuts (Manual) 1.2 L Differential Comment . Platelet Estimate Low L Platelet Morphology Normal RBC Morphology Normal Sodium 133 L Potassium 3.6 Chloride 100 Carbon Dioxide 17.7 L Anion Gap 15 BUN 55 H Creatinine 7.89 H Estimated GFR 6 L Random Glucose 51 L Calcium 6.8 L* Prot Corrected Calcium 7.7 L Magnesium 2.5 Total Bilirubin 0.2 AST 63 H ALT 21 Alkaline Phosphatase 47 Total Protein 5.4 L D Albumin 1.0 L Lipase 454 H Urine Color Yellow Urine Clarity Cloudy H Urine pH 5.0 Ur Specific [place] 1.022 Urine Protein 500 or greater Urine Glucose (UA) Negative Urine Ketones Negative Urine Occult Blood Moderate H Urine Nitrate Negative Urine Bilirubin Negative Urine Urobilinogen Less than 2 Ur Leukocyte Esterase Small H Urine RBC 1 Urine WBC 55 H Urine Bacteria Occasional H Micro UA Comment Cath-culture ind Ur Microscopic Review Not Reportable Urine Culture Comments Cath-cult indicated Blood Type Antibody Screen MTS Gel Crossmatch Bld Prod Order Comment 03/17/18 03/17/18 03/18/18 18:00 18:40 09:27 WBC 3.9 L D RBC 3.48 L Hgb 10.9 L D Hct 30.6 L MCV 87.9 MCH 31.4 MCHC 35.8 RDW 16.1 D Plt Count 142 L D MPV 8.0 Prelim Diff (Auto) Neut % (Auto) 34.4 Lymph % (Auto) 54.9 H [place] % (Auto) 10.0 H Eos % (Auto) 0.5 Baso % (Auto) 0.2 Neut # (Auto) 1.4 L Lymph # (Auto) 2.2 [place] # (Auto) 0.4 Eos # (Auto) 0.0 Baso # (Auto) 0.0 WBC Differential . Seg Neuts % (Manual) Band Neuts % (Manual) Lymphocytes % (Manual) Monocytes % (Manual) Basophils % (Manual) Abs Neuts (Manual) Differential Comment Auto diff final Platelet Estimate Platelet Morphology RBC Morphology Sodium Potassium Chloride Carbon Dioxide Anion Gap BUN Creatinine Estimated GFR Random Glucose Calcium Prot Corrected Calcium Magnesium Total Bilirubin AST ALT Alkaline Phosphatase Total Protein Albumin Lipase Urine Color Urine Clarity Urine pH Ur Specific [place] Urine Protein Urine Glucose (UA) Urine Ketones Urine Occult Blood Urine Nitrate Urine Bilirubin Urine Urobilinogen Ur Leukocyte Esterase Urine RBC Urine WBC Urine Bacteria Micro UA Comment Ur Microscopic Review Urine Culture Comments Blood Type AB Positive Antibody Screen Negative MTS Gel Crossmatch See Detail See Detail Bld Prod Order Comment Microbiology 03/17/18 16:50 Catheterized Urine Urine Culture - Preliminary No growth in 24 hours - Imaging Impressions Abdomen/Pelvis CT 03/17/18 15:27 CONCLUSION: 1. Moderate bilateral pleural effusions. 2. Very small amount of ascites adjacent to the liver and deep in the pelvis. Insufficient for paracentesis. 3. Anasarca. 4. Diffuse osteopenia with lucencies throughout the bony structures consistent with a patient with a history of multiple myeloma. Evidence of previous kyphoplasty' s. Assessment and Plan - Plan 72-year-old female with a history of multiple myeloma and neuropathy presents with //Acute renal failure superimposed on chronic kidney disease stage IV -this is likely due to her recent gastroenteritis symptoms and hypovolemiacreatinine elevated at 7.89 with previous of 2.58 on 01/01- IV fluid hydration supportive care. Consult Dr. Shields, nephrology for further recommendations. = Patient is opted for home with hospice. Discussion with hospice/home health aide as well as patient and family. // Nausea vomiting diarrhea with likely gastroenteritis-IV fluid hydration supportive care. Check C. difficile as patient has been on recent antibiotics. Initiate Lactinex and anti-emetics. = Improved. //Multiple myeloma with pancytopenia-transfuse 2 units of packed red blood cell. Monitor platelets and may need platelet infusion if continues to drop. // Suspect GI bleed with black tarry stools-initiate PPI, transfuse 2 units of packed red blood cell. High risk for endoscopy due to multiple myeloma and pancytopenia. //Severe malnutrition-dietitian consult and Nepro with meals. //DVT prophylaxis-anticoagulation contraindicated due to thrombocytopenia. Discussed Condition With: Patient, hospice nurse, case management, patient family at bedside Discharge Planning: Discharge to hospice.
--- NOTE | 2018-03-18 17:54 | P.DIET ---
Nutritional Evaluation Type of nutrition evaluation: initial Nutrition consult regarding: Diet Evaluation Nutrition screening: MDC (Malnutrition) Subjective Subjective Comments: RD visited pt before pt d/c in late afternoon. Pts daughter in room during RD visit. Pt reported a poor appetite and ate minimal amounts of the meal trays provided. Pts daughter mentioned pt drank 1/2 of an Ensure while she was there. Objective - Diagnosis anemia, thrombocytopenia - Objective Body Mass Index: 17.4 % IBW: 89 (IBW = 100lb) Body Weight Used for Calculations: Actual Energy Needs - Lower Range (kCal/kg): 25 Energy Needs - Upper Range (kCal/kg): 30 Lower Limit kCal/kg (kCals): 1,013 Upper Limit kCal/kg (kCals): 1,315 Lower Limit Protein Factor (Grams per Kg): 1.0 Upper Limit Protein Factor (Grams per Kg): 1.1 Lower Protein Needs (Protein): 41 Upper Protein Needs (Protein): 45 Fluid Factor (ml/kg): 30 Estimated Fluid Needs (ml): 1,315 Dietitian Reviewed in Medical Record: Current diet, Curent medications, Intake & Output, Labs, Medical history Oral Diet Intake Amount: Poor <50% Speech Therapy Recommendations: No Objective Comments: PMH: cardiac amyloidosis, hypercholesteremia, light chain neuropathy d/t multiple myeloma, nephrotic range proteinuria Meds: lorazepam, zofran, protonix, pepcid labs: Cr 7.89, random glucose 51, Ca+ 6.8, protein corrected Ca+ 7.7 Assessment Assessment: Pt currently at nutritional risk r/t reported malnutrition. Pt currently drinking Ensure supplement brought in by daughter and does not want to consume any meals. Labs reviewed. Dietitian following. Recommendations: 1. Continue renal 2gNa diet 2. Monitor PO intake 3. Will assess pts nutritional needs for a PO supplement as appropriate 4. Dietitian following 5. Encourage PO intake Dietitian to Monitor: Lab values, Supplement acceptance, Intake & Output, Diet tolerance, Weight change, PO Intake, Medical course
[2018-03-18 21:03] VITALS: PULSE 86
--- NOTE | 2018-03-20 01:55 | ECG ---
Date Performed: 03/17/2018 Time Performed: 15:39:09 PTAGE: 72 years EKG: ATRIAL FIBRILLATION LOW QRS VOLTAGE ABNORMAL ECG PREVIOUS TRACING : 12/16/2017 16.55 Compared to previous tracing, previously felt to be Sinus rhythm DOCTOR: Gunnar Olea Interpretating Date/Time 03/20/2018 01:53:27
== END 2018-03-18 17:12 | disposition hospice, home (50) ==
LOC: NEPE 13:23 → NEDA 18:17 → HCIN 21:07
PROVIDERS: ADMIT Internal Medicine; ATTEND Internal Medicine